=== PATIENT | male | born 1965 | race Caucasian/White ===

== ENCOUNTER 2017-12-28 14:12 | Inpatient (IN) ==
[2017-12-28] MEDS ORDERED: Pantoprazole 80 MG in 0.9 % Sodium Chloride 50 ML IVPB ONE ×2 (14:14→17:54)
[2017-12-28] MEDS ORDERED: 0.9 % Sodium Chloride 1,000 ML IVC ONE ×2 (14:14→14:15)
[2017-12-28] MEDS ORDERED: Octreotide 50 MCG/ML SYRINGE IVP ONE (14:14)
[2017-12-28] MEDS ORDERED: Ondansetron 4 MG/2 ML VIAL IVP ONE (14:14)
--- NOTE | 2017-12-28 14:27 | Emergency Department Note ---
Disposition Clinical Impression: Upper GI bleed Anemia Qualifiers: Anemia type: unspecified type Qualified Code(s): D64.9 - Anemia, unspecified Disposition: Admitted As Inpatient Condition: Critical Time of Disposition: 15:58 GI Bleed HPI - General Chief complaint: ED GI Bleed Stated complaint: GI BLEED Time Seen by Provider: 12/28/17 14:14 Source: EMS Limitations: no limitations Nursing Notes Reviewed: Yes Vital Signs Reviewed: Yes - History of Present Illness HPI Narrative: 52-year-old male, history of CVA, on Pradaxa presents by EMS for upper GI bleed. Multiple episodes emesis in route, 250-300 mL of bright red blood. 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 Most history is obtained from nodding head, questioning patient, sign language, and from his mom who arrived at bedside shortly thereafter EMS dropped him off. Denies chest or abdominal pain, apparently he had been at home in no acute distress, and started having emesis, then hematemesis. The patient denies history of varices, hepatitis, liver disease. Pt Subjective Complaint: blood streaked emesis, other (hematemesis) Consistency: intermittent Severity: severe Improves with: eating Associated symptoms: Reports: nausea, vomiting. Denies: abdominal pain, shortness of breath - Related Data Previous Rx's Medication Instructions Recorded Dabigatran Etexilate Mesylate 150 mg PO BID #60 capsule 12/07/17 [Pradaxa] Allergies Allergy/AdvReac Type Severity Reaction Status Date / Time No Known Allergies Allergy Verified 10/19/17 11:22 All systems ED: reviewed and negative except as stated. Review of Systems: As Per HPI Constitutional: Denies: fever Eyes: Denies: eye pain ENT ED: Denies: ear pain Cardiovascular: Denies: chest pain, palpitations Respiratory: Denies: cough Gastrointestinal: Reports: as per HPI, nausea, vomiting, hematemesis. Denies: abdominal pain Genitourinary: Denies: urgency, dysuria Musculoskeletal: Denies: back pain Integumentary: Denies: rash Past Medical History - Past Medical History Attestation: Yes The following information was validated with the patient. Source: patient, old records reviewed, obtained from family, nursing notes reviewed Medical history: Reports: CVA, DVT Surgical history: Reports: cholecystectomy Psychiatric history: Reports: no psych history - Social History Smoking Status: Former smoker Smokeless Tobacco Status: No Alcohol use: Reports: none Drug use: Reports: none Physical Exam - General General appearance: alert, in distress (moderate) - Eye Eye exam: Present: other (conjunctival pallor) - ENT ENT exam: other (dried blodo in oropharynx) - Neck Neck exam: Present: normal inspection - Chest Chest inspection: Present: normal inspection - Respiratory Respiratory exam: Present: normal lung sounds bilaterally. Absent: respiratory distress - Cardiovascular Cardiovascular exam: Present: regular rate, normal rhythm - Abdominal Exam Abdominal exam: Present: soft. Absent: tenderness, distention, guarding - Expanded Lower Extremity Exam Foot/toe exam: Present: swelling (chronic venous stasis dermatitis and pressure ulcers), abrasion Course Course Narrative: Patient arrives in moderate distress with active hematemesis, smelling like a lower GI bleed as well, appears frail cachectic, baseline weakness and aphasia from previous CVA, covered in blood around his mouth, with large blood clots at bedside, and 600 mL estimated blood loss, with 300 mL in the bag from EMS, immediately large-bore access was obtained, patient was placed on the teletypesetter monitor and given oxygen, CBC BMP coagulation studies, 2 units of normal saline , typed and screened patient's blood pressure was initially given 120s over 70s , she was in no acute distress, is mom arrived and give more history this is his first episode he had no previous GI bleed. The general surgeon/endoscopist Dr. Braun was counseled immediately, and she stated that she would come to bedside to evaluate the patient. - Reevaluation(s) Reevaluation #1: The patient was evaluated at the bedside by the endoscopist, consent was obtained for blood transfusion, hemoglobin came back at 5.0, 4 units were ordered, blood was confirmed ready and available the patient was sent off to the OR with blood to meet the patient at the OR for transfusion, he is hemodynamically stable, protecting his airway and no acute distress, with a blood pressure 1:30 systolic prior to transfer to the operating room, at the general surgeon's request. He was also ordered a unit of platelets, and told the patient received 2 L of IV normal saline, octreotide, pantoprazole 80 mg IV bolus, Zofran, and was hemodynamically stable during his stay in the emergency department, but considered tenuous/serious condition given likely brisk upper GI bleed on Pradaxa. Time: 15:56 - Consultations Consultation #1: I spoke with Dr. Braun, she agrees with initial plan for resuscitationshe will be by to assess the patient at bedside. Vital Signs Temperature 97.8 F 12/28/17 14:14 Pulse Rate 84 12/28/17 14:14 Respiratory Rate 16 12/28/17 14:14 Blood Pressure 123/60 12/28/17 14:14 O2 Sat by Pulse Oximetry 98 12/28/17 14:14 Temperature 97.8 F 12/28/17 14:14 Pulse Rate 84 12/28/17 14:14 Respiratory Rate 16 12/28/17 15:52 Blood Pressure 120/76 12/28/17 15:52 O2 Sat by Pulse Oximetry 98 12/28/17 14:14 Oxygen Delivery Oxygen Delivery Room Air GI Bleed - Differential Diagnosis Likely: infectious diarrhea, esophageal varices, gastritis, Upper gastrointestinal hemorrhage, Lower gastrointestinal hemorrhage, coagulopathy - Medical Records Medical records reviewed: Yes I reviewed the patient's medical records. - Lab Data Lab results reviewed: Yes I reviewed the patient's lab results. Result diagrams: 12/28/17 14:30 12/28/17 14:30 Lab Results 12/28/17 12/28/17 12/28/17 Range/Units 14:30 14:30 14:30 WBC 5.4 (4.3-11.1) K/mcL RBC 1.90 L (4.19-5.50) M/mcL Hgb 5.0 L* (12.9-16.9) g/dL Hct 16.1 L (37.5-50.1) % MCV 84.7 (83.0-100.0) fL MCH 26.3 L (28.0-33.3) pg MCHC 31.1 L (31.6-35.5) g/dL RDW 15.0 H (11.5-14.5) % Plt Count 95 L (140-400) K/mcL MPV 10.6 (9.4-12.4) fL Immature Gran % Test Not Performed Seg Neutrophils % 86.0 % Band Neutrophils % 4.0 (0-4) % Lymphocytes % 4.0 % Monocytes % 6.0 % Eosinophils % Test Not Performed Basophils % Test Not Performed Neutrophils # 4.9 (1.6-8.9) K/mcL Lymphocytes # 0.2 L (0.6-4.6) K/mcL Monocytes # 0.3 (0.0-1.3) K/mcL Eosinophils # Test Not Performed Basophils # Test Not Performed Platelet Estimate Decreased L (Normal) Immature Plt Fraction 3.8 (1.1-6.1) % Polychromasia 1+ A (Not Present) Hypochromasia Present A (Not Present) Microcytosis Present A (Not Present) PT 15.3 H (9.4-12.1) Seconds INR 1.4 APTT 16.6 L (26.0-36.0) Seconds Sodium 141 (136-145) mEq/L Potassium 3.4 L (3.5-5.1) mEq/L Chloride 112 H (98-107) mEq/L Carbon Dioxide 24 (23-29) mEq/L BUN 20 (6-20) mg/dL Creatinine 0.75 (0.70-1.30) mg/dL Est GFR ( Amer) > 60 (> 60) Est GFR (Non-Af Amer) > 60 (> 60) BUN/Creatinine Ratio 27 H (6-26) Glucose 154 H (70-105) mg/dL Calculated Osmolality 298 (280-300) Calcium 8.1 L (8.6-10.3) mg/dL Total Bilirubin 0.6 (0.3-1.0) mg/dL AST 21 (13-39) Units/L ALT 15 (7-52) Units/L Alkaline Phosphatase 60 (34-104) Units/L Troponin I (< 0.04) ng/mL Serum Total Protein 5.2 L (6.4-8.9) g/dL Albumin 3.0 L (3.5-5.7) g/dL Globulin 2.2 L (2.4-3.5) g/dL Albumin/Globulin Ratio 1.4 (1.1-2.2) Blood Type Antibody Screen Crossmatch 12/28/17 12/28/17 Range/Units 14:30 14:30 WBC (4.3-11.1) K/mcL RBC (4.19-5.50) M/mcL Hgb (12.9-16.9) g/dL Hct (37.5-50.1) % MCV (83.0-100.0) fL MCH (28.0-33.3) pg MCHC (31.6-35.5) g/dL RDW (11.5-14.5) % Plt Count (140-400) K/mcL MPV (9.4-12.4) fL Immature Gran % Seg Neutrophils % % Band Neutrophils % (0-4) % Lymphocytes % % Monocytes % % Eosinophils % Basophils % Neutrophils # (1.6-8.9) K/mcL Lymphocytes # (0.6-4.6) K/mcL Monocytes # (0.0-1.3) K/mcL Eosinophils # Basophils # Platelet Estimate (Normal) Immature Plt Fraction (1.1-6.1) % Polychromasia (Not Present) Hypochromasia (Not Present) Microcytosis (Not Present) PT (9.4-12.1) Seconds INR APTT (26.0-36.0) Seconds Sodium (136-145) mEq/L Potassium (3.5-5.1) mEq/L Chloride (98-107) mEq/L Carbon Dioxide (23-29) mEq/L BUN (6-20) mg/dL Creatinine (0.70-1.30) mg/dL Est GFR ( Amer) (> 60) Est GFR (Non-Af Amer) (> 60) BUN/Creatinine Ratio (6-26) Glucose (70-105) mg/dL Calculated Osmolality (280-300) Calcium (8.6-10.3) mg/dL Total Bilirubin (0.3-1.0) mg/dL AST (13-39) Units/L ALT (7-52) Units/L Alkaline Phosphatase (34-104) Units/L Troponin I < 0.03 (< 0.04) ng/mL Serum Total Protein (6.4-8.9) g/dL Albumin (3.5-5.7) g/dL Globulin (2.4-3.5) g/dL Albumin/Globulin Ratio (1.1-2.2) Blood Type A NEGATIVE Antibody Screen NEGATIVE Crossmatch See Detail - Radiology Data Radiology results reviewed: Yes I reviewed the patient's radiology results. Chest X-Ray 12/28/17 14:14 IMPRESSION: Stable appearing chest without acute cardiopulmonary process. D/ / Matthew Zimmer MD / Matthew Zimmer MD Interpreting Provider: Matthew Zimmer MD - EKG Data EKG attestation: Yes I reviewed and interpreted this EKG. EKG shows normal: sinus rhythm Rate: normal Rhythm: NSR [place]/QRS: normal Interpretation: no acute changes - Core Measures AMI Core Measures Followed: No Critical Care Time Critical Care Time: Yes Total Critical Care Time: 35 Attestation: Critical care performed: Time is exclusive of separately billable procedures. Time includes: direct patient care, patient reassessment, coordination of patient care, interpretation of data (laboratory data, radiology data, and respiratory data), review of patient's medical records, medical consultation and documentation of patient care. Procedures included in critical care time: Procedures excluded from critical care time: Attestation Statement - Attestation Attestation: I, Lester Hastings DO, examined this patient [id number] and my medical decision-making was reviewed with Dr. Kota Ybarra, Resident Physician. I agree with the documented findings, disposition and treatment plan as described except to the extent set forth below. Please see my progress notes for details. 52-year-old male presents to emergency room with gross hematemesis and GI bleed. Patient has a history of being on paradoxus secondary to clotting disorder. On presentation patient had approximately 300-500 mL of gross blood in emesis patient. Vital signs are stable. 5. IVs were established. Type and screen protonix, octreotide and anti-emetics Were ordered. Patient was also given antiemetic. Screening labs were also completed. Consultation immediately was completed to the on-call endoscopist Dr. Braun. Bedside evaluation and physical exam was completed by the surgeon. No other recommendations at this time except to complete the course and admission to be established. Patient still having abdominal discomfort but no guarding or rigidity. No other physical exam findings at this time except for chronic venous stasis ulcers in lower extremities and pitting edema. Patient also has known blood clots enlarged ovaries. Patient has a chronic stroke secondary to the bleeding disorder that is undiagnosed at this point. The laboratory group called the status of the patient had a hemoglobin of 5. Immediately 4 units of blood were ordered. Patient also to be given platelets at the request of the surgeon. Surgery requested the patient be transferred to endoscopy immediately. Blood as and type and screen and waiting. She is to restudy in the emergency room and she is to be transferred to the endoscopy suite. Patient has otherwise been hemodynamically stable throughout the entire treatment course here in the emergency room. Disposition to be determined. Patient is concerning her decompensation secondary to the active gross GI bleed. Patient will be transported to the operative suite at this time. Vital signs of unstable mentation has been baseline throughout the entire case of care at this point. 35 minutes of critical care was applied to this patient treatment course here in the emergency room 1525 Patient transported to the endoscopy suite without any complication. Hemodynamics were stable. Patient will be admitted for definitive management. No acute signs of decompensation. 4 units of typed blood bradycardia for the patient and the operative suite. No other concerns or issues noted at this time. Family was informed of patient stable time of our emergency room.
[2017-12-28 14:44] LABS: Mean Corpuscular Volume 84.7 fL (83.0-100.0); Mean Platelet Volume 10.6 fL (9.4-12.4)
[2017-12-28 14:49] LABS: INR 1.4; Prothrombin Time 15.3 Seconds (9.4-12.1)
[2017-12-28 14:56] LABS: Activated Partial Thrombo Time 16.6 Seconds (26.0-36.0)
[2017-12-28 14:57] LABS: Hematocrit 16.1 % (37.5-50.1); Immature Platelets 3.8 % (1.1-6.1); Mean Corpuscular HGB Conc 31.1 g/dL (31.6-35.5); Mean Corpuscular Hemoglobin 26.3 pg (28.0-33.3)
[2017-12-28 15:09] LABS: Alanine Aminotransferase 15 Units/L (7-52); Albumin/Globulin Ratio 1.4 (1.1-2.2); Alkaline Phosphatase 60 Units/L (34-104); Aspartate Amino Transferase 21 Units/L (13-39); BUN/Creatinine Ratio 27 (6-26); Bilirubin,Total 0.6 mg/dL (0.3-1.0); Blood Urea Nitrogen 20 mg/dL (6-20); Calcium 8.1 mg/dL (8.6-10.3); Carbon Dioxide 24 mEq/L (23-29); Chloride 112 mEq/L (98-107); Globulin 2.2 g/dL (2.4-3.5); Glucose 154 mg/dL (70-105); Osmolality,Calculated 298 (280-300); Potassium 3.4 mEq/L (3.5-5.1); Sodium 141 mEq/L (136-145); Total Protein 5.2 g/dL (6.4-8.9); eGFR For African Americans > 60 (> 60); eGFR For Non-African Americans > 60 (> 60)
--- NOTE | 2017-12-28 15:13 | Anesthesia Evaluation PreOp ---
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 History: CVA (28 yrs ago - L-hemiparesis, aphasic - comprehends spoken language and can write) Other Medical History: Bleeding (Incomplete work up for blood clotting/bleeding disorder [re: CVA age 22]) Anesthesia History: No Prior Anesthetic Complications, Past Anesthesia Alcohol Use: none Drug use: none Medications and Allergies Dabigatran Etexilate Mesylate [Pradaxa] 150 mg PO BID #60 capsule 12/07/17 [Rx] 3 Allergy/AdvReac Type Severity Reaction Status Date / Time No Known Allergies Allergy Verified 10/19/17 11:22 - Meds/Allergy Pre-op Review Medications Reviewed: Yes Allergies Reviewed: Yes Beta Blockers on Current Med List: No Anesthesia Results - Labs 12/28/17 14:30 12/28/17 14:30 Laboratory Results PT 15.3 Seconds (9.4-12.1) H 12/28/17 14:30 INR 1.4 12/28/17 14:30 APTT 16.6 Seconds (26.0-36.0) L 12/28/17 14:30 Troponin I < 0.03 ng/mL (< 0.04) 12/28/17 14:30 Blood Type A NEGATIVE 12/28/17 14:30 Laboratory Results WBC 5.4 K/mcL (4.3-11.1) 12/28/17 14:30 RBC 1.90 M/mcL (4.19-5.50) L 12/28/17 14:30 Hgb 5.0 g/dL (12.9-16.9) L* 12/28/17 14:30 Hct 16.1 % (37.5-50.1) L 12/28/17 14:30 MCV 84.7 fL (83.0-100.0) 12/28/17 14:30 MCH 26.3 pg (28.0-33.3) L 12/28/17 14:30 MCHC 31.1 g/dL (31.6-35.5) L 12/28/17 14:30 RDW 15.0 % (11.5-14.5) H 12/28/17 14:30 Plt Count 95 K/mcL (140-400) L 12/28/17 14:30 MPV 10.6 fL (9.4-12.4) 12/28/17 14:30 Immature Gran % Test Not Performed 12/28/17 14:30 Seg Neutrophils % 86.0 % 12/28/17 14:30 Band Neutrophils % 4.0 % (0-4) 12/28/17 14:30 Lymphocytes % 4.0 % 12/28/17 14:30 Monocytes % 6.0 % 12/28/17 14:30 Eosinophils % Test Not Performed 12/28/17 14:30 Basophils % Test Not Performed 12/28/17 14:30 Neutrophils # 4.9 K/mcL (1.6-8.9) 12/28/17 14:30 Lymphocytes # 0.2 K/mcL (0.6-4.6) L 12/28/17 14:30 Monocytes # 0.3 K/mcL (0.0-1.3) 12/28/17 14:30 Eosinophils # Test Not Performed 12/28/17 14:30 Basophils # Test Not Performed 12/28/17 14:30 Platelet Estimate Decreased (Normal) L 12/28/17 14:30 Immature Plt Fraction 3.8 % (1.1-6.1) 12/28/17 14:30 Polychromasia 1+ (Not Present) A 12/28/17 14:30 Hypochromasia Present (Not Present) A 12/28/17 14:30 Microcytosis Present (Not Present) A 12/28/17 14:30 PT 15.3 Seconds (9.4-12.1) H 12/28/17 14:30 INR 1.4 12/28/17 14:30 APTT 16.6 Seconds (26.0-36.0) L 12/28/17 14:30 Sodium 141 mEq/L (136-145) 12/28/17 14:30 Potassium 3.4 mEq/L (3.5-5.1) L 12/28/17 14:30 Chloride 112 mEq/L (98-107) H 12/28/17 14:30 Carbon Dioxide 24 mEq/L (23-29) 12/28/17 14:30 BUN 20 mg/dL (6-20) 12/28/17 14:30 Creatinine 0.75 mg/dL (0.70-1.30) 12/28/17 14:30 Est GFR ( Amer) > 60 (> 60) 12/28/17 14:30 Est GFR (Non-Af Amer) > 60 (> 60) 12/28/17 14:30 BUN/Creatinine Ratio 27 (6-26) H 12/28/17 14:30 Glucose 154 mg/dL (70-105) H 12/28/17 14:30 Calculated Osmolality 298 (280-300) 12/28/17 14:30 Calcium 8.1 mg/dL (8.6-10.3) L 12/28/17 14:30 Total Bilirubin 0.6 mg/dL (0.3-1.0) 12/28/17 14:30 AST 21 Units/L (13-39) 12/28/17 14:30 ALT 15 Units/L (7-52) 12/28/17 14:30 Alkaline Phosphatase 60 Units/L (34-104) 12/28/17 14:30 Troponin I < 0.03 ng/mL (< 0.04) 12/28/17 14:30 Serum Total Protein 5.2 g/dL (6.4-8.9) L 12/28/17 14:30 Albumin 3.0 g/dL (3.5-5.7) L 12/28/17 14:30 Globulin 2.2 g/dL (2.4-3.5) L 12/28/17 14:30 Albumin/Globulin Ratio 1.4 (1.1-2.2) 12/28/17 14:30 Blood Type A NEGATIVE 12/28/17 14:30 Antibody Screen NEGATIVE 12/28/17 14:30 Crossmatch See Detail 12/28/17 14:30 Impressions Chest X-Ray 12/28/17 14:14 IMPRESSION: Stable appearing chest without acute cardiopulmonary process. D/ / Matthew Zimmer MD / Matthew Zimmer MD Interpreting Provider: Matthew Zimmer MD Anesthesia Exam Height: 6'1" Anesthesia Assess/Plan ASA Score: 3, E
[2017-12-28 15:14] LABS: Platelet Count 95 K/mcL (140-400)
--- NOTE | 2017-12-28 15:14 | General Surg History&Physical ---
Date of Encounter: 12/28/17 Time of Encounter: 15:12 Assessment and Plan (1) Anticoagulated by anticoagulation treatment Current Visit: Yes Status: Acute The assessment and plan as outlined above was discussed with the patient and/or family members who expressed understanding and agreement. All questions were answered. hold pradaxa (2) Venous stasis ulcers of both lower extremities Current Visit: No Status: Chronic The assessment and plan as outlined above was discussed with the patient and/or family members who expressed understanding and agreement. All questions were answered. wash with soap and water daily apply 0.25% Dakins moistened 4x4 gauze into the open wound, cover with dry 4x4 gauze, wrap with kerlix and secure with tape, change daily (3) UGIB (upper gastrointestinal bleed) Current Visit: Yes Status: Acute The assessment and plan as outlined above was discussed with the patient and/or family members who expressed understanding and agreement. All questions were answered. discussed with patient performing and EGD with potential intervention for UGIB, risks and benefits discussed and he wishes to proceed npo, ivf hydration History of Present Illness Chief complaint: upper gib HPI: Mr. Atkinson is a 52 year old male who was at home when his mother decided to visit and found him sitting and too weak to get up. She called the squad and when they arrived and he was put in the squad he had hematemesis, multiple episodes. Patient is on pradaxa for DVT's. He was being worked up for a hypercoagulable condition but never followed up with hematology. He denies abdominal pain. He denies previously wretching or emesis before the bleeding. He has never had an egd or colonoscopy. He had a CVA with residual left arm and leg weakness, CVA occurred when patient was 22 years of age. Past Med Surg Social Fam HX - Past Medical History Source: patient, obtained from family Medical history: CVA (at 22 yrs age, residual left sided weakness), DVT Psychiatric history: no psych history - Past Surgical History Surgical History: cholecystectomy (laparoscopic) - Social History Smoking Status: Former smoker Smokeless Tobacco Status: No Alcohol use: none Drug use: none - Family History Grandmother History Unknown: Yes Medications and Allergies Dabigatran Etexilate Mesylate [Pradaxa] 150 mg PO BID #60 capsule 12/07/17 [Rx] 3 Allergy/AdvReac Type Severity Reaction Status Date / Time No Known Allergies Allergy Verified 10/19/17 11:22 Review of Systems All systems PM: reviewed and no additional remarkable complaints except as stated All systems PM: A 10-system review of systems was performed and is negative for pertinent findings except as documented above in the HPI. General Surgery Exam Initial Vital Signs Temp Pulse Resp BP Pulse Ox 97.8 F 84 16 123/60 98 12/28/17 14:14 12/28/17 14:14 12/28/17 14:14 12/28/17 14:14 12/28/17 14:14 - General physical appearance no distress, no pain, other (pale) - Eyes PERRL, normal ocular movement - ENT normal mucosa, normocephalic - Neck trachea midline - Respiratory normal expansion, clear to auscultation - Cardiovascular Cardiovascular exam: Present: RRR, no murmurs/rubs/gallops - Abdomen Abdomen general surgery: Present: bowel sounds present, soft, non tender. Absent: distended - Integumentary Integumentary general surgery: Present: warm and dry - Neurologic Present: other (left sided weakness, aphasic) - Musculoskeletal Present: normal posture - Psychiatric Psychiatric general surgery: Present: A&Ox3 Results - Labs 12/28/17 14:30 Abnormal lab results PT 15.3 Seconds (9.4-12.1) H 12/28/17 14:30 APTT 16.6 Seconds (26.0-36.0) L 12/28/17 14:30 Potassium 3.4 mEq/L (3.5-5.1) L 12/28/17 14:30 Chloride 112 mEq/L (98-107) H 12/28/17 14:30 BUN/Creatinine Ratio 27 (6-26) H 12/28/17 14:30 Glucose 154 mg/dL (70-105) H 12/28/17 14:30 Calcium 8.1 mg/dL (8.6-10.3) L 12/28/17 14:30 Serum Total Protein 5.2 g/dL (6.4-8.9) L 12/28/17 14:30 Albumin 3.0 g/dL (3.5-5.7) L 12/28/17 14:30 Globulin 2.2 g/dL (2.4-3.5) L 12/28/17 14:30 Diabetes panel 12/28/17 Range/Units 14:30 Sodium 141 (136-145) mEq/L Potassium 3.4 L (3.5-5.1) mEq/L Chloride 112 H (98-107) mEq/L Carbon Dioxide 24 (23-29) mEq/L BUN 20 (6-20) mg/dL Creatinine 0.75 (0.70-1.30) mg/dL Glucose 154 H (70-105) mg/dL Calcium 8.1 L (8.6-10.3) mg/dL AST 21 (13-39) Units/L ALT 15 (7-52) Units/L Alkaline Phosphatase 60 (34-104) Units/L Albumin 3.0 L (3.5-5.7) g/dL Calcium panel 12/28/17 Range/Units 14:30 Calcium 8.1 L (8.6-10.3) mg/dL Albumin 3.0 L (3.5-5.7) g/dL Pituitary panel 12/28/17 Range/Units 14:30 Sodium 141 (136-145) mEq/L Potassium 3.4 L (3.5-5.1) mEq/L Chloride 112 H (98-107) mEq/L Carbon Dioxide 24 (23-29) mEq/L BUN 20 (6-20) mg/dL Creatinine 0.75 (0.70-1.30) mg/dL Glucose 154 H (70-105) mg/dL Calcium 8.1 L (8.6-10.3) mg/dL Adrenal panel 12/28/17 Range/Units 14:30 Sodium 141 (136-145) mEq/L Potassium 3.4 L (3.5-5.1) mEq/L Chloride 112 H (98-107) mEq/L Carbon Dioxide 24 (23-29) mEq/L BUN 20 (6-20) mg/dL Creatinine 0.75 (0.70-1.30) mg/dL Glucose 154 H (70-105) mg/dL Calcium 8.1 L (8.6-10.3) mg/dL Total Bilirubin 0.6 (0.3-1.0) mg/dL AST 21 (13-39) Units/L ALT 15 (7-52) Units/L Alkaline Phosphatase 60 (34-104) Units/L Albumin 3.0 L (3.5-5.7) g/dL All other labs normal.
[2017-12-28] MEDS ORDERED: *HR* FentaNYL (PF) 100 MCG/2 ML VIAL ONE (15:23)
[2017-12-28] MEDS ORDERED: *HR* Propofol 200 MG/20 ML VIAL IVP ONE (15:23)
[2017-12-28] MEDS ORDERED: *HR* Midazolam HCl 2 MG/2 ML VIAL ONE (15:23)
[2017-12-28] MEDS ORDERED: *HR* Rocuronium Bromide 50 MG/5 ML VIAL ONE (15:24)
[2017-12-28] MEDS ORDERED: Dexamethasone 4 MG/ML VIAL ONE (15:24)
[2017-12-28] MEDS ORDERED: Lidocaine -MPF 2% 2 ML VIAL ONE (15:24)
[2017-12-28] MEDS ORDERED: *HR* Succinylcholine 200 MG/10 ML VIAL IVP ONE (15:24)
[2017-12-28] MEDS ORDERED: Ondansetron 4 MG/2 ML VIAL ONE (15:24)
[2017-12-28] MEDS ORDERED: Lidocaine -MPF 4% 5 ML AMPUL ONE (15:30)
[2017-12-28 15:33] LABS: Lymphocytes # 0.2 K/mcL (0.6-4.6); Monocytes # 0.3 K/mcL (0.0-1.3); Neutrophils # 4.9 K/mcL (1.6-8.9)
[2017-12-28 15:34] LABS: Hypochromasia Present (Not Present); Microcytosis Present (Not Present); Platelet Estimate Decreased (Normal); Polychromasia 1+ (Not Present)
[2017-12-28] MEDS ORDERED: Metoclopramide 10 MG/2 ML VIAL ONE (16:00)
[2017-12-28] MEDS ORDERED: Famotidine 20 MG/2 ML VIAL ONE (16:00)
[2017-12-28] MEDS ORDERED: *HR* PHENYLEPHRINE 1,000 MCG/10 ML SYRINGE IVP ONE (16:18)
[2017-12-28] MEDS ORDERED: EPHEDrine 50 MG/ML VIAL ONE (16:19)
[2017-12-28] MEDS ORDERED: Dexamethasone 4 MG/ML VIAL IVP ONE (16:57)
[2017-12-28] MEDS ORDERED: *HR* Promethazine 25 MG/ML VIAL IVP PRN ×2 (16:57→17:54)
[2017-12-28] MEDS ORDERED: Ondansetron 4 MG/2 ML VIAL IVP PRN (17:54)
[2017-12-28] MEDS ORDERED: *HR* Metoprolol 5 MG/5 ML VIAL IVP PRN (17:54)
[2017-12-28] MEDS ORDERED: 0.9 % Sodium Chloride 250 ML ONE (18:02)
--- NOTE | 2017-12-28 18:17 | Anesthesia Evaluation Post Op ---
Date of Encounter: 12/28/17 Time of Encounter: 18:14 - Vital Signs Vital Signs: Vital Signs/O2 Sat/Glucose, Most Current Temp Pulse Resp BP Pulse Ox 12/28/17 17:53 98.6 F 79 16 150/78 98 12/28/17 17:43 98.7 F 77 17 149/71 99 12/28/17 17:33 78 16 151/74 100 12/28/17 17:23 80 16 155/73 100 12/28/17 17:13 98.4 F 76 18 140/74 100 12/28/17 17:03 79 14 139/68 100 12/28/17 16:53 89 14 133/78 100 12/28/17 16:43 97.3 F L 94 14 124/68 100 12/28/17 15:52 16 120/76 - Lungs Lungs: Clear Ascult./Percussion - Airway Airway: Non-obstructed - Cardiovascular Regular Rate - Mental Status Mental Status: Alert & Oriented, Answers Appropriately - Pain Pain Scale: 0 Pain Scale used: Numeric (1 - 10) - Nausea Vomiting Nausea Vomiting: Not Present - Hydration Hydration: NPO - Discharge PostOp Status: Transfer Patient to floor Anes Supervising Prov Stmt: Pt seen/evaluated, VSS despite CBC revealing critical low Hgb == 4.8. Pt has met criteria for discharge floor where he will receive pRBCs. Jacqueline Cisneros MD
[2017-12-28] MEDS: 0.9 % Sodium Chloride 1,000 ML IVC SCH (18:58)
[2017-12-29 06:05] LABS: Hematocrit 24.5 % (37.5-50.1)
[2017-12-29 06:09] LABS: Hemoglobin 7.8 g/dL (12.9-16.9)
[2017-12-29 06:21] LABS: BUN/Creatinine Ratio 25 (6-26); Blood Urea Nitrogen 19 mg/dL (6-20); Carbon Dioxide 23 mEq/L (23-29); Chloride 114 mEq/L (98-107); Glucose 128 mg/dL (70-105); Magnesium 1.7 mg/dL (1.6-2.6); Osmolality,Calculated 296 (280-300); Phosphorous 2.2 mg/dL (2.7-4.5); Potassium 3.8 mEq/L (3.5-5.1); Sodium 141 mEq/L (136-145); eGFR For African Americans > 60 (> 60); eGFR For Non-African Americans > 60 (> 60)
[2017-12-29 09:57] LABS: Hematocrit 27.4 % (37.5-50.1); Hemoglobin 8.3 g/dL (12.9-16.9)
[2017-12-29] MEDS: Octreotide 400 MCG in 0.9 % Sodium Chloride 100 ML IVC SCH ×2 (10:00→22:29)
[2017-12-29] MEDS: Pantoprazole 40 MG in 0.9 % Sodium Chloride Mini Bag 100 ML IVC SCH ×3 (10:00→21:31)
[2017-12-29 10:13] LABS: % Iron Saturation 5 % (20-55); Iron 21 mcg/dL (65-175); Transferrin 285 mg/dL (203-362)
[2017-12-29 10:40] LABS: Hepatitis A Antibody IgM Nonreactive (Nonreactive); Hepatitis B Core IgM Nonreactive (Nonreactive); Hepatitis B Surface Antigen Nonreactive (Nonreactive); Hepatitis C Virus Antibody Nonreactive (Nonreactive)
--- NOTE | 2017-12-29 11:07 | General Surgery Progress Note ---
Date of Encounter: 12/29/17 Time of Encounter: 10:30 - Assessment and Plan (1) UGIB (upper gastrointestinal bleed) Current Visit: Yes Status: Acute s/p EGD with Dr. Braun which shows- Grade III esophageal varicies, gastric ulcers, old blood within the gastric cardia Consult to gastroenterology and hematology today NPO for US of abdomen later today- evaluate cirrhosis Continue PPI therapy- gtt initiated per gastroenterology Octreotide started per gastroenterology Monitor Hgb/Hct - 4.8>7.8>8.3 (total of 4 units PRBC transfused) (2) Acute blood loss anemia Current Visit: Yes Status: Acute Hgb- 4.8>7.8>8.3 (total of 4 units of PRBC transfused) No evidence of ongoing bleeding noted Monitor Hgb/Hct Repeat am labs (3) Gastric ulcer Current Visit: Yes Status: Acute s/p EGD with Dr. Braun which shows- Grade III esophageal varicies, gastric ulcers, old blood within the gastric cardia Pathology pending Consult to gastroenterology and hematology today NPO for US of abdomen later today- evaluate cirrhosis Continue PPI therapy- gtt initiated per gastroenterology Octreotide started per gastroenterology Monitor Hgb/Hct - 4.8>7.8>8.3 (total of 4 units PRBC transfused) Qualifiers: Gastric ulcer chronicity: acute Gastric ulcer complication status: with hemorrhage Qualified Code(s): K25.0 - Acute gastric ulcer with hemorrhage (4) Esophageal varices Current Visit: Yes Status: Chronic s/p EGD with Dr. Braun which shows- Grade III esophageal varicies, gastric ulcers, old blood within the gastric cardia Consult to gastroenterology and hematology today NPO for US of abdomen later today- evaluate cirrhosis Continue PPI therapy- gtt initiated per gastroenterology Octreotide started per gastroenterology Monitor Hgb/Hct - 4.8>7.8>8.3 (total of 4 units PRBC transfused) Qualifiers: Esophageal varices type: unspecified type Esophageal varices bleeding: without bleeding Qualified Code(s): I85.00 - Esophageal varices without bleeding (5) Venous stasis ulcers of both lower extremities Current Visit: No Status: Chronic Follow wound care orders as written per Dr. Braun (6) Anticoagulated by anticoagulation treatment Current Visit: Yes Status: Acute Hold Pradaxa for now Hematology consulted for recommendations (7) Thrombocytopenia Current Visit: Yes Status: Acute Plateletes- 95 Hold Pradaxa for now Hematology consulted for recommendations Repeat am labs Subjective Patient reports: no new complaints, feels better, voiding w/o difficulty, flatus , no bowel movement, afebrile Objective Vital Signs - Last 8 Hours Temp Pulse Resp BP Pulse Ox 12/29/17 06:50 98.1 F 90 16 106/63 100 12/29/17 04:54 98.8 F 72 130/59 Intake and Output 12/28/17 12/29/17 12/29/17 23:59 07:59 15:59 Intake Total 350 / 350 1050 / 1050 Output Total 475 / 475 525 / 525 Balance -125 / -125 525 / 525 Intake: Blood Product 350 / 350 1050 / 1050 Rbcs Leuko Poor As-1 Unit 350 / 350 [id number] Rbcs Leuko Poor As-1 Unit 0 / 0 350 / 350 [id number] Rbcs Leuko Poor As-1 Unit 350 / 350 [id number] Rbcs Leuko Poor As-1 Unit 350 / 350 [id number] Output: Urine 475 / 475 525 / 525 Other: Weight 89.7 kg 91.3 kg Blood Glucose* 156 134 Patient Weight 12/29/17 23:59 Weight 91.3 kg - General physical appearance well nourished, no distress, no pain, chronically ill - Eyes normal ocular movement - ENT normal mucosa, atraumatic, normocephalic - Neck Neck exam: trachea midline - Respiratory normal respiratory effort, clear to auscultation - Cardiovascular Cardiovascular exam: Present: RRR - Abdomen Abdomen: Present: bowel sounds present, soft, non tender - Integumentary other (Bilateral lower extremity venous stasis ulcers) - Neurologic CN 2-12 grossly intact - Psychiatric oriented to time, oriented to person, oriented to place, memory intact, other ( Patient is non-verbal and communicates effectively via writing) - Labs 12/29/17 09:13 12/29/17 05:48 Diabetes panel 12/29/17 Range/Units 05:48 Sodium 141 (136-145) mEq/L Potassium 3.8 (3.5-5.1) mEq/L Chloride 114 H (98-107) mEq/L Carbon Dioxide 23 (23-29) mEq/L BUN 19 (6-20) mg/dL Creatinine 0.75 (0.70-1.30) mg/dL Glucose 128 H (70-105) mg/dL Calcium 8.0 L (8.6-10.3) mg/dL Calcium panel 12/29/17 Range/Units 05:48 Calcium 8.0 L (8.6-10.3) mg/dL Phosphorus 2.2 L (2.7-4.5) mg/dL Pituitary panel 12/29/17 Range/Units 05:48 Sodium 141 (136-145) mEq/L Potassium 3.8 (3.5-5.1) mEq/L Chloride 114 H (98-107) mEq/L Carbon Dioxide 23 (23-29) mEq/L BUN 19 (6-20) mg/dL Creatinine 0.75 (0.70-1.30) mg/dL Glucose 128 H (70-105) mg/dL Calcium 8.0 L (8.6-10.3) mg/dL Adrenal panel 12/29/17 Range/Units 05:48 Sodium 141 (136-145) mEq/L Potassium 3.8 (3.5-5.1) mEq/L Chloride 114 H (98-107) mEq/L Carbon Dioxide 23 (23-29) mEq/L BUN 19 (6-20) mg/dL Creatinine 0.75 (0.70-1.30) mg/dL Glucose 128 H (70-105) mg/dL Calcium 8.0 L (8.6-10.3) mg/dL Consult Discharge Plan - Plan Referrals: Wound,Care [Other] - 01/06/18 2:15 pm Dolph,Cmanual [Other] - 01/10/18 12:45 pm - Attending Attestation For this encounter, I have reviewed the BIOMETRICS INSTRUCTOR or PA documentation, treatment plan, and medical decision making; and I have had face to face time with this patient.
--- NOTE | 2017-12-29 11:40 | Electrocardiograph Report ---
[address] [address] Test Date: 2017-12-28 Pat Name: Orlin Atkinson Department: 102 Room: 2N05 Gender: M Network Project Manager: Vega : 1965 Requested By: Kota Ybarra Order Number: [id number] Reading MD: Isidro Vergara MD Measurements Intervals [place] Rate: 81 P: 34 [place]: 144 QRS: 48 QRSD: 90 T: 27 QT: 411 QTc: 448 Interpretive Statements SINUS RHYTHM BASELINE ARTIFACT Electronically Signed On 12-29-2017 11:39:42 EST by Isidro Vergara MD
[2017-12-29 12:22] LABS: Hematocrit 26.6 % (37.5-50.1); Hemoglobin 8.2 g/dL (12.9-16.9)
--- NOTE | 2017-12-29 12:22 | Gastroenterology Consult Note ---
<Abimael Crow - Last Filed: 12/29/17 13:29> Date of Encounter: 12/29/17 - Time Spent With Patient Total time spent is greater than 50% in coordination of care (as documented) at patient's floor/unit and/or counseling patient: GI History of Present Illness - Data of Consult Requesting Physician: Cici Braun MD - Consult Narrative History of present illness: Mr. Atkinson is a 52 year old male - Constitutional Vitals: Temp Pulse Resp BP Pulse Ox 98.2 F 68 12 119/74 100 12/29/17 11:38 12/29/17 11:38 12/29/17 11:38 12/29/17 11:38 12/29/17 11:38 Results - Labs CBC & Chem 7: 12/29/17 11:54 12/29/17 05:48 Labs: Last Result Calcium 8.0 mg/dL (8.6-10.3) L 12/29/17 05:48 Iron 21 mcg/dL (65-175) L 12/29/17 09:13 % Saturation 5 % (20-55) L 12/29/17 09:13 Transferrin 285 mg/dL (203-362) 12/29/17 09:13 Troponin I < 0.03 ng/mL (< 0.04) 12/28/17 14:30 Entire Visit Hgb 8.2 g/dL (12.9-16.9) L 12/29/17 11:54 Hct 26.6 % (37.5-50.1) L 12/29/17 11:54 PT 15.3 Seconds (9.4-12.1) H 12/28/17 14:30 Total Bilirubin 0.6 mg/dL (0.3-1.0) 12/28/17 14:30 AST 21 Units/L (13-39) 12/28/17 14:30 ALT 15 Units/L (7-52) 12/28/17 14:30 - ABG ABG results: PT/INR, D-dimer PT 15.3 Seconds (9.4-12.1) H 12/28/17 14:30 Consult Discharge Plan - Plan Referrals: Wound,Care [Other] - 01/06/18 2:15 pm Dolph,Cmanual [Other] - 01/10/18 12:45 pm - Attending Attestation 52 year old male who came in with hematochezia over 4 days prior to admission and on an emergent EGD was found to have a large clot in the fundus of the stomach and incidental grade 3 esophageal varices per note. No stigmata of bleeding were noted in the variceal columns. The clot was seperate and in the fundus. Possibly overlying an ulcer/AVM presumably. This was apparently an adherent clot. Two clips were apparently applied at the time of endoscopy. This morning, his hemoglobin was 7.8gm% after 4 units of packed cells. No bowel movements yesterday or this morning. Will check repeat hemoglobin at 10 am. Will request records from [facility] where patient was told he had cirrhosis of liver and had a ?liver biopsy - would like to review that also...Patient had a long history of alcohol abuse up until about 20 years ago when he quit. His hepatitis status is unknown at this point. Will await records from [place] before ordering any tests. Will however check an abdominal ultrasound. Would hold off any endoscopy for now unless there is clear evidence of rebleeding. Pradaxa is on hold. Had a long discussion with patient. Keep in ICU. Would do esophageal variceal banding as outpatient. Patient will also need to be on beta blockade. I have personally performed a face to face evaluation on this patient. I have reviewed and agree with the care plan. History and Exam by me shows: <Calista Mcnamara - Last Filed: 12/29/17 15:38> Date of Encounter: 12/29/17 Time of Encounter: 10:45 - Assessment and plan (1) Esophageal varices Current Visit: Yes Status: Chronic Assessment and plan: Pt presents with weakness and hematemesis was found to have anemia with Hgb 4.8. EGD by Dr Braun showed Grade III esophageal varices and oozing gastric ulcers. Pradaxa has been held. He has been transfused, monitor H&H. Will order octeotride and protonix drips. Will order workup for cirrhosis. He may need repeat EGD with banding of esophageal varices, if he has any further bleeding. Discussed with pt and he verbalizes understanding. Qualifiers: Esophageal varices type: unspecified type Esophageal varices bleeding: without bleeding Qualified Code(s): I85.00 - Esophageal varices without bleeding - Time Spent With Patient Total time spent is greater than 50% in coordination of care (as documented) at patient's floor/unit and/or counseling patient: GI History of Present Illness - Data of Consult Patient: new to practice Consult date: 12/29/17 Requesting Physician: Cici Braun MD - Consult Narrative Reason for consult: esophageal varices History of present illness: Mr. 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 Although he is aphasic he is able to communicate effectively via writing. He states he had progressive weakness over the past 3-4 days. He reports a couple episodes of "watered down blood" in his stool. He had several episodes of hematoemesis on the day of admission. His mother called EMS due to extreme weakness. He was found to have a hemoglobin of 4.8. He has been transfused 4 units packed red blood cells and hemoglobin this morning is 8.3. He denies any nausea or vomiting at this time. He denies any abdominal pain. He denies any diarrhea or constipation at home. He is s/p EGD by Dr. Braun which showed grade 3 large esophageal varices. He also had 3 oozing superficial gastric ulcers, and hemostatic clips placed. Clotted blood was found in the cardia without oozing present. Patient is on pradaxa for DVT's. He was being worked up for a hypercoagulable condition but never followed up with hematology. He denies previously wretching or emesis before the bleeding. He has never had an egd or colonoscopy. He states in January 2017 he was seen at [facility] for bilateral lower extremity DVTs and a they suspected cirrhosis at that time and did a liver biopsy which was negative. He states he was a heavy drinker in the past but has not drank any ETOH since 1986. Colonoscopy: denies EGD: 12/28/17 dr Braun large esophageal varices, blood clots in cardia and oozing gastric ulcers NSAIDS/ASA: denies Anticoagulants: pradaxa Past Med Surg Social Fam HX - Past Medical History Medical history: CVA, DVT Psychiatric history: no psych history - Past Surgical History Surgical History: cholecystectomy - Social History Smoking Status: Former smoker Smokeless Tobacco Status: No Alcohol use: none Drug use: none - Family History Grandmother History Unknown: Yes Review of Systems: GI: as per QAWALANGIN GENERAL: denies fever, has some chills EYES: denies yellow discoloration ENT: denies pain with swallowing or difficulty swallowing CARDIO: denies chest pain, palpitations RESP: No Shortness of breath with exertion : denies change in color of urine NEURO: chronic left sided weakness, increased weakness HEME: Denies any bruising MS: denies joint pain, joint swelling or back pain. DERM: denies rash or itching PSYCH: history of anxiety or depression - Constitutional Vitals: Temp Pulse Resp BP Pulse Ox 98.2 F 68 12 119/74 100 12/29/17 11:38 12/29/17 11:38 12/29/17 11:38 12/29/17 11:38 12/29/17 11:38 Exam: CONSTITUTIONAL:~alert, no acute distress.~HEAD:~facial wasting.~EYES:~no jaundice.~NECK:~no obvious swelling.~HEART:~regular rate and rhythm, no murmurs. ~LUNGS:~bilateral fair air entry.~ABDOMEN:~non distended, soft, non tender, no masses palpable, no organomegaly, upper abdomen midline incision well healed.~ RECTAL EXAM:~Deferred.~EXTREMITIES:~no clubbing, cyanosis or edema, weakness and contracture noted to left upper and lower extremeties.~SKIN:~no stigmata of chronic liver disease.~NEUROLOGIC:~no obvious focal defect.~~~~ Results - Labs CBC & Chem 7: 12/29/17 11:54 12/29/17 05:48 Labs: Last Result Calcium 8.0 mg/dL (8.6-10.3) L 12/29/17 05:48 Iron 21 mcg/dL (65-175) L 12/29/17 09:13 % Saturation 5 % (20-55) L 12/29/17 09:13 Transferrin 285 mg/dL (203-362) 12/29/17 09:13 Troponin I < 0.03 ng/mL (< 0.04) 12/28/17 14:30 Entire Visit Hgb 8.3 g/dL (12.9-16.9) L 12/29/17 09:13 Hct 27.4 % (37.5-50.1) L 12/29/17 09:13 PT 15.3 Seconds (9.4-12.1) H 12/28/17 14:30 Total Bilirubin 0.6 mg/dL (0.3-1.0) 12/28/17 14:30 AST 21 Units/L (13-39) 12/28/17 14:30 ALT 15 Units/L (7-52) 12/28/17 14:30 - ABG ABG results: PT/INR, D-dimer PT 15.3 Seconds (9.4-12.1) H 12/28/17 14:30
--- NOTE | 2017-12-29 16:26 | Oncology Inp Consult Note ---
<Deirdre Jeffers S - Last Filed: 12/30/17 09:04> Date of Encounter: 12/30/17 - Data of Consult Requesting Physician: Cici Braun MD Primary Care Provider: PCP NONE - Consult Narrative History of present illness: Mr. Atkinson is a 52 year old male Medications and Allergies Dabigatran Etexilate Mesylate [Pradaxa] 150 mg PO BID #60 capsule 12/07/17 [Rx] 3 Allergy/AdvReac Type Severity Reaction Status Date / Time No Known Allergies Allergy Verified 10/19/17 11:22 Oncology - Exam - Constitutional Vitals: Temp Pulse Resp BP Pulse Ox 98.4 F 73 18 130/72 100 12/29/17 16:07 12/29/17 16:07 12/29/17 16:07 12/29/17 16:07 12/29/17 16:07 Oncology - Results Labs: Short CBC 12/29/17 12/29/17 12/29/17 Range/Units 05:48 09:13 11:54 Hgb 7.8 L D 8.3 L 8.2 L (12.9-16.9) g/dL Hct 24.5 L 27.4 L 26.6 L (37.5-50.1) % BMP 12/29/17 05:48 Sodium 141 Potassium 3.8 Chloride 114 H Carbon Dioxide 23 BUN 19 Creatinine 0.75 Glucose 128 H Calcium 8.0 L Consult Discharge Plan - Plan Referrals: Wound,Care [Other] - 01/06/18 2:15 pm Dolph,Cmanual [Other] - 01/10/18 12:45 pm - Attending Attestation 1. Acute anemia hemoglobin 5.3 12/28/2017. After 4 units of packed RBC transfusion hemoglobin improved to 8.3 Iron levels are low. Venofer 400 mg IV one dose. 2. EGD showed large blood clot in the stomach with gastric ulcer. Possible underlying AVM. Also grade 3 esophageal varices GI consulted for banding 3. Bilateral lower activity DVT diagnosis #2017 at [facility]. He was on Lovenox and when I saw him as an outpatient he wanted to try oral anticoagulant and started on Pradaxa 150 mg by mouth twice a day area With recent GI bleed anti-coagulation on hold. May be able to start him back at lower dose 75 mg twice a day once his bleeding stops He is at high risk for DVT since he is not on anti-coordination. Also has bilateral lower extremity ulcers on [place] wrap makes pulsatile stockings hard to apply but can be tried. Advised to do some half masses largest. Also advised to ambulate the patient is tolerated 4. Etiology of esophageal varices is not clear. Likely cirrhosis . He had history of alcohol abuse in the past but not for several years We will also do further cirrhosis workup Ultrasound of abdomen during this admission showed normal liver echogenicity. If necessary may consider CAT scan to evaluate liver <Ingrid Raya Elena - Last Filed: 12/30/17 13:10> Date of Encounter: 12/29/17 Time of Encounter: 16:24 Assessment and Plan (1) Acute blood loss anemia Status: Acute Assessment and plan: Acute blood loss anemia hemoglobin 5.0 12/28/2017. Hgb 8.3 s/p 4 units PRBC transfused Iron levels are low. Venofer 400 mg IV one dose. S/p EGD with Dr. Braun which shows- Grade III esophageal varicies, gastric ulcers, old blood within the gastric cardia; path pending. Possible underlying AVM. Etiology of varices TBD, may be secondary to cirrhosis, he does have a hx of alcohol abuse in the past. May consider CT to evaluate liver if needed. 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 May be able to start him back at lower dose 75 mg twice a day once acute bleed resolved. He is at high for for thrombosis, needs lifelong anticoagulation. - Data of Consult Patient: known to practice within the last 3 years Consult date: 12/29/17 Requesting Physician: Cici Braun MD Primary Care Provider: PCP NONE - Consult Narrative Reason for consult: UGIB, Anemia, Bilateral recurrent lower extremity DVT History of present illness: Mr. Atkinson is a 52 year old male recently evaluated by Dr. Jeffers for history of recurrent DVT and stoke. He has aphasia and uses sign language for communication. He had had a stroke around 1986 when he was 22 years old. He claims he had intravenous anticoagulation and subsequently had intracranial bleed. He has a left hemiparesis. He has been on coumadin since this time which was changed to Xarelto in February 2017. He was hospitalized to [facility] at that time and diagnosed with new bilateral lower extremity DVTs. He has persistent nonhealing ulcers both ankles him of them extending deep into the bone. She has been going to wound clinic to [place] for several years and he is going to shift care to [place] wound clinic. Most recent bilateral lower extremity venous Doppler on 09/24/2017 showed right distal iliac and common femoral vein acute DVT, he has been on lovenox 90 mg SQ BID. At the last visit with Dr. Jeffers on 10/19/2017 he voiced his preference to take oral medication and was changed to Pradaxa 150 mg BID which he was to start after 4 weeks of lovenox therapy. He presented to [facility] via squad on 12/28/17 with multiple episodes of hematemesis, he denies abdominal pain or vomiting prior to this. S/p EGD with Dr. Braun which shows- Grade III esophageal varicies, gastric ulcers, old blood within the gastric cardia; path pending. NPO for US of abdomen later today to evaluate cirrhosis. Octreotide started per gastroenterology. Hgb 8.3 s/p 4 units total PRBC transfused. Oncology consulted for further anticoagulation recommendations. There is also very strong family history of blood clots, thrombophilia workup was obtained in October 2017 which was essentially negative other than mildly elevated homocysteine level. Past Med Surg Social Fam HX - Past Medical History Medical history: CVA, DVT Psychiatric history: no psych history - Past Surgical History Surgical History: cholecystectomy - Social History Smoking Status: Former smoker Smokeless Tobacco Status: No Alcohol use: none Drug use: none - Family History Grandmother History Unknown: Yes Constitutional: Present: fatigue, weakness. Absent: chills, fever(s), weight loss Eyes: Absent: change in vision Nose, mouth and throat: Absent: mouth lesions Cardiovascular: Absent: chest pain, irregular heart rhythm, palpitations Respiratory: Absent: cough, dyspnea Gastrointestinal: Present: as per HPI, hematemesis. Absent: abdominal pain, hematochezia, melena, nausea, vomiting Additional comments: denies dysuria or hematuria Musculoskeletal: Present: as per HPI Integumentary: Present: as per HPI Additional comments: chronic ulcers BLE Neurological: Present: as per HPI Additional comments: left sided weakness, expressive aphasia Oncology - Exam - Constitutional Vitals: Temp Pulse Resp BP Pulse Ox 98.4 F 73 18 130/72 100 12/29/17 16:07 12/29/17 16:07 12/29/17 16:07 12/29/17 16:07 12/29/17 16:07 General appearance: cooperative, no acute distress, no febrile - Head Head exam: Present: atraumatic - Respiratory Respiratory exam: Present: CTAB. Absent: respiratory distress - Cardiovascular Cardiovascular exam: Present: RRR, +S1, +S2 - GI/Abdominal GI/Abdominal exam: Present: normal bowel sounds, soft. Absent: guarding, tenderness - Extremities Exam Extremities exam: Present: pedal edema. Absent: calf tenderness Additional comments: BLE dressings D&I - Neurological Exam Neurological exam: Present: alert, oriented X3, speech deficit Additional comments: communicates by writing/sign language to , memory and cognition intact - Psychiatric Psychiatric exam: Present: normal affect, normal mood - Skin Skin exam: Present: pallor, warm
[2017-12-29] MEDS ORDERED: Iron Sucrose Complex 400 MG in 0.9 % Sodium Chloride 250 ML IVPB ONE (18:13)
[2017-12-29 18:48] LABS: Hematocrit 29.7 % (37.5-50.1); Hemoglobin 9.3 g/dL (12.9-16.9)
[2017-12-29 19:40] LABS: Folate 20.7 ng/mL (3.0-16.0)
[2017-12-29] MEDS: 0.9 % Sodium Chloride 1,000 ML IVC SCH (22:30)
[2017-12-30 00:22] LABS: Hematocrit 23.9 % (37.5-50.1)
[2017-12-30 00:29] LABS: Hemoglobin 7.6 g/dL (12.9-16.9)
[2017-12-30] MEDS: Pantoprazole 40 MG in 0.9 % Sodium Chloride Mini Bag 100 ML IVC SCH ×5 (02:05→23:21)
[2017-12-30] MEDS: Octreotide 400 MCG in 0.9 % Sodium Chloride 100 ML IVC SCH ×2 (06:06→16:30)
--- NOTE | 2017-12-30 10:55 | Event Note ---
Date of Encounter: 12/30/17 Time of Encounter: 10:54 s/p EGD with Dr. Braun which shows- Grade III esophageal varicies, gastric ulcers, old blood within the gastric cardia. GI and hematology now following. Spoke with Dr. Soto and he is agreeable to transfer of service to hospitalist given above. Surgery will sign off at this time. Thank you for allowing us to participate in Mr. [place] bah. Please call with any questions.
[2017-12-30] MEDS ORDERED: *HR* HYDROmorphone (PF) 1 MG/ML SYRINGE IVP ONE (11:05)
[2017-12-30 12:58] LABS: Hematocrit 25.3 % (37.5-50.1); Hemoglobin 7.7 g/dL (12.9-16.9)
--- NOTE | 2017-12-30 13:50 | Gastroenterology Progress Note ---
<Calista Mcnamara - Last Filed: 12/30/17 13:48> Date of Encounter: 12/30/17 Time of Encounter: 11:10 - Assessment and plan (1) Esophageal varices Current Visit: Yes Status: Chronic Assessment and plan: Pt has large esophageal varices, he is status post EGD per Dr Braun. Hgb this morning is 7.6. He is complaining of generalized pain but denies any active bleeding, nausea, vomiting or increased abdominal pain. Vital signs are stable. Will repeat H&H stat, keep 2 units prbcs on hold and give one time dose dilaudid for pain. Monitor H&h will need EGD with variceal banding if continues to drop. Qualifiers: Esophageal varices type: unspecified type Esophageal varices bleeding: without bleeding Qualified Code(s): I85.00 - Esophageal varices without bleeding - Time Spent With Patient Total time spent is greater than 50% in coordination of care (as documented) at patient's floor/unit and/or counseling patient: - Subjective Interval history: Pt awake in bed. He is complaining of pain "all over" states is a new pain for him. He denies any nausea, vomiting, diarrhea, or increased abdominal pain. He has been afebrile. No bloody or tarry stools, denies any BM. - Constitutional Vitals: Temp Pulse Resp BP Pulse Ox 98.3 F 64 21 143/79 97 12/30/17 11:30 12/30/17 11:30 12/30/17 11:30 12/30/17 11:30 12/30/17 11:30 Exam: CONSTITUTIONAL:~alert, no acute distress.~HEAD:~normocephalic.~EYES:~no jaundice.~NECK:~no obvious swelling.~HEART:~regular rate and rhythm, no murmurs. ~LUNGS:~bilateral fair air entry.~ABDOMEN:~ distended, soft, non tender,~RECTAL EXAM:~Deferred.~EXTREMITIES:~no clubbing, cyanosis or edema.~SKIN:~no stigmata of chronic liver disease.~NEUROLOGIC:~no obvious focal defect.~~~~ Results - Labs CBC & Chem 7: 12/30/17 12:46 12/29/17 05:48 Labs: Last Result Calcium 8.0 mg/dL (8.6-10.3) L 12/29/17 05:48 Iron 21 mcg/dL (65-175) L 12/29/17 09:13 % Saturation 5 % (20-55) L 12/29/17 09:13 Transferrin 285 mg/dL (203-362) 12/29/17 09:13 Troponin I < 0.03 ng/mL (< 0.04) 12/28/17 14:30 Vitamin B12 709 pg/mL (250-1100) 12/29/17 18:35 Folate 20.7 ng/mL (3.0-16.0) H 12/29/17 18:35 Entire Visit Hgb 7.7 g/dL (12.9-16.9) L 12/30/17 12:46 Hct 25.3 % (37.5-50.1) L 12/30/17 12:46 PT 15.3 Seconds (9.4-12.1) H 12/28/17 14:30 Total Bilirubin 0.6 mg/dL (0.3-1.0) 12/28/17 14:30 AST 21 Units/L (13-39) 12/28/17 14:30 ALT 15 Units/L (7-52) 12/28/17 14:30 Folate 20.7 ng/mL (3.0-16.0) H 12/29/17 18:35 - ABG ABG results: PT/INR, D-dimer PT 15.3 Seconds (9.4-12.1) H 12/28/17 14:30 - Impressions Impressions Abdomen Ultrasound 12/29/17 15:00 IMPRESSION: Moderate upper abdominal ascites. No focal hepatic abnormality. Previous cholecystectomy. No biliary dilatation. Limited Doppler evaluation due to overlying bowel gas. Normal vascular flow within the portal and hepatic venous circulation. Collateral vessels in the edgard hepatis raising the possibility of cavernous transformation of the portal vein. Consider follow-up evaluation with CT. D/ / 12/29/2017 16:43:33 Matthew Herbert MD / michael Interpreting Provider: Matthew Herbert MD Abdomen/Pelvis Ultrasound 12/29/17 15:00 IMPRESSION: Moderate upper abdominal ascites. No focal hepatic abnormality. Previous cholecystectomy. No biliary dilatation. Limited Doppler evaluation due to overlying bowel gas. Normal vascular flow within the portal and hepatic venous circulation. Collateral vessels in the edgard hepatis raising the possibility of cavernous transformation of the portal vein. Consider follow-up evaluation with CT. D/ / 12/29/2017 16:43:33 Matthew Herbert MD / michael Interpreting Provider: Matthew Herbert MD Consult Discharge Plan - Plan Referrals: Wound,Care [Other] - 01/06/18 2:15 pm Dolph,Cmanual [Other] - 01/10/18 12:45 pm <Abimael Crow - Last Filed: 12/31/17 11:20> Date of Encounter: 12/30/17 - Time Spent With Patient Total time spent is greater than 50% in coordination of care (as documented) at patient's floor/unit and/or counseling patient: - Constitutional Vitals: Temp Pulse Resp BP Pulse Ox 98.2 F 66 15 149/80 96 12/31/17 08:35 12/31/17 08:35 12/31/17 08:35 12/31/17 08:35 12/31/17 08:35 Results - Labs CBC & Chem 7: 12/31/17 10:02 12/29/17 05:48 Labs: Last Result Calcium 8.0 mg/dL (8.6-10.3) L 12/29/17 05:48 Iron 292 mcg/dL (65-175) H 12/30/17 17:26 % Saturation 88 % (20-55) H 12/30/17 17:26 Transferrin 238 mg/dL (203-362) 12/30/17 17:26 Troponin I < 0.03 ng/mL (< 0.04) 12/28/17 14:30 Vitamin B12 709 pg/mL (250-1100) 12/29/17 18:35 Folate 20.7 ng/mL (3.0-16.0) H 12/29/17 18:35 Entire Visit Hgb 8.3 g/dL (12.9-16.9) L 12/31/17 10:02 Hct 25.9 % (37.5-50.1) L 12/31/17 10:02 PT 15.3 Seconds (9.4-12.1) H 12/28/17 14:30 Total Bilirubin 0.6 mg/dL (0.3-1.0) 12/28/17 14:30 AST 21 Units/L (13-39) 12/28/17 14:30 ALT 15 Units/L (7-52) 12/28/17 14:30 Folate 20.7 ng/mL (3.0-16.0) H 12/29/17 18:35 - ABG ABG results: PT/INR, D-dimer PT 15.3 Seconds (9.4-12.1) H 12/28/17 14:30 - Attending Attestation Mr. Atkinson is doing much better. He has not had a bowel movement since the index endoscopy on admission. His hemoglobin was 8.5 gm%. I feel we have not caught up with his blood loss that occurred prior to admission and in the ED. May need a unit of packed cells today but, will wait for the pm blood draw to make that decision. Ultrasound reviewed. Awaiting records from [facility]. Abdomen: soft. I have personally performed a face to face evaluation on this patient. I have reviewed and agree with the care plan. History and Exam by me shows: Plan: watchful waiting for now.
[2017-12-30] MEDS ORDERED: OXYCODONE Oral CONC 10 MG/0.5 ML ORAL.SYG SL PRN (14:17)
[2017-12-30] MEDS ORDERED: *HR* HYDROmorphone (PF) 1 MG/ML SYRINGE IVP PRN (14:30)
[2017-12-30] MEDS ORDERED: Pseudoephedrine Oral Soln 30 MG/5 ML UDC PO PRN (14:40)
--- NOTE | 2017-12-30 15:05 | Internal Med History&Physical ---
<Karthik Pitts - Last Filed: 12/30/17 19:41> Date of Encounter: 12/30/17 Time of Encounter: 13:30 Assessment and Plan (1) Acute blood loss anemia Current visit: Yes Status: Acute Acute blood loss anemia r/t current GI bleeding from gastric ulcers. Pts. Hemoglobin 4.8 on admission on 12/28. Patient received 4 units of PRBCs on 12/29 which improved hemoglobin to 8.3. Hemoglobin dropped to 7.7 on 12/30 and patient received 1 more unit of PRBCs. H/H Q6HR. Continue Protonix drip. EGD on 12/28/17 shows grade 3 esophageal varices, gastric ulcers, and old blood within the gastric cardia. Anticoagulation being held currently due to GI bleeding. Pts. vital signs currently temperature 98.7, heart rate 67, respirations 18, BP 140/78, and SPO2 95% on room air. Will continue to monitor pt. for signs of bleeding. GI consult placed for possible banding of esophageal varices. NPO. Pt. discussed w/Dr. Soto who is in agreement w/plan of care. Pt. is high risk for further morbidity d/t current blood loss from GI bleeding requiring transfusions, hx, and risk factors. Inpatient. (2) Gastric ulcer Current visit: Yes Status: Acute EGD on 12/28/17 showed gastric ulcers and old blood within the gastric cardia. Pathology pending. IVP Zofran 4 mg Q6 PRN for N/V. Patient placed on Protonix drip and will continue. Nothing by mouth status to GI consult for possible varices banding. Qualifiers: Gastric ulcer chronicity: acute Gastric ulcer complication status: with hemorrhage Qualified Code(s): K25.0 - Acute gastric ulcer with hemorrhage (3) Esophageal varices Current visit: Yes Status: Acute EGD on 12/28/17 shows grade 3 esophageal varices. Patient's denies history of alcohol abuse and states patient did consume alcohol but not heavily in his early 20's prior to his CVA. Hepatic panel ordered. GI consulted for possible banding of varices. Qualifiers: Esophageal varices type: unspecified type Esophageal varices bleeding: without bleeding Qualified Code(s): I85.00 - Esophageal varices without bleeding (4) DVT (deep venous thrombosis) Current visit: Yes Status: Chronic Hx of chronic and recurrent DVTs. Holding anticoagulation currently due to current GI bleeding. Patient's normal dosing of Pradaxa is 150 mg twice a day. Recommendation to start patient back on lower dose of 75 mg twice a day once GI bleeding is resolved. Due to history and risk factors, patient will be in need of lifelong anticoagulation. Qualifiers: DVT location: lower extremity Chronicity: chronic Laterality: bilateral Qualified Code(s): I82.503 - Chronic embolism and thrombosis of unspecified deep veins of lower extremity, bilateral (5) Venous stasis ulcers of both lower extremities Current visit: Yes Status: Chronic Hx of chronic venous stasis ulcers of bilateral LEs. Wash areas with soap and water daily and apply 0.25 Dakin's moistened 4 x 4 gauze into the open wound, cover with dry 4 x 4 gauze, wrapped with Kerlix, and secured with tape. Change daily. (6) DVT prophylaxis Current visit: Yes Status: Acute History of multiple and recurrent DVTs. Patient started on Pradaxa 150 mg twice a day 10/2017. Previously on Coumadin, Xarelto, and Lovenox. Anticoagulation currently on hold due to GI bleeding with recommendation to start patient back on 75 mg twice a day once GI bleeding resolved. Patient at high risk for thrombosis to history of DVTs requiring lifelong anticoagulation. Internal Medicine - H&P: HPI Chief complaint: GI Bleeding Admitted From: Emergency Dept Plans for Post Hospital Care: Home History of present illness: Mr. Atkinson is a 52 year old male with medical hx of hx of CVA at age 22, chronic venous stasis ulcers of bilateral LEs, and hx of DVTs presents with chief complaint two days ago of GI bleeding and weakness. Pts. mother came to see him and found him seated and too weak to get up. Squad called and pt. had several episodes of hematemesis. Pt. was on Pradaxa for anticoagulation d/t DVTs. Denies abdominal pain. Denies previous occurrence of current sx. Denies hx of EGD or colonoscopy. Pt. reports familial hx of blood clotting disorder and CVAs. Pt. reports weakness, fatigue, lightheadedness, and nasal congestion but denies recent illness, fever, chills, headache, changes in vision, chest pain, SOB, pedal edema, pre-syncope, or syncope. Past Med Surg Social Fam HX - Past Medical History Source: patient, old records reviewed, obtained from family Medical history: CVA (At age 22 w/residual left-sided weakness in UE and LE), DVT Psychiatric history: no psych history - Past Surgical History Surgical History: cholecystectomy - Social History Smoking Status: Former smoker Smokeless Tobacco Status: No Alcohol use: none Drug use: none Current living situation: Home, With Family Activity Level: Independent ambulation, Uses cane/walker Recent Out of Country Travel Within the Last 8 Weeks: No Exposure or Possible Exposure to Illness During Travel: No - Family History Grandmother History Unknown: Yes Race: Family Member Ethnicity: Non- Father Race: Family Member Ethnicity: Non- Living Status: Age at : 73 Cause of : Aneurysm Hx Family Cardiac Disorders: Yes (Aneurysm) Mother Race: Family Member Ethnicity: Non- Living Status: Age at : 28 Cause of : Blood clot Hx Family Autoimmune Disorders: Yes (Blood clotting disorder) Brother Race: Family Member Ethnicity: Non- Living Status: Age at : 26 Cause of : Head injury in accident caused brain aneurysm Hx Family Cardiac Disorders: Yes (Brain aneurysm) Sister Race: Family Member Ethnicity: Non- Living Status: Still Living Hx Family Cardiac Disorders: Yes (CVA d/t blood clot) Internal Medicine - H&P: Meds Dabigatran Etexilate Mesylate [Pradaxa] 150 mg PO BID #60 capsule 12/07/17 [Rx] 3 Allergy/AdvReac Type Severity Reaction Status Date / Time No Known Allergies Allergy Verified 10/19/17 11:22 All Systems PM: A 10-system review of systems was performed and is negative for pertinent findings except as documented above in the HPI. - Constitutional Constitutional: as per HPI, fatigue, weakness, no chills, no fever(s), no night sweats - EENT Eyes: no change in vision, no discharge, no pain, no photophobia Ears: no ear discharge, no ear pain, no tinnitus Nose, mouth and throat: no dysphagia, no nasal discharge, no neck pain, no sore throat - Breasts Breasts: as per HPI - Cardiovascular Cardiovascular ROS IM: as per HPI, lightheadedness, no chest pain, no diaphoresis, no dyspnea, no palpitations, no syncope - Respiratory Respiratory: no cough, no dyspnea, no wheezing, no excessive phlegm production - Gastrointestinal Gastrointestinal: as per HPI, hematemesis, nausea, vomiting, no abdominal pain, no diarrhea, no hematochezia, no melena - Genitourinary Genitourinary ROS male: as per HPI - Musculoskeletal Musculoskeletal ROS IM: no numbness, no tingling - Integumentary Integumentary IM: as per HPI, sores (Bilateral venous stasis ulcers of the LEs) , no rash, no unusual bruising - Neurological Neurological ROS: as per HPI, dizziness, weakness, no confusion, no convulsions , no focal weakness, no numbness, no tingling, no tremor(s) - Psychiatric Psychiatric: as per HPI - Endocrine Endocrine IM: as per HPI - Hematologic/Lymphatic Hematologic/Lymphatic: no easy bruising - Allergic/Immunologic Allergic/Immunologic: as per HPI - Constitutional Vitals: Temp Pulse Resp BP Pulse Ox 98.0 F 65 16 143/78 92 12/30/17 14:40 12/30/17 14:40 12/30/17 14:40 12/30/17 14:40 12/30/17 14:40 General appearance: Present: cooperative, A&O X 3, pleasant, no acute distress, answers questions appropriately - Head Head exam: Present: atraumatic, normocephalic - Eye Eye exam: Present: PERRL, conjuntiva pink, sclera anicteric Pupils: Present: PERRL - ENT ENT exam: Present: normal exam - Neck Neck exam general surgery: Present: supple, trachea midline. Absent: lymphadenopathy - Respiratory Respiratory exam: Present: CTAB. Absent: accessory muscle use, rales, rhonchi, wheezes - Cardiovascular Cardiovascular exam: Present: RRR, +S1, +S2. Absent: diastolic murmur, gallop, rubs, systolic murmur - GI/Abdominal GI/Abdominal exam: Present: normal bowel sounds, soft, no peritoneal signs. Absent: distended, tenderness - Rectal Rectal exam: Present: deferred - Additional comments: exam deferred. - Extremities Exam Extremities exam: Present: warm, radial pulses palpable and symmetrical. Absent : calf tenderness, cyanotic, pedal edema - Neurological Exam Neurological exam: Present: CN II-XII intact, oriented X3, no focal deficits. Absent: pronater drift, facial droop, speech deficit - Psychiatric Psychiatric exam: Present: normal affect, normal mood - Skin Skin exam: Present: dry, intact Additional comments: Venous stasis ulcers present on bilateral LEs. Internal Med - H&P Results - Labs CBC & Chem 7: 12/30/17 17:26 12/29/17 05:48 Labs: Short CBC 12/29/17 12/30/17 12/30/17 Range/Units 18:35 00:05 12:46 Hgb 9.3 L 7.6 L D 7.7 L (12.9-16.9) g/dL Hct 29.7 L 23.9 L 25.3 L (37.5-50.1) % - Impressions ITS Impressions Abdomen Ultrasound 12/29/17 15:00 IMPRESSION: Moderate upper abdominal ascites. No focal hepatic abnormality. Previous cholecystectomy. No biliary dilatation. Limited Doppler evaluation due to overlying bowel gas. Normal vascular flow within the portal and hepatic venous circulation. Collateral vessels in the edgard hepatis raising the possibility of cavernous transformation of the portal vein. Consider follow-up evaluation with CT. D/ / 12/29/2017 16:43:33 Matthew Herbert MD / michael Interpreting Provider: Matthew Herbert MD Abdomen/Pelvis Ultrasound 12/29/17 15:00 IMPRESSION: Moderate upper abdominal ascites. No focal hepatic abnormality. Previous cholecystectomy. No biliary dilatation. Limited Doppler evaluation due to overlying bowel gas. Normal vascular flow within the portal and hepatic venous circulation. Collateral vessels in the edgard hepatis raising the possibility of cavernous transformation of the portal vein. Consider follow-up evaluation with CT. D/ / 12/29/2017 16:43:33 Matthew Herbert MD / michael Interpreting Provider: Matthew Herbert MD - Diagnostic Studies US - abdomen Additional comments: Impressions Abdomen Ultrasound 12/29/17 15:00 IMPRESSION: Moderate upper abdominal ascites. No focal hepatic abnormality. Previous cholecystectomy. No biliary dilatation. Limited Doppler evaluation due to overlying bowel gas. Normal vascular flow within the portal and hepatic venous circulation. Collateral vessels in the edgard hepatis raising the possibility of cavernous transformation of the portal vein. Consider follow-up evaluation with CT. D/ / 12/29/2017 16:43:33 Matthew Herbert MD / michael Interpreting Provider: Matthew Herbert MD Abdomen/Pelvis Ultrasound 12/29/17 15:00 IMPRESSION: Moderate upper abdominal ascites. No focal hepatic abnormality. Previous cholecystectomy. No biliary dilatation. Limited Doppler evaluation due to overlying bowel gas. Normal vascular flow within the portal and hepatic venous circulation. Collateral vessels in the edgard hepatis raising the possibility of cavernous transformation of the portal vein. Consider follow-up evaluation with CT. D/ 12/29/2017 16:43:33 Matthew Herbert MD / michael Interpreting Provider: Matthew Herbert MD <Cuba Soto - Last Filed: 12/30/17 22:13> Date of Encounter: 12/30/17 Internal Medicine - H&P: HPI History of present illness: Mr. Atkinson is a 52 year old male All Systems PM: A 10-system review of systems was performed and is negative for pertinent findings except as documented above in the HPI. - Constitutional Vitals: Temp Pulse Resp BP Pulse Ox 98.7 F 66 18 140/78 95 12/30/17 18:51 12/30/17 19:45 12/30/17 18:51 12/30/17 18:51 12/30/17 18:51 Internal Med - H&P Results - Labs CBC & Chem 7: 12/30/17 17:26 12/29/17 05:48 Labs: Short CBC 12/30/17 12/30/17 12/30/17 Range/Units 00:05 12:46 17:26 Hgb 7.6 L D 7.7 L 8.3 L (12.9-16.9) g/dL Hct 23.9 L 25.3 L 26.2 L (37.5-50.1) % - Impressions ITS Impressions Abdomen Ultrasound 12/29/17 15:00 IMPRESSION: Moderate upper abdominal ascites. No focal hepatic abnormality. Previous cholecystectomy. No biliary dilatation. Limited Doppler evaluation due to overlying bowel gas. Normal vascular flow within the portal and hepatic venous circulation. Collateral vessels in the edgard hepatis raising the possibility of cavernous transformation of the portal vein. Consider follow-up evaluation with CT. D/ / 12/29/2017 16:43:33 Matthew Herbert MD / michael Interpreting Provider: Matthew Herbert MD Abdomen/Pelvis Ultrasound 12/29/17 15:00 IMPRESSION: Moderate upper abdominal ascites. No focal hepatic abnormality. Previous cholecystectomy. No biliary dilatation. Limited Doppler evaluation due to overlying bowel gas. Normal vascular flow within the portal and hepatic venous circulation. Collateral vessels in the edgard hepatis raising the possibility of cavernous transformation of the portal vein. Consider follow-up evaluation with CT. D/ / 12/29/2017 16:43:33 Matthew Herbert MD / michael Interpreting Provider: Matthew Herbert MD - Attending Attestation I have personally performed a face to face evaluation on this patient. I have reviewed and agree with the care plan. History and Exam by me shows: History is limited by aphasia. The patient currently denies abdominal pain and nausea. On exam he is in no acute distress. Heart is regular with no murmurs. Lungs are clear. Abdomen soft. Plan: Monitor H&H every 6 hours. Transfuse to maintain hemoglobin above 8. Follow up with GI regarding repeat EGD with variceal banding. Cuba Soto MD
[2017-12-30 17:44] LABS: Hematocrit 26.2 % (37.5-50.1); Hemoglobin 8.3 g/dL (12.9-16.9)
[2017-12-30 18:05] LABS: % Iron Saturation 88 % (20-55); Iron 292 mcg/dL (65-175); Transferrin 238 mg/dL (203-362)
[2017-12-30] MEDS: 0.9 % Sodium Chloride 1,000 ML IVC SCH (18:45)
[2017-12-31 00:10] LABS: Hemoglobin 8.8 g/dL (12.9-16.9)
[2017-12-31] MEDS: Fluticasone Propionate Nasal 50 MCG/SPRAY BOTTLE NS SCH ×2 (00:12→09:08)
[2017-12-31] MEDS: Octreotide 400 MCG in 0.9 % Sodium Chloride 100 ML IVC SCH ×3 (01:30→19:46)
[2017-12-31] MEDS: Pantoprazole 40 MG in 0.9 % Sodium Chloride Mini Bag 100 ML IVC SCH ×3 (04:30→23:31)
[2017-12-31 05:33] LABS: Hematocrit 25.2 % (37.5-50.1)
[2017-12-31 10:16] LABS: Hematocrit 25.9 % (37.5-50.1); Hemoglobin 8.3 g/dL (12.9-16.9)
[2017-12-31] MEDS ORDERED: Lidocaine -MPF 2% 2 ML VIAL ONE ×2 (13:32→13:58)
[2017-12-31] MEDS ORDERED: *HR* Propofol 200 MG/20 ML VIAL IVP ONE ×2 (13:32→16:01)
--- NOTE | 2017-12-31 14:02 | Anesthesia Evaluation PreOp ---
Date of Encounter: 12/31/17 Time of Encounter: 14:00 - Past History Planned Operation: EGD Cardiac History: Denies any Significant Hx Pulmonary History: Denies Any Significant HX FUR BLENDER History: CVA (Left Hemiparesis Aphasia) Other Medical History: Denies Any Significant HX Anesthesia History: No Prior Anesthetic Complications Alcohol Use: none Drug use: none Medications and Allergies Dabigatran Etexilate Mesylate [Pradaxa] 150 mg PO BID #60 capsule 12/07/17 [Rx] 3 Allergy/AdvReac Type Severity Reaction Status Date / Time No Known Allergies Allergy Verified 10/19/17 11:22 - Meds/Allergy Pre-op Review Medications Reviewed: Yes Allergies Reviewed: Yes Beta Blockers on Current Med List: No Anesthesia Results - Labs 12/31/17 10:02 12/29/17 05:48 - Imaging EKG: report reviewed (SR) Anesthesia Exam O2 Sat Weight 90.5 kg O2 Sat by Pulse Oximetry 95 O2 Sat by Pulse Oximetry 98 O2 Sat by Pulse Oximetry 98 O2 Sat by Pulse Oximetry 96 O2 Sat by Pulse Oximetry 96 O2 Sat by Pulse Oximetry 98 O2 Sat by Pulse Oximetry 96 O2 Sat by Pulse Oximetry 95 O2 Sat by Pulse Oximetry 94 O2 Sat by Pulse Oximetry 98 O2 Sat by Pulse Oximetry 95 O2 Sat by Pulse Oximetry 95 O2 Sat by Pulse Oximetry 92 O2 Sat by Pulse Oximetry 95 Vital Signs Temp Pulse Resp BP Pulse Ox 97.8 F 84 16 123/60 98 12/28/17 14:14 12/28/17 14:14 12/28/17 14:14 12/28/17 14:14 12/28/17 14:14 Height: 6'0 Weight: 199 lbs NPO (# of Hours): MN Pain Scale: 0 - HEENT Pupil (Motor): Pupils equal, EOMI Mallampati: II Oral Opening: Greater than 3 - FUR BLENDER LOC: Oriented FUR BLENDER Motor: Normal RUE, Normal RLE, Normal Face, Deficit LUE, Deficit LLE FUR BLENDER Sensory: Normal: RUE, LUE, RLE, LLE, Face - Cardiac Rhythm: Regular Murmur: None JVD: No Carotid Bruit: No - Pulmonary Breath Sounds: bilateral Clear Respiratory Effort: Symmetrical Anesthesia Assess/Plan ASA Score: 3 Modified Laurier Scale for Level of Consciousness: Cooperative, oriented, and tranquil Anesthetic Plan: MAC Monitoring Plan: Standard Monitors Recovery Plan: Other (Discussed MAC, agrees to proceed)
[2017-12-31 15:09] LABS: AFP Tumor Marker Non-Pregnant 1 ng/mL (0-9); Immunoglobulin G Subclass 1 618 mg/dL (240-1118); Immunoglobulin G Subclass 2 153 mg/dL (124-549); Immunoglobulin G Subclass 3 56 mg/dL (21-134); Immunoglobulin G Subclass 4 90 mg/dL (1-123)
[2017-12-31 15:10] LABS: ANA IgG by ELISA NONE DETECTED (None Detected)
[2017-12-31] MEDS: 0.9 % Sodium Chloride 1,000 ML IVC SCH (17:00)
--- NOTE | 2017-12-31 19:07 | Internal Med Progress Note ---
Date of Encounter: 12/31/17 Time of Encounter: 11:00 - Assessment and plan (1) Acute blood loss anemia Current Visit: Yes Status: Acute Assessment and plan: Acute blood loss anemia r/t current GI bleeding from gastric ulcers. Hemoglobin 4.8 on admission and is now 8.0 status post 5 units of packed red blood cells (2) Esophageal varices Current Visit: Yes Status: Acute Assessment and plan: EGD on 12/28/17 shows grade 3 esophageal varices. -Continue octreotide drip Qualifiers: Esophageal varices type: unspecified type Esophageal varices bleeding: without bleeding Qualified Code(s): I85.00 - Esophageal varices without bleeding (3) Gastric ulcer Current Visit: Yes Status: Acute Assessment and plan: EGD on 12/28/17 showed gastric ulcers and old blood within the gastric cardia. Pathology pending. IVP Zofran 4 mg Q6 PRN for N/V. Patient placed on Protonix drip and will continue. Qualifiers: Gastric ulcer chronicity: acute Gastric ulcer complication status: with hemorrhage Qualified Code(s): K25.0 - Acute gastric ulcer with hemorrhage (4) Venous stasis ulcers of both lower extremities Current Visit: Yes Status: Chronic Assessment and plan: Hx of chronic venous stasis ulcers of bilateral LEs. Wash areas with soap and water daily and apply 0.25 Dakin's moistened 4 x 4 gauze into the open wound, cover with dry 4 x 4 gauze, wrapped with Kerlix, and secured with tape. Change daily. (5) DVT prophylaxis Current Visit: Yes Status: Acute Assessment and plan: History of multiple and recurrent DVTs. Patient started on Pradaxa 150 mg twice a day 10/2017. Previously on Coumadin, Xarelto, and Lovenox. Anticoagulation currently on hold due to GI bleeding with recommendation to start patient back on 75 mg twice a day once GI bleeding resolved. Patient at high risk for thrombosis to history of DVTs requiring lifelong anticoagulation. - Subjective Interval history: Patient's hemoglobin now stable status post 5 units of packed red blood cells Patient for repeat EGD today - Constitutional Vitals: Temp Pulse Resp BP Pulse Ox 98.6 F 70 20 152/80 99 12/31/17 17:03 12/31/17 17:03 12/31/17 17:03 12/31/17 17:03 12/31/17 17:03 General appearance: Present: cooperative, A&O X 3, pleasant, no acute distress, answers questions appropriately Internal Medicine: Result - Labs CBC & Chem 7: 12/31/17 10:02 12/29/17 05:48 Labs: Short CBC 12/30/17 12/31/17 12/31/17 Range/Units 23:57 05:25 10:02 Hgb 8.8 L 8.0 L 8.3 L (12.9-16.9) g/dL Hct 28.0 L 25.2 L 25.9 L (37.5-50.1) % - ABG Interpretation ABG results: PT/INR, D-dimer PT 15.3 Seconds (9.4-12.1) H 12/28/17 14:30 Consult Discharge Plan - Plan Referrals: Wound,Care [Other] - 01/06/18 2:15 pm Dolph,Cmanual [Other] - 01/10/18 12:45 pm
[2017-12-31] MEDS ORDERED: 0.9 % Sodium Chloride 250 ML ONE (21:56)
[2018-01-01] MEDS: Octreotide 400 MCG in 0.9 % Sodium Chloride 100 ML IVC SCH ×4 (09:17→17:31)
[2018-01-01] MEDS: Pantoprazole 40 MG in 0.9 % Sodium Chloride Mini Bag 100 ML IVC SCH ×5 (09:18→19:45)
[2018-01-01] MEDS: Fluticasone Propionate Nasal 50 MCG/SPRAY BOTTLE NS SCH (09:20)
[2018-01-01 11:28] LABS: Basophils % 0.5 %; Eosinophils # 0.1 K/mcL (0.0-0.6); Eosinophils % 3.8 %; Hematocrit 27.1 % (37.5-50.1); Hemoglobin 8.8 g/dL (12.9-16.9); Immature Granulocytes % 0.3 % (0-4); Lymphocytes # 0.7 K/mcL (0.6-4.6); Lymphocytes % 17.7 %; Mean Corpuscular HGB Conc 32.5 g/dL (31.6-35.5); Mean Corpuscular Hemoglobin 27.7 pg (28.0-33.3); Mean Corpuscular Volume 85.2 fL (83.0-100.0); Mean Platelet Volume 10.3 fL (9.4-12.4); Monocytes # 0.4 K/mcL (0.0-1.3); Monocytes % 9.8 %; Neutrophils # 2.5 K/mcL (1.6-8.9); Red Blood Count 3.18 M/mcL (4.19-5.50); Red Cell Distribution Width 15.9 % (11.5-14.5); Segmented Neutrophils % 67.9 %
[2018-01-01 11:30] LABS: Platelet Count 72 K/mcL (140-400)
[2018-01-01 11:51] LABS: BUN/Creatinine Ratio 20 (6-26); Blood Urea Nitrogen 14 mg/dL (6-20); Calcium 7.7 mg/dL (8.6-10.3); Carbon Dioxide 23 mEq/L (23-29); Chloride 109 mEq/L (98-107); Glucose 129 mg/dL (70-105); Osmolality,Calculated 286 (280-300); Sodium 137 mEq/L (136-145); eGFR For African Americans > 60 (> 60); eGFR For Non-African Americans > 60 (> 60)
[2018-01-01] MEDS: 0.9 % Sodium Chloride 1,000 ML IVC SCH (14:41)
[2018-01-01] MEDS ORDERED: Potassium Chloride Elixir 20 MEQ/15 ML UDC PO ONE (14:46)
[2018-01-01] MEDS: OXYCODONE Oral CONC 10 MG/0.5 ML ORAL.SYG SL PRN (15:09)
--- NOTE | 2018-01-01 17:39 | Internal Med Progress Note ---
Date of Encounter: 01/01/18 Time of Encounter: 11:00 - Assessment and plan (1) Acute blood loss anemia Current Visit: Yes Status: Acute Assessment and plan: Patient's hemoglobin now stable status post 6 units of packed red blood cells EGD on 12/31/17 showed grade 3 esophageal varices with type II gastroesophageal varices will follow-up bleeding in addition to portal hypertensive gastropathy. Continue Octreotide and Protonix drip Monitor H&h will need EGD with variceal banding if continues to drop per GI recommendations (2) Esophageal varices Current Visit: Yes Status: Acute Assessment and plan: EGD and management as above Qualifiers: Esophageal varices type: unspecified type Esophageal varices bleeding: without bleeding Qualified Code(s): I85.00 - Esophageal varices without bleeding (3) Gastric ulcer Current Visit: Yes Status: Acute Assessment and plan: EGD on 12/28/17 showed gastric ulcers and old blood within the gastric cardia. Pathology pending. Patient placed on Protonix drip and will continue. Qualifiers: Gastric ulcer chronicity: acute Gastric ulcer complication status: with hemorrhage Qualified Code(s): K25.0 - Acute gastric ulcer with hemorrhage (4) Venous stasis ulcers of both lower extremities Current Visit: Yes Status: Chronic Assessment and plan: Hx of chronic venous stasis ulcers of bilateral LEs. Wash areas with soap and water daily and apply 0.25 Dakin's moistened 4 x 4 gauze into the open wound, cover with dry 4 x 4 gauze, wrapped with Kerlix, and secured with tape. Change daily. (5) DVT prophylaxis Current Visit: Yes Status: Acute Assessment and plan: History of multiple and recurrent DVTs. Patient started on Pradaxa 150 mg twice a day 10/2017. Previously on Coumadin, Xarelto, and Lovenox. Anticoagulation currently on hold due to GI bleeding with recommendation to start patient back on 75 mg twice a day once GI bleeding resolved. Patient at high risk for thrombosis to history of DVTs requiring lifelong anticoagulation. - Subjective Interval history: Patient's hemoglobin now stable status post 6 units of packed red blood cells EGD on 12/31/17 showed grade 3 esophageal varices with type II gastroesophageal varices will follow-up bleeding in addition to portal hypertensive gastropathy. Continue Octreotide and Protonix drip - Constitutional Vitals: Temp Pulse Resp BP Pulse Ox 98.4 F 66 20 152/80 98 01/01/18 15:05 01/01/18 15:05 01/01/18 15:05 01/01/18 15:05 01/01/18 15:05 General appearance: Present: cooperative, A&O X 3, pleasant, no acute distress, answers questions appropriately - Respiratory Respiratory exam: Present: CTAB. Absent: accessory muscle use, rales, rhonchi, wheezes - Cardiovascular Cardiovascular exam: Present: RRR, +S1, +S2. Absent: diastolic murmur, gallop, rubs, systolic murmur - GI/Abdominal GI/Abdominal exam: Present: normal bowel sounds, soft, no peritoneal signs. Absent: distended, tenderness Internal Medicine: Result - Labs CBC & Chem 7: 01/01/18 11:10 01/01/18 11:10 Labs: Short CBC 01/01/18 Range/Units 11:10 WBC 3.7 L (4.3-11.1) K/mcL Hgb 8.8 L (12.9-16.9) g/dL Hct 27.1 L (37.5-50.1) % Plt Count 72 L (140-400) K/mcL Neutrophils # 2.5 (1.6-8.9) K/mcL BMP 01/01/18 11:10 Sodium 137 Potassium 3.0 L Chloride 109 H Carbon Dioxide 23 BUN 14 Creatinine 0.69 L Glucose 129 H Calcium 7.7 L - ABG Interpretation ABG results: PT/INR, D-dimer PT 15.3 Seconds (9.4-12.1) H 12/28/17 14:30 - VTE Documentation of Mechanical Device: Intermittent pneumatic compression device Consult Discharge Plan - Plan Referrals: Wound,Care [Other] - 01/06/18 2:15 pm Dolph,Cmanual [Other] - 01/10/18 12:45 pm
[2018-01-02] MEDS: Pantoprazole 40 MG in 0.9 % Sodium Chloride Mini Bag 100 ML IVC SCH ×5 (01:10→20:49)
[2018-01-02] MEDS: Octreotide 400 MCG in 0.9 % Sodium Chloride 100 ML IVC SCH ×3 (02:05→18:30)
[2018-01-02 04:19] LABS: Basophils % 0.5 %; Hematocrit 28.2 % (37.5-50.1); Hemoglobin 8.9 g/dL (12.9-16.9); Mean Corpuscular HGB Conc 31.6 g/dL (31.6-35.5)
[2018-01-02 04:21] LABS: Eosinophils # 0.2 K/mcL (0.0-0.6); Eosinophils % 5.1 %; Immature Granulocytes % 0.5 % (0-4); Immature Platelets 4.8 % (1.1-6.1); Lymphocytes # 0.7 K/mcL (0.6-4.6); Lymphocytes % 18.2 %; Mean Corpuscular Hemoglobin 27.4 pg (28.0-33.3); Mean Corpuscular Volume 86.8 fL (83.0-100.0); Mean Platelet Volume 10.9 fL (9.4-12.4); Monocytes # 0.4 K/mcL (0.0-1.3); Monocytes % 9.5 %; Red Blood Count 3.25 M/mcL (4.19-5.50); Red Cell Distribution Width 16.3 % (11.5-14.5); Segmented Neutrophils % 66.2 %
[2018-01-02 04:22] LABS: Neutrophils # 2.5 K/mcL (1.6-8.9); Platelet Count 83 K/mcL (140-400)
[2018-01-02 04:36] LABS: BUN/Creatinine Ratio 14 (6-26); Blood Urea Nitrogen 10 mg/dL (6-20); Calcium 7.9 mg/dL (8.6-10.3); Carbon Dioxide 26 mEq/L (23-29); Chloride 107 mEq/L (98-107); Glucose 98 mg/dL (70-105); Osmolality,Calculated 283 (280-300); Potassium 3.4 mEq/L (3.5-5.1); Sodium 137 mEq/L (136-145); eGFR For African Americans > 60 (> 60); eGFR For Non-African Americans > 60 (> 60)
[2018-01-02] MEDS: Fluticasone Propionate Nasal 50 MCG/SPRAY BOTTLE NS SCH (08:24)
[2018-01-02] MEDS: 0.9 % Sodium Chloride 1,000 ML IVC SCH (11:00)
[2018-01-02] MEDS: OXYCODONE Oral CONC 10 MG/0.5 ML ORAL.SYG SL PRN ×2 (15:33→23:44)
[2018-01-02 17:52] LABS: C282Y Hemochromatosis Mutation NEGATIVE; H63D Hemochromatosis Mutation HETEROZYGOUS; HFE Specimen Type WHOLE BLOOD; S65C Hemochromatosis Mutation NEGATIVE
--- NOTE | 2018-01-02 18:48 | Internal Med Progress Note ---
Date of Encounter: 01/02/18 Time of Encounter: 11:00 - Assessment and plan (1) Acute blood loss anemia Current Visit: Yes Status: Acute Assessment and plan: Patient's hemoglobin now stable status post 6 units of packed red blood cells EGD on 12/31/17 showed grade 3 esophageal varices with type II gastroesophageal varices will follow-up bleeding in addition to portal hypertensive gastropathy. Continue Octreotide and Protonix drip Monitor H&h will need EGD with variceal banding if continues to drop per GI recommendations (2) Esophageal varices Current Visit: Yes Status: Acute Assessment and plan: EGD and management as above Qualifiers: Esophageal varices type: unspecified type Esophageal varices bleeding: without bleeding Qualified Code(s): I85.00 - Esophageal varices without bleeding (3) Gastric ulcer Current Visit: Yes Status: Acute Assessment and plan: EGD on 12/28/17 showed gastric ulcers and old blood within the gastric cardia. Pathology pending. Patient placed on Protonix drip and will continue. Qualifiers: Gastric ulcer chronicity: acute Gastric ulcer complication status: with hemorrhage Qualified Code(s): K25.0 - Acute gastric ulcer with hemorrhage (4) Venous stasis ulcers of both lower extremities Current Visit: Yes Status: Chronic Assessment and plan: Hx of chronic venous stasis ulcers of bilateral LEs. Wash areas with soap and water daily and apply 0.25 Dakin's moistened 4 x 4 gauze into the open wound, cover with dry 4 x 4 gauze, wrapped with Kerlix, and secured with tape. Change daily. (5) DVT prophylaxis Current Visit: Yes Status: Acute Assessment and plan: History of multiple and recurrent DVTs. Patient started on Pradaxa 150 mg twice a day 10/2017. Previously on Coumadin, Xarelto, and Lovenox. Anticoagulation currently on hold due to GI bleeding with recommendation to start patient back on 75 mg twice a day once GI bleeding resolved. Patient at high risk for thrombosis to history of DVTs requiring lifelong anticoagulation. - Subjective Interval history: Patient's hemoglobin now stable status post 6 units of packed red blood cells EGD on 12/28/17 showed gastric ulcers and old blood within the gastric cardia. EGD on 12/31/17 showed grade 3 esophageal varices with type II gastroesophageal varices will follow-up bleeding in addition to portal hypertensive gastropathy. Continue Octreotide and Protonix drip Monitor H&h will need EGD with variceal banding if continues to drop per GI recommendations - Constitutional Vitals: Temp Pulse Resp BP Pulse Ox 98.2 F 65 17 162/85 95 01/02/18 16:14 01/02/18 16:14 01/02/18 16:14 01/02/18 16:14 01/02/18 16:14 General appearance: Present: cooperative, A&O X 3, pleasant, no acute distress, answers questions appropriately - Respiratory Respiratory exam: Present: CTAB. Absent: accessory muscle use, rales, rhonchi, wheezes - Cardiovascular Cardiovascular exam: Present: RRR, +S1, +S2. Absent: diastolic murmur, gallop, rubs, systolic murmur Internal Medicine: Result - Labs CBC & Chem 7: 01/02/18 04:05 01/02/18 04:05 Labs: Short CBC 01/02/18 Range/Units 04:05 WBC 3.7 L (4.3-11.1) K/mcL Hgb 8.9 L (12.9-16.9) g/dL Hct 28.2 L (37.5-50.1) % Plt Count 83 L (140-400) K/mcL Neutrophils # 2.5 (1.6-8.9) K/mcL BMP 01/02/18 04:05 Sodium 137 Potassium 3.4 L Chloride 107 Carbon Dioxide 26 BUN 10 Creatinine 0.71 Glucose 98 Calcium 7.9 L - ABG Interpretation ABG results: PT/INR, D-dimer PT 15.3 Seconds (9.4-12.1) H 12/28/17 14:30 - VTE Documentation of Mechanical Device: Intermittent pneumatic compression device Consult Discharge Plan - Plan Referrals: Wound,Care [Other] - 01/06/18 2:15 pm Dolph,Cmanual [Other] - 01/10/18 12:45 pm
[2018-01-03] MEDS: Pantoprazole 40 MG in 0.9 % Sodium Chloride Mini Bag 100 ML IVC SCH ×5 (01:15→22:08)
[2018-01-03] MEDS: Octreotide 400 MCG in 0.9 % Sodium Chloride 100 ML IVC SCH ×3 (02:45→18:05)
[2018-01-03] MEDS: 0.9 % Sodium Chloride 1,000 ML IVC SCH (05:22)
[2018-01-03] MEDS: Fluticasone Propionate Nasal 50 MCG/SPRAY BOTTLE NS SCH (08:45)
[2018-01-03 09:37] LABS: Basophils % 0.8 %; Hemoglobin 9.8 g/dL (12.9-16.9); Immature Granulocytes % 0.4 % (0-4)
[2018-01-03 09:39] LABS: Eosinophils # 0.2 K/mcL (0.0-0.6); Eosinophils % 6.4 %; Hematocrit 31.5 % (37.5-50.1); Immature Platelets 3.8 % (1.1-6.1); Lymphocytes # 0.6 K/mcL (0.6-4.6); Lymphocytes % 20.8 %; Mean Corpuscular HGB Conc 31.1 g/dL (31.6-35.5); Mean Corpuscular Hemoglobin 27.1 pg (28.0-33.3); Mean Corpuscular Volume 87.3 fL (83.0-100.0); Mean Platelet Volume 9.9 fL (9.4-12.4); Monocytes # 0.3 K/mcL (0.0-1.3); Monocytes % 9.8 %; Red Blood Count 3.61 M/mcL (4.19-5.50); Segmented Neutrophils % 61.8 %
[2018-01-03 09:43] LABS: Neutrophils # 1.7 K/mcL (1.6-8.9); Platelet Count 88 K/mcL (140-400)
[2018-01-03 10:01] LABS: BUN/Creatinine Ratio 10 (6-26); Blood Urea Nitrogen 8 mg/dL (6-20); Calcium 8.3 mg/dL (8.6-10.3); Carbon Dioxide 26 mEq/L (23-29); Chloride 107 mEq/L (98-107); Glucose 112 mg/dL (70-105); Osmolality,Calculated 283 (280-300); Potassium 3.2 mEq/L (3.5-5.1); Sodium 137 mEq/L (136-145); eGFR For African Americans > 60 (> 60); eGFR For Non-African Americans > 60 (> 60)
--- NOTE | 2018-01-03 17:44 | Internal Med Progress Note ---
Date of Encounter: 01/03/18 Time of Encounter: 11:00 - Assessment and plan (1) Acute deep vein thrombosis (DVT) of brachial vein of left upper extremity Current Visit: Yes Status: Acute Assessment and plan: Doppler ultrasound on 01/03/18 showed Positive DVT in the left Brachial v at the antecubital level and positive SVT in the left Cephalic V in both the upper and lower portion of the arm. Patient not on anticoagulation therapy due to GI bleeding Hematology/oncology consulted and appreciate recommendations (2) Acute blood loss anemia Current Visit: Yes Status: Acute Assessment and plan: Patient's hemoglobin now stable status post 6 units of packed red blood cells EGD on 12/31/17 showed grade 3 esophageal varices with type II gastroesophageal varices will follow-up bleeding in addition to portal hypertensive gastropathy. GI recommendations to decrease Octreotide drip and to discontinue on 01/04/18 Monitor H&h will need EGD with variceal banding if continues to drop per GI recommendations (3) Esophageal varices Current Visit: Yes Status: Acute Assessment and plan: EGD and management as above Qualifiers: Esophageal varices type: unspecified type Esophageal varices bleeding: without bleeding Qualified Code(s): I85.00 - Esophageal varices without bleeding (4) Gastric ulcer Current Visit: Yes Status: Acute Assessment and plan: EGD on 12/28/17 showed gastric ulcers and old blood within the gastric cardia. Pathology pending. Patient placed on Protonix drip and will continue. Qualifiers: Gastric ulcer chronicity: acute Gastric ulcer complication status: with hemorrhage Qualified Code(s): K25.0 - Acute gastric ulcer with hemorrhage (5) Venous stasis ulcers of both lower extremities Current Visit: Yes Status: Chronic Assessment and plan: Hx of chronic venous stasis ulcers of bilateral LEs. Wash areas with soap and water daily and apply 0.25 Dakin's moistened 4 x 4 gauze into the open wound, cover with dry 4 x 4 gauze, wrapped with Kerlix, and secured with tape. Change daily. (6) DVT prophylaxis Current Visit: Yes Status: Acute Assessment and plan: History of multiple and recurrent DVTs. Patient started on Pradaxa 150 mg twice a day 10/2017. Previously on Coumadin, Xarelto, and Lovenox. Anticoagulation currently on hold due to GI bleeding Patient at high risk for thrombosis to history of DVTs requiring lifelong anticoagulation. - Subjective Interval history: Patient with acute loss anemia secondary to GI; hemoglobin now stable status post 6 units of packed red blood cells EGD on 12/28/17 showed gastric ulcers and old blood within the gastric cardia. EGD on 12/31/17 showed grade 3 esophageal varices with type II gastroesophageal varices will follow-up bleeding in addition to portal hypertensive gastropathy. Xarelto was discontinued due to the above and patient now with new DVT in the left Brachial v at the antecubital level and positive SVT in the left Cephalic V in both the upper and lower portion of the arm. - Constitutional Vitals: Temp Pulse Resp BP Pulse Ox 98.8 F 63 17 142/83 98 01/03/18 16:28 01/03/18 16:28 01/03/18 16:28 01/03/18 16:28 01/03/18 16:28 General appearance: Present: cooperative, A&O X 3, pleasant, no acute distress, answers questions appropriately - Respiratory Respiratory exam: Present: CTAB. Absent: accessory muscle use, rales, rhonchi, wheezes - Cardiovascular Cardiovascular exam: Present: RRR, +S1, +S2. Absent: diastolic murmur, gallop, rubs, systolic murmur - Expanded Upper Extremities Exam Upper Arm exam: Present: swelling (Left upper extremity swelling secondary to DVT and SVT) Internal Medicine: Result - Labs CBC & Chem 7: 01/03/18 09:24 01/03/18 09:24 Labs: Short CBC 01/03/18 Range/Units 09:24 WBC 2.7 L (4.3-11.1) K/mcL Hgb 9.8 L (12.9-16.9) g/dL Hct 31.5 L (37.5-50.1) % Plt Count 88 L (140-400) K/mcL Neutrophils # 1.7 (1.6-8.9) K/mcL BMP 01/03/18 09:24 Sodium 137 Potassium 3.2 L Chloride 107 Carbon Dioxide 26 BUN 8 Creatinine 0.78 Glucose 112 H Calcium 8.3 L - ABG Interpretation ABG results: PT/INR, D-dimer PT 15.3 Seconds (9.4-12.1) H 12/28/17 14:30 - VTE Documentation of Mechanical Device: Intermittent pneumatic compression device Consult Discharge Plan - Plan Referrals: Wound,Care [Other] - 01/06/18 2:15 pm Russ Zazueta [Other] - 01/10/18 12:45 pm
[2018-01-03] MEDS: OXYCODONE Oral CONC 10 MG/0.5 ML ORAL.SYG SL PRN (23:59)
[2018-01-04] MEDS: 0.9 % Sodium Chloride 1,000 ML IVC SCH (02:17)
[2018-01-04] MEDS: Pantoprazole 40 MG in 0.9 % Sodium Chloride Mini Bag 100 ML IVC SCH ×3 (03:35→13:05)
[2018-01-04] MEDS: Fluticasone Propionate Nasal 50 MCG/SPRAY BOTTLE NS SCH (08:08)
--- NOTE | 2018-01-04 09:16 | Internal Med Progress Note ---
Date of Encounter: 01/04/18 Time of Encounter: 09:14 - Assessment and plan (1) Acute deep vein thrombosis (DVT) of brachial vein of left upper extremity Current Visit: Yes Status: Acute Assessment and plan: -Doppler U/S on 01/03/18 showed DVT in the L Brachial v at the antecubital level and positive SVT in the L Cephalic V in both the upper and lower portion of the arm. -Not on anticoagulation therapy due to GI bleeding -Hematology/oncology consulted for recommendations (2) Acute blood loss anemia Current Visit: Yes Status: Acute Assessment and plan: EGD 12/28/17: gastric ulcers and old blood within the gastric cardia. EGD 12/31/17: grade 3 esophageal varices with type II gastroesophageal varices will follow-up bleeding in addition to portal hypertensive gastropathy -Patient's Hb now stable s/p 6U of pRBCs -EGD on 12/31/17 showed grade 3 esophageal varices with type II gastroesophageal varices will follow-up bleeding in addition to portal hypertensive gastropathy -GI recommended Octreotide drip; d/c today -Monitor H&H; last Hb was 9.8 -May need EGD with variceal banding if Hb continues to drop per GI recommendations (3) Esophageal varices Current Visit: Yes Status: Acute Assessment and plan: -EGD and management as above Qualifiers: Esophageal varices type: unspecified type Esophageal varices bleeding: without bleeding Qualified Code(s): I85.00 - Esophageal varices without bleeding (4) Gastric ulcer Current Visit: Yes Status: Acute Assessment and plan: -EGD on 12/28/17 showed gastric ulcers and old blood within the gastric cardia. Pathology report pending. -Patient placed on Protonix drip and will continue -Pureed diet Qualifiers: Gastric ulcer chronicity: acute Gastric ulcer complication status: with hemorrhage Qualified Code(s): K25.0 - Acute gastric ulcer with hemorrhage (5) Venous stasis ulcers of both lower extremities Current Visit: Yes Status: Chronic Assessment and plan: -Hx of chronic venous stasis ulcers of b/l LEs -Wash areas with soap and water daily and apply 0.25 Dakin's moistened 4 x 4 gauze into the open wound, cover with dry 4 x 4 gauze, wrapped with Kerlix, and secured with tape -Change daily (6) DVT prophylaxis Current Visit: Yes Status: Acute Assessment and plan: -History of multiple and recurrent DVTs -Patient started on Pradaxa 150 mg twice a day 10/2017 -Previously on Coumadin, Xarelto, and Lovenox -Anticoagulation currently on hold due to GI bleeding -Patient at high risk for thrombosis to history of DVTs requiring lifelong anticoagulation - Subjective Interval history: Mr. Atkinson is a 52 year old male with medical hx of hx of CVA at age 22, chronic venous stasis ulcers of bilateral LEs, and hx of DVTs presented to the ED on with GI bleeding and weakness Pts. mother came to see him and found him seated and too weak to get up. Squad called and pt. had several episodes of hematemesis; Multiple episodes emesis in route, 250-300 mL of bright red blood. Pt. was on Pradaxa for anticoagulation d/t DVTs. Denied abdominal pain. Denies previous occurrence of current sx. Known familial hx of blood clotting disorder and CVAs. He had weakness, fatigue, lightheadedness, and nasal congestion. Vital signs within normal limits on arrival. Dr. Braun was consulted. Estimated blood loss 600 cc. Patient was transfused with 4 units. Patient also received unit of platelets, 2 L of IV normal saline, octreotide, pantoprazole 80 mg IV bolus, Zofran. Patient was seen and examined at bedside this morning. Unable to verbalize; writes on a pad that he is feeling well. Denies having any pain in his legs. No complaints at this time. - Constitutional Vitals: Temp Pulse Resp BP Pulse Ox 98.4 F 70 14 146/74 98 01/04/18 08:10 01/04/18 08:10 01/04/18 08:10 01/04/18 08:10 01/04/18 08:10 General appearance: Present: cooperative, A&O X 3, pleasant, no acute distress - Head Head exam: Present: atraumatic, normocephalic - Eye Eye exam: Present: PERRL, conjuntiva pink, sclera anicteric Pupils: Present: PERRL - Neck Neck exam general surgery: Present: supple, trachea midline. Absent: lymphadenopathy - Respiratory Respiratory exam: Present: CTAB. Absent: accessory muscle use, rales, rhonchi, wheezes - Cardiovascular Cardiovascular exam: Present: RRR, +S1, +S2. Absent: diastolic murmur, gallop, rubs, systolic murmur - GI/Abdominal GI/Abdominal exam: Present: normal bowel sounds, soft, no peritoneal signs. Absent: distended, tenderness - Extremities Exam Extremities exam: Present: warm, radial pulses palpable and symmetrical. Absent : calf tenderness, cyanotic, pedal edema - Neurological Exam Neurological exam: Present: CN II-XII intact, oriented X3, no focal deficits. Absent: pronater drift, facial droop, speech deficit - Skin Skin exam: Present: dry, intact Internal Medicine: Result - Labs CBC & Chem 7: 01/04/18 10:25 01/04/18 10:25 Labs: Short CBC 01/03/18 Range/Units 09:24 WBC 2.7 L (4.3-11.1) K/mcL Hgb 9.8 L (12.9-16.9) g/dL Hct 31.5 L (37.5-50.1) % Plt Count 88 L (140-400) K/mcL Neutrophils # 1.7 (1.6-8.9) K/mcL BMP 01/03/18 09:24 Sodium 137 Potassium 3.2 L Chloride 107 Carbon Dioxide 26 BUN 8 Creatinine 0.78 Glucose 112 H Calcium 8.3 L - ABG Interpretation ABG results: PT/INR, D-dimer PT 15.3 Seconds (9.4-12.1) H 12/28/17 14:30 - VTE Documentation of Mechanical Device: Intermittent pneumatic compression device Consult Discharge Plan - Plan Referrals: Wound,Care [Other] - 01/13/18 2:15 pm Dolph,Cmanual [Other] - 01/10/18 12:45 pm
[2018-01-04] MEDS: Octreotide 400 MCG in 0.9 % Sodium Chloride 100 ML IVC SCH (10:20)
[2018-01-04 10:32] LABS: Eosinophils # 0.3 K/mcL (0.0-0.6); Eosinophils % 6.5 %; Hematocrit 30.8 % (37.5-50.1); Hemoglobin 9.5 g/dL (12.9-16.9); Immature Granulocytes % 0.3 % (0-4); Lymphocytes # 0.7 K/mcL (0.6-4.6); Mean Corpuscular HGB Conc 30.8 g/dL (31.6-35.5); Mean Corpuscular Volume 90.9 fL (83.0-100.0); Mean Platelet Volume 10.4 fL (9.4-12.4); Monocytes # 0.4 K/mcL (0.0-1.3); Monocytes % 10.1 %; Neutrophils # 2.4 K/mcL (1.6-8.9); Platelet Count 106 K/mcL (140-400); Red Blood Count 3.39 M/mcL (4.19-5.50); Red Cell Distribution Width 17.4 % (11.5-14.5); Segmented Neutrophils % 63.1 %
[2018-01-04 11:33] LABS: Alanine Aminotransferase 14 Units/L (7-52); Albumin 2.9 g/dL (3.5-5.7); Albumin/Globulin Ratio 1.3 (1.1-2.2); Alkaline Phosphatase 84 Units/L (34-104); Aspartate Amino Transferase 23 Units/L (13-39); BUN/Creatinine Ratio 10 (6-26); Bilirubin,Total 1.3 mg/dL (0.3-1.0); Blood Urea Nitrogen 8 mg/dL (6-20); Carbon Dioxide 23 mEq/L (23-29); Chloride 110 mEq/L (98-107); Globulin 2.3 g/dL (2.4-3.5); Glucose 116 mg/dL (70-105); Osmolality,Calculated 283 (280-300); Potassium 3.2 mEq/L (3.5-5.1); Sodium 137 mEq/L (136-145); Total Protein 5.2 g/dL (6.4-8.9); eGFR For African Americans > 60 (> 60); eGFR For Non-African Americans > 60 (> 60)
--- NOTE | 2018-01-04 13:59 | Discharge Summary ---
<Domingo Kebede - Last Filed: 01/04/18 15:49> Orders not resulted at time of discharge: Pending orders 12/28/17 17:54 Consult to Gastroenterology [CONS] Routine Consult to Oncology Hematology [CONS] Routine 12/28/17 18:42 Consult to Lapidary Apprentice [CONS] Routine 12/29/17 09:13 Alpha-1-AT Deficiency Reflex Routine 12/30/17 14:00 PT [Consult to Physical Therapy] [CONS] Routine 12/30/17 14:01 OT [Consult to Occupational Therapy] [CONS] Routine 12/31/17 15:08 Consult to Invasive Line Access Team [CONS] Routine Pathology 12/28/17 16:30 Surgical Pathology [PTH] Routine Comment: Department: Surgical Pathology Specimen: Has been collected Specimen placed in fixative?: Yes Tissue Removal Time:: 16:26 Tissue Fixative Time:: 16:26 DATE JOSE RAFAEL:: 12/28/17 PRE-OP DIAGNOSIS:: GI Bleed POST-OP DIAGNOSIS:: Bleeding Gastric Ulcer, Esophageal Varicies SPECIMEN & SITE: 1: Antrum bx r/o h.pylori Date of Encounter: 01/04/18 Time of Encounter: 08:45 - Discharge Diagnosis (1) Acute deep vein thrombosis (DVT) of brachial vein of left upper extremity Priority: Primary Status: Acute (2) Acute blood loss anemia Priority: Primary Status: Acute (3) Esophageal varices Priority: Primary Status: Acute Qualifiers: Esophageal varices type: unspecified type Esophageal varices bleeding: without bleeding Qualified Code(s): I85.00 - Esophageal varices without bleeding (4) Gastric ulcer Priority: Secondary Status: Acute Qualifiers: Gastric ulcer chronicity: acute Gastric ulcer complication status: with hemorrhage Qualified Code(s): K25.0 - Acute gastric ulcer with hemorrhage (5) Venous stasis ulcers of both lower extremities Priority: Secondary Status: Chronic (6) DVT prophylaxis Priority: Secondary Status: Acute Hospital course: Mr. Atkinson is a 52 year old male with medical hx of hx of CVA at age 22, chronic venous stasis ulcers of bilateral LEs, and hx of DVTs presented to the ED on with GI bleeding and weakness Pts. mother came to see him and found him seated and too weak to get up. Squad called and pt. had several episodes of hematemesis; Multiple episodes emesis in route, 250-300 mL of bright red blood. Pt. was on Pradaxa for anticoagulation d/t DVTs. Denied abdominal pain. Denies previous occurrence of current sx. Known familial hx of blood clotting disorder and CVAs. He had weakness, fatigue, lightheadedness, and nasal congestion. Vital signs within normal limits on arrival. Dr. Braun was consulted. Estimated blood loss 600 cc. Patient was transfused with 4 units. Patient also received unit of platelets, 2 L of IV normal saline, octreotide, pantoprazole 80 mg IV bolus, Zofran. EGD 12/28/17: gastric ulcers and old blood within the gastric cardia. EGD 12/31/17: grade 3 esophageal varices with type II gastroesophageal varices will follow-up bleeding in addition to portal hypertensive gastropathy Patient was seen and examined at bedside this morning. Unable to verbalize; writes on a pad that he is feeling well. Denies having any pain in his legs. No complaints at this time. Patient will be sent home on Protonix 40 mg BID and Nadolol 40mg daily. In addition, he should avoid NSAIDS. - Time Spent with Patient Total time spent providing and/or coordinating discharge services: Greater than 30 minutes (41 minutes) - Discharge Medications Prescriptions: Nadolol [Corgard] 40 mg PO DAILY #30 tablet Pantoprazole Sodium [Protonix] 40 mg PO BID #60 granpkt. Home Medications: Dabigatran Etexilate Mesylate [Pradaxa] 150 mg PO BID #60 capsule 12/07/17 [Rx] Nadolol [Corgard] 40 mg PO DAILY #30 tablet 01/04/18 [Rx] Pantoprazole Sodium [Protonix] 40 mg PO BID #60 granpkt. 01/04/18 [Rx] Allergies/Adverse Reactions: 3 Allergy/AdvReac Type Severity Reaction Status Date / Time No Known Allergies Allergy Verified 10/19/17 11:22 Date of admission: 12/28/17 15:31 Primary care physician: PCP NONE Consults: 12/28/17 17:54 Consult to Gastroenterology [CONS] Routine Consulting Provider: Gastroenterology Ashley Reason for Consult: new diagnosis esophageal varices, recent UGIB but not due to varices Time Notified: 16:54 Call Completed: Yes Consult to Oncology Hematology [CONS] Routine Consulting Provider: Deirdre Jeffers Reason for Consult: patient known to you, hx dvt on coumadin, started pradaxa , now w/ UGIB, need anticoagulation recommendations Time Notified: 16:55 Call Completed: No 12/28/17 18:42 Consult to Lapidary Apprentice [CONS] Routine Reason for SW Consult: discharge planning 12/30/17 14:00 PT [Consult to Physical Therapy] [CONS] Routine Comment: Evaluate, develop and implement POC Reason for Consult: Pt. had stroke at the age of 22 w/residual weakness to his left side. Pt. communicates w/writing board. Please assess patient for possible rehabilitation qualifications for inpatient and post-discharge planning. 12/30/17 14:01 OT [Consult to Occupational Therapy] [CONS] Routine Comment: Evaluate, develop and implement POC Reason for Consult: Pt. had stroke at the age of 22 w/residual weakness to his left side. Pt. communicates w/writing board. Please assess patient for possible rehabilitation qualifications for inpatient and post-discharge planning. 12/31/17 15:08 Consult to Invasive Line Access Team [CONS] Routine Reason for Consult: poor access Line Type: EPIV Discharging clinician: Domingo Kebede Anticipated date of discharge: 01/04/18 - Constitutional Vitals: Temp Pulse Resp BP Pulse Ox 98.4 F 74 15 134/64 99 01/04/18 11:36 01/04/18 11:36 01/04/18 11:36 01/04/18 11:36 01/04/18 11:36 General appearance: Present: cooperative, A&O X 3, pleasant, no acute distress - Head Head exam: Present: atraumatic, normocephalic - Eye Eye exam: Present: PERRL, conjuntiva pink, sclera anicteric Pupils: Present: PERRL - Neck Neck exam general surgery: Present: supple, trachea midline. Absent: lymphadenopathy - Respiratory Respiratory exam: Present: CTAB. Absent: accessory muscle use, rales, rhonchi, wheezes - Cardiovascular Cardiovascular exam: Present: RRR, +S1, +S2. Absent: diastolic murmur, gallop, rubs, systolic murmur - GI/Abdominal GI/Abdominal exam: Present: normal bowel sounds, soft, no peritoneal signs. Absent: distended, tenderness - Extremities Exam Extremities exam: Present: warm, radial pulses palpable and symmetrical. Absent : calf tenderness, cyanotic, pedal edema - Neurological Exam Neurological exam: Present: CN II-XII intact, oriented X3, no focal deficits. Absent: pronater drift, facial droop, speech deficit - Skin Skin exam: Present: dry, intact - Patient Status Disposition: Home, Self-Care Condition: Critical - Discharge Instructions Follow Up With: Wound,Care [Other] - 01/13/18 2:15 pm Dolph,Cmanual [Other] - 01/10/18 12:45 pm Additional Instructions: [facility] on long term care phlebotomist anticoagulation. - Diet and Activity Activity: increase activity as tolerated Diet: advance to your usual diet - VTE Documentation of Mechanical Device: Intermittent pneumatic compression device <Navi Gutiérrez - Last Filed: 01/04/18 16:27> Orders not resulted at time of discharge: Pathology 12/28/17 16:30 Surgical Pathology [PTH] Routine Comment: Department: Surgical Pathology Specimen: Has been collected Specimen placed in fixative?: Yes Tissue Removal Time:: 16:26 Tissue Fixative Time:: 16:26 DATE JOSE RAFAEL:: 12/28/17 PRE-OP DIAGNOSIS:: GI Bleed POST-OP DIAGNOSIS:: Bleeding Gastric Ulcer, Esophageal Varicies SPECIMEN & SITE: 1: Antrum bx r/o h.pylori Date of Encounter: 01/04/18 Hospital course: Mr. Atkinson is a 52 year old male - Time Spent with Patient Total time spent providing and/or coordinating discharge services: Date of admission: 12/28/17 15:31 Primary care physician: PCP NONE Consults: 12/28/17 17:54 Consult to Gastroenterology [CONS] Routine Consulting Provider: Gastroenterology Ashley Reason for Consult: new diagnosis esophageal varices, recent UGIB but not due to varices Time Notified: 16:54 Call Completed: Yes Consult to Oncology Hematology [CONS] Routine Consulting Provider: Deirdre Jeffers Reason for Consult: patient known to you, hx dvt on coumadin, started pradaxa , now w/ UGIB, need anticoagulation recommendations Time Notified: 16:55 Call Completed: No 12/28/17 18:42 Consult to Lapidary Apprentice [CONS] Routine Reason for SW Consult: discharge planning 12/30/17 14:00 PT [Consult to Physical Therapy] [CONS] Routine Comment: Evaluate, develop and implement POC Reason for Consult: Pt. had stroke at the age of 22 w/residual weakness to his left side. Pt. communicates w/writing board. Please assess patient for possible rehabilitation qualifications for inpatient and post-discharge planning. 12/30/17 14:01 OT [Consult to Occupational Therapy] [CONS] Routine Comment: Evaluate, develop and implement POC Reason for Consult: Pt. had stroke at the age of 22 w/residual weakness to his left side. Pt. communicates w/writing board. Please assess patient for possible rehabilitation qualifications for inpatient and post-discharge planning. 12/31/17 15:08 Consult to Invasive Line Access Team [CONS] Routine Reason for Consult: poor access Line Type: EPIV - Constitutional Vitals: Temp Pulse Resp BP Pulse Ox 98.4 F 74 15 134/64 99 01/04/18 11:36 01/04/18 11:36 01/04/18 11:36 01/04/18 11:36 01/04/18 11:36 - Attending Attestation I personally interviewed and examined this patient. I agree with the findings, assessment, and plan of Dr. Kebede, internal medicine international project engineer. Unclear why patient has varices. He will likely need further workup for occult liver disease. Alternatively he could have had previous portal vein thrombosis leading to this. Patient will be on twice daily proton pump inhibitor therapy. Patient is to avoid nonsteroidal anti-inflammatory agents. He will also be sent home on data wall given his portal hypertension. He will need GI follow- up. Patient can use warm compresses as necessary for his left arm swelling. He otherwise was deemed stable for discharge. Gen. no acute distress Warm and dry Ext: left arm is edematous, Lungs clear bilaterally Regular rate and rhythm Neurological no gross focal deficits. Patient is nonverbal. The case with a clipboard.
[2018-01-04 14:31] LABS: A1A SZ Specimen WHOLE BLOOD; Alpha-1-Antitrypsin S Allele NEGATIVE; Alpha-1-Antitrypsin Z Allele NEGATIVE
[2018-01-04 14:39] LABS: Alpha-1-Antitrypsin 171 mg/dL (90-200)
[2018-01-04] MEDS ORDERED: FLUARIX QUAD 2017-18 36MOS UP/PF 0.5 ML SYRINGE IM ONE (14:46)
--- NOTE | 2018-01-04 16:43 | Oncology Inp Progress Note ---
Date of Encounter: 01/04/18 Time of Encounter: 15:00 (1) Acute blood loss anemia Status: Acute Assessment and plan: Presented with acute blood loss anemia secondary to upper GI bleed hemoglobin 5.0 on admission 12/28/2017. S/p 4 units PRBC transfused and venofer 400 mg. S/p EGD with Dr. Braun which shows- Grade III esophageal varicies, gastric ulcers, old blood within the gastric cardia; path pending. Possible underlying AVM. Reviewed GI consult, he was not banded as his hgb remained stable and improved. Varices etiology unclear. ABD US revealed: Collateral vessels in the edgard hepatis raising the possibility of cavernous transformation of the portal vein. This was a limited Doppler evaluation due to overlying bowel gas and will likely need CT to better evaluate. He does have a hx of heavy alcohol abuse in his 20's. He will likely need further workup for occult liver disease and has further GI follow up arranged as outpatient. H/O multiple recurrent DVTs-He is at high for for thrombosis, needs lifelong anticoagulation. Pradaxa has been on hold during acute hospital stay due to acute GI bleed. In the interim he has developed an acute venous thrombosis in the left cephalic and left brachial veins. Discussed case with Dr. Adams, rounding curriculum development specialist, suggests restarting Pradaxa at full dose 150 mg BID. While his risk for bleeding remains high, his risk for arterial/venous thrombosis is felt to be of more risk to the patient at this current time. Risks and benefits of restarting anticoagulation discussed with patient who understands and agrees with plan. Discussed case and recommendation to restart Pradaxa with hospitalist as patient now planned for discharge home today. Will arrange for close interim follow up with Dr. Jeffers, patients treating curriculum development specialist. Oncology: Subj Interval history: Mr. Atkinson is feeling well and has no complaints currently. His is not at bedside. Communication is limited given patient is nonverbal, able to communicate by writing and shakes his head yes/no. - Constitutional Vitals: Vital Signs Temp Pulse Resp BP Pulse Ox 01/04/18 11:36 98.4 F 74 15 134/64 99 01/04/18 11:30 98.4 F 74 15 134/64 99 01/04/18 08:10 98.4 F 70 14 146/74 98 01/04/18 07:28 98.4 F 70 14 146/74 98 01/04/18 04:42 70 19 91 01/04/18 04:17 98.4 F 75 19 131/99 91 01/04/18 00:20 62 01/03/18 23:52 98.8 F 65 17 134/79 95 01/03/18 20:42 57 19 97 01/03/18 19:11 98.2 F 59 19 154/95 97 Intake and Output 01/04/18 01/04/18 01/04/18 07:59 15:59 23:59 Intake Total 1100 / 1100 1252 / 1252 60 / 60 Output Total 300 / 300 650 / 650 Balance 800 / 800 602 / 602 60 / 60 Intake: IV Fluids 1100 / 1100 654 / 654 60 / 60 0.9 % Sodium Chloride 1,000 ML 1000 / 1000 350 / 350 @ 50 mls/hr IVC .Q20H NIKI Rx#: [id number] SandoSTATIN 400 MCG In 0.9 % 104 / 104 10 / 10 Sodium Chloride 100 ML @ 25 MCG /HR 6.5 mls/hr IVC .Q16H NIKI Rx #:[id number] Protonix 40 MG In 0.9 % Sodium 100 / 100 200 / 200 50 / 50 Chloride (Mini-Bag +) 100 ML @ 20 mls/hr IVC .Q5H NIKI Rx#: [id number] Oral 598 / 598 Output: Urine 300 / 300 650 / 650 Other: Meal Breakfast Percent of Meal Consumed 5% Stool Size Moderate Stool Consistency soft formed Stool Color Brown Weight 92.5 kg Blood Glucose* 100 125 Patient Weight 01/04/18 23:59 Weight 92.5 kg General appearance: cooperative, no acute distress, no febrile - Head Head exam: Present: atraumatic - Respiratory Respiratory exam: Present: CTAB. Absent: respiratory distress - Cardiovascular Cardiovascular exam: Present: RRR, +S1, +S2 - GI/Abdominal GI/Abdominal exam: Present: normal bowel sounds, soft. Absent: tenderness - Extremities Exam Additional comments: BLE dressings D&I, pedal edema noted. LUE edema extending into hand, erythema and warmth noted to upper arm - Neurological Exam Neurological exam: Present: alert, oriented X3 Additional comments: nonverbal-communicates with writing - Psychiatric Psychiatric exam: Present: normal affect, normal mood - Skin Skin exam: Present: normal color, warm Oncology: Obj Data - Labs CBC & Chem 7: 01/04/18 10:25 01/04/18 10:25 - ABG Interpretation ABG results: PT/INR, D-dimer PT 15.3 Seconds (9.4-12.1) H 12/28/17 14:30 Consult Discharge Plan - Plan Instructions: Anemia (GEN) Additional Instructions: Follow up with hemeonc in the outpatient setting for recommendations on assisted anticoagulation. Referrals: Wound,Care [Other] - 01/13/18 2:15 pm Dolph,Cmanual [Other] - 01/10/18 12:45 pm Deirdre Jeffers MD [Partnered Physician] - 01/18/18 1:50 pm Prescriptions: Nadolol [Corgard] 40 mg PO DAILY #30 tablet Pantoprazole Sodium [Protonix] 40 mg PO BID #60 granpkt.
== END 2018-01-04 18:05 | disposition home or self-care (01) | DRG 378 ==
LOC: EMEROO 14:12 → SUATTDRO 15:31 → 2NNU 15:31
PROVIDERS: ADMIT Surgery; ATTEND Hospitalist

== ENCOUNTER 2018-09-08 09:13 | Inpatient (IN) ==
[2018-09-08] MEDS ORDERED: Pantoprazole 40 MG VIAL IVP ONE (09:19)
[2018-09-08] MEDS ORDERED: Ondansetron 4 MG/2 ML VIAL IVP ONE ×2 (09:19→10:07)
[2018-09-08] MEDS ORDERED: Octreotide 50 MCG/ML SYRINGE IVP ONE (09:19)
[2018-09-08] MEDS ORDERED: Octreotide 400 MCG in 0.9 % Sodium Chloride 100 ML IVC SCH (09:30)
[2018-09-08 10:00] LABS: Basophils % 0.6 %; Eosinophils # 0.3 K/mcL (0.0-0.6); Eosinophils % 3.8 %; Hematocrit 22.4 % (37.5-50.1); Hemoglobin 6.7 g/dL (12.9-16.9); Immature Granulocytes % 0.3 % (0-4); Lymphocytes # 0.8 K/mcL (0.6-4.6); Lymphocytes % 12.2 %; Mean Corpuscular HGB Conc 29.9 g/dL (31.6-35.5); Mean Corpuscular Hemoglobin 24.1 pg (28.0-33.3); Mean Corpuscular Volume 80.6 fL (83.0-100.0); Monocytes # 0.4 K/mcL (0.0-1.3); Monocytes % 5.7 %; Neutrophils # 5.3 K/mcL (1.6-8.9); Platelet Count 126 K/mcL (140-400); Red Blood Count 2.78 M/mcL (4.19-5.50); Red Cell Distribution Width 15.9 % (11.5-14.5); Segmented Neutrophils % 77.4 %
[2018-09-08] MEDS ORDERED: 0.9 % Sodium Chloride 1,000 ML ONE (10:04)
[2018-09-08] MEDS ORDERED: Ondansetron 4 MG/2 ML VIAL ONE (10:04)
[2018-09-08] MEDS ORDERED: 0.9 % Sodium Chloride 1,000 ML IVC ONE (10:07)
[2018-09-08 10:08] LABS: INR 1.5; Prothrombin Time 16.8 Seconds (9.4-12.1)
[2018-09-08 10:18] LABS: Troponin I < 0.03 ng/mL (< 0.04)
[2018-09-08 10:19] LABS: Alanine Aminotransferase 16 Units/L (7-52); Albumin 3.2 g/dL (3.5-5.7); Albumin/Globulin Ratio 1.3 (1.1-2.2); Alkaline Phosphatase 92 Units/L (34-104); Aspartate Amino Transferase 24 Units/L (13-39); BUN/Creatinine Ratio 29 (6-26); Bilirubin,Direct 0.1 mg/dL (0.0-0.2); Bilirubin,Indirect 0.4 mg/dL (0.0-1.2); Bilirubin,Total 0.5 mg/dL (0.3-1.0); Blood Urea Nitrogen 21 mg/dL (6-20); Calcium 8.2 mg/dL (8.6-10.3); Carbon Dioxide 25 mEq/L (23-29); Chloride 109 mEq/L (98-107); Globulin 2.5 g/dL (2.4-3.5); Glucose 125 mg/dL (70-105); Lipase 60 Units/L (11-82); Osmolality,Calculated 296 (280-300); Potassium 3.3 mEq/L (3.5-5.1); Sodium 141 mEq/L (136-145); Total Protein 5.7 g/dL (6.4-8.9); eGFR For Non-African Americans > 60 (> 60)
--- NOTE | 2018-09-08 10:51 | Emergency Department Note ---
Disposition Clinical Impression: UGIB (upper gastrointestinal bleed) Disposition: Admitted As Inpatient Condition: Fair Time of Disposition: 12:09 GI Bleed HPI - General Chief complaint: ED GI Bleed Stated complaint: Vomiting Blood Time Seen by Provider: 09/08/18 09:15 Source: EMS Limitations: no limitations Nursing Notes Reviewed: Yes Vital Signs Reviewed: Yes - History of Present Illness HPI Narrative: 53 year old male presents for vomiting blood. Patient has a history of alcohol use, esophageal varices, a blood disorder on pradaxa, and massive stroke with residual left sided weakness. History is difficult to obtain due to patient is mute and can only communicate with sign language and head shakes/nods. reports that he started vomiting bright red blood half an hour ago. Reports that same thing happened earlier this year in February. EGD revealed esophageal varices and he required blood transfusions. also reports that he fell this morning. He hit his head on the toilet. Patient reports he felt dizzy at the time of fall. He did not lose consciousness. Denies headache. reports that patient is not confused. also reports that he hasn't been taking his blood thinner lately. Patient admits nausea. Denies abdominal pain, denies chest pain, denies shortness of breath. - Related Data Home Medications Medication Instructions Recorded Confirmed Pantoprazole Sodium [Protonix] 40 mg PO DAILY 09/08/18 Previous Rx's Medication Instructions Recorded Dabigatran [Pradaxa] 75 mg PO BID #60 capsule 01/07/18 Nadolol [Corgard] 40 mg PO DAILY #30 tablet 02/11/18 Allergies Allergy/AdvReac Type Severity Reaction Status Date / Time No Known Allergies Allergy Verified 02/14/18 09:23 Constitutional: Denies: fever, chills Eyes: Denies: eye pain, eye discharge ENT ED: Denies: ear pain, throat pain Cardiovascular: Denies: chest pain, palpitations Respiratory: Denies: cough, dyspnea Gastrointestinal: Reports: nausea. Denies: abdominal pain Genitourinary: Denies: urgency, dysuria Musculoskeletal: Denies: back pain, neck pain Integumentary: Denies: rash, abrasion Neurological: Denies: headache Past Medical History - Past Medical History Medical history: Reports: CVA, DVT Surgical history: Reports: cholecystectomy Psychiatric history: Reports: no psych history - Social History Smoking Status: Never smoker Smokeless Tobacco Status: No Alcohol use: Reports: none Drug use: Reports: none Physical Exam - General Limitations: language barrier (Mute; communicates via sign language and head shakes/nods ) General appearance: alert, in no apparent distress - Head Head exam: atraumatic, normocephalic - Eye Eye exam: Present: normal appearance, PERRL, EOMI - ENT ENT exam: mucous membranes moist, other (No teeth ) - Neck Neck exam: Present: normal inspection - Chest Chest inspection: Present: normal inspection - Respiratory Respiratory exam: Present: normal lung sounds bilaterally. Absent: respiratory distress - Cardiovascular Cardiovascular exam: Present: regular rate, normal rhythm - Abdominal Exam Abdominal exam: Present: soft, Non-Tender, normal bowel sounds. Absent: distention, guarding, rebound, rigidity - Extremities Exam Extremities exam: Present: pedal edema, other (Feet are bandaged). Absent: tenderness, joint swelling - Neurological Exam Neurological exam: Present: alert, oriented X3, CN II-XII intact. Absent: motor sensory deficit - Psychiatric Psychiatric exam: Present: normal affect, normal mood - Skin Skin exam: Present: warm, dry, intact, normal color Course Course Narrative: 53 year old male with history of blood disorder, esophageal varices, and stroke with residual left sided weakness presents for vomiting bright red blood and a fall from dizziness. History of vomiting blood in February from esophageal varices that required blood transfusions. Patient is alert and oriented and hemodynamically stable. On exam, there is dried blood around patient's mouth. Abdominal exam is normal with no tenderness. Head is atraumatic. There are no new focal deficits. Will obtain labwork and CT head. Will provide zofran, PPI, and octreotide. - Reevaluation(s) Reevaluation #1: EKG shows minimal ST depression in inferior leads, new from prior. Will check troponin. Patient vomited bright red blood while in the ED. Will provide fluids and more octreotide. CBC shows anemia with Hb at 6.7 and thrombocytopenia. No leukocyto sis. GI has agreed to come see the patient. Blood bank will have blood ready for transfusion in 11 minutes. Patient will be admitted to ICU. Time: 10:12 Vital Signs Temperature 97.7 F 09/08/18 09:19 Pulse Rate 69 09/08/18 09:19 Respiratory Rate 16 09/08/18 09:19 Blood Pressure 114/65 09/08/18 09:19 O2 Sat by Pulse Oximetry 100 09/08/18 09:19 Temperature 97.7 F 09/08/18 09:19 Pulse Rate 69 09/08/18 09:19 Respiratory Rate 16 09/08/18 09:19 Blood Pressure 114/65 09/08/18 09:19 O2 Sat by Pulse Oximetry 100 09/08/18 09:19 Oxygen Delivery Oxygen Delivery Room Air GI Bleed - Medical Records Medical records reviewed: Yes I reviewed the patient's medical records. - Lab Data Lab results reviewed: Yes I reviewed the patient's lab results. - Radiology Data Radiology results reviewed: Yes I reviewed the patient's radiology results. - EKG Data EKG attestation: Yes I reviewed and interpreted this EKG. EKG results narrative: EKG 09/08/18 09:24. Sinus rhythm. Heart rate 70. Minimal ST segment depression in inferior leads. New from prior EKG 12/28/17.
--- NOTE | 2018-09-08 10:51 | Emergency Department Note ---
Disposition Clinical Impression: UGIB (upper gastrointestinal bleed) Disposition: Admitted As Inpatient Condition: Fair General Adult HPI - General Chief complaint: ED GI Bleed Stated complaint: Vomiting Blood Time Seen by Provider: 09/08/18 09:15 Source: EMS Limitations: no limitations - History of Present Illness Pain Scale: 0 - Related Data Home Medications Medication Instructions Recorded Confirmed Pantoprazole Sodium [Protonix] 40 mg PO DAILY 09/08/18 Previous Rx's Medication Instructions Recorded Dabigatran [Pradaxa] 75 mg PO BID #60 capsule 01/07/18 Nadolol [Corgard] 40 mg PO DAILY #30 tablet 02/11/18 Allergies Allergy/AdvReac Type Severity Reaction Status Date / Time No Known Allergies Allergy Verified 02/14/18 09:23 Past Medical History - Past Medical History Medical history: Reports: CVA, DVT Surgical history: Reports: cholecystectomy Psychiatric history: Reports: no psych history - Social History Smoking Status: Never smoker Smokeless Tobacco Status: No Alcohol use: Reports: none Drug use: Reports: none Physical Exam - General Limitations: no limitations General appearance: alert, in no apparent distress Course Vital Signs Temperature 97.7 F 09/08/18 09:19 Pulse Rate 69 09/08/18 09:19 Respiratory Rate 16 09/08/18 09:19 Blood Pressure 114/65 09/08/18 09:19 O2 Sat by Pulse Oximetry 100 09/08/18 09:19 Temperature 98.2 F 09/08/18 12:43 Pulse Rate 74 09/08/18 12:43 Respiratory Rate 12 09/08/18 12:43 Blood Pressure 113/60 09/08/18 12:43 O2 Sat by Pulse Oximetry 98 09/08/18 12:43 Oxygen Delivery Oxygen Delivery Room Air Medical Decision Making - Lab Data Result diagrams: 09/08/18 09:41 09/08/18 09:41 Lab Results 09/08/18 09/08/18 09/08/18 Range/Units 09:41 09:41 09:41 WBC 6.9 (4.3-11.1) K/mcL RBC 2.78 L (4.19-5.50) M/mcL Hgb 6.7 L (12.9-16.9) g/dL Hct 22.4 L (37.5-50.1) % MCV 80.6 L (83.0-100.0) fL MCH 24.1 L (28.0-33.3) pg MCHC 29.9 L (31.6-35.5) g/dL RDW 15.9 H (11.5-14.5) % Plt Count 126 L (140-400) K/mcL MPV 10.0 (9.4-12.4) fL Immature Gran % 0.3 (0-4) % Seg Neutrophils % 77.4 % Lymphocytes % 12.2 % Monocytes % 5.7 % Eosinophils % 3.8 % Basophils % 0.6 % Neutrophils # 5.3 (1.6-8.9) K/mcL Lymphocytes # 0.8 (0.6-4.6) K/mcL Monocytes # 0.4 (0.0-1.3) K/mcL Eosinophils # 0.3 (0.0-0.6) K/mcL Basophils # 0.0 (0.0-0.2) K/mcL PT 16.8 H (9.4-12.1) Seconds INR 1.5 Sodium 141 (136-145) mEq/L Potassium 3.3 L (3.5-5.1) mEq/L Chloride 109 H (98-107) mEq/L Carbon Dioxide 25 (23-29) mEq/L BUN 21 H (6-20) mg/dL Creatinine 0.73 (0.70-1.30) mg/dL Est GFR ( Amer) > 60 (> 60) Est GFR (Non-Af Amer) > 60 (> 60) BUN/Creatinine Ratio 29 H (6-26) Glucose 125 H (70-105) mg/dL Calculated Osmolality 296 (280-300) Calcium 8.2 L (8.6-10.3) mg/dL Iron 22 L (65-175) mcg/dL % Saturation 5 L (20-55) % Transferrin 289 (203-362) mg/dL Ferritin 19 L (20-250) ng/mL Total Bilirubin 0.5 (0.3-1.0) mg/dL Direct Bilirubin 0.1 (0.0-0.2) mg/dL Indirect Bilirubin 0.4 (0.0-1.2) mg/dL AST 24 (13-39) Units/L ALT 16 (7-52) Units/L Alkaline Phosphatase 92 (34-104) Units/L Troponin I < 0.03 (< 0.04) ng/mL Serum Total Protein 5.7 L (6.4-8.9) g/dL Albumin 3.2 L (3.5-5.7) g/dL Globulin 2.5 (2.4-3.5) g/dL Albumin/Globulin Ratio 1.3 (1.1-2.2) Lipase 60 (11-82) Units/L Blood Type Antibody Screen Crossmatch 09/08/18 Range/Units 09:41 WBC (4.3-11.1) K/mcL RBC (4.19-5.50) M/mcL Hgb (12.9-16.9) g/dL Hct (37.5-50.1) % MCV (83.0-100.0) fL MCH (28.0-33.3) pg MCHC (31.6-35.5) g/dL RDW (11.5-14.5) % Plt Count (140-400) K/mcL MPV (9.4-12.4) fL Immature Gran % (0-4) % Seg Neutrophils % % Lymphocytes % % Monocytes % % Eosinophils % % Basophils % % Neutrophils # (1.6-8.9) K/mcL Lymphocytes # (0.6-4.6) K/mcL Monocytes # (0.0-1.3) K/mcL Eosinophils # (0.0-0.6) K/mcL Basophils # (0.0-0.2) K/mcL PT (9.4-12.1) Seconds INR Sodium (136-145) mEq/L Potassium (3.5-5.1) mEq/L Chloride (98-107) mEq/L Carbon Dioxide (23-29) mEq/L BUN (6-20) mg/dL Creatinine (0.70-1.30) mg/dL Est GFR ( Amer) (> 60) Est GFR (Non-Af Amer) (> 60) BUN/Creatinine Ratio (6-26) Glucose (70-105) mg/dL Calculated Osmolality (280-300) Calcium (8.6-10.3) mg/dL Iron (65-175) mcg/dL % Saturation (20-55) % Transferrin (203-362) mg/dL Ferritin (20-250) ng/mL Total Bilirubin (0.3-1.0) mg/dL Direct Bilirubin (0.0-0.2) mg/dL Indirect Bilirubin (0.0-1.2) mg/dL AST (13-39) Units/L ALT (7-52) Units/L Alkaline Phosphatase (34-104) Units/L Troponin I (< 0.04) ng/mL Serum Total Protein (6.4-8.9) g/dL Albumin (3.5-5.7) g/dL Globulin (2.4-3.5) g/dL Albumin/Globulin Ratio (1.1-2.2) Lipase (11-82) Units/L Blood Type A NEGATIVE Antibody Screen NEGATIVE Crossmatch See Detail Critical Care Time Critical Care Time: Yes Total Critical Care Time: 45 Attestation: 45 minutes of critical care time were spent with this patient who is tachycardic, esophageal varices with anticoagulation who is continuing to vomit bright red blood and 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 I agree with the documented findings, disposition and treatment plan as described except to the extent set forth below. I did see the patient immediately upon arrival and also spoke with the paramedics and the patient presents with bright red hematemesis and I did review his previous record with EGD showing esophageal varices in February of this year. The patient is anticoagulated from a deep vein thrombosis. Labs are ordered including type and screen and INR. Medications including IV Protonix and octreotide and octreotide drip. Patient's initial vitals show his blood pressure is systolic 114 and heart rate 69 bpm. Patient is nonverbal chronically but not complaining of any pain. I also did speak with his . The patient will be admitted. Test results are pending. 0942 I have gone back to see the patient multiple times. He is now having further episodes of hematemesis. I have spoken with GI who will emergently come to the ED to see the patient. I also called and spoke with the blood bank and I spoke with Edward and they will have 2 units of crossmatched blood and this will be available at 10:29 AM and those will both be transfused wide-open. I did review his labs showing hemoglobin significant drop from the level in December and is currently 6.7. He is also getting IV fluids. Blood pressure minimally decreased but is currently 106 systolic. [address] Newton from the intensive care unit who accepts the patient for admission. The patient is on. Axilla and so we will not use any PCC or Trans acid at this time per discussion. He will come to the ED to see the patient. Likely will have endoscopy today. Patient is getting 2 units of packed red blood cells. Second IV has been already placed. Patient is in a extremely critical situation. updated 1045 I spoke with GI who is down here and is seeing the pt and they will scope today [address] Newton who recommends PCC and I did speak with the pharmacist and they will send this down for life-threatening bleeding. The patient's vital signs have improved at this time. 1134 I did review the ECG which shows NSR with ST depression inferiorly consider ischemia
--- NOTE | 2018-09-08 11:12 | Pulmonology History & Physical ---
Addendum entered and electronically signed by Jess Bell 09/12/18 09:15: Addendum entered and electronically signed by Liat Newton MD 09/09/18 09:23: - Attending Attestation This addendum is to correct the documentation on my assessment and plan that patient did not present with diabetic ketoacidosis. Original Note: <Jess Bell - Last Filed: 09/08/18 16:57> Date of Encounter: 09/08/18 Time of Encounter: 11:10 Assessment and Plan (1) UGIB (upper gastrointestinal bleed) Current visit: Yes Status: Acute Pt brought in via EMS for hematemesis. Hx of esophageal varices of unknown origin and on Pradaxa for unknown clotting disorder. Of note, patient also has history of DVT, and was on coumadin but failed therapy. He also has history of ishcemic stroke. Head CT showed no signs of acute bleed. Etiology likely secondary to bleeding varices. Also consider gastric ulcer, armani-harris tears, etc. Hg 6.7 upon arrival. PT 16.8, INR 1.5 Plan: GI consulted for endoscopy with variceal banding. 3 units PRBC ordered CBC q6H iron panel pending, aPTT and fibrinogen ordered protonix and ocreatide gtt. Rocephin 1g IV QD for SBP prophylaxis Heme/onc consulted for recommendations regarding anticoagulation. IV access with 2 20G needles obtained, consider central access if necessary consider IVC filer placement once stabilized. hold pradaxa- consider Feiba (reversal agent) (2) Acute blood loss anemia Current visit: Yes Status: Acute Several episodes of hematemesis today plan as above (3) Esophageal varices Current visit: Yes Status: Acute Varices discovered on endoscopy in February 2018 Currently having episodes of hematemesis plan as #1 above Qualifiers: Esophageal varices type: unspecified type Esophageal varices bleeding: with bleeding Qualified Code(s): I85.01 - Esophageal varices with bleeding (4) Ischemic cerebrovascular accident (CVA) Current visit: No Status: Chronic Hx of CVA at age 22 with unspecified coagulopathy Taking Pradaxa at home - will hold Pradaxa due to UGIB Heme/onc consulted (5) Anticoagulated by anticoagulation treatment Current visit: Yes Status: Acute (6) Venous stasis ulcers of both lower extremities Current visit: Yes Status: Chronic 3 chronic non-healing ankle ulcers 2 on left leg, 1 on right wound care consulted. (7) Coagulopathy Current visit: Yes Status: Chronic Hx of CVA, DVT due to unspecified coagulopathy Takes Pradaxa at home - will hold do to UGIB Heme/onc consulted (8) DVT prophylaxis Current visit: Yes Status: Acute Mechanical prophylaxis with SCIDs History of Present Illness Chief complaint: hematemesis HPI: Mr. Atkinson is a 53 year old male with PMHx of stroke, coagulopathy, on chronic anticoagulation presenting to the ED via EMS with hematemesis secondary to bleeding esophageal varices. He was recently switched to Pradaxa from Coumadin per . He has received octreotide and protonix in the ED and has been started n IV drips of both of these. He was also type and crossmatched and 2 units of blood have been given. GI and Heme/onc have been consulted to the case and the patient will undergo an endoscopy with variceal banding later today. Past Med Surg Social Fam HX - Past Medical History Medical history: CVA, DVT Additional medical history: Left side deficit form CVA, esophageal Varices. blood clotting disorder Psychiatric history: no psych history - Past Surgical History Surgical History: cholecystectomy - Social History Smoking Status: Never smoker Smokeless Tobacco Status: No Alcohol use: none Drug use: none - Family History Mother Living Status: Cause of : CVA Sister Living Status: Still Living Hx Family Neurologic Disorders: Yes (CVA) Medications and Allergies Dabigatran [Pradaxa] 75 mg PO BID #60 capsule 01/07/18 [Rx] Nadolol [Corgard] 40 mg PO DAILY #30 tablet 02/11/18 [Rx] Pantoprazole Sodium [Protonix] 40 mg PO DAILY 09/08/18 [History] Allergy/AdvReac Type Severity Reaction Status Date / Time No Known Allergies Allergy Verified 02/14/18 09:23 ROS unobtainable: other (pt unable to speak) All Systems: The remainder of the systems were reviewed and are negative - Gastrointestinal Gastrointestinal: hematemesis - Hematologic/Lymphatic Hematologic/Lymphatic: other (coagulopathy) Physical Examination Vital Signs: Vital Signs, Last 4 Hours Temp Pulse Resp BP Pulse Ox 09/08/18 10:55 98.1 F 73 16 128/66 09/08/18 10:45 98.1 F 77 16 119/66 09/08/18 10:28 70 16 117/67 97 09/08/18 09:19 97.7 F 69 16 114/65 100 General appearance: alert, appears uncomfortable, other (pale) Eyes: nonicteric ENT: oropharynx dry, other (dried blood surrounding mouth) Neck: supple, JVD Effort: normal Auscultation: bilateral: clear Cardiovascular: regular rate and rhythm Gastrointestinal: normoactive bowel sounds, soft, tender (epigastric area), non- distended Integumentary: other (2 left ankle ulcers present - lateral linear measuring 2in x 0.5in, medial oval measuring 2.75in x 2in. 1 right linear ankle ulcer measuring 2in x 0.75in.) Extremities: no cyanosis, no edema, other (venous stasis changes of lower extremities) Gait: other (unable to walk due to previous stroke and left sided deficit) other (pt non-verbal, left sided deficits secondary to hx of stroke. Alert and aware, able to answer yes/no questions and follow directions) Results - Laboratory Findings CBC and BMP: 09/08/18 09:41 09/08/18 09:41 PT/INR, D-dimer PT 16.8 Seconds (9.4-12.1) H 09/08/18 09:41 Abnormal lab findings: Abnormal lab results RBC 2.78 M/mcL (4.19-5.50) L 09/08/18 09:41 Hgb 6.7 g/dL (12.9-16.9) L 09/08/18 09:41 Hct 22.4 % (37.5-50.1) L 09/08/18 09:41 MCV 80.6 fL (83.0-100.0) L 09/08/18 09:41 MCH 24.1 pg (28.0-33.3) L 09/08/18 09:41 MCHC 29.9 g/dL (31.6-35.5) L 09/08/18 09:41 RDW 15.9 % (11.5-14.5) H 09/08/18 09:41 Plt Count 126 K/mcL (140-400) L 09/08/18 09:41 PT 16.8 Seconds (9.4-12.1) H 09/08/18 09:41 Potassium 3.3 mEq/L (3.5-5.1) L 09/08/18 09:41 Chloride 109 mEq/L (98-107) H 09/08/18 09:41 BUN 21 mg/dL (6-20) H 09/08/18 09:41 BUN/Creatinine Ratio 29 (6-26) H 09/08/18 09:41 Glucose 125 mg/dL (70-105) H 09/08/18 09:41 Calcium 8.2 mg/dL (8.6-10.3) L 09/08/18 09:41 Serum Total Protein 5.7 g/dL (6.4-8.9) L 09/08/18 09:41 Albumin 3.2 g/dL (3.5-5.7) L 09/08/18 09:41 <Liat Newton S - Last Filed: 09/08/18 21:22> History of Present Illness HPI: Mr. Atkinson is a 53 year old male All Systems: The remainder of the systems were reviewed and are negative Physical Examination Vital Signs: Vital Signs, Last 4 Hours Temp Pulse Resp BP Pulse Ox 09/08/18 20:00 76 15 143/76 98 09/08/18 19:31 98.8 F 80 16 143/83 95 09/08/18 19:16 98.5 F 72 15 148/107 09/08/18 19:00 76 15 145/102 98 09/08/18 18:00 74 12 126/77 98 09/08/18 17:04 97.8 F 76 14 129/68 98 09/08/18 17:00 70 17 129/68 99 Results - Laboratory Findings CBC and BMP: 09/08/18 17:32 09/08/18 09:41 PT/INR, D-dimer PT 16.8 Seconds (9.4-12.1) H 09/08/18 09:41 Abnormal lab findings: Abnormal lab results WBC 3.5 K/mcL (4.3-11.1) L 09/08/18 17:32 RBC 2.84 M/mcL (4.19-5.50) L 09/08/18 17:32 Hgb 7.5 g/dL (12.9-16.9) L 09/08/18 17:32 Hct 23.6 % (37.5-50.1) L 09/08/18 17:32 MCH 26.4 pg (28.0-33.3) L 09/08/18 17:32 RDW 15.6 % (11.5-14.5) H 09/08/18 17:32 Plt Count 83 K/mcL (140-400) L 09/08/18 17:32 PT 16.8 Seconds (9.4-12.1) H 09/08/18 09:41 Potassium 3.3 mEq/L (3.5-5.1) L 09/08/18 09:41 Chloride 109 mEq/L (98-107) H 09/08/18 09:41 BUN 21 mg/dL (6-20) H 09/08/18 09:41 BUN/Creatinine Ratio 29 (6-26) H 09/08/18 09:41 Glucose 125 mg/dL (70-105) H 09/08/18 09:41 POC Glucose 132 mg/dL (70-99) H 09/08/18 11:36 Calcium 8.2 mg/dL (8.6-10.3) L 09/08/18 09:41 Iron 22 mcg/dL (65-175) L 09/08/18 09:41 % Saturation 5 % (20-55) L 09/08/18 09:41 Ferritin 19 ng/mL (20-250) L 09/08/18 09:41 Serum Total Protein 5.7 g/dL (6.4-8.9) L 09/08/18 09:41 Albumin 3.2 g/dL (3.5-5.7) L 09/08/18 09:41 - Attending Attestation I saw and evaluated this patient and my medical decision-making was reviewed with the Resident Physician. I agree with the documented findings, disposition and treatment plan as described except to the extent set forth below. We inde pendently had [id number] contact with the patient Patient seen and examined at bedside Labs, radiology, chart personally reviewed. Management was reviewed during multidisciplinary critical care rounds. REMOTELY OPERATED VEHICLE: Patient is nonverbal at baseline due to prior stroke patient has high risk of thrombosis no acute focal neurological deficit. We will continue to monitor. Pulm: Patient has acceptable oxygenation and ventilation no acute issues of pneumonia or pulmonary edema. Cards: Patient presented with diabetic ketoacidosis patient not in shock hemod ynamically been stable. FEN-GI: Patient presented with upper GI bleed showed grade 3 varices had therefore banding's with disappearance of the varices looks like the bleeding stopped to continue 72 hours of IV PPIs and somatostatin.. Very pain that shot looks like patient might have noncirrhotic portal hypertension on he developed cirrhotic changes now patient has history of hemachromatosis gene mutation, alcohol in the past in the past patient was investigated for hepatic vein thro mbosis of portal vein thrombosis. Patient should be on an adequate home regimen for his portal hypertension patient has sinusitis in the past will give SBP prophylaxis IV ceftriaxone every day. will order US abdomen to rule out hepatic vein thrombosis , IVC thrombosis , portal thrombosis . Since patient has high risk for thrombosis if we find thrombosis patient will need anticoagulation started as early as possible for his portal hypertension probably he will need TIPS at that point. We will wait for at least 48 hours to make sure he is stable before restarting anticoagulation. Renal: Labs and output reviewed ID: To give antibiotics for SBP prophylaxis Heme/Onc: Patient has this prothrombotic disorder after detailed chart review for many years he has repeated thrombotic episode stopping anticoagulation will be high risk for him at least for the next 4-6 months he should be on Lovenox make sure he is stable before we change to oral anticoagulation. Endo: Glucose Monitored Integ/MSK: Skin Care per routine ICU Nursing Protocol to prevent ulcers. Patient has long standing lower limb ulcer Lines: All lines examined without evidence of infection : Dispo: To remain in ICU tonight CODE: Full CODE
[2018-09-08] MEDS ORDERED: HUM PROTHROMBIN CPLX IVPB STA (11:27)
[2018-09-08] MEDS ORDERED: [UNRECOGNIZED DRUG - OTHER] IVPB STA (11:27)
[2018-09-08] MEDS ORDERED: Water for inj. (sterile) 20 ML 20 ML IV ONE (12:09)
[2018-09-08 12:11] LABS: % Iron Saturation 5 % (20-55); Iron 22 mcg/dL (65-175); Transferrin 289 mg/dL (203-362)
[2018-09-08] MEDS: cefTRIAXone 1,000 MG in Water for inj. (sterile) 20 ML 10 ML IVP SCH (12:14)
[2018-09-08] MEDS: Pantoprazole 40 MG in 0.9 % Sodium Chloride Mini Bag 100 ML IVC SCH ×3 (12:15→21:22)
[2018-09-08] MEDS ORDERED: Ondansetron 4 MG/2 ML VIAL IVP PRN (12:21)
[2018-09-08 12:29] LABS: Ferritin 19 ng/mL (20-250)
--- NOTE | 2018-09-08 12:42 | Gastroenterology Consult Note ---
<Miah Herrera - Last Filed: 09/08/18 14:06> Date of Encounter: 09/08/18 Time of Encounter: 12:40 - Assessment and plan (1) UGIB (upper gastrointestinal bleed) Current Visit: Yes Status: Acute Assessment and plan: Likely secondary to bleeding esophageal varices. Peptic ulcer disease is also concern. Patient had several episodes of hematemesis and acute drop in hemoglobin. Agree with Protonix infusion and octreotide drip. Transfused 3 units. SBP prophylaxis with ceftriaxone per primary team. Plan for upper endoscopy today with possible esophageal variceal banding. (2) Acute blood loss anemia Current Visit: Yes Status: Acute Assessment and plan: Secondary to GI bleed as above. Patient is currently on Pradaxa for history of clotting disorder, full diagnosis is unknown. Would recommend holding antic oagulation at this time given her acute bleed. Recommend hematology consult for further recommendations regarding long-term anticoagulation. Patient is high risk for rebleeding while on anticoagulation. (3) Esophageal varices Current Visit: Yes Status: Acute Assessment and plan: Secondary to noncirrhotic portal hypertension. Known on last evaluation in February. Possible variceal bleeding as above. Plan for possible banding. We will discuss with interventional radiology, patient may benefit from TIPS procedure. Continued nadolol on an outpatient Qualifiers: Esophageal varices type: unspecified type Esophageal varices bleeding: with bleeding Qualified Code(s): I85.01 - Esophageal varices with bleeding (4) Portal hypertension Current Visit: Yes Status: Chronic Assessment and plan: Noncirrhotic. Patient had biopsy approximately 6 months ago gram that was negative for any evidence of cirrhosis. Etiology unclear. Agree with abdominal Doppler ultrasound as portal system thrombosis is concern given the history of thrombotic disease. (5) Anticoagulated by anticoagulation treatment Current Visit: Yes Status: Acute - Time Spent With Patient Total time spent is greater than 50% in coordination of care (as documented) at patient's floor/unit and/or counseling patient: GI History of Present Illness - Data of Consult Patient: known to practice within the last 3 years Consult date: 09/08/18 Requesting Physician: Liat Newton MD - Consult Narrative Reason for consult: UGIB History of present illness: Mr. Atkinson is a 53 year old male with history of portal hypertension with known varices, unknown clotting disorder presents with hematemesis. Patient is nonverbal due to stroke so history is somewhat limited. Per the patient had several episodes of vomiting bright red blood. She states he had this back in the spring also. She states he is on Pradaxa for "clotting disorder." She states the final diagnosis is unknown. Patient is nonverbal but is able to point and states that he does have some epigastric abdominal pain. Patient are unsure regarding change in bowel movements. She reports she was seen at both [facility] and [facility] for evaluation and etiology of the patient's varices and clotting disorders unknown. reports that he drank when he was younger but quit drinking when he was 22. Colonoscopy: Unknown EGD: 02/14/18 Past Med Surg Social Fam HX - Past Medical History Medical history: CVA, DVT Additional medical history: Left side deficit form CVA, esophageal Varices. blood clotting disorder Psychiatric history: no psych history - Past Surgical History Surgical History: cholecystectomy - Social History Smoking Status: Never smoker Smokeless Tobacco Status: No Alcohol use: none Drug use: none - Family History Mother Living Status: Cause of : CVA Sister Living Status: Still Living Hx Family Neurologic Disorders: Yes (CVA) Review of Systems: Unobtainable due to patient's nonverbal status. - Constitutional Vitals: Temp Pulse Resp BP Pulse Ox 98.0 F 67 12 101/82 96 09/08/18 12:29 09/08/18 12:29 09/08/18 12:29 09/08/18 12:29 09/08/18 12:29 General appearance: Absent: answers questions appropriately Exam: non-verbal - Head Head exam: Present: atraumatic, normal inspection, normocephalic - Respiratory Respiratory exam: Present: CTAB. Absent: rales, rhonchi, wheezes - Cardiovascular Cardiovascular exam: Present: RRR. Absent: gallop, rubs, systolic murmur - GI/Abdominal GI/Abdominal exam: Present: soft, tenderness (mild, epigastric). Absent: distended Results - Labs CBC & Chem 7: 09/08/18 09:41 09/08/18 09:41 Labs: Last Result Calcium 8.2 mg/dL (8.6-10.3) L 09/08/18 09:41 Iron 22 mcg/dL (65-175) L 09/08/18 09:41 % Saturation 5 % (20-55) L 09/08/18 09:41 Transferrin 289 mg/dL (203-362) 09/08/18 09:41 Ferritin 19 ng/mL (20-250) L 09/08/18 09:41 Troponin I < 0.03 ng/mL (< 0.04) 09/08/18 09:41 Entire Visit Hgb 6.7 g/dL (12.9-16.9) L 09/08/18 09:41 Hct 22.4 % (37.5-50.1) L 09/08/18 09:41 PT 16.8 Seconds (9.4-12.1) H 09/08/18 09:41 Ferritin 19 ng/mL (20-250) L 09/08/18 09:41 Total Bilirubin 0.5 mg/dL (0.3-1.0) 09/08/18 09:41 AST 24 Units/L (13-39) 09/08/18 09:41 ALT 16 Units/L (7-52) 09/08/18 09:41 Lipase 60 Units/L (11-82) 09/08/18 09:41 - ABG ABG results: PT/INR, D-dimer PT 16.8 Seconds (9.4-12.1) H 09/08/18 09:41 - Impressions Impressions Chest X-Ray 09/08/18 09:19 IMPRESSION: No acute process. D/ / Lexy Saleem MD / Lexy Saleem MD Interpreting Provider: Lexy Saleem MD Head CT 09/08/18 09:35 IMPRESSION: No acute intracranial abnormality. D/ / Jonathan Anglin MD / Jonathan Anglin MD Interpreting Provider: Jonathan Anglin MD Consult Discharge Plan - Plan Referrals: NONE,PCP [Primary Care Provider] - <Abimael Crow - Last Filed: 09/09/18 09:49> - Time Spent With Patient Total time spent is greater than 50% in coordination of care (as documented) at patient's floor/unit and/or counseling patient: GI History of Present Illness - Data of Consult Requesting Physician: Liat Newton MD - Consult Narrative History of present illness: Mr. Atkinson is a 53 year old male - Constitutional Vitals: Temp Pulse Resp BP Pulse Ox 98.5 F 72 19 153/78 95 09/09/18 08:00 09/09/18 08:00 09/09/18 08:00 09/09/18 08:00 09/09/18 08:00 Results - Labs CBC & Chem 7: 09/09/18 04:10 09/09/18 04:10 Labs: Last Result Calcium 7.6 mg/dL (8.6-10.3) L 09/09/18 04:10 Iron 22 mcg/dL (65-175) L 09/08/18 09:41 % Saturation 5 % (20-55) L 09/08/18 09:41 Transferrin 289 mg/dL (203-362) 09/08/18 09:41 Ferritin 19 ng/mL (20-250) L 09/08/18 09:41 Troponin I < 0.03 ng/mL (< 0.04) 09/08/18 09:41 Entire Visit Hgb 8.1 g/dL (12.9-16.9) L 09/09/18 04:10 Hct 25.4 % (37.5-50.1) L 09/09/18 04:10 PT 16.8 Seconds (9.4-12.1) H 09/08/18 09:41 Ferritin 19 ng/mL (20-250) L 09/08/18 09:41 Total Bilirubin 1.0 mg/dL (0.3-1.0) 09/09/18 04:10 AST 22 Units/L (13-39) 09/09/18 04:10 ALT 16 Units/L (7-52) 09/09/18 04:10 Lipase 60 Units/L (11-82) 09/08/18 09:41 - ABG ABG results: PT/INR, D-dimer PT 16.8 Seconds (9.4-12.1) H 09/08/18 09:41 - Impressions Impressions Chest X-Ray 09/08/18 09:19 IMPRESSION: No acute process. D/ / Lexy Saleem MD / Lexy Saleem MD Interpreting Provider: Lexy Saleem MD Head CT 09/08/18 09:35 IMPRESSION: No acute intracranial abnormality. D/ / Jonathan Anglin MD / Jonathan Anglin MD Interpreting Provider: Jonathan Anglin MD - Attending Attestation Mr. Atkinson is known to me from previous admission February noncirrhotic portal hypertension here liver biopsy done in [facility] which was negative - normal liver histology. A large grade 3 esophageal varices and a bleeding ulcer at the time received several units of packed cells. In the interim. He so him speech therapist apparently at the [facility] and plan for a one-time visit and was also stated 4 days but his said they could not afford to stay there four days and so it did not go anywhere from there. We have requested records from the clinic for that visit notes pending at this time however in the interim. The patient has bled a lot down to hemoglobin of 6.7. We will plan urgent upper endoscopy at this time. Further recommendations after endoscopy and review of the [facility] records I examined this patient and my medical decision-making was reviewed with the Resident Physician. I agree with the documented findings, disposition and treatment plan as described except to the extent set forth below.
--- NOTE | 2018-09-08 13:11 | Anesthesia Evaluation PreOp ---
Date of Encounter: 09/08/18 Time of Encounter: 13:08 - Past History Planned Operation: EGD Cardiac History: Denies any Significant Hx Pulmonary History: Denies Any Significant HX BRIDAL GOWN FITTER History: CVA (left paresis) Other Medical History: Denies Any Significant HX Anesthesia History: No Prior Anesthetic Complications, Past Anesthesia (EGD, gastrotomy tube, arun) Alcohol Use: none Drug use: none Medications and Allergies Dabigatran [Pradaxa] 75 mg PO BID #60 capsule 01/07/18 [Rx] Nadolol [Corgard] 40 mg PO DAILY #30 tablet 02/11/18 [Rx] Pantoprazole Sodium [Protonix] 40 mg PO DAILY 09/08/18 [History] Allergy/AdvReac Type Severity Reaction Status Date / Time No Known Allergies Allergy Verified 02/14/18 09:23 - Meds/Allergy Pre-op Review Medications Reviewed: Yes Allergies Reviewed: Yes Beta Blockers on Current Med List: No Anesthesia Results - Labs 09/08/18 09:41 09/08/18 09:41 Anesthesia Exam Selected Entries 09/08/18 12:43 Temperature 98.2 F Pulse Rate 74 Respiratory Rate 12 Blood Pressure 113/60 O2 Sat by Pulse Oximetry 98 Weight: 85kg NPO (# of Hours): 8 - HEENT Pupil (Motor): EOMI Mallampati: III Oral Opening: Greater than 3 - BRIDAL GOWN FITTER LOC: Oriented BRIDAL GOWN FITTER Motor: Normal RUE, Normal LUE, Normal RLE, Normal LLE, Normal Face BRIDAL GOWN FITTER Sensory: Normal: RUE, LUE, RLE, LLE, Face - Cardiac Rhythm: Regular Murmur: None - Pulmonary Breath Sounds: bilateral Clear Respiratory Effort: Symmetrical Anesthesia Assess/Plan ASA Score: 3 Modified Pretty Scale for Level of Consciousness: Cooperative, oriented, and tranquil Anesthetic Plan: MAC Monitoring Plan: Standard Monitors Recovery Plan: PACU (agrees to MAC)
[2018-09-08] MEDS ORDERED: OXYCODONE Oral CONC 10 MG/0.5 ML ORAL.SYG SL PRN (13:14)
[2018-09-08] MEDS ORDERED: *HR* FentaNYL (PF) 100 MCG/2 ML VIAL ONE (13:16)
[2018-09-08] MEDS ORDERED: *HR* Propofol 200 MG/20 ML VIAL IVP ONE ×2 (13:17→13:39)
[2018-09-08] MEDS ORDERED: 0.9 % Sodium Chloride 1,000 ML IVC SCH (13:30)
--- NOTE | 2018-09-08 14:42 | Electrocardiograph Report ---
[address] [place], [place] [address] Test Date: 2018-09-08 Pat Name: Orlin Atkinson Department: [id number] Room: 10 Gender: M [employer] Hand: : 1965 Requested By: Miah Kirkpatrick Order Number: [id number] Reading MD: Boy Diallo Measurements Intervals [place] Rate: 70 P: 36 CA: 141 QRS: 55 QRSD: 95 T: 37 QT: 460 QTc: 497 Interpretive Statements Sinus rhythm Electronically Signed On 09-08-2018 14:41:23 EDT by Boy Diallo
[2018-09-08] MEDS: 0.9 % Sodium Chloride 1,000 ML IVC SCH ×2 (15:08→21:20)
--- NOTE | 2018-09-08 17:41 | Oncology Inp Consult Note ---
<Chip Mendez - Last Filed: 09/09/18 08:17> - Data of Consult Requesting Physician: iLat Newton MD Primary Care Provider: PCP NONE - Consult Narrative History of present illness: Mr. Atkinson is a 53 year old male Medications and Allergies Dabigatran [Pradaxa] 75 mg PO BID #60 capsule 01/07/18 [Rx] Nadolol [Corgard] 40 mg PO DAILY #30 tablet 02/11/18 [Rx] Pantoprazole Sodium [Protonix] 40 mg PO DAILY 09/08/18 [History] Allergy/AdvReac Type Severity Reaction Status Date / Time No Known Allergies Allergy Verified 02/14/18 09:23 Oncology - Exam - Constitutional Vitals: Temp Pulse Resp BP Pulse Ox 98.6 F 72 15 146/75 94 09/09/18 03:51 09/09/18 06:00 09/09/18 06:00 09/09/18 06:00 09/09/18 06:00 Oncology - Results Labs: 09/09/18 09/09/18 09/09/18 04:37 04:10 04:10 WBC 4.3 RBC 3.10 L Hgb 8.1 L Hct 25.4 L MCV 81.9 L MCH 26.1 L MCHC 31.9 RDW 15.6 H Plt Count 71 L MPV 9.8 Immature Gran % 0.2 Seg Neutrophils % 74.4 Lymphocytes % 14.2 Monocytes % 7.9 Eosinophils % 2.8 Basophils % 0.5 Neutrophils # 3.2 Lymphocytes # 0.6 Monocytes # 0.3 Eosinophils # 0.1 Basophils # 0.0 Immature Plt Fraction 4.9 PT INR APTT Fibrinogen Sodium 141 Potassium 3.6 Chloride 112 H Carbon Dioxide 25 BUN 18 Creatinine 0.75 Est GFR ( Amer) > 60 Est GFR (Non-Af Amer) > 60 BUN/Creatinine Ratio 24 Glucose 117 H POC Glucose Calculated Osmolality 295 Calcium 7.6 L Venous Ioniz Calcium 1.11 L Phosphorus 2.0 L Magnesium 1.6 Iron % Saturation Transferrin Ferritin Total Bilirubin 1.0 Direct Bilirubin Indirect Bilirubin AST 22 ALT 16 Alkaline Phosphatase 79 Troponin I Serum Total Protein 4.9 L Albumin 2.9 L Globulin 2.0 L Albumin/Globulin Ratio 1.5 Lipase Blood Type Antibody Screen Crossmatch 09/08/18 09/08/1818 22:22 17:32 17:32 WBC 5.5 D 3.5 L RBC 3.54 L 2.84 L Hgb 9.2 L D 7.5 L Hct 29.3 L 23.6 L MCV 82.8 L 83.1 MCH 26.0 L 26.4 L MCHC 31.4 L 31.8 RDW 15.2 H 15.6 H Plt Count 73 L 83 L MPV 10.5 10.3 Immature Gran % Seg Neutrophils % Lymphocytes % Monocytes % Eosinophils % Basophils % Neutrophils # Lymphocytes # Monocytes # Eosinophils # Basophils # Immature Plt Fraction 6.1 5.3 PT INR APTT 33.1 Fibrinogen 172 Sodium Potassium Chloride Carbon Dioxide BUN Creatinine Est GFR ( Amer) Est GFR (Non-Af Amer) BUN/Creatinine Ratio Glucose POC Glucose Calculated Osmolality Calcium Venous Ioniz Calcium Phosphorus Magnesium Iron % Saturation Transferrin Ferritin Total Bilirubin Direct Bilirubin Indirect Bilirubin AST ALT Alkaline Phosphatase Troponin I Serum Total Protein Albumin Globulin Albumin/Globulin Ratio Lipase Blood Type Antibody Screen Crossmatch 09/08/18 09/08/18 09/08/18 11:36 09:41 09:41 WBC RBC Hgb Hct MCV MCH MCHC RDW Plt Count MPV Immature Gran % Seg Neutrophils % Lymphocytes % Monocytes % Eosinophils % Basophils % Neutrophils # Lymphocytes # Monocytes # Eosinophils # Basophils # Immature Plt Fraction PT INR APTT Fibrinogen Sodium 141 Potassium 3.3 L Chloride 109 H Carbon Dioxide 25 BUN 21 H Creatinine 0.73 Est GFR ( Amer) > 60 Est GFR (Non-Af Amer) > 60 BUN/Creatinine Ratio 29 H Glucose 125 H POC Glucose 132 H Calculated Osmolality 296 Calcium 8.2 L Venous Ioniz Calcium Phosphorus Magnesium Iron 22 L % Saturation 5 L Transferrin 289 Ferritin 19 L Total Bilirubin 0.5 Direct Bilirubin 0.1 Indirect Bilirubin 0.4 AST 24 ALT 16 Alkaline Phosphatase 92 Troponin I < 0.03 Serum Total Protein 5.7 L Albumin 3.2 L Globulin 2.5 Albumin/Globulin Ratio 1.3 Lipase 60 Blood Type A NEGATIVE Antibody Screen NEGATIVE Crossmatch See Detail 09/08/18 09/08/18 09:41 09:41 WBC 6.9 RBC 2.78 L Hgb 6.7 L Hct 22.4 L MCV 80.6 L MCH 24.1 L MCHC 29.9 L RDW 15.9 H Plt Count 126 L MPV 10.0 Immature Gran % 0.3 Seg Neutrophils % 77.4 Lymphocytes % 12.2 Monocytes % 5.7 Eosinophils % 3.8 Basophils % 0.6 Neutrophils # 5.3 Lymphocytes # 0.8 Monocytes # 0.4 Eosinophils # 0.3 Basophils # 0.0 Immature Plt Fraction PT 16.8 H INR 1.5 APTT Fibrinogen Sodium Potassium Chloride Carbon Dioxide BUN Creatinine Est GFR ( Amer) Est GFR (Non-Af Amer) BUN/Creatinine Ratio Glucose POC Glucose Calculated Osmolality Calcium Venous Ioniz Calcium Phosphorus Magnesium Iron % Saturation Transferrin Ferritin Total Bilirubin Direct Bilirubin Indirect Bilirubin AST ALT Alkaline Phosphatase Troponin I Serum Total Protein Albumin Globulin Albumin/Globulin Ratio Lipase Blood Type Antibody Screen Crossmatch Consult Discharge Plan - Plan Referrals: NONE,PCP [Primary Care Provider] - - Attending Attestation I have seen and examined Mr. Elaine and agree with Raya's assessment. Mr. 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 He has bilateral lower extremity venous insufficiency ulcerations as well. He has been admitted with a upper GI bleed secondary to bleeding varices secondary to his portal vein thrombosis. He is status post EGD with banding of 9 separate varices with resolution of bleeding clinically. He has been off anticoagulation for the past 2 months. For now, we would recommend holding anticoagulation until his hemoglobin is stable. However, given his history, reinitiation of Pradaxa 75 mg twice a day (a reduced dose) would be in his best interest. I agree with consideration of a TIPS procedure to decrease portal pressures and hopefully decrease risk of further variceal bleeding; I will defer this decision to the patient and the gastroenterology team. Would continue to monitor serial CBCs and transfuse her hemoglobin of 7. If hemoglobin remains stable for 48 hours, would recommend reinitiation of Pradaxa 75 mg twice a day. Inpatient Charges Provider: Dr. Cecil Mendez Consult - Inpatient: [id number] <Ingrid Raya - Last Filed: 09/09/18 10:01> Date of Encounter: 09/08/18 Time of Encounter: 14:45 Assessment and Plan (1) Acute blood loss anemia Status: Acute Assessment and plan: Presented with large amounts of hematemesis. EGD located grade III large varices in the lower esopahgus with banding of 9 varices with now clinical control of his bleeding Anticoagulation place don hold with plans moving forward as discussed below Agree with the consideration of TIPS procedure to decrease his portal congestion with the hopes to continue anticoagulation with decreased risk of bleeding in future, we will defer this decision to the GI team and appreciate their recommendations (2) Coagulopathy Status: Chronic Assessment and plan: As noted in HPI, Mr. 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22 which has led to his significant debility He presented with acute esophageal bleeding secondary to varices as above Patient told his today that he has not taken his Pradaxa in nearly 2 months, she was not previously aware of this We agree with holding his Pradaxa in the acute period However, given his history, the benefits outweigh the risks of continuing in definite anticoagulation in this patient Recommend re-initiation of Pradaxa at the reduced dose of 75 mg PO BID when hgb remains stable Continue to monitor CBC and transfuse as needed The plan as above was discussed with the patient as well as the benefits vs. risks of continuing/discontinuing anticoagulation Patient ultimately agreed to continue with Pradaxa moving forward once bleeding has stabilized - Data of Consult Patient: known to practice within the last 3 years Consult date: 09/08/18 Requesting Physician: Liat Newton MD Primary Care Provider: PCP NONE - Consult Narrative Reason for consult: Recurrent DVT on mcfp AC, Hematemesis History of present illness: Mr. Atkinson is a 53 year old male known to our practice as a patient with Dr. Jeffers for history of recurrent DVT and stoke. He has aphasia and uses sign language for communication. He had had a stroke around 1986 when he was 22 years old. He claims he had intravenous anticoagulation and subsequently had intracranial bleed. He has a left hemiparesis. He has been on coumadin since this time which was changed to Xarelto in February 2017. He was hospitalized to [facility] at that time and diagnosed with new bilateral lower extremity DVTs. He has persistent nonhealing ulcers both ankles extending deep into the bone. He is a patient of the [facility] but has not been in quite some time. Bilateral lower extremity venous Doppler on 09/24/2017 showed right distal iliac and common femoral vein acute DVT, he was initiated on Lovenox and later transitioned to Pradaxa 150 mg PO BID. He presented to [facility] ED via squad on 12/28/17 with multiple episodes of hematemesis. S/P EGD with Dr. Braun in December which shows- Grade III esophageal varicies, gastric ulcers, old blood within the gastric cardia. Following this he began Pradaxa 75 mg BID, his informs me however that he stopped taking this about 2 months ago. Mr. Atkinson presented to ED via EMS with hematemesis secondary to bleeding esophageal varices. His states that he became so light headed that he fell this morning prior to having large amounts of hematemisis which led to their immediate presentation. Thrombophilia workup in Mr. Atkinson has been non-revealing. He appears to have an unknown clotting disorder. He has multiple family members who also suffer from this unknown clotting disorders and it's sequela. Thrombophilia workup in his fa [place] has also proven to be negative. Past Med Surg Social Fam HX - Past Medical History Medical history: CVA, DVT Additional medical history: Left side deficit form CVA, esophageal Varices. blood clotting disorder Psychiatric history: no psych history - Past Surgical History Surgical History: cholecystectomy - Social History Smoking Status: Never smoker Smokeless Tobacco Status: No Alcohol use: none Drug use: none - Family History Mother Living Status: Cause of : CVA Sister Living Status: Still Living Hx Family Neurologic Disorders: Yes (CVA) Constitutional: Present: fatigue, weakness. Absent: anorexia, chills, fever(s), weight loss Eyes: Absent: change in vision Nose, mouth and throat: Absent: dysphagia Cardiovascular: Absent: chest pain, palpitations Respiratory: Present: dyspnea on exertion. Absent: cough Gastrointestinal: Present: as per HPI, hematemesis, nausea, vomiting. Absent: change in bowel habits, hematochezia, melena Additional comments: denies dysuria Musculoskeletal: Present: muscle weakness Integumentary: Present: skin ulcer Neurological: Present: disequilibrium, dizziness. Absent: focal weakness Psychiatric: Present: as per HPI Oncology - Exam - Constitutional Vitals: Temp Pulse Resp BP Pulse Ox 97.8 F 76 14 129/68 98 09/08/18 17:04 09/08/18 17:04 09/08/18 17:04 09/08/18 17:04 09/08/18 17:04 - ENT ENT exam: Present: mucous membranes moist - Respiratory Respiratory exam: Present: CTAB. Absent: respiratory distress - Cardiovascular Cardiovascular exam: Present: RRR, +S1, +S2 - GI/Abdominal GI/Abdominal exam: Present: normal bowel sounds, soft, tenderness - Extremities Exam Additional comments: non healing venous stasis ulcers- medial and lateral left ankle, medial right ankle - Neurological Exam Neurological exam: Present: alert Additional comments: chronic left sided weakness from prior CVA - Psychiatric Psychiatric exam: Present: normal affect, normal mood - Skin Skin exam: Present: dry, intact, pallor
[2018-09-08 17:45] LABS: Red Cell Distribution Width 15.6 % (11.5-14.5)
[2018-09-08 17:57] LABS: Activated Partial Thrombo Time 33.1 Seconds (26.0-36.0)
[2018-09-08 18:00] LABS: Hematocrit 23.6 % (37.5-50.1); Hemoglobin 7.5 g/dL (12.9-16.9); Immature Platelets 5.3 % (1.1-6.1); Mean Corpuscular HGB Conc 31.8 g/dL (31.6-35.5); Mean Corpuscular Hemoglobin 26.4 pg (28.0-33.3); Mean Corpuscular Volume 83.1 fL (83.0-100.0); Mean Platelet Volume 10.3 fL (9.4-12.4); Red Blood Count 2.84 M/mcL (4.19-5.50)
[2018-09-08] MEDS ORDERED: 0.9 % Sodium Chloride 250 ML ONE (19:10)
[2018-09-08] MEDS: Octreotide 400 MCG in 0.9 % Sodium Chloride 100 ML IVC SCH (21:19)
[2018-09-08 22:53] LABS: Hematocrit 29.3 % (37.5-50.1); Mean Corpuscular HGB Conc 31.4 g/dL (31.6-35.5); Mean Corpuscular Volume 82.8 fL (83.0-100.0); Red Blood Count 3.54 M/mcL (4.19-5.50)
[2018-09-08 22:55] LABS: Hemoglobin 9.2 g/dL (12.9-16.9); Immature Platelets 6.1 % (1.1-6.1); Mean Platelet Volume 10.5 fL (9.4-12.4); Red Cell Distribution Width 15.2 % (11.5-14.5)
[2018-09-09] MEDS: Pantoprazole 40 MG in 0.9 % Sodium Chloride Mini Bag 100 ML IVC SCH ×5 (02:33→21:42)
[2018-09-09 04:40] LABS: Basophils % 0.5 %; Immature Granulocytes % 0.2 % (0-4); Mean Corpuscular Volume 81.9 fL (83.0-100.0)
[2018-09-09 04:40] LABS: VBG Ionized Calcium 1.11 mmol/L (1.15-1.35)
[2018-09-09 04:43] LABS: Eosinophils # 0.1 K/mcL (0.0-0.6); Eosinophils % 2.8 %; Hematocrit 25.4 % (37.5-50.1); Hemoglobin 8.1 g/dL (12.9-16.9); Immature Platelets 4.9 % (1.1-6.1); Lymphocytes # 0.6 K/mcL (0.6-4.6); Lymphocytes % 14.2 %; Mean Corpuscular HGB Conc 31.9 g/dL (31.6-35.5); Mean Corpuscular Hemoglobin 26.1 pg (28.0-33.3); Mean Platelet Volume 9.8 fL (9.4-12.4); Monocytes # 0.3 K/mcL (0.0-1.3); Monocytes % 7.9 %; Neutrophils # 3.2 K/mcL (1.6-8.9); Red Cell Distribution Width 15.6 % (11.5-14.5); Segmented Neutrophils % 74.4 %
[2018-09-09 04:48] LABS: Platelet Count 71 K/mcL (140-400)
[2018-09-09 04:59] LABS: Alanine Aminotransferase 16 Units/L (7-52); Albumin 2.9 g/dL (3.5-5.7); Albumin/Globulin Ratio 1.5 (1.1-2.2); Alkaline Phosphatase 79 Units/L (34-104); Aspartate Amino Transferase 22 Units/L (13-39); BUN/Creatinine Ratio 24 (6-26); Blood Urea Nitrogen 18 mg/dL (6-20); Calcium 7.6 mg/dL (8.6-10.3); Carbon Dioxide 25 mEq/L (23-29); Chloride 112 mEq/L (98-107); Glucose 117 mg/dL (70-105); Magnesium 1.6 mg/dL (1.6-2.6); Osmolality,Calculated 295 (280-300); Potassium 3.6 mEq/L (3.5-5.1); Sodium 141 mEq/L (136-145); Total Protein 4.9 g/dL (6.4-8.9); eGFR For Non-African Americans > 60 (> 60)
--- NOTE | 2018-09-09 06:48 | Pulmonology Progress Note ---
<Jess Bell - Last Filed: 09/09/18 16:29> Date of Encounter: 09/09/18 Time of Encounter: 06:48 Assessment and Plan (1) UGIB (upper gastrointestinal bleed) Current Visit: Yes Status: Acute Pt brought in via EMS for hematemesis 09/07. 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 Of note, patient also has history of DVT, and was on coumadin but failed therapy. He also has history of ischemic stroke. Head CT showed no signs of acute bleed. Etiology likely secondary to bleeding varices. Also consider gastric ulcer, armani-harris tears, etc. Hg 6.7 upon arrival. PT 16.8, INR 1.5 Plan: GI consulted for endoscopy with variceal banding - post procedure day 1. 4 units PRBC transfused - Hgb stable at 8 today CBC q6H iron panel showed decreased iron (22) and transferrin aPTT and fibrinogen were nml protonix and ocreatide gtt. Rocephin 1g IV QD for SBP prophylaxis Heme/onc consulted for recommendations regarding anticoagulation. IV access with 2 20G needles obtained, consider central access if necessary Consult to IR for TIPS procedure on Wednesday with Dr. Flores - pt NPO night before procedure and off anticoagulation D/C on Lovenox vs Pradaxa low dose Begin therapeutic Heparin 1mg/kg starting tomorrow if Hgb remains stable (2) Acute blood loss anemia Current Visit: Yes Status: Acute Hgb dropped from 9.2 at 2200 last night to 8.1 today at 0400 Recheck Hgb at 1000 8.0 iron panel showed iron deficiency in addition to blood loss anemia plan as above (3) Esophageal varices Current Visit: Yes Status: Acute Varices discovered on endoscopy in February 2018 due to portal HTN 40 mg Nadolol restarted today plan as #1 above Varices may be due to portal vein thrombosis therefore an abdominal US has been ordered for evaluation MELD score of 11, will try to see if pt is a candidate for TIPS procedure since he is non-compliant with medications and has recurrent esophageal varices with an UGIB. Qualifiers: Esophageal varices type: unspecified type Esophageal varices bleeding: with bleeding Qualified Code(s): I85.01 - Esophageal varices with bleeding (4) Ischemic cerebrovascular accident (CVA) Current Visit: No Status: Chronic Hx of CVA at age 22 with unspecified coagulopathy Taking Pradaxa at home - will hold Pradaxa due to UGIB Heme/onc consulted (5) Anticoagulated by anticoagulation treatment Current Visit: Yes Status: Acute Pradaxa for DVT was not being taken for previous 2mo Will hold Pradaxa due to UGIB - consider therapeutic Heparin starting tomorrow Heme/onc consulted for further anticoagulation recs Head CT and CXR showed no evidence of bleeding in head or chest (6) Venous stasis ulcers of both lower extremities Current Visit: Yes Status: Chronic 3 chronic non-healing ankle ulcers 2 on left leg, 1 on right wound care consulted. (7) Coagulopathy Current Visit: Yes Status: Chronic Hx of CVA, DVT due to unspecified coagulopathy Takes Pradaxa at home - will hold do to UGIB Heme/onc consulted (8) DVT prophylaxis Current Visit: Yes Status: Acute Mechanical prophylaxis with SCIDs was not started yesterday due to LE stasis ulcers Will hold prophylaxis today, consider starting therapeutic heparin tomorrow. (9) Hypomagnesemia Current Visit: Yes Status: Acute Mg 1.6 Will replace with one time dose of 2g Mg IV and recheck with morning labs On electrolyte replacement protocol Subjective Principal diagnosis: hematemesis Interval history: Pt was given an additional unit of blood last night which brought his Hgb to 9.2, this morning Hgb was 8.1. He has not had any further episodes of hematesmesis and has not passed any BRBPR or melanotic stools. Pt states he is feeling better and has no complaints at this time. The patient had not been taking his home nadolol or Pradaxa for the previous 2 months, therfore the UGIB is not secondary to anticoagulation. We discussed IVC filter and TIPS procedure with him and his and they are amenable to these therapies. Objective PUL Vital signs: Last Vital Signs Temp 98.6 F 09/09/18 03:51 Pulse 72 09/09/18 06:00 Resp 15 09/09/18 06:00 BP 146/75 09/09/18 06:00 Pulse Ox 94 09/09/18 06:00 General appearance: no acute distress, alert Eyes: nonicteric ENT: oropharynx moist Neck: supple Effort: normal Auscultation: bilateral: clear Cardiovascular: regular rate and rhythm Gastrointestinal: normoactive bowel sounds, soft, non-tender, non-distended Integumentary: normal Extremities: no cyanosis, no edema, pulses normal Musculoskeletal: other (Lower extremity chronic ulcers unchanged from yesterday) normal mental status, non-focal exam mood appropriate, affect normal Results - Laboratory Findings CBC and BMP: 09/09/18 09:57 09/09/18 04:10 PT/INR, D-dimer PT 16.8 Seconds (9.4-12.1) H 09/08/18 09:41 Abnormal lab findings: Abnormal lab results RBC 3.10 M/mcL (4.19-5.50) L 09/09/18 04:10 Hgb 8.1 g/dL (12.9-16.9) L 09/09/18 04:10 Hct 25.4 % (37.5-50.1) L 09/09/18 04:10 MCV 81.9 fL (83.0-100.0) L 09/09/18 04:10 MCH 26.1 pg (28.0-33.3) L 09/09/18 04:10 RDW 15.6 % (11.5-14.5) H 09/09/18 04:10 Plt Count 71 K/mcL (140-400) L 09/09/18 04:10 PT 16.8 Seconds (9.4-12.1) H 09/08/18 09:41 Chloride 112 mEq/L (98-107) H 09/09/18 04:10 Glucose 117 mg/dL (70-105) H 09/09/18 04:10 POC Glucose 132 mg/dL (70-99) H 09/08/18 11:36 Calcium 7.6 mg/dL (8.6-10.3) L 09/09/18 04:10 Venous Ioniz Calcium 1.11 mmol/L (1.15-1.35) L 09/09/18 04:37 Phosphorus 2.0 mg/dL (2.7-4.5) L 09/09/18 04:10 Iron 22 mcg/dL (65-175) L 09/08/18 09:41 % Saturation 5 % (20-55) L 09/08/18 09:41 Ferritin 19 ng/mL (20-250) L 09/08/18 09:41 Serum Total Protein 4.9 g/dL (6.4-8.9) L 09/09/18 04:10 Albumin 2.9 g/dL (3.5-5.7) L 09/09/18 04:10 Globulin 2.0 g/dL (2.4-3.5) L 09/09/18 04:10 - Clinical Findings Intake & Output: Intake & Output 09/08/18 09/08/18 09/09/18 15:59 23:59 07:59 Intake Total 3070 / 3070 1854 / 1854 100 / 100 Output Total 750 / 750 200 / 200 Balance 3070 / 3070 1104 / 1104 -100 / -100 Weight 85.1 kg 88.5 kg - VTE Reasons for not Prescribing Prophylaxis: Medical contraindication Consult Discharge Plan - Plan Referrals: NONE,PCP [Primary Care Provider] - <Liat Newton - Last Filed: 09/09/18 21:16> Objective PUL Vital signs: Last Vital Signs Temp 98.5 F 09/09/18 08:00 Pulse 72 09/09/18 08:00 Resp 19 09/09/18 08:00 BP 153/78 09/09/18 08:00 Pulse Ox 95 09/09/18 08:00 Results - Laboratory Findings CBC and BMP: 09/09/18 09:57 09/09/18 04:10 PT/INR, D-dimer PT 16.8 Seconds (9.4-12.1) H 09/08/18 09:41 Abnormal lab findings: Abnormal lab results RBC 3.10 M/mcL (4.19-5.50) L 09/09/18 04:10 Hgb 8.1 g/dL (12.9-16.9) L 09/09/18 04:10 Hct 25.4 % (37.5-50.1) L 09/09/18 04:10 MCV 81.9 fL (83.0-100.0) L 09/09/18 04:10 MCH 26.1 pg (28.0-33.3) L 09/09/18 04:10 RDW 15.6 % (11.5-14.5) H 09/09/18 04:10 Plt Count 71 K/mcL (140-400) L 09/09/18 04:10 PT 16.8 Seconds (9.4-12.1) H 09/08/18 09:41 Chloride 112 mEq/L (98-107) H 09/09/18 04:10 Glucose 117 mg/dL (70-105) H 09/09/18 04:10 POC Glucose 132 mg/dL (70-99) H 09/08/18 11:36 Calcium 7.6 mg/dL (8.6-10.3) L 09/09/18 04:10 Venous Ioniz Calcium 1.11 mmol/L (1.15-1.35) L 09/09/18 04:37 Phosphorus 2.0 mg/dL (2.7-4.5) L 09/09/18 04:10 Iron 22 mcg/dL (65-175) L 09/08/18 09:41 % Saturation 5 % (20-55) L 09/08/18 09:41 Ferritin 19 ng/mL (20-250) L 09/08/18 09:41 Serum Total Protein 4.9 g/dL (6.4-8.9) L 09/09/18 04:10 Albumin 2.9 g/dL (3.5-5.7) L 09/09/18 04:10 Globulin 2.0 g/dL (2.4-3.5) L 09/09/18 04:10 - Clinical Findings Intake & Output: Intake & Output 09/08/18 09/09/18 09/09/18 23:59 07:59 15:59 Intake Total 1854 / 1854 100 / 100 Output Total 750 / 750 200 / 200 325 / 325 Balance 1104 / 1104 -100 / -100 -325 / -325 Weight 88.5 kg - Attending Attestation - Attending Attestation I saw and evaluated this patient and my medical decision-making was reviewed with the Resident Physician. I agree with the documented findings, disposition and treatment plan as described except to the extent set forth below. We independently had [id number] contact with the patient Patient seen and examined at bedside Labs, radiology, chart personally reviewed. Management was reviewed during multidisciplinary critical care rounds. SYSTEMS INTEGRATION ADVISOR: Patient is nonverbal at baseline due to prior stroke patient has high risk of thrombosis no acute focal neurological deficit. We will continue to monitor. Pulm: Patient has acceptable oxygenation and ventilation no acute issues of pneumonia or pulmonary edema. Cards: Patient is hemodynamically stable. FEN-GI: Patient presented with upper GI bleed showed grade 3 varices had therefore banding's with disappearance of the varices looks like the bleeding stopped to continue 72 hours of IV PPIs and somatostatin.. Very pain that shot looks like patient might have noncirrhotic portal hypertension on he developed cirrhotic changes now patient has history of hemachromatosis gene mutation, alcohol in the past in the past patient was investigated for hepatic vein thrombosis of portal vein thrombosis. Patient should be on an adequate home regimen for his portal hypertension patient has sinusitis in the past will give SBP prophylaxis IV ceftriaxone every day. will order US abdomen to rule out hepatic vein thrombosis , IVC thrombosis , portal thrombosis . Since patient has high risk for thrombosis if we find thrombosis patient will need anticoagulation started as early as possible for his portal hypertension probably he will need TIPS at that point. We will wait for at least 48 hours to make sure he is stable before restarting anticoagulation. 09/09 according to hematology consultation looks like patient had portal vein thrombosis in the past most likely that is the recent for his noncirrhotic portal hypertension that assess but with sudden worsening of diuresis given he did not take his anticoagulation for past 2 months . To evaluate for thrombosis and IVC hepatic vein or portal vein. We will talk with GI patient should be considered for TIPS. As this recurrent GI bleed. Renal: Labs and output reviewed ID: To give antibiotics for SBP prophylaxis Heme/Onc: Patient has this prothrombotic disorder after detailed chart review for many years he has repeated thrombotic episode stopping anticoagulation will be high risk for him at least for the next 4-6 months he should be on Lovenox make sure he is stable before we change to oral anticoagulation. We will talk with hematology regarding it and with the patient Endo: Glucose Monitored Integ/MSK: Skin Care per routine ICU Nursing Protocol to prevent ulcers. Patient has long standing lower limb ulcer Lines: All lines examined without evidence of infection : Dispo: Patient can be transferred to medical telemetry. CODE: Full CODE Patient has extensive deep venous thrombosis acute on chronic since patient AC was temporarily held for this GI bleed we will recommend IVC filter. The pros and cons needs to be discussed because IVC filter itself can cause a prothrombotic risk since this patient has extensive deep venous thrombosis and he is high risk for PE so need to speak with the patient and his about the risk and benefit IR can be called tomorrow to come and do IVC filter.
[2018-09-09] MEDS: cefTRIAXone 1,000 MG in Water for inj. (sterile) 20 ML 10 ML IVP SCH (07:50)
[2018-09-09] MEDS: Octreotide 400 MCG in 0.9 % Sodium Chloride 100 ML IVC SCH ×5 (07:51→23:56)
[2018-09-09] MEDS: 0.9 % Sodium Chloride 1,000 ML IVC SCH (09:30)
[2018-09-09 10:04] LABS: Hematocrit 25.4 % (37.5-50.1)
[2018-09-09] MEDS ORDERED: Potassium Phosphate 44 MEQ in 0.9 % Sodium Chloride 250 ML IVPB PRN (11:21)
[2018-09-09] MEDS ORDERED: Heparin 1,000 UNITS/500 mL 500 ML ONE (14:19)
[2018-09-09] MEDS ORDERED: Ondansetron 4 MG/2 ML VIAL IVP PRN (18:00)
[2018-09-09] MEDS: Potassium Phosphate 44 MEQ in 0.9 % Sodium Chloride 250 ML IVPB PRN (18:50)
--- NOTE | 2018-09-09 19:31 | Oncology Inp Progress Note ---
<Johnathan Roche - Last Filed: 09/09/18 20:06> Oncology: Subj Interval history: I examined this patient and my medical decision-making was reviewed with the Advanced Practice Nurse, Ingrid Paulino. I agree with the documented findings, disposition and treatment plan as described except to the extent set forth bel ow. - Constitutional Vitals: Vital Signs Temp Pulse Resp BP Pulse Ox 09/09/18 17:00 98.3 F 09/09/18 15:00 71 14 156/82 94 09/09/18 14:00 71 12 138/80 97 09/09/18 13:00 75 22 151/91 97 09/09/18 12:00 98.8 F 65 17 149/81 96 09/09/18 11:00 83 16 152/79 96 09/09/18 10:00 71 16 157/83 95 09/09/18 09:00 69 12 155/94 95 09/09/18 08:00 98.5 F 72 19 153/78 95 09/09/18 07:00 79 20 149/80 94 09/09/18 06:00 72 15 146/75 94 09/09/18 05:00 75 16 130/66 96 09/09/18 04:00 70 24 122/77 95 09/09/18 03:51 98.6 F 09/09/18 03:00 92 20 150/83 95 09/09/18 02:00 75 14 149/80 95 09/09/18 01:00 65 14 139/75 97 09/09/18 00:00 72 18 148/78 97 09/08/18 23:39 99.1 F 09/08/18 23:00 71 17 161/86 98 09/08/18 21:27 98.6 F 70 16 150/85 98 09/08/18 21:00 70 16 150/85 97 09/08/18 20:15 98.8 F Intake and Output 09/09/18 09/09/18 09/09/18 07:59 15:59 23:59 Intake Total 100 / 100 1304 / 1304 204 / 204 Output Total 200 / 200 450 / 450 Balance -100 / -100 854 / 854 204 / 204 Intake: IV Fluids 100 / 100 1304 / 1304 204 / 204 0.9 % Sodium Chloride 1,000 ML 1000 / 1000 @ 125 mls/hr IVC .Q8H NIKI Rx#: [id number] SandoSTATIN 400 MCG In 0.9 % 104 / 104 104 / 104 Sodium Chloride 100 ML @ 50 MCG /HR 13 mls/hr IVC .Q8H NIKI Rx#: [id number] Protonix 40 MG In 0.9 % Sodium 100 / 100 200 / 200 Chloride (Mini-Bag +) 100 ML @ 20 mls/hr IVC .Q5H NIKI Rx#: [id number] Potassium Chloride 10 mEq/100mL 100 / 100 10 meq In 100 ml @ 100 mls/hr IVPB Q1H PRN Rx#:[id number] Output: Urine 200 / 200 Catheter 450 / 450 Oncology: Obj Data - Labs CBC & Chem 7: 09/09/18 09:57 09/09/18 04:10 Labs: Laboratory Results - last 24 hr 09/08/18 09/08/18 09/09/18 09:41 22:22 04:10 WBC 5.5 D 4.3 RBC 3.54 L 3.10 L Hgb 9.2 L D 8.1 L Hct 29.3 L 25.4 L MCV 82.8 L 81.9 L MCH 26.0 L 26.1 L MCHC 31.4 L 31.9 RDW 15.2 H 15.6 H Plt Count 73 L 71 L MPV 10.5 9.8 Immature Gran % 0.2 Seg Neutrophils % 74.4 Lymphocytes % 14.2 Monocytes % 7.9 Eosinophils % 2.8 Basophils % 0.5 Neutrophils # 3.2 Lymphocytes # 0.6 Monocytes # 0.3 Eosinophils # 0.1 Basophils # 0.0 Immature Plt Fraction 6.1 4.9 Sodium Potassium Chloride Carbon Dioxide BUN Creatinine Est GFR ( Amer) Est GFR (Non-Af Amer) BUN/Creatinine Ratio Glucose Calculated Osmolality Calcium Venous Ioniz Calcium Phosphorus Magnesium Total Bilirubin AST ALT Alkaline Phosphatase Serum Total Protein Albumin Globulin Albumin/Globulin Ratio Crossmatch See Detail 09/09/18 09/09/18 09/09/18 04:10 04:37 09:57 WBC RBC Hgb 8.0 L Hct 25.4 L MCV MCH MCHC RDW Plt Count MPV Immature Gran % Seg Neutrophils % Lymphocytes % Monocytes % Eosinophils % Basophils % Neutrophils # Lymphocytes # Monocytes # Eosinophils # Basophils # Immature Plt Fraction Sodium 141 Potassium 3.6 Chloride 112 H Carbon Dioxide 25 BUN 18 Creatinine 0.75 Est GFR ( Amer) > 60 Est GFR (Non-Af Amer) > 60 BUN/Creatinine Ratio 24 Glucose 117 H Calculated Osmolality 295 Calcium 7.6 L Venous Ioniz Calcium 1.11 L Phosphorus 2.0 L Magnesium 1.6 Total Bilirubin 1.0 AST 22 ALT 16 Alkaline Phosphatase 79 Serum Total Protein 4.9 L Albumin 2.9 L Globulin 2.0 L Albumin/Globulin Ratio 1.5 Crossmatch - ABG Interpretation ABG results: PT/INR, D-dimer PT 16.8 Seconds (9.4-12.1) H 09/08/18 09:41 Consult Discharge Plan - Plan Referrals: NONE,PCP [Primary Care Provider] - Inpatient Charges Provider: Dr. Cecil Roche Follow up - Inpatient: [id number] <Ingrid Paulino - Last Filed: 09/10/18 09:05> Date of Encounter: 09/09/18 Time of Encounter: 13:00 (1) Acute blood loss anemia Current Visit: Yes Status: Acute Assessment and plan: Presented with large amounts of hematemesis. EGD located grade III large varices in the lower esopahgus with banding of 9 varices with now clinical control of his bleeding Anticoagulation placed on hold with plans moving forward as discussed below Agree with the consideration of TIPS procedure to decrease his portal congestion with the hopes to continue anticoagulation with decreased risk of bleeding in future, we will defer this decision to the GI team and appreciate their nadya mmendations (2) Coagulopathy Current Visit: Yes Status: Chronic Assessment and plan: As noted in HPI, Mr. 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22 which has led to his significant debility He presented with acute esophageal bleeding secondary to varices as above, s/p EGD with banding, planned for TIPS procedure Wednesday Patient told his today that he has not taken his Pradaxa in nearly 2 months, she was not previously aware of this Plan: We agree with holding his Pradaxa in the acute period However, given his history, the benefits outweigh the risks of continuing indefinite anticoagulation in this patient Recommend re-initiation of Pradaxa at the reduced dose of 75 mg PO BID when hgb remains stable (discussed question of ihsanx therapy with Dr. Guardado, she prefers to continue Pradaxa) Continue to monitor CBC and transfuse as needed The plan as above was discussed with the patient as well as the benefits vs. risks of continuing/discontinuing anticoagulation Patient ultimately agreed to continue with Pradaxa moving forward once bleeding has stabilized There was question of IVC filter placement in this patient, hematology would not recommend filter placement unless patient has evidence of acute thrombus with acute bleeding, at which the idea of IVC filter placement may be revisited at that time. Oncology: Subj Interval history: Mr. Atkinson denies pain, nausea, vomiting or hematemesis. Patient has no physical complaints at this time. No BM since admission. - Constitutional Vitals: Vital Signs Temp Pulse Resp BP Pulse Ox 09/09/18 12:00 65 17 149/81 96 09/09/18 11:00 83 16 152/79 96 09/09/18 10:00 71 16 157/83 95 09/09/18 09:00 69 12 155/94 95 09/09/18 08:00 98.5 F 72 19 153/78 95 09/09/18 07:00 79 20 149/80 94 09/09/18 06:00 72 15 146/75 94 09/09/18 05:00 75 16 130/66 96 09/09/18 04:00 70 24 122/77 95 09/09/18 03:51 98.6 F 09/09/18 03:00 92 20 150/83 95 09/09/18 02:00 75 14 149/80 95 09/09/18 01:00 65 14 139/75 97 09/09/18 00:00 72 18 148/78 97 09/08/18 23:39 99.1 F 09/08/18 23:00 71 17 161/86 98 09/08/18 21:27 98.6 F 70 16 150/85 98 09/08/18 21:00 70 16 150/85 97 09/08/18 20:15 98.8 F 09/08/18 20:00 76 15 143/76 98 09/08/18 19:31 98.8 F 80 16 143/83 95 09/08/18 19:16 98.5 F 72 15 148/107 09/08/18 19:00 76 15 145/102 98 09/08/18 18:00 74 12 126/77 98 09/08/18 17:04 97.8 F 76 14 129/68 98 09/08/18 17:00 70 17 129/68 99 09/08/18 16:00 77 19 127/65 100 Intake and Output 09/08/18 09/09/18 09/09/18 23:59 07:59 15:59 Intake Total 1854 / 1854 100 / 100 1100 / 1100 Output Total 750 / 750 200 / 200 325 / 325 Balance 1104 / 1104 -100 / -100 775 / 775 Intake: IV Fluids 1204 / 1204 100 / 100 1100 / 1100 0.9 % Sodium Chloride 1,000 ML 1000 / 1000 1000 / 1000 @ 125 mls/hr IVC .Q8H NIKI Rx#: [id number] SandoSTATIN 400 MCG In 0.9 % 104 / 104 Sodium Chloride 100 ML @ 25 MCG /HR 6.5 mls/hr IVC .Q16H NIKI Rx #:[id number] Protonix 40 MG In 0.9 % Sodium 100 / 100 100 / 100 100 / 100 Chloride (Mini-Bag +) 100 ML @ 20 mls/hr IVC .Q5H NIKI Rx#: [id number] Blood Product 650 / 650 Rbcs Leuko Poor As-1 Unit 350 / 350 [id number] Rbcs Leuko Poor As-1 Unit 300 / 300 [id number] Output: Urine 750 / 750 200 / 200 Catheter 325 / 325 Other: Weight 88.5 kg General appearance: cooperative, no acute distress, no febrile Exam: nonverbal secondary to prior CVA - Head Head exam: Present: atraumatic - ENT ENT exam: Present: mucous membranes moist - Respiratory Respiratory exam: Present: CTAB. Absent: respiratory distress - Cardiovascular Cardiovascular exam: Present: RRR, +S1, +S2 - GI/Abdominal GI/Abdominal exam: Present: normal bowel sounds, soft. Absent: tenderness - Extremities Exam Additional comments: non healing venous stasis ulcers- medial and lateral left ankle, medial right ankle - Neurological Exam Neurological exam: Present: alert, oriented X3 Additional comments: chronic left sided weakness from prior CVA - Psychiatric Psychiatric exam: Present: normal affect, normal mood - Skin Skin exam: Present: dry, intact, pallor, warm Oncology: Obj Data - Labs CBC & Chem 7: 09/10/18 04:50 09/10/18 04:50 - ABG Interpretation ABG results: PT/INR, D-dimer PT 16.8 Seconds (9.4-12.1) H 09/08/18 09:41
[2018-09-09] MEDS: OXYCODONE Oral CONC 10 MG/0.5 ML ORAL.SYG SL PRN (19:58)
[2018-09-10] MEDS: Pantoprazole 40 MG in 0.9 % Sodium Chloride Mini Bag 100 ML IVC SCH ×2 (02:45→08:13)
[2018-09-10 04:57] LABS: Eosinophils % 5.5 %; Hemoglobin 8.3 g/dL (12.9-16.9); Immature Granulocytes % 0.2 % (0-4); Monocytes % 9.3 %
[2018-09-10 04:59] LABS: Basophils % 0.5 %; Eosinophils # 0.2 K/mcL (0.0-0.6); Hematocrit 26.3 % (37.5-50.1); Lymphocytes # 0.9 K/mcL (0.6-4.6); Lymphocytes % 21.6 %; Mean Corpuscular HGB Conc 31.6 g/dL (31.6-35.5); Mean Corpuscular Hemoglobin 25.9 pg (28.0-33.3); Mean Corpuscular Volume 82.2 fL (83.0-100.0); Mean Platelet Volume 10.4 fL (9.4-12.4); Monocytes # 0.4 K/mcL (0.0-1.3); Red Cell Distribution Width 15.8 % (11.5-14.5); Segmented Neutrophils % 62.9 %
[2018-09-10 05:02] LABS: Neutrophils # 2.6 K/mcL (1.6-8.9); Platelet Count 86 K/mcL (140-400)
[2018-09-10 05:18] LABS: Alanine Aminotransferase 14 Units/L (7-52); Albumin 2.7 g/dL (3.5-5.7); Albumin/Globulin Ratio 1.1 (1.1-2.2); Alkaline Phosphatase 80 Units/L (34-104); Aspartate Amino Transferase 20 Units/L (13-39); BUN/Creatinine Ratio 20 (6-26); Bilirubin,Total 0.8 mg/dL (0.3-1.0); Blood Urea Nitrogen 15 mg/dL (6-20); Calcium 7.6 mg/dL (8.6-10.3); Carbon Dioxide 25 mEq/L (23-29); Chloride 109 mEq/L (98-107); Globulin 2.4 g/dL (2.4-3.5); Glucose 92 mg/dL (70-105); Osmolality,Calculated 288 (280-300); Phosphorous 2.2 mg/dL (2.7-4.5); Potassium 3.8 mEq/L (3.5-5.1); Sodium 139 mEq/L (136-145); Total Protein 5.1 g/dL (6.4-8.9); eGFR For Non-African Americans > 60 (> 60)
[2018-09-10] MEDS: Potassium Phosphate 44 MEQ in 0.9 % Sodium Chloride 250 ML IVPB PRN (06:25)
[2018-09-10] MEDS: cefTRIAXone 1,000 MG in Water for inj. (sterile) 20 ML 10 ML IVP SCH (08:15)
[2018-09-10] MEDS: Octreotide 400 MCG in 0.9 % Sodium Chloride 100 ML IVC SCH (08:24)
--- NOTE | 2018-09-10 10:44 | Gastroenterology Progress Note ---
Date of Encounter: 09/10/18 Time of Encounter: 10:40 - Time Spent With Patient Total time spent is greater than 50% in coordination of care (as documented) at patient's floor/unit and/or counseling patient: 25 - 35 minutes (Patient had another life threatening bleed this time - this time secondary to his large grade III esophageal varices. He has non cirrhotic portal hypertension with a normal liver biopsy a few years ago at [facility]. Understand he is a higher risk for coagulation. He had been to [facility] in December for a one time visit and didnt go back to see them. No investigations were apparently done there.) - Subjective Interval history: Pt was given an additional unit of blood last night which brought his Hgb to 9.2, this morning Hgb was 8.1. He has not had any further episodes of hematesmesis and has not passed any BRBPR or melanotic stools. Pt states he is feeling better and has no complaints at this time. The patient had not been taking his home nadolol or Pradaxa for the previous 2 months, therfore the UGIB is not secondary to anticoagulation. We discussed IVC filter and TIPS procedure with him and his and they are a menable to these therapies. - Constitutional Vitals: Temp Pulse Resp BP Pulse Ox 97.9 F 60 18 131/82 96 09/10/18 08:36 09/10/18 08:36 09/10/18 08:36 09/10/18 08:36 09/10/18 08:36 General appearance: Absent: answers questions appropriately Results - Labs CBC & Chem 7: 09/10/18 04:50 09/10/18 04:50 Labs: Last Result Calcium 7.6 mg/dL (8.6-10.3) L 09/10/18 04:50 Iron 22 mcg/dL (65-175) L 09/08/18 09:41 % Saturation 5 % (20-55) L 09/08/18 09:41 Transferrin 289 mg/dL (203-362) 09/08/18 09:41 Ferritin 19 ng/mL (20-250) L 09/08/18 09:41 Troponin I < 0.03 ng/mL (< 0.04) 09/08/18 09:41 Entire Visit Hgb 8.3 g/dL (12.9-16.9) L 09/10/18 04:50 Hct 26.3 % (37.5-50.1) L 09/10/18 04:50 PT 16.8 Seconds (9.4-12.1) H 09/08/18 09:41 Ferritin 19 ng/mL (20-250) L 09/08/18 09:41 Total Bilirubin 0.8 mg/dL (0.3-1.0) 09/10/18 04:50 AST 20 Units/L (13-39) 09/10/18 04:50 ALT 14 Units/L (7-52) 09/10/18 04:50 Lipase 60 Units/L (11-82) 09/08/18 09:41 - ABG ABG results: PT/INR, D-dimer PT 16.8 Seconds (9.4-12.1) H 09/08/18 09:41 - VTE Reasons for not Prescribing Prophylaxis: Medical contraindication Consult Discharge Plan - Plan Referrals: NONE,PCP [Primary Care Provider] -
--- NOTE | 2018-09-10 13:25 | Internal Med Progress Note ---
Hospitalist Progress Note - Encounter Date of Encounter: 09/10/18 Time of Encounter: 12:30 - Subjective Interval History: Patient chart reviewed. Admitted on 09/08 for hematemesis and was found to have grade III, large varices in the lower 1/3 of esophagus. 9 bands placed with complete eradication. s/p 4U pRBC so far, last one being on 09/08. Hb stable around 8.3. No report of melena or hematemesis for the last 24 hours at least. - Exam Vitals: Temp Pulse Resp BP Pulse Ox 97.8 F 60 16 99/48 94 09/10/18 12:11 09/10/18 12:11 09/10/18 12:11 09/10/18 12:11 09/10/18 12:11 Exam: General: Alert and oriented, not in acute distress. Cardiovascular:Normal S1 & S2, No JVD. Pulse regular. Lungs: clear to auscultation, no wheezes/rales Abdomen:Soft, non-tender, no rigidity. Neurological: non-verbal at baseline but communicates via sign language and writing - Assessment and Plan (1) UGIB (upper gastrointestinal bleed) Current Visit: Yes Status: Acute Assessment and Plan: presented with hematemesis and underwent EGD with banding on 09/08 Hb stable at 8.3, s/p 4U pRBC with last one being on 09/08 d/c octreotide per GI today, change protonix to PO daily Continue Hiram for SBP prophylaxis, complete 5 day course on 09/12 TIPS on Wednesday paged GI to discuss the anticoagulation plan after TIPS, a/w reply will discuss with the family regarding the options of IVC filter and anticoagulation (2) Esophageal varices Current Visit: Yes Status: Acute Assessment and Plan: as above, on nadolol 40mg QD (3) Portal hypertension Current Visit: Yes Status: Chronic Assessment and Plan: non-cirrhotic, reports the previous liver bx -ve at [facility] for US with doppler study today mx for variceal bleeding as above (4) Coagulopathy Current Visit: Yes Status: Chronic Assessment and Plan: 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 Spoke to the organisation and methods analyst regarding the discussion that they have had regarding AC and IVC filter insertion during his ICU stay Unsure of the utility of interim IVC filter (if anticoagulation can be started after TIPS on Wednesday), will discuss with the family (5) Venous stasis ulcers of both lower extremities Current Visit: Yes Status: Chronic Assessment and Plan: 3 chronic non-healing ankle ulcers 2 on left leg, 1 on right follow with wound care DVT Prophylaxis: Unable to provide mechanical prophylaxis due to LE ulcers not on pharmacologic prophylaxis due to the above hopefully we can resume at least a prophylactic dose of SQ heparin on Wednesday following TIPS - Time Spent with Patient Total time spent is greater than 50% in coordination of care (as documented) at patient's floor/unit and/or counseling patient: Plan of Care Discussed with: patient Internal Medicine: Result - Labs CBC & Chem 7: 09/10/18 04:50 09/10/18 04:50 Labs: Short CBC 09/10/18 Range/Units 04:50 WBC 4.2 L (4.3-11.1) K/mcL Hgb 8.3 L (12.9-16.9) g/dL Hct 26.3 L (37.5-50.1) % Plt Count 86 L (140-400) K/mcL Neutrophils # 2.6 (1.6-8.9) K/mcL BMP 09/10/18 04:50 Sodium 139 Potassium 3.8 Chloride 109 H Carbon Dioxide 25 BUN 15 Creatinine 0.76 Glucose 92 Calcium 7.6 L Liver Function 09/10/18 Range/Units 04:50 Total Bilirubin 0.8 (0.3-1.0) mg/dL AST 20 (13-39) Units/L ALT 14 (7-52) Units/L Alkaline Phosphatase 80 (34-104) Units/L Albumin 2.7 L (3.5-5.7) g/dL - ABG Interpretation ABG results: PT/INR, D-dimer PT 16.8 Seconds (9.4-12.1) H 09/08/18 09:41 - VTE Reasons for not Prescribing Prophylaxis: Medical contraindication Consult Discharge Plan - Plan Referrals: NONE,PCP [Primary Care Provider] - (2) Esophageal varices Qualifiers: Esophageal varices type: unspecified type Esophageal varices bleeding: with bleeding Qualified Code(s): I85.01 - Esophageal varices with bleeding
[2018-09-10 17:37] LABS: Phosphorous 2.5 mg/dL (2.7-4.5); Potassium 3.7 mEq/L (3.5-5.1)
[2018-09-11] MEDS: cefTRIAXone 1,000 MG in Water for inj. (sterile) 20 ML 10 ML IVP SCH (07:50)
[2018-09-11 08:12] LABS: Hematocrit 25.2 % (37.5-50.1); Hemoglobin 8.1 g/dL (12.9-16.9); Mean Corpuscular HGB Conc 32.1 g/dL (31.6-35.5); Mean Platelet Volume 10.4 fL (9.4-12.4); Red Blood Count 3.11 M/mcL (4.19-5.50); Red Cell Distribution Width 15.7 % (11.5-14.5)
[2018-09-11 08:14] LABS: Platelet Count 88 K/mcL (140-400)
[2018-09-11 08:27] LABS: BUN/Creatinine Ratio 20 (6-26); Blood Urea Nitrogen 13 mg/dL (6-20); Calcium 8.1 mg/dL (8.6-10.3); Carbon Dioxide 22 mEq/L (23-29); Chloride 108 mEq/L (98-107); Glucose 91 mg/dL (70-105); Magnesium 1.8 mg/dL (1.6-2.6); Osmolality,Calculated 284 (280-300); Potassium 3.4 mEq/L (3.5-5.1); Sodium 137 mEq/L (136-145); eGFR For Non-African Americans > 60 (> 60)
--- NOTE | 2018-09-11 09:56 | Internal Med Progress Note ---
Hospitalist Progress Note - Encounter Date of Encounter: 09/11/18 Time of Encounter: 08:30 - Subjective Interval History: Denies any further episodes of hematemesis. No melena, BRBPR, hematochezia. Denies chest pain or lightheadedness. Discussed at length with the family regarding IVC filter and future plan for anticoagulation -> deferred till the completion of TIPS tomorrow - Exam Vitals: Temp Pulse Resp BP Pulse Ox 98.8 F 54 16 121/72 93 09/11/18 07:57 09/11/18 07:57 09/11/18 07:57 09/11/18 07:57 09/11/18 07:57 Exam: General: Alert and oriented, not in acute distress. Cardiovascular:Normal S1 & S2, No JVD. Pulse regular. Lungs: clear to auscultation, no wheezes/rales Abdomen:Soft, non-tender, no rigidity. Neurological: non-verbal at baseline but communicates via sign language and writing - Assessment and Plan (1) UGIB (upper gastrointestinal bleed) Current Visit: Yes Status: Acute Assessment and Plan: presented with hematemesis and underwent EGD with banding on 09/08 Hb stable at 8.1, s/p 4U pRBC with last one being on 09/08 d/c octreotide yesterday per GI, PO PPI daily Continue Hiram for SBP prophylaxis, complete 5 day course on tomorrow TIPS tomorrow will re-discuss the possibility of resuming anticoagulation after TIPS -> if not a candidate, will consider IVC filter then (2) Portal hypertension Current Visit: Yes Status: Chronic Assessment and Plan: was initially deemed non-cirrhotic per previous liver bx being -ve at [facility] yesterday did not show any evidence of portal vein thrombosis but did show cirrhotic morphology mx for variceal bleeding as above, outpatient follow up for cirrhosis/portal HTN (3) Esophageal varices Current Visit: Yes Status: Acute Assessment and Plan: as above, on nadolol 40mg QD (4) Coagulopathy Current Visit: Yes Status: Chronic Assessment and Plan: 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 after discussing with the family yesterday, decision was made to wait until the completion of TIPS before pursuing AC vs. IVC filter (5) Venous stasis ulcers of both lower extremities Current Visit: Yes Status: Chronic Assessment and Plan: 3 chronic non-healing ankle ulcers 2 on left leg, 1 on right follow with wound care DVT Prophylaxis: Unable to provide mechanical prophylaxis due to LE ulcers not on pharmacologic prophylaxis due to the above hopefully we can resume at least a prophylactic dose of SQ heparin on Wednesday following TIPS - Time Spent with Patient Total time spent is greater than 50% in coordination of care (as documented) at patient's floor/unit and/or counseling patient: Plan of Care Discussed with: nurse Internal Medicine: Result - Labs CBC & Chem 7: 09/11/18 07:57 09/11/18 07:57 Labs: Short CBC 09/11/18 Range/Units 07:57 WBC 4.2 L (4.3-11.1) K/mcL Hgb 8.1 L (12.9-16.9) g/dL Hct 25.2 L (37.5-50.1) % Plt Count 88 L (140-400) K/mcL BMP 09/10/18 09/11/18 17:00 07:57 Sodium 137 Potassium 3.7 3.4 L Chloride 108 H Carbon Dioxide 22 L BUN 13 Creatinine 0.64 L Glucose 91 Calcium 8.1 L - ABG Interpretation ABG results: PT/INR, D-dimer PT 16.8 Seconds (9.4-12.1) H 09/08/18 09:41 - Impressions Impressions Abdomen Ultrasound 09/10/18 13:00 IMPRESSION: Cirrhosis and abdominal ascites. While visualization of the liver was somewhat limited, no definite thrombus was visualized at real-time imaging. D/ / Tr Iniguez MD / Tr Iniguez MD Interpreting Provider: Tr Iniguez MD Abdomen/Pelvis Ultrasound 09/10/18 13:00 IMPRESSION: Cirrhosis and abdominal ascites. While visualization of the liver was somewhat limited, no definite thrombus was visualized at real-time imaging. D/ / Tr Iniguez MD / Tr Iniguez MD Interpreting Provider: Tr Iniguez MD - VTE Reasons for not Prescribing Prophylaxis: Medical contraindication Consult Discharge Plan - Plan Referrals: NONE,PCP [Primary Care Provider] - (3) Esophageal varices Qualifiers: Esophageal varices type: unspecified type Esophageal varices bleeding: with bleeding Qualified Code(s): I85.01 - Esophageal varices with bleeding
[2018-09-12 03:55] LABS: Hemoglobin 8.1 g/dL (12.9-16.9); Mean Corpuscular Hemoglobin 26.2 pg (28.0-33.3); Red Blood Count 3.09 M/mcL (4.19-5.50); Red Cell Distribution Width 15.9 % (11.5-14.5)
[2018-09-12 03:57] LABS: Hematocrit 25.1 % (37.5-50.1); Immature Platelets 5.7 % (1.1-6.1); Mean Corpuscular HGB Conc 32.3 g/dL (31.6-35.5); Mean Corpuscular Volume 81.2 fL (83.0-100.0); Mean Platelet Volume 10.2 fL (9.4-12.4)
[2018-09-12 04:03] LABS: INR 1.3
[2018-09-12 04:12] LABS: BUN/Creatinine Ratio 22 (6-26); Blood Urea Nitrogen 14 mg/dL (6-20); Calcium 8.1 mg/dL (8.6-10.3); Carbon Dioxide 23 mEq/L (23-29); Chloride 107 mEq/L (98-107); Glucose 90 mg/dL (70-105); Osmolality,Calculated 284 (280-300); Potassium 3.3 mEq/L (3.5-5.1); Sodium 137 mEq/L (136-145); eGFR For Non-African Americans > 60 (> 60)
[2018-09-12] MEDS ORDERED: Potassium Chloride 40 MEQ, Lidocaine 1% 2 ML in D5% in Water 500 ML IVPB ONE (07:16)
--- NOTE | 2018-09-12 08:39 | Anesthesia Evaluation PreOp ---
Date of Encounter: 09/12/18 Time of Encounter: 08:41 - Past History Planned Operation: TIPS Cardiac History: Other (H/O DVT's) Pulmonary History: Denies Any Significant HX [employer] History: CVA (CVA due to unspecified coagulopathy, residual left hemiparesis and non-verbal) Other Medical History: Hepatic (portal HTN), Other (esophageal varices, GI bleed) Anesthesia History: No Prior Anesthetic Complications, Past Anesthesia Alcohol Use: none Drug use: none Medications and Allergies Dabigatran [Pradaxa] 75 mg PO BID #60 capsule 01/07/18 [Rx] Nadolol [Corgard] 40 mg PO DAILY #30 tablet 02/11/18 [Rx] Pantoprazole Sodium [Protonix] 40 mg PO DAILY 09/08/18 [History] Allergy/AdvReac Type Severity Reaction Status Date / Time No Known Allergies Allergy Verified 02/14/18 09:23 - Meds/Allergy Pre-op Review Medications Reviewed: Yes Allergies Reviewed: Yes Beta Blockers on Current Med List: Yes If Beta Blockers taken, Date/Time (Last Dose taken): 09/11/2018 at 0800 Anesthesia Results - Labs 09/12/18 03:14 09/12/18 03:14 - Imaging EKG: report reviewed (09/08/2018 Sinus rhythm) Anesthesia Exam Vital Signs/O2 Sat/Glucose, Most Recent Temp Pulse Resp BP Pulse Ox 98.7 F 63 20 100/57 95 09/12/18 06:53 09/12/18 06:53 09/12/18 06:53 09/12/18 06:53 09/12/18 06:53 Blood Glucose* 132 Height: 6'/1.83m Weight: 185 lbs/88.5 kg NPO (# of Hours): 8 Pain Scale: 0 Pain Scale Used: Numeric (1 - 10) - HEENT Pupil (Motor): Pupils equal Mallampati: III Teeth: Edentulous Oral Opening: Greater than 3 - [employer] LOC: Oriented [employer] Motor: Normal RUE, Normal RLE, Normal Face, Deficit LUE, Deficit LLE [employer] Sensory: Normal: RUE, LUE, RLE, LLE, Face - Cardiac Rhythm: Regular Murmur: None - Pulmonary Breath Sounds: bilateral Clear Respiratory Effort: Symmetrical Anesthesia Assess/Plan ASA Score: 3 Modified Pretty Scale for Level of Consciousness: Cooperative, oriented, and t ranquil Anesthetic Plan: General Monitoring Plan: Standard Monitors Recovery Plan: PACU
[2018-09-12] MEDS: cefTRIAXone 1,000 MG in Water for inj. (sterile) 20 ML 10 ML IVP SCH (08:51)
--- NOTE | 2018-09-12 09:27 | Internal Med Progress Note ---
Hospitalist Progress Note - Encounter Date of Encounter: 09/12/18 Time of Encounter: 07:45 - Subjective Interval History: Denies any hematemesis, melena, BRBPR, hematochezia. Denies chest pain or lightheadedness. Noted the change of plan to check CT A/P first before proceeding with TIPS. - Exam Vitals: Temp Pulse Resp BP Pulse Ox 98.7 F 63 20 100/57 95 09/12/18 06:53 09/12/18 06:53 09/12/18 06:53 09/12/18 06:53 09/12/18 06:53 Exam: General: Alert and oriented, not in acute distress. Cardiovascular:Normal S1 & S2, No JVD. Pulse regular. Lungs: clear to auscultation, no wheezes/rales Abdomen:Soft, non-tender, no rigidity. Neurological: non-verbal at baseline but communicates via sign language and writing - Assessment and Plan (1) UGIB (upper gastrointestinal bleed) Current Visit: Yes Status: Acute Assessment and Plan: presented with hematemesis and underwent EGD with banding on 09/08 Hb stable at 8.1, s/p 4U pRBC with last one being on 09/08 octreotide gtt d/ed on 09/10 per GI, PO PPI daily with carafate Complete D5 Hiram for SBP prophylaxis today CT AP with contrast followed by potential TIPS later will re-discuss the possibility of resuming anticoagulation after TIPS -> if not a candidate, will consider IVC filter then (2) Esophageal varices Current Visit: Yes Status: Acute Assessment and Plan: as above, on nadolol 40mg QD (3) Portal hypertension Current Visit: Yes Status: Chronic Assessment and Plan: was initially deemed non-cirrhotic per previous liver bx being -ve at [facility] yesterday did not show any evidence of portal vein thrombosis but did show cirrhotic morphology mx for variceal bleeding as above, outpatient follow up for cirrhosis/portal HTN (4) Coagulopathy Current Visit: Yes Status: Chronic Assessment and Plan: 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 after discussing with the family on 10/27, decision was made to wait until the completion of TIPS before pursuing AC vs. IVC filter (5) Venous stasis ulcers of both lower extremities Current Visit: Yes Status: Chronic Assessment and Plan: 3 chronic non-healing ankle ulcers 2 on left leg, 1 on right follow with wound care DVT Prophylaxis: Unable to provide mechanical prophylaxis due to LE ulcers not on pharmacologic prophylaxis due to the above hopefully we can resume at least a prophylactic dose of SQ heparin on Wednesday following TIPS - Time Spent with Patient Total time spent is greater than 50% in coordination of care (as documented) at patient's floor/unit and/or counseling patient: Plan of Care Discussed with: patient Internal Medicine: Result - Labs CBC & Chem 7: 09/12/18 03:14 09/12/18 03:14 Labs: Short CBC 09/12/18 Range/Units 03:14 WBC 4.1 L (4.3-11.1) K/mcL Hgb 8.1 L (12.9-16.9) g/dL Hct 25.1 L (37.5-50.1) % Plt Count 88 L (140-400) K/mcL BMP 09/12/18 03:14 Sodium 137 Potassium 3.3 L Chloride 107 Carbon Dioxide 23 BUN 14 Creatinine 0.65 L Glucose 90 Calcium 8.1 L - ABG Interpretation ABG results: PT/INR, D-dimer PT 15.0 Seconds (9.4-12.1) H 09/12/18 03:14 - VTE Reasons for not Prescribing Prophylaxis: Medical contraindication Consult Discharge Plan - Plan Referrals: NONE,PCP [Primary Care Provider] - (2) Esophageal varices Qualifiers: Esophageal varices type: unspecified type Esophageal varices bleeding: with bleeding Qualified Code(s): I85.01 - Esophageal varices with bleeding
[2018-09-12] MEDS ORDERED: Heparin 1,000 UNITS/500 mL 500 ML ONE ×2 (10:06→13:46)
[2018-09-12] MEDS ORDERED: 0.9 % Sodium Chloride 500 ML ONE (10:06)
[2018-09-12] MEDS ORDERED: *HR* Midazolam HCl 2 MG/2 ML VIAL ONE (11:39)
[2018-09-12] MEDS ORDERED: *HR* FentaNYL (PF) 100 MCG/2 ML VIAL ONE (11:40)
[2018-09-12] MEDS ORDERED: Isovue-300 50 ML VIAL IVP ONE ×6 (12:32→14:48)
[2018-09-12] MEDS ORDERED: IOPAMIDOL IVP ONE (13:16)
[2018-09-12] MEDS ORDERED: SODIUM CHLORIDE 0.9% IVP ONE (13:16)
[2018-09-12] MEDS ORDERED: Ondansetron 4 MG/2 ML VIAL IVP ONE (13:59)
[2018-09-12] MEDS ORDERED: Lidocaine 2% Syringe 100 MG/5 ML IV ONE (13:59)
[2018-09-12] MEDS ORDERED: *HR* Propofol 200 MG/20 ML VIAL IVP ONE (13:59)
[2018-09-12] MEDS ORDERED: *HR* Rocuronium Bromide 50 MG/5 ML VIAL IVC ONE (13:59)
[2018-09-12] MEDS ORDERED: *HR* Phenylephrine 10 MG/ML VIAL IVC ONE (13:59)
[2018-09-12] MEDS ORDERED: EPHEDrine 50 MG/ML VIAL IVP ONE (13:59)
--- NOTE | 2018-09-12 17:20 | Oncology Inp Progress Note ---
<Ingrid Raya L - Last Filed: 09/13/18 13:02> Date of Encounter: 09/12/18 Time of Encounter: 17:20 (1) Acute blood loss anemia Current Visit: Yes Status: Acute Assessment and plan: Presented with large amounts of hematemesis. EGD located grade III large varices in the lower esopahgus with banding of 9 varices with now clinical control of his bleeding Anticoagulation placed on hold with plans moving forward as discussed below S/P TIPS procedure today to decrease his portal congestion with the hopes to continue anticoagulation with decreased risk of bleeding in future, GI following Hgb stable for about 72 hours, currently around 8.1 Plans as below (2) Coagulopathy Current Visit: Yes Status: Chronic Assessment and plan: As noted in HPI, Mr. 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 Atkinson had a LE venous doppler on 09/10/2018 that noted Acute deep venous thrombosis is present in the right distal iliac through popliteal vein. Chronic deep venous thrombosis is present in the right greater and lesser saphenous veins. Acute deep venous thrombosis is present in the left distal iliac the popliteal veins. Acute deep venous thrombosis is present in the left lesser saphenous vein. He has not started anticoagulation. Underwent TIPS procedure today. Discussed with Dr. Guardado as well as vascular, Dr. Guardado recommends for evaluation by vascular for IVC filter placement tomorrow in presence of acute LE DVT given bleeding history and risk. We will give lovenox x1 dose tonight (advised per vascular), followed by prophylactic dosing, will increase for continued stab ility in hgb Oncology: Subj Interval history: Mr. Atkinson is resting comfortably, he has recently returned from his TIPS procedure. He has some mild pain localized to the dressing on his right neck. His is at bedside. He denies any s/s bleeding. As discussed in A&P he had a BLE venous doppler over the weekend which noted bilateral acute DVT's - Constitutional Vitals: Vital Signs Temp Pulse Resp BP Pulse Ox 09/12/18 16:44 97.4 F L 09/12/18 16:16 58 09/12/18 16:00 95.5 F L 53 18 131/82 100 09/12/18 06:53 98.7 F 63 20 100/57 95 09/12/18 03:24 99 F 65 24 125/77 96 09/11/18 23:25 99.3 F 56 18 127/77 97 09/11/18 19:16 99.1 F 59 20 100/57 94 Intake and Output 09/12/18 09/12/18 09/12/18 07:59 15:59 23:59 Intake Total 0 / 0 Output Total 250 / 250 200 / 200 Balance -250 / -250 -200 / -200 Intake: Oral 0 / 0 Output: Urine 250 / 250 200 / 200 Other: Meal NPO Percent of Meal Consumed 0% Weight 88.5 kg Patient Weight 09/12/18 23:59 Weight 88.5 kg General appearance: cooperative, no acute distress, no febrile - Head Head exam: Present: atraumatic - ENT ENT exam: Present: mucous membranes moist - Respiratory Respiratory exam: Present: CTAB. Absent: respiratory distress - Cardiovascular Cardiovascular exam: Present: RRR, +S1, +S2 - GI/Abdominal GI/Abdominal exam: Present: normal bowel sounds, soft. Absent: tenderness - Extremities Exam Additional comments: BLE edema - Neurological Exam Neurological exam: Present: alert, oriented X3, no focal deficits Additional comments: nonverbal secondary to prior CVA - Skin Skin exam: Present: dry, pallor, warm Additional comments: right neck dressing s/p TIPS procedure, scant amount of dried blood under gauze, patient reports pain to site Oncology: Obj Data - Labs CBC & Chem 7: 09/13/18 07:30 09/13/18 03:25 - ABG Interpretation ABG results: PT/INR, D-dimer PT 15.0 Seconds (9.4-12.1) H 09/12/18 03:14 Consult Discharge Plan - Plan Referrals: Damián Zazueta MD [Non-Partnered Physician] - 10/12/18 10:40 am <MelchorWilfrank - Last Filed: 09/13/18 17:58> Date of Encounter: 09/13/18 Oncology: Subj Interval history: Retry filter placement. Hgb/Hct steady lovenox today. Ferritin low suggestive of occult bleeding. Replace IV iron I examined this patient and my medical decision-making was reviewed with the Advanced Practice Nurse, Ingrid Raya. I agree with the documented findings, disposition and treatment plan as described except to the extent set forth below. - Constitutional Vitals: Vital Signs Temp Pulse Resp BP Pulse Ox 09/13/18 16:18 66 09/13/18 16:00 71 16 100/66 96 09/13/18 15:54 97.9 F 09/13/18 15:00 71 18 110/56 95 09/13/18 14:00 63 16 140/85 93 09/13/18 13:00 65 20 118/64 96 09/13/18 12:00 59 16 98/53 96 09/13/18 11:41 59 09/13/18 11:00 98.2 F 73 20 116/64 93 09/13/18 09:00 56 20 108/59 95 09/13/18 08:30 64 09/13/18 08:00 62 16 122/76 94 09/13/18 07:45 98.4 F 09/13/18 07:00 57 18 121/63 95 09/13/18 06:00 54 16 104/65 94 09/13/18 05:00 57 18 105/66 96 09/13/18 04:19 98.0 F 09/13/18 04:00 53 20 110/67 95 09/13/18 03:00 60 20 112/67 94 09/13/18 02:00 61 16 135/74 93 09/13/18 01:00 65 14 131/73 96 09/13/18 00:04 97.7 F 09/13/18 00:00 55 20 135/75 96 09/12/18 23:00 59 14 126/72 98 09/12/18 22:00 55 20 131/73 91 09/12/18 21:00 56 16 132/75 96 09/12/18 20:23 97.7 F 09/12/18 20:00 53 16 136/79 98 09/12/18 19:00 57 20 137/80 98 09/12/18 18:00 54 20 138/81 97 Intake and Output 09/13/18 09/13/18 09/13/18 07:59 15:59 23:59 Intake Total 200 / 200 Output Total 325 / 325 0 / 0 450 / 450 Balance -325 / -325 0 / 0 -250 / -250 Intake: Oral 200 / 200 Output: Urine 225 / 225 0 / 0 450 / 450 Catheter 100 / 100 Other: Weight 88.2 kg Patient Weight 09/13/18 23:59 Weight 88.2 kg Oncology: Obj Data - Labs CBC & Chem 7: 09/13/18 07:30 09/13/18 03:25 Labs: Laboratory Results - last 24 hr 09/12/18 09/12/18 09/13/18 17:00 20:06 03:25 Hgb 9.8 L D 9.2 L Hct 31.4 L 28.8 L Sodium Potassium Chloride Carbon Dioxide BUN Creatinine Est GFR ( Amer) Est GFR (Non-Af Amer) BUN/Creatinine Ratio Glucose Calculated Osmolality Calcium Phosphorus Total Bilirubin Direct Bilirubin Indirect Bilirubin AST ALT Alkaline Phosphatase Ammonia Serum Total Protein Albumin Globulin Albumin/Globulin Ratio Hepatitis A IgM Ab Nonreactive Hep Bs Antigen Nonreactive Hep B Core IgM Ab Nonreactive Hepatitis C Ab Screen Nonreactive HIV Ag/Ab Combo Qual Nonreactive 09/13/18 09/13/18 09/13/18 03:25 03:25 07:30 Hgb 9.5 L Hct 28.6 L Sodium 136 Potassium 3.8 Chloride 105 Carbon Dioxide 23 BUN 16 Creatinine 0.69 L Est GFR ( Amer) > 60 Est GFR (Non-Af Amer) > 60 BUN/Creatinine Ratio 23 Glucose 136 H Calculated Osmolality 285 Calcium 8.5 L Phosphorus 3.7 Total Bilirubin 0.9 Direct Bilirubin 0.4 H Indirect Bilirubin 0.5 AST 91 H ALT 57 H Alkaline Phosphatase 114 H Ammonia 74 H Serum Total Protein 5.6 L Albumin 3.2 L Globulin 2.4 Albumin/Globulin Ratio 1.3 Hepatitis A IgM Ab Hep Bs Antigen Hep B Core IgM Ab Hepatitis C Ab Screen HIV Ag/Ab Combo Qual - Impressions Impressions Embolization 09/12/18 00:00 IMPRESSION: 1. Successful portal vein recanalization using the transhepatic approach. 2. Successful creation of a TIPS shunt from the splenic vein into the IVC with excellent flow and elimination of gastroesophageal varices. RECOMMENDATIONS: Baseline TIPS ultrasound with color flow doppler and velocity measurements in one week D/ / 09/13/2018 08:51:20 Cori Flores MD / cindy Interpreting Provider: Cori Flores MD Embolization 09/12/18 00:00 IMPRESSION: 1. Successful portal vein recanalization using the transhepatic approach. 2. Successful creation of a TIPS shunt from the splenic vein into the IVC with excellent flow and elimination of gastroesophageal varices. RECOMMENDATIONS: Baseline TIPS ultrasound with color flow doppler and velocity measurements in one week D/ / 09/13/2018 08:51:20 Cori Flores MD / cindy Interpreting Provider: Cori Flores MD Guidance Ultrasound 09/12/18 00:00 IMPRESSION: 1. Successful portal vein recanalization using the transhepatic approach. 2. Successful creation of a TIPS shunt from the splenic vein into the IVC with excellent flow and elimination of gastroesophageal varices. RECOMMENDATIONS: Baseline TIPS ultrasound with color flow doppler and velocity measurements in one week D/ / 09/13/2018 08:51:20 Cori Flores MD / cindy Interpreting Provider: Cori Flores MD ANICAL SOUND TECHNICIAN, Venous 09/12/18 00:00 IMPRESSION: 1. Successful portal vein recanalization using the transhepatic approach. 2. Successful creation of a TIPS shunt from the splenic vein into the IVC with excellent flow and elimination of gastroesophageal varices. RECOMMENDATIONS: Baseline TIPS ultrasound with color flow doppler and velocity measurements in one week D/ / 09/13/2018 08:51:20 Cori Flores MD / cindy Interpreting Provider: Cori Flores MD ANICAL SOUND TECHNICIAN, Venous 09/12/18 00:00 IMPRESSION: 1. Successful portal vein recanalization using the transhepatic approach. 2. Successful creation of a TIPS shunt from the splenic vein into the IVC with excellent flow and elimination of gastroesophageal varices. RECOMMENDATIONS: Baseline TIPS ultrasound with color flow doppler and velocity measurements in one week D/ / 09/13/2018 08:51:20 Cori Flores MD / cindy Interpreting Provider: Cori Flores MD Percutaneous Transhepatic Portography 09/12/18 00:00 IMPRESSION: 1. Successful portal vein recanalization using the transhepatic approach. 2. Successful creation of a TIPS shunt from the splenic vein into the IVC with excellent flow and elimination of gastroesophageal varices. RECOMMENDATIONS: Baseline TIPS ultrasound with color flow doppler and velocity measurements in one week D/ / 09/13/2018 08:51:20 Cori Flores MD / cindy Interpreting Provider: Cori Flores MD Venogram 09/12/18 00:00 IMPRESSION: 1. Successful portal vein recanalization using the transhepatic approach. 2. Successful creation of a TIPS shunt from the splenic vein into the IVC with excellent flow and elimination of gastroesophageal varices. RECOMMENDATIONS: Baseline TIPS ultrasound with color flow doppler and velocity measurements in one week D/ / 09/13/2018 08:51:20 Cori Flores MD / cindy Interpreting Provider: Cori Flores MD - ABG Interpretation ABG results: PT/INR, D-dimer PT 15.0 Seconds (9.4-12.1) H 09/12/18 03:14 Inpatient Charges Follow up - Inpatient: [id number]
[2018-09-12 17:56] LABS: Hepatitis A Antibody IgM Nonreactive (Nonreactive); Hepatitis B Core IgM Nonreactive (Nonreactive); Hepatitis B Surface Antigen Nonreactive (Nonreactive); Hepatitis C Virus Antibody Nonreactive (Nonreactive)
[2018-09-12] MEDS ORDERED: *HR* Enoxaparin 40 MG/0.4 ML SYRINGE SQ ONE (18:00)
[2018-09-12] MEDS: OXYCODONE Oral CONC 10 MG/0.5 ML ORAL.SYG SL PRN ×2 (18:07→23:24)
[2018-09-12 20:29] LABS: Hematocrit 31.4 % (37.5-50.1); Hemoglobin 9.8 g/dL (12.9-16.9)
[2018-09-13 03:36] LABS: Hematocrit 28.8 % (37.5-50.1); Hemoglobin 9.2 g/dL (12.9-16.9)
[2018-09-13 03:56] LABS: Alanine Aminotransferase 57 Units/L (7-52); Albumin 3.2 g/dL (3.5-5.7); Albumin/Globulin Ratio 1.3 (1.1-2.2); Alkaline Phosphatase 114 Units/L (34-104); Aspartate Amino Transferase 91 Units/L (13-39); BUN/Creatinine Ratio 23 (6-26); Bilirubin,Direct 0.4 mg/dL (0.0-0.2); Bilirubin,Indirect 0.5 mg/dL (0.0-1.2); Bilirubin,Total 0.9 mg/dL (0.3-1.0); Blood Urea Nitrogen 16 mg/dL (6-20); Calcium 8.5 mg/dL (8.6-10.3); Carbon Dioxide 23 mEq/L (23-29); Chloride 105 mEq/L (98-107); Globulin 2.4 g/dL (2.4-3.5); Glucose 136 mg/dL (70-105); Osmolality,Calculated 285 (280-300); Phosphorous 3.7 mg/dL (2.7-4.5); Potassium 3.8 mEq/L (3.5-5.1); Sodium 136 mEq/L (136-145); Total Protein 5.6 g/dL (6.4-8.9); eGFR For Non-African Americans > 60 (> 60)
[2018-09-13 07:53] LABS: Hematocrit 28.6 % (37.5-50.1); Hemoglobin 9.5 g/dL (12.9-16.9)
[2018-09-13] MEDS ORDERED: Heparin 1,000 UNITS/500 mL 500 ML ONE (09:00)
[2018-09-13] MEDS ORDERED: 0.9 % Sodium Chloride 1,000 ML ONE ×2 (09:00→09:07)
[2018-09-13] MEDS ORDERED: *HR* Heparin 10,000 UNIT/10 ML VIAL ONE (09:00)
[2018-09-13] MEDS ORDERED: ISOVUE-250 150 ML INFUS..BTL ONE (09:00)
--- NOTE | 2018-09-13 09:23 | Internal Med Progress Note ---
Hospitalist Progress Note - Encounter Date of Encounter: 09/13/18 Time of Encounter: 08:40 - Subjective Interval History: 53 M Seen and evaluated at the bedside in the ICU He is admitted and being managed for Acute blood loss anemia from variceal bleed due to non-cirrhotic portal HTN, SBP, Esophageal varices He has a PMH of coagulopathy with multiple LE DVTS and CVA with residual aphasia he is s/p TIPS on 09/12 and awaiting IVC filter placement today 09/13 His only complain today is discomfort on his R neck region (post-procedure) - Exam Vitals: Temp Pulse Resp BP Pulse Ox 98.4 F 56 20 108/59 95 09/13/18 07:45 09/13/18 09:00 09/13/18 09:00 09/13/18 09:00 09/13/18 09:00 Exam: General: Alert and oriented, not in acute distress. HEENT: Right neck dressing slightly soaked, no jaundice, clear and moist oral mucosa Cardiovascular:Normal S1 & S2, No JVD. Pulse regular. Lungs: clear to auscultation, no wheezes/rales Abdomen:Soft, non-tender, no rigidity. Neurological: aphasic (residual from prior CVA), no gross motor or sensory deficits Extremities: No edema, wound dressings bilateral(not inspected) - Assessment and Plan (1) Venous stasis ulcers of both lower extremities Current Visit: Yes Status: Chronic Assessment and Plan: per prior physicians, 3 chronic non-healing ankle ulcers 2 on left leg, 1 on right Continue with wound care (2) UGIB (upper gastrointestinal bleed) Current Visit: Yes Status: Acute Assessment and Plan: Patient with hx of biopsy proven non-cirrhotic portal HTN presented with hematemesis and underwent EGD with banding on 09/08 Hb stable at 9.5 this mrn 09/13 s/p 4U pRBC with last one being on 09/08 octreotide gtt d/ed on 09/10 per GI, Continue PO PPI daily with carafate Completed 5 days of Rocephin for SBP prophylaxis s/p TIPS 09/12, uneventful For IVC placement today by vascular Hematology following, decision about anticoagulation to be decided post- procedure Will continue to monitor (3) Esophageal varices Current Visit: Yes Status: Chronic Assessment and Plan: as above, on nadolol 40mg QD, continue same (4) Coagulopathy Current Visit: Yes Status: Chronic Assessment and Plan: of thrombotic events includes multiple LE DVT's and 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 per onc Continue to monitor (5) Portal hypertension Current Visit: Yes Status: Chronic Assessment and Plan: was initially deemed non-cirrhotic per previous liver bx being -ve at [facility] yesterday did not show any evidence of portal vein thrombosis but did show cirrhotic morphology mx for variceal bleeding as above, outpatient follow up for cirrhosis/portal HTN DVT Prophylaxis: Unable to provide mechanical prophylaxis due to LE ulcers Received one dose of prophylactic lovenox 09/12 May need to resume home dose of pradaxa -pending eval of onc - Time Spent with Patient Total time spent is greater than 50% in coordination of care (as documented) at patient's floor/unit and/or counseling patient: Plan of Care Discussed with: patient Internal Medicine: Result - Labs CBC & Chem 7: 09/13/18 07:30 09/13/18 03:25 Labs: Short CBC 09/12/18 09/13/18 09/13/18 Range/Units 20:06 03:25 07:30 Hgb 9.8 L D 9.2 L 9.5 L (12.9-16.9) g/dL Hct 31.4 L 28.8 L 28.6 L (37.5-50.1) % BMP 09/13/18 03:25 Sodium 136 Potassium 3.8 Chloride 105 Carbon Dioxide 23 BUN 16 Creatinine 0.69 L Glucose 136 H Calcium 8.5 L Liver Function 09/13/18 Range/Units 03:25 Total Bilirubin 0.9 (0.3-1.0) mg/dL Direct Bilirubin 0.4 H (0.0-0.2) mg/dL AST 91 H (13-39) Units/L ALT 57 H (7-52) Units/L Alkaline Phosphatase 114 H (34-104) Units/L Albumin 3.2 L (3.5-5.7) g/dL - ABG Interpretation ABG results: PT/INR, D-dimer PT 15.0 Seconds (9.4-12.1) H 09/12/18 03:14 - Impressions Impressions Embolization 09/12/18 00:00 IMPRESSION: 1. Successful portal vein recanalization using the transhepatic approach. 2. Successful creation of a TIPS shunt from the splenic vein into the IVC with excellent flow and elimination of gastroesophageal varices. RECOMMENDATIONS: Baseline TIPS ultrasound with color flow doppler and velocity measurements in one week D/ / 09/13/2018 08:51:20 Cori Flores MD / cindy Interpreting Provider: Cori Flores MD Embolization 09/12/18 00:00 IMPRESSION: 1. Successful portal vein recanalization using the transhepatic approach. 2. Successful creation of a TIPS shunt from the splenic vein into the IVC with excellent flow and elimination of gastroesophageal varices. RECOMMENDATIONS: Baseline TIPS ultrasound with color flow doppler and velocity measurements in one week D/ / 09/13/2018 08:51:20 Cori Flores MD / cindy Interpreting Provider: Coir Flores MD Guidance Ultrasound 09/12/18 00:00 IMPRESSION: 1. Successful portal vein recanalization using the transhepatic approach. 2. Successful creation of a TIPS shunt from the splenic vein into the IVC with excellent flow and elimination of gastroesophageal varices. RECOMMENDATIONS: Baseline TIPS ultrasound with color flow doppler and velocity measurements in one week D/ / 09/13/2018 08:51:20 Cori Flores MD / cindy Interpreting Provider: Cori Flores MD YARN MERCERIZER OPERATOR HELPER, Venous 09/12/18 00:00 IMPRESSION: 1. Successful portal vein recanalization using the transhepatic approach. 2. Successful creation of a TIPS shunt from the splenic vein into the IVC with excellent flow and elimination of gastroesophageal varices. RECOMMENDATIONS: Baseline TIPS ultrasound with color flow doppler and velocity measurements in one week D/ / 09/13/2018 08:51:20 Cori Flores MD / cindy Interpreting Provider: Cori Flores MD YARN MERCERIZER OPERATOR HELPER, Venous 09/12/18 00:00 IMPRESSION: 1. Successful portal vein recanalization using the transhepatic approach. 2. Successful creation of a TIPS shunt from the splenic vein into the IVC with excellent flow and elimination of gastroesophageal varices. RECOMMENDATIONS: Baseline TIPS ultrasound with color flow doppler and velocity measurements in one week D/ / 09/13/2018 08:51:20 Cori Flores MD / cindy Interpreting Provider: Cori Flores MD Percutaneous Transhepatic Portography 09/12/18 00:00 IMPRESSION: 1. Successful portal vein recanalization using the transhepatic approach. 2. Successful creation of a TIPS shunt from the splenic vein into the IVC with excellent flow and elimination of gastroesophageal varices. RECOMMENDATIONS: Baseline TIPS ultrasound with color flow doppler and velocity measurements in one week D/ / 09/13/2018 08:51:20 Cori Flores MD / cindy Interpreting Provider: Cori Flores MD Venogram 09/12/18 00:00 IMPRESSION: 1. Successful portal vein recanalization using the transhepatic approach. 2. Successful creation of a TIPS shunt from the splenic vein into the IVC with excellent flow and elimination of gastroesophageal varices. RECOMMENDATIONS: Baseline TIPS ultrasound with color flow doppler and velocity measurements in one week D/ / 09/13/2018 08:51:20 Cori Flores MD / cindy Interpreting Provider: Cori Flores MD - VTE Reasons for not Prescribing Prophylaxis: Medical contraindication Consult Discharge Plan - Plan Referrals: Damián Zazueta MD [Non-Partnered Physician] - 10/12/18 10:40 am (3) Esophageal varices Qualifiers: Esophageal varices type: unspecified type Esophageal varices bleeding: with bleeding Qualified Code(s): I85.01 - Esophageal varices with bleeding
--- NOTE | 2018-09-13 09:30 | Vascular/Endovasc Consult Note ---
Date of Encounter: 09/12/18 Time of Encounter: 18:00 Assessment and Plan (1) Hypercoagulable state Status: Chronic The pathophysiology and natural history of venous thromboembolism was discussed with the patient and all questions were answered. The patient has had multiple thromboembolic events. He is chronically anticoagulant. He recently presented with upper GI bleed with esophageal varices. Long-term and a coagulation post significant risk for further bleeding episodes. Given his hypercoagulable state risk of pulmonary emboli is high without and a coagulation. An inferior vena cava filter is recommended. The risks and benefits and alternatives were discussed and all questions were answered. The patient expressed understanding and wishes to proceed with the procedure. (2) UGIB (upper gastrointestinal bleed) Status: Resolved (3) Acute blood loss anemia Status: Acute (4) Esophageal varices Status: Chronic Qualifiers: Esophageal varices type: unspecified type Esophageal varices bleeding: with bleeding Qualified Code(s): I85.01 - Esophageal varices with bleeding (5) DVT (deep venous thrombosis) Status: Chronic Qualifiers: DVT location: lower extremity Chronicity: chronic Laterality: bilateral Qualified Code(s): I82.503 - Chronic embolism and thrombosis of unspecified deep veins of lower extremity, bilateral - History of Present Illness Consult date: 09/12/18 Requesting physician: Ingrid Raya Consult reason: Right tubal state Chief complaint: Hypercoagulable state, gastrointestinal bleeding History of present illness: Mr. Atkinson is a 53 year old male with a history of esophageal varices presented with a gastric is no hemorrhage. The patient underwent esophageal banding. He is chronically anticoagulated due to a hypercoagulable state. The patient was unable to be adequately due to the recent bleeding. Vascular surgery was counseled for further evaluation and possible inferior vena cava filter placement. The time of evaluation the patient is alert and comfortable. He denies abdominal, chest or back pain. He denies chest pain or shortness of breath. He denies any recurrent bleeding. Past Med Surg Social Fam HX - Past Medical History Medical history: CVA, DVT Additional medical history: Left side deficit form CVA, esophageal Varices. blood clotting disorder Psychiatric history: no psych history - Past Surgical History Surgical History: cholecystectomy - Social History Smoking Status: Never smoker Smokeless Tobacco Status: No Alcohol use: none Drug use: none - Family History Mother Living Status: Cause of : CVA Sister Living Status: Still Living Hx Family Neurologic Disorders: Yes (CVA) Medications and Allergies RX: Dabigatran [Pradaxa] 75 mg PO BID #60 capsule 09/15/18 [Rx] RX: Nadolol [Corgard] 40 mg PO DAILY #30 tablet 09/15/18 [Rx] RX: Pantoprazole Sodium [Protonix] 40 mg PO DAILY #30 granpkt. 09/15/18 [Rx] RX: Sucralfate [Carafate] 1 gm PO QIDAC #2 bottle 09/15/18 [Rx] Allergy/AdvReac Type Severity Reaction Status Date / Time No Known Allergies Allergy Verified 02/14/18 09:23 All Systems Review: The remainder of the systems were reviewed and are negative - Constitutional Constitutional: no chills, no fever(s) - Cardiovascular Cardiovascular: no chest pain at rest, no dyspnea at rest Exam Vital Signs, Last 4 Hours Temp Pulse Resp BP Pulse Ox 09/13/18 09:00 56 20 108/59 95 09/13/18 08:30 64 09/13/18 08:00 62 16 122/76 94 09/13/18 07:45 98.4 F 09/13/18 07:00 57 18 121/63 95 09/13/18 06:00 54 16 104/65 94 General: Present: Conversant, No Apparent Distress HEENT: Present: Atraumatic, Pupils equal Neck: Present: JVD. Absent: Lymphadenopathy Cardiac: Present: Reg Rate and Rhythm Lungs: Present: Normal Breath Sounds Neuro: Present: Alert and responsive, No focal deficits noted Abdomen: Present: Soft, Non-tender. Absent: Masses Vascular: Present: Normal capillary refill, Pulse, normal. Absent: Cyanosis, Edema Skin: Present: No rashes noted on visualized skin Musculoskeletal: Present: No Chest Wall Tenderness Consult Discharge Plan - Plan Instructions: Nadolol (By mouth), Sucralfate (By mouth), Pantoprazole (By mouth), Dabigatran (By mouth), Peripheral Vascular Disorders (DC), Anemia (GEN) Referrals: Damián Zazueta MD [Non-Partnered Physician] - 10/12/18 10:40 am Deirdre Jeffers MD [Partnered Physician] - 09/19/18 1:15 pm Prescriptions: RX: Dabigatran [Pradaxa] 75 mg PO BID #60 capsule RX: Nadolol [Corgard] 40 mg PO DAILY #30 tablet RX: Pantoprazole Sodium [Protonix] 40 mg PO DAILY #30 granpkt. RX: Sucralfate [Carafate] 1 gm PO QIDA #2 bottle
--- NOTE | 2018-09-13 09:52 | Pre-Sedation Evaluation ---
Pre-sedation evaluation - Pre-sedation checklist Date of procedure: 09/13/18 Procedure: FILTER PLACEMENT Recent Vitals: Last Vital Signs Temp 98.4 F 09/13/18 07:45 Pulse 56 09/13/18 09:00 Resp 20 09/13/18 09:00 BP 108/59 09/13/18 09:00 Pulse Ox 95 09/13/18 09:00 H&P (including ROS) documented in medical record: Yes Previous reaction to sedatives/anesthetics: No Dietary Status: NPO after Midnight Dentition: dentures removed ASA Classification *see protocol: CLASS III-Severe systemic disease Plan of Care: Pt appropriate candidate for procedure/moderate/conscious sedation, Risks/benefits of procedure/sedation discussed w/ patient/family
--- NOTE | 2018-09-13 10:42 | Procedure Note ---
Date of procedure: 09/13/18 Pre-op diagnosis: Hypercoagulable state, gastrointestinal bleeding Post-op diagnosis: same Procedure: Right lower extremity venogram via right common femoral vein with 4-Tunisian sheath. Anesthesia: local Surgeon: Navi Seaman Was there an licensed physical therapist assistant present: No Estimated blood loss (cc): 1 Specimen: None Condition: stable Disposition: floor
--- NOTE | 2018-09-13 10:51 | Invasive Diagnostic Lab Proc ---
Name: Orlin Atkinson Date of Study: 09/13/2018 Date: 1965 Ht: 183.0 in Medical Record#: [id number] Age: 53 Wt: 88 lb Gender: Male BSA: 2.1 Order #: [id number] BMI: 26.28 Physicians Performing MD: Navi Seaman MD Referring MD: Referring MD: Staff Name Position Time In Rosalie Cowna RT (R) Monitor Rosalie Cowan RT (R) Scrub Melany Elaine RN Security Delivery Specialist Indications CVA Procedures Performed INJECT PROC FOR EXT VENOGRAPHY Pre-Procedure Checklist Informed consent is complete signed and on chart. H&P is on chart. ID band is on and ID verified with patient. Patient NPO for procedure The procedure was described for the patient and questions were answered. Blood Pressure: 117/76 ECG is on chart. Rhythm: NSR Plan of Care Patient will tolerate the procedure without complications. Adequate level of comfort will be maintained. Hemodynamics will remain stable Patient will recover from procedure without complications. Respiratory function will be maintained. Cardiac rhythm will remain stable. Patient temperature will be maintained. Patient and/or family have verbalized understanding of the procedure. Patient Education Chief Complaint/Reason for Test: IVC filter Developmental Category: Adult (18-64 years) Learning Barriers: None Education Needs: Procedure Education Method: Verbal Information Taught: IVC filter Educational Evaluation: Able to repeat information Intravenous Access Time IV Size Location DC'd Fluid/Drip Rate Units RN 10:09 20g 1 /" Patent On Arrival Rt Antecubital Allergies No Known Allergies Vital Signs Time BP Systolic BP Diastolic HR O2 Sats ASA 09:55 AM 09:55 AM 10:00 AM 117 76 60 100 10:05 AM 128 73 61 99 10:10 AM 119 62 60 98 10:15 AM 117 66 58 99 10:20 AM 112 67 61 100 10:25 AM 123 70 58 99 10:30 AM 121 72 60 100 10:35 AM 119 67 60 99 Procedure Medications Time Medication Dose Units Method Route 10:03 AM Lidocaine 2% 7 ml Subcutaneous 10:33 AM Lidocaine 2% 5 ml Subcutaneous Tuan Score Preprocedure Postprocedure Activity 2- Moves 4 extremities sustained head lift Activity 2- Moves 4 extremities sustained head lift Circulation 2- SBP +/= 20 points of pre-anesthetic level Circulation 2- SBP +/= 20 points of pre-anesthetic level Consciousness 2- Awake and alert oriented x 3 Consciousness 2- Awake and alert oriented x 3 O2 Saturation 2- Able to maintain O2 satruation of 92% on room air O2 Saturation 2- Able to maintain O2 satruation of 92% on room air Respiratory 2- Able to deep breathe and cough well Respiratory 2- Able to deep breathe and cough well Total Score 10 Total Score 10 Fluoro Dose: 183 mGy Procedure Log Time Note Entered By 09:54 AM 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 Bilateral groin prepped with Chloraprep by Rosalie Cowan RT (R), then patient was draped. Skin intact. tsites 09:54 AM Physician arrived 09:54 tsites 09:54 AM Meet and greet completed tsites 09:54 AM Sign in performed according to hospital policy. tsites 09:54 AM Procedure start 09:54 tsites 09:55 AM Time: :55 Is patient comfortable and pain free?: Yes tsites 09:55 AM Time: :55LOC: 5 = Fully awake and oriented or at pre-proc level tsites 09:55 AM IV Supplies used: J loop Angio Cath. tsites 09:55 AM Patient charges- Angio tray pack, Pulse Oximetry and ACIST tubing and transducer tsites 10:00 AM Time out perfomed tsites 10:04 AM 10:03 7 ml Lidocaine 2% to right groin Subcutaneous Given By Navi Seaman MD tsites 10:04 AM Ultrasound, Sonosite, utilized to obtain vascular access tsites 10:10 AM Time: :55 Is patient comfortable and pain free?: Yes tsites 10:10 AM Time: :55LOC: 5 = Fully awake and oriented or at pre-proc level tsites 10:10 AM 0.035 180cm Starford-angled wire utilized to assist with catheter placement tsites 10:14 AM 4 fr sheath inserted right femoral vein tsites 10:25 AM glidewire reinserted tsites 10:26 AM 4Fr Berenstein catheter inserted over the wire tsites 10:27 AM catheter and wire removed tsites 10:27 AM unable to get wire into IVC tsites 10:31 AM Procedure completed at 10:31 tsites 10:33 AM Sign Out completed: Radiation Dose 182.66 mGy Fluoro Time: 4.5 minutes. contrast ml given by Navi Seaman MD. Complications: None. Confirmed administered medications:Yes tsites 10:16 AM 10:33 5 ml Lidocaine 2% to left groin Subcutaneous Given By Navi Seaman MD tsites 10:25 AM HR=58 bpm, UENP=878/70 mmhg, SpO2=99.0 %, Resp=12 B/min 10:30 AM HR=60 bpm, BRHJ=011/72 mmhg, GeM9=121.0 %, Resp=11 B/min 10:35 AM HR=60 bpm, TVYN=197/67 mmhg, SpO2=99.0 %, Resp=10 B/min 09:59 AM PVIStat 09:59 AM Vitals capture started with the following parameters, Patient=Adult, Interval=5 min, Initial Drirlmzi=051 mmHg, Deflation Rate=3 mmHg, Cuff placed on Right Arm 10:00 AM HR=60 bpm, UUMQ=263/76 mmhg, YwX9=577.0 %, Resp=13 B/min 10:05 AM HR=61 bpm, EFYP=033/73 mmhg, SpO2=99.0 %, Resp=11 B/min 10:10 AM HR=60 bpm, WHOK=639/62 mmhg, SpO2=98.0 %, Resp=11 B/min 10:15 AM HR=58 bpm, GCJW=402/66 mmhg, SpO2=99.0 %, Resp=11 B/min 10:20 AM HR=61 bpm, MDBT=082/67 mmhg, EwJ1=656.0 %, Resp=13 B/min 10:41 AM Venous sheath pulled using manual compression and for 7 minutes by Rosalie Cowan RT (R) tsites 10:41 AM Estimated Blood Loss: minimal tsites 10:41 AM Post Blood Pressure: 119/67 tsites 10:41 AM Post EKG: NSR tsites 10:41 AM 10:41 Post Pulses: Bilateral DP & PT 1+. tsites 10:41 AM Information taught: IVC filter tsites 10:42 AM Education needs: Procedure, Plan of Care, and Responsibilities of Patient in Care tsites 10:42 AM Learning barriers: None tsites 10:42 AM Education methods: Verbal tsites 10:42 AM Education evaluation: Able to repeat information tsites 10:42 AM Patient pain level 0/10 tsites 10:43 AM Site status No bleeding/hematoma - Rt Groin/lt groin as reported by Rosalie Cowan RT (R) at 10:43 tsites 10:43 AM Report given to JITTERBUG OPERATOR RN. Pt taken to ICU, Room # 9 10:43 tsites 10:43 AM Delay to floor: No tsites 10:43 AM Pt taken to ICU Room# 9 tsites 10:43 AM no family at this time tsites 10:43 AM Patient out of room 10:43 tsites 10:43 AM Complications: None tsites 10:44 AM Fluoro Time: 4.5 minutes tsites 10:44 AM Radiation Dose 182.66 mGy tsites Post Procedure Information Blood Pressure: 119/67 mmHg Rhythm: NSR Post procedure instructions given Report Given To: Lacie Site Checks Time Location Status Staff Sheath In? Note 10:43:00 AM Rt Groin No bleeding/hematoma Rosalie Cowan RT (R) Pulses Time Site Pre Procedure Post Procedure Note 09/13/2018 10:08:00 AM Bilateral DP & PT 1+ 09/13/2018 10:08:00 AM Bilateral radial 2+ 10:41:00 AM Bilateral DP & PT 1+ Updated by Citlaly Arroyo RT (R) on 09/13/2018 10:46:08 AM Citlaly Arroyo RT electronically signed on 09/13/2018 10:46:47 AM with status of Final
[2018-09-13 13:09] LABS: HIV-1&2 Antibody & p24 Ag Nonreactive (Nonreactive)
--- NOTE | 2018-09-13 15:00 | Oncology Inp Progress Note ---
<PaulinoIngrid L - Last Filed: 09/13/18 17:01> Date of Encounter: 09/13/18 Time of Encounter: 12:30 (1) Acute blood loss anemia Current Visit: Yes Status: Acute Assessment and plan: Presented with large amounts of hematemesis. 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 Atkinson had a LE venous doppler on 09/10/2018 that noted Acute deep venous thrombosis is present in the right distal iliac through popliteal vein. Chronic deep venous thrombosis is present in the right greater and lesser saphenous veins. Acute deep venous thrombosis is present in the left distal iliac the popliteal veins. Acute deep venous thrombosis is present in the left lesser saphenous vein. He has not started on full strength anticoagulation secondary to risk for bleeding as well as preparation for upcoming TIPS procedure Phone discussion with Dr. Roche recommendation was made for IVC filter placement. Procedure was attempted today with unsuccessful placement, patient is planned to have IVC filter placed and OR tomorrow Patient will receive Lovenox 40 mg 1 this evening, unable to fully dose anticoagulation due to risk of bleeding as discussed above. We will also arrange for Venofer 1 dose given his iron deficiency. Oncology: Subj Interval history: Mr. Atkinson is resting in bed, no acute events noted overnight. Patient's was not at bedside presently, patient communicates via writing on white board. Hemoglobin remains stable today. He has recently returned from vascular surgery following an unsuccessful attempt for IVC filter placement. He is planned for IVC filter placement and aware tomorrow. He denies any signs or symptoms of bleeding or pain at this time. He denies chest pain, pain with inspiration, shortness of breath, nausea, vomiting, diarrhea, hematochezia, hematuria, fever or chill. - Constitutional Vitals: Vital Signs Temp Pulse Resp BP Pulse Ox 09/13/18 12:00 59 16 98/53 69 09/13/18 11:41 59 09/13/18 11:00 98.2 F 73 20 116/64 93 09/13/18 09:00 56 20 108/59 95 09/13/18 08:30 64 09/13/18 08:00 62 16 122/76 94 09/13/18 07:45 98.4 F 09/13/18 07:00 57 18 121/63 95 09/13/18 06:00 54 16 104/65 94 09/13/18 05:00 57 18 105/66 96 09/13/18 04:19 98.0 F 09/13/18 04:00 53 20 110/67 95 09/13/18 03:00 60 20 112/67 94 09/13/18 02:00 61 16 135/74 93 09/13/18 01:00 65 14 131/73 96 09/13/18 00:04 97.7 F 09/13/18 00:00 55 20 135/75 96 09/12/18 23:00 59 14 126/72 98 09/12/18 22:00 55 20 131/73 91 09/12/18 21:00 56 16 132/75 96 09/12/18 20:23 97.7 F 09/12/18 20:00 53 16 136/79 98 09/12/18 19:00 57 20 137/80 98 09/12/18 18:00 54 20 138/81 97 09/12/18 17:00 54 20 132/79 99 09/12/18 16:44 97.4 F L 09/12/18 16:16 58 09/12/18 16:00 95.5 F L 55 20 131/82 100 Intake and Output 09/12/18 09/13/18 09/13/18 23:59 07:59 15:59 Intake Total 0 / 0 Output Total 525 / 525 325 / 325 0 / 0 Balance -525 / -525 -325 / -325 0 / 0 Intake: Oral 0 / 0 Output: Urine 525 / 525 225 / 225 0 / 0 Catheter 100 / 100 Other: Weight 88.2 kg Patient Weight 09/13/18 23:59 Weight 88.2 kg General appearance: cooperative, no acute distress, no febrile - Head Head exam: Present: atraumatic - ENT ENT exam: Present: mucous membranes moist - Respiratory Respiratory exam: Present: CTAB. Absent: respiratory distress - Cardiovascular Cardiovascular exam: Present: RRR, +S1, +S2 - GI/Abdominal GI/Abdominal exam: Present: normal bowel sounds, soft. Absent: tenderness - Extremities Exam Additional comments: Bilateral lower extremity venous ulcers with bilateral dressings dry and intact - Neurological Exam Neurological exam: Present: alert, oriented X3, no focal deficits, strengths equal and symetr throughout - Psychiatric Psychiatric exam: Present: normal affect, normal mood - Skin Skin exam: Present: dry, pallor, warm Additional comments: Gauze dressing noted to right neck dry and intact with small amount of dried blood under dressing Oncology: Obj Data - Labs CBC & Chem 7: 09/13/18 07:30 09/13/18 03:25 - Impressions Impressions Embolization 09/12/18 00:00 IMPRESSION: 1. Successful portal vein recanalization using the transhepatic approach. 2. Successful creation of a TIPS shunt from the splenic vein into the IVC with excellent flow and elimination of gastroesophageal varices. RECOMMENDATIONS: Baseline TIPS ultrasound with color flow doppler and velocity measurements in one week D/ / 09/13/2018 08:51:20 Cori Flores MD / [facility] Interpreting Provider: Cori Flores MD Embolization 09/12/18 00:00 IMPRESSION: 1. Successful portal vein recanalization using the transhepatic approach. 2. Successful creation of a TIPS shunt from the splenic vein into the IVC with excellent flow and elimination of gastroesophageal varices. RECOMMENDATIONS: Baseline TIPS ultrasound with color flow doppler and velocity measurements in one week D/ / 09/13/2018 08:51:20 Cori Flores MD / [facility] Interpreting Provider: Cori Flores MD Guidance Ultrasound 09/12/18 00:00 IMPRESSION: 1. Successful portal vein recanalization using the transhepatic approach. 2. Successful creation of a TIPS shunt from the splenic vein into the IVC with excellent flow and elimination of gastroesophageal varices. RECOMMENDATIONS: Baseline TIPS ultrasound with color flow doppler and velocity measurements in one week D/ / 09/13/2018 08:51:20 Cori Flores MD / [facility] Interpreting Provider: Cori Flores MD YTICS LEADER, Venous 09/12/18 00:00 IMPRESSION: 1. Successful portal vein recanalization using the transhepatic approach. 2. Successful creation of a TIPS shunt from the splenic vein into the IVC with excellent flow and elimination of gastroesophageal varices. RECOMMENDATIONS: Baseline TIPS ultrasound with color flow doppler and velocity measurements in one week D/ / 09/13/2018 08:51:20 Cori Flores MD / [facility] Interpreting Provider: Cori Flores MD YTICS LEADER, Venous 09/12/18 00:00 IMPRESSION: 1. Successful portal vein recanalization using the transhepatic approach. 2. Successful creation of a TIPS shunt from the splenic vein into the IVC with excellent flow and elimination of gastroesophageal varices. RECOMMENDATIONS: Baseline TIPS ultrasound with color flow doppler and velocity measurements in one week D/ / 09/13/2018 08:51:20 Cori Flores MD / [facility] Interpreting Provider: Cori Flores MD Percutaneous Transhepatic Portography 09/12/18 00:00 IMPRESSION: 1. Successful portal vein recanalization using the transhepatic approach. 2. Successful creation of a TIPS shunt from the splenic vein into the IVC with excellent flow and elimination of gastroesophageal varices. RECOMMENDATIONS: Baseline TIPS ultrasound with color flow doppler and velocity measurements in one week D/ / 09/13/2018 08:51:20 Cori Flores MD / [facility] Interpreting Provider: Cori Flores MD Venogram 09/12/18 00:00 IMPRESSION: 1. Successful portal vein recanalization using the transhepatic approach. 2. Successful creation of a TIPS shunt from the splenic vein into the IVC with excellent flow and elimination of gastroesophageal varices. RECOMMENDATIONS: Baseline TIPS ultrasound with color flow doppler and velocity measurements in one week D/ / 09/13/2018 08:51:20 Cori Flores MD / [facility] Interpreting Provider: Cori Flores MD - ABG Interpretation ABG results: PT/INR, D-dimer PT 15.0 Seconds (9.4-12.1) H 09/12/18 03:14 Consult Discharge Plan - Plan Referrals: Damián Zazueta MD [Non-Partnered Physician] - 10/12/18 10:40 am <Johnathan Roche - Last Filed: 09/13/18 18:03> Oncology: Subj Interval history: IVC filter placement tomorrow. Lovenox dose today for ac DVT. Hgb is stable after TIPS. Ferritin low, indicating occult bleeding. Will administer IV iron I examined this patient and my medical decision-making was reviewed with the Advanced Practice Nurse, Ingrid Paulino. I agree with the documented findings, disposition and treatment plan as described except to the extent set forth below. - Constitutional Vitals: Vital Signs Temp Pulse Resp BP Pulse Ox 09/13/18 16:18 66 09/13/18 16:00 71 16 100/66 96 09/13/18 15:54 97.9 F 09/13/18 15:00 71 18 110/56 95 09/13/18 14:00 63 16 140/85 93 09/13/18 13:00 65 20 118/64 96 09/13/18 12:00 59 16 98/53 96 09/13/18 11:41 59 09/13/18 11:00 98.2 F 73 20 116/64 93 09/13/18 09:00 56 20 108/59 95 09/13/18 08:30 64 09/13/18 08:00 62 16 122/76 94 09/13/18 07:45 98.4 F 09/13/18 07:00 57 18 121/63 95 09/13/18 06:00 54 16 104/65 94 09/13/18 05:00 57 18 105/66 96 09/13/18 04:19 98.0 F 09/13/18 04:00 53 20 110/67 95 09/13/18 03:00 60 20 112/67 94 09/13/18 02:00 61 16 135/74 93 09/13/18 01:00 65 14 131/73 96 09/13/18 00:04 97.7 F 09/13/18 00:00 55 20 135/75 96 09/12/18 23:00 59 14 126/72 98 09/12/18 22:00 55 20 131/73 91 09/12/18 21:00 56 16 132/75 96 09/12/18 20:23 97.7 F 09/12/18 20:00 53 16 136/79 98 09/12/18 19:00 57 20 137/80 98 Intake and Output 09/13/18 09/13/18 09/13/18 07:59 15:59 23:59 Intake Total 200 / 200 Output Total 325 / 325 0 / 0 450 / 450 Balance -325 / -325 0 / 0 -250 / -250 Intake: Oral 200 / 200 Output: Urine 225 / 225 0 / 0 450 / 450 Catheter 100 / 100 Other: Weight 88.2 kg Patient Weight 09/13/18 23:59 Weight 88.2 kg Oncology: Obj Data - Labs CBC & Chem 7: 09/13/18 07:30 09/13/18 03:25 Labs: Laboratory Results - last 24 hr 09/12/18 09/12/18 09/13/18 17:00 20:06 03:25 Hgb 9.8 L D 9.2 L Hct 31.4 L 28.8 L Sodium Potassium Chloride Carbon Dioxide BUN Creatinine Est GFR ( Amer) Est GFR (Non-Af Amer) BUN/Creatinine Ratio Glucose Calculated Osmolality Calcium Phosphorus Total Bilirubin Direct Bilirubin Indirect Bilirubin AST ALT Alkaline Phosphatase Ammonia Serum Total Protein Albumin Globulin Albumin/Globulin Ratio HIV Ag/Ab Combo Qual Nonreactive 09/13/18 09/13/18 09/13/18 03:25 03:25 07:30 Hgb 9.5 L Hct 28.6 L Sodium 136 Potassium 3.8 Chloride 105 Carbon Dioxide 23 BUN 16 Creatinine 0.69 L Est GFR ( Amer) > 60 Est GFR (Non-Af Amer) > 60 BUN/Creatinine Ratio 23 Glucose 136 H Calculated Osmolality 285 Calcium 8.5 L Phosphorus 3.7 Total Bilirubin 0.9 Direct Bilirubin 0.4 H Indirect Bilirubin 0.5 AST 91 H ALT 57 H Alkaline Phosphatase 114 H Ammonia 74 H Serum Total Protein 5.6 L Albumin 3.2 L Globulin 2.4 Albumin/Globulin Ratio 1.3 HIV Ag/Ab Combo Qual - Impressions Impressions Embolization 09/12/18 00:00 IMPRESSION: 1. Successful portal vein recanalization using the transhepatic approach. 2. Successful creation of a TIPS shunt from the splenic vein into the IVC with excellent flow and elimination of gastroesophageal varices. RECOMMENDATIONS: Baseline TIPS ultrasound with color flow doppler and velocity measurements in one week D/ / 09/13/2018 08:51:20 Cori Flores MD / [facility] Interpreting Provider: Cori Flores MD Embolization 09/12/18 00:00 IMPRESSION: 1. Successful portal vein recanalization using the transhepatic approach. 2. Successful creation of a TIPS shunt from the splenic vein into the IVC with excellent flow and elimination of gastroesophageal varices. RECOMMENDATIONS: Baseline TIPS ultrasound with color flow doppler and velocity measurements in one week D/ / 09/13/2018 08:51:20 Cori Flores MD / [facility] Interpreting Provider: Cori Flores MD Guidance Ultrasound 09/12/18 00:00 IMPRESSION: 1. Successful portal vein recanalization using the transhepatic approach. 2. Successful creation of a TIPS shunt from the splenic vein into the IVC with excellent flow and elimination of gastroesophageal varices. RECOMMENDATIONS: Baseline TIPS ultrasound with color flow doppler and velocity measurements in one week D/ / 09/13/2018 08:51:20 Cori Flores MD / [facility] Interpreting Provider: Cori Flores MD YTICS LEADER, Venous 09/12/18 00:00 IMPRESSION: 1. Successful portal vein recanalization using the transhepatic approach. 2. Successful creation of a TIPS shunt from the splenic vein into the IVC with excellent flow and elimination of gastroesophageal varices. RECOMMENDATIONS: Baseline TIPS ultrasound with color flow doppler and velocity measurements in one week D/ / 09/13/2018 08:51:20 Cori Flores MD / [facility] Interpreting Provider: Cori Flores MD YTICS LEADER, Venous 09/12/18 00:00 IMPRESSION: 1. Successful portal vein recanalization using the transhepatic approach. 2. Successful creation of a TIPS shunt from the splenic vein into the IVC with excellent flow and elimination of gastroesophageal varices. RECOMMENDATIONS: Baseline TIPS ultrasound with color flow doppler and velocity measurements in one week D/ / 09/13/2018 08:51:20 Cori Flores MD / [facility] Interpreting Provider: Cori Flores MD Percutaneous Transhepatic Portography 09/12/18 00:00 IMPRESSION: 1. Successful portal vein recanalization using the transhepatic approach. 2. Successful creation of a TIPS shunt from the splenic vein into the IVC with excellent flow and elimination of gastroesophageal varices. RECOMMENDATIONS: Baseline TIPS ultrasound with color flow doppler and velocity measurements in one week D/ / 09/13/2018 08:51:20 Cori Flores MD / [facility] Interpreting Provider: Cori Flores MD Venogram 09/12/18 00:00 IMPRESSION: 1. Successful portal vein recanalization using the transhepatic approach. 2. Successful creation of a TIPS shunt from the splenic vein into the IVC with excellent flow and elimination of gastroesophageal varices. RECOMMENDATIONS: Baseline TIPS ultrasound with color flow doppler and velocity measurements in one week D/ / 09/13/2018 08:51:20 Cori Flores MD / [facility] Interpreting Provider: Cori Flores MD - ABG Interpretation ABG results: PT/INR, D-dimer PT 15.0 Seconds (9.4-12.1) H 09/12/18 03:14 Inpatient Charges Provider: Dr. Cecil Roche Follow up - Inpatient: [id number]
[2018-09-13] MEDS ORDERED: *HR* Enoxaparin 40 MG/0.4 ML SYRINGE SQ ONE (18:00)
[2018-09-13] MEDS ORDERED: Iron Sucrose Complex 200 MG in 0.9 % Sodium Chloride 100 ML IVPB ONE (18:00)
[2018-09-14 04:55] LABS: Hemoglobin 8.2 g/dL (12.9-16.9); Red Cell Distribution Width 17.2 % (11.5-14.5)
[2018-09-14 04:57] LABS: Basophils % 0.3 %; Eosinophils # 0.1 K/mcL (0.0-0.6); Hematocrit 25.8 % (37.5-50.1); Immature Granulocytes % 0.2 % (0-4); Immature Platelets 6.9 % (1.1-6.1); Lymphocytes # 1.2 K/mcL (0.6-4.6); Lymphocytes % 20.3 %; Mean Corpuscular HGB Conc 31.8 g/dL (31.6-35.5); Mean Corpuscular Hemoglobin 26.4 pg (28.0-33.3); Mean Platelet Volume 10.9 fL (9.4-12.4); Monocytes # 0.6 K/mcL (0.0-1.3); Monocytes % 10.1 %; Red Blood Count 3.11 M/mcL (4.19-5.50); Segmented Neutrophils % 68.1 %
[2018-09-14 05:07] LABS: Platelet Count 76 K/mcL (140-400)
[2018-09-14 05:10] LABS: BUN/Creatinine Ratio 29 (6-26); Blood Urea Nitrogen 21 mg/dL (6-20); Carbon Dioxide 27 mEq/L (23-29); Chloride 107 mEq/L (98-107); Glucose 94 mg/dL (70-105); Osmolality,Calculated 289 (280-300); Potassium 3.4 mEq/L (3.5-5.1); Sodium 138 mEq/L (136-145); eGFR For Non-African Americans > 60 (> 60)
--- NOTE | 2018-09-14 11:03 | Internal Med Progress Note ---
Hospitalist Progress Note - Encounter Date of Encounter: 09/14/18 Time of Encounter: 10:00 - Subjective Interval History: 53 M Seen and evaluated at the bedside in the ICU He is admitted and being managed for Acute blood loss anemia from variceal bleed due to non-cirrhotic portal HTN, SBP, Esophageal varices He has a PMH of coagulopathy with multiple LE DVTS and CVA with residual aphasia he is s/p TIPS on 09/12 and awaiting IVC filter placement today 09/13 IVC filter placement was unsuccessful on 09/13 and according to the patient and the RN, will be reattempted today He has a Hb drop from 9.5 to 8.2 - Exam Vitals: Temp Pulse Resp BP Pulse Ox 98 F 68 18 98/51 93 09/14/18 08:43 09/14/18 08:43 09/14/18 08:43 09/14/18 08:43 09/14/18 08:43 Exam: General: Alert and oriented, not in acute distress. HEENT: Right neck dressing slightly soaked, no jaundice, clear and moist oral mucosa Cardiovascular:Normal S1 & S2, No JVD. Pulse regular. Lungs: clear to auscultation, no wheezes/rales Abdomen:Soft, non-tender, no rigidity. Neurological: aphasic (residual from prior CVA), no gross motor or sensory deficits Extremities: No edema, wound dressings bilateral(not inspected) - Assessment and Plan (1) Venous stasis ulcers of both lower extremities Current Visit: Yes Status: Chronic Assessment and Plan: per prior physicians, 3 chronic non-healing ankle ulcers 2 on left leg, 1 on right Continue with wound care (2) UGIB (upper gastrointestinal bleed) Current Visit: Yes Status: Acute Assessment and Plan: Patient with hx of biopsy proven non-cirrhotic portal HTN presented with hematemesis and underwent EGD with banding on 09/08 Hb stable at 9.5 this mrn 09/13 s/p 4U pRBC with last one being on 09/08 octreotide gtt d/ed on 09/10 per GI, Continue PO PPI daily with carafate Completed 5 days of Rocephin for SBP prophylaxis s/p TIPS 09/12, uneventful For IVC placement retrial today 09/14 by vascular Hematology following, decision about anticoagulation to be decided post- procedure Will continue to monitor (3) Esophageal varices Current Visit: Yes Status: Chronic Assessment and Plan: as above, on nadolol 40mg QD, continue same (4) Coagulopathy Current Visit: Yes Status: Chronic Assessment and Plan: of thrombotic events includes multiple LE DVT's and 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 per onc Continue to monitor (5) Portal hypertension Current Visit: Yes Status: Chronic Assessment and Plan: was initially deemed non-cirrhotic per previous liver bx being -ve at [facility] yesterday did not show any evidence of portal vein thrombosis but did show cirrhotic morphology mx for variceal bleeding as above, outpatient follow up for cirrhosis/portal HTN DVT Prophylaxis: Unable to provide mechanical prophylaxis due to LE ulcers Received one dose of prophylactic lovenox 09/12 May need to resume home dose of pradaxa -pending eval of onc - Time Spent with Patient Total time spent is greater than 50% in coordination of care (as documented) at patient's floor/unit and/or counseling patient: Plan of Care Discussed with: patient Internal Medicine: Result - Labs CBC & Chem 7: 09/14/18 04:13 09/14/18 04:13 Labs: Short CBC 09/14/18 Range/Units 04:13 WBC 5.8 (4.3-11.1) K/mcL Hgb 8.2 L (12.9-16.9) g/dL Hct 25.8 L (37.5-50.1) % Plt Count 76 L (140-400) K/mcL Neutrophils # 4.0 (1.6-8.9) K/mcL BMP 09/14/18 04:13 Sodium 138 Potassium 3.4 L Chloride 107 Carbon Dioxide 27 BUN 21 H Creatinine 0.73 Glucose 94 Calcium 8.0 L - ABG Interpretation ABG results: PT/INR, D-dimer PT 15.0 Seconds (9.4-12.1) H 09/12/18 03:14 - VTE Reasons for not Prescribing Prophylaxis: Medical contraindication Consult Discharge Plan - Plan Referrals: Damián Zazueta MD [Non-Partnered Physician] - 10/12/18 10:40 am (3) Esophageal varices Qualifiers: Esophageal varices type: unspecified type Esophageal varices bleeding: with bleeding Qualified Code(s): I85.01 - Esophageal varices with bleeding
--- NOTE | 2018-09-14 16:36 | Oncology Inp Progress Note ---
<Ingrid Raya L - Last Filed: 09/15/18 06:03> Date of Encounter: 09/14/18 Time of Encounter: 15:30 (1) Acute blood loss anemia Current Visit: Yes Status: Acute Assessment and plan: Presented with large amounts of hematemesis. EGD located grade III large varices in the lower esopahgus with banding of 9 varices with now clinical control of his bleeding S/P TIPS procedure 09/12/18 to decrease his portal congestion with the hopes to continue anticoagulation with decreased risk of bleeding in future, GI following Hgb remains stable although recently decreased slightly to 8.3 He remains without any s/s bleeding Plans as below (2) Coagulopathy Current Visit: Yes Status: Chronic Assessment and plan: As noted in HPI, Mr. 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 Atkinson had a LE venous doppler on 09/10/2018 that noted Acute deep venous thrombosis is present in the right distal iliac through popliteal vein. Chronic deep venous thrombosis is present in the right greater and lesser saphenous veins. Acute deep venous thrombosis is present in the left distal iliac the popliteal veins. Acute deep venous thrombosis is present in the left lesser s aphenous vein Plans were made for IVC Filter placement with vascular, however, attempt for placement was unsuccessful due to clot burden and extension into IVC Plan: Given his history, the benefits outweigh the risks of continuing indefinite anticoagulation unless patient has active sign of bleeding We have had multiple conversations with patient and family who understand risks versus benefits and agree with plan Recommendation made to resume Pradaxa at decreased dose 75 mg PO BID Patient remains at high risk for thombosis, monitor closely Patient also remains at high risk for bleeding events, continue to monitor closely Oncology: Subj Interval history: Mr. Atkinson had no acute events overnight. He is hungry and has been NPO for planned vascular procedure today which has been cancelled as described in A&P. He denies pain, nausea, vomiting, diarrhea, constipation, chest pain, SOB, pain with inspiration, hemoptysis, H/A, dizziness or any s/s bleeding. No family at bedside at this time. - Constitutional Vitals: Vital Signs Temp Pulse Resp BP Pulse Ox 09/14/18 11:13 98.6 F 74 17 129/75 96 09/14/18 08:43 98 F 68 18 98/51 93 09/14/18 04:33 98.4 F 69 15 102/59 97 09/14/18 00:29 98.0 F 65 15 122/64 97 09/13/18 22:07 98.4 F 63 15 123/67 97 09/13/18 20:23 98.1 F 09/13/18 20:00 65 20 122/69 97 09/13/18 18:00 69 20 113/62 96 09/13/18 17:00 65 18 123/65 96 Intake and Output 09/14/18 09/14/18 09/14/18 07:59 15:59 23:59 Intake Total 0 / 0 Output Total 250 / 250 Balance -250 / -250 Intake: Oral 0 / 0 Output: Urine 250 / 250 Other: Weight 86.2 kg Blood Glucose* 100 96 Patient Weight 09/14/18 23:59 Weight 86.2 kg General appearance: cooperative, no acute distress, no febrile - Head Head exam: Present: atraumatic - Eye Eye exam: Present: normal appearance - ENT ENT exam: Present: mucous membranes moist - Respiratory Respiratory exam: Present: CTAB. Absent: respiratory distress - Cardiovascular Cardiovascular exam: Present: RRR, +S1, +S2 - GI/Abdominal GI/Abdominal exam: Present: normal bowel sounds, soft. Absent: tenderness - Extremities Exam Additional comments: BLE edema, see skin assessment below - Neurological Exam Neurological exam: Present: alert, oriented X3, no focal deficits, strengths equal and symetr throughout Additional comments: aphasic - Psychiatric Psychiatric exam: Present: normal affect, normal mood - Skin Skin exam: Present: dry, normal color, warm Additional comments: Bilateral LE venous ulcers-not observed at this time-BLE dressings dry and intact Oncology: Obj Data - Labs CBC & Chem 7: 09/14/18 04:13 09/14/18 04:13 - ABG Interpretation ABG results: PT/INR, D-dimer PT 15.0 Seconds (9.4-12.1) H 09/12/18 03:14 Consult Discharge Plan - Plan Referrals: Damián Zazueta MD [Non-Partnered Physician] - 10/12/18 10:40 am <Johnathan Roche - Last Filed: 09/15/18 10:17> Date of Encounter: 09/15/18 - Constitutional Vitals: Vital Signs Temp Pulse Resp BP Pulse Ox 09/15/18 07:23 99.7 F H 76 17 130/78 94 09/15/18 05:38 76 19 126/65 95 09/15/18 00:07 72 17 139/72 95 09/14/18 20:59 97.9 F 75 18 146/75 96 09/14/18 17:15 99.6 F 70 21 137/73 95 09/14/18 11:13 98.6 F 74 17 129/75 96 Intake and Output 09/14/18 09/15/18 09/15/18 23:59 07:59 15:59 Intake Total 240 / 240 Output Total 300 / 300 425 / 425 Balance -300 / -300 -425 / -425 240 / 240 Intake: Oral 240 / 240 Output: Urine 300 / 300 425 / 425 Other: Meal Breakfast Percent of Meal Consumed 100% Weight 84 kg Patient Weight 09/15/18 23:59 Weight 84 kg Oncology: Obj Data - Labs CBC & Chem 7: 09/15/18 08:55 09/14/18 04:13 Labs: Laboratory Results - last 24 hr 09/14/18 09/14/18 09/15/18 05:44 11:41 08:55 WBC 7.6 RBC 3.32 L Hgb 8.7 L Hct 27.4 L MCV 82.5 L MCH 26.2 L MCHC 31.8 RDW 17.4 H Plt Count 79 L MPV 10.0 Immature Gran % 0.3 Seg Neutrophils % 78.7 Lymphocytes % 12.0 Monocytes % 7.8 Eosinophils % 0.9 Basophils % 0.3 Neutrophils # 6.0 Lymphocytes # 0.9 Monocytes # 0.6 Eosinophils # 0.1 Basophils # 0.0 Immature Plt Fraction 6.9 H POC Glucose 100 H 96 - ABG Interpretation ABG results: PT/INR, D-dimer PT 15.0 Seconds (9.4-12.1) H 09/12/18 03:14 Inpatient Charges Provider: Dr. Cecil Roche Follow up - Inpatient: [id number]
[2018-09-14] MEDS: *HR* Dabigatran 75 MG CAPSULE PO SCH (21:25)
--- NOTE | 2018-09-14 22:15 | Vascular/[facility] Progress Note ---
Date of Encounter: 09/14/18 Time of Encounter: 15:00 - Assessment and plan (1) Hypercoagulable state Current Visit: Yes Status: Chronic The patient has a history of hypercoagulable state. He is also has a history of anemia. He underwent a venogram yesterday via the right common femoral vein. 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 Ultrasound imaging during the procedure revealed chronic thrombosis of the left iliac vein as well. Given the extent of thrombosis and likely caval thrombosis is recommended the patient continue with anticoagulation if tolerated. (2) UGIB (upper gastrointestinal bleed) Current Visit: Yes Status: Acute (3) Acute blood loss anemia Current Visit: Yes Status: Acute (4) Esophageal varices Current Visit: Yes Status: Chronic Qualifiers: Esophageal varices type: unspecified type Esophageal varices bleeding: with bleeding Qualified Code(s): I85.01 - Esophageal varices with bleeding (5) DVT (deep venous thrombosis) Current Visit: Yes Status: Chronic Qualifiers: DVT location: lower extremity Chronicity: chronic Laterality: bilateral Qualified Code(s): I82.503 - Chronic embolism and thrombosis of unspecified deep veins of lower extremity, bilateral - Subjective Interval history: The patient is alert and comfortable. He denies any chest pain or shortness of breath. He reports no inguinal pain as well. Vital Signs, Last 4 Hours Temp Pulse Resp BP Pulse Ox 09/14/18 20:59 97.9 F 75 18 146/75 96 - Physical Examination General: Present: Conversant, No Apparent Distress HEENT: Present: Pupils equal Cardiac: Present: Reg Rate and Rhythm, Normal S1 and S2 Lungs: Present: Normal Breath Sounds Neuro: Present: Alert and responsive, Motor nerves grossly intact, Sensory nerves grossly intact Vascular: Present: Normal capillary refill, Edema (Trace bilateral lower extremity edema), Surgical incisions (No hematoma at the right groin access site). Absent: Cyanosis Abdomen: Present: Soft, Non-tender Skin: Present: No rashes noted on visualized skin - VTE Reasons for not Prescribing Prophylaxis: Medical contraindication Results 09/14/18 04:13 09/14/18 04:13 Lab Results, Last 24 hours 09/14/18 09/14/18 04:13 04:13 WBC 5.8 Hgb 8.2 L Hct 25.8 L Plt Count 76 L Sodium 138 Potassium 3.4 L Chloride 107 Carbon Dioxide 27 BUN 21 H Creatinine 0.73 Glucose 94 Calcium 8.0 L Consult Discharge Plan - Plan Referrals: Damián Zazueta MD [Non-Partnered Physician] - 10/12/18 10:40 am
[2018-09-15] MEDS: OXYCODONE Oral CONC 10 MG/0.5 ML ORAL.SYG SL PRN (05:45)
[2018-09-15 09:06] LABS: Eosinophils % 0.9 %; Hemoglobin 8.7 g/dL (12.9-16.9)
[2018-09-15 09:08] LABS: Basophils % 0.3 %; Eosinophils # 0.1 K/mcL (0.0-0.6); Hematocrit 27.4 % (37.5-50.1); Immature Granulocytes % 0.3 % (0-4); Immature Platelets 6.9 % (1.1-6.1); Lymphocytes # 0.9 K/mcL (0.6-4.6); Mean Corpuscular HGB Conc 31.8 g/dL (31.6-35.5); Mean Corpuscular Hemoglobin 26.2 pg (28.0-33.3); Mean Corpuscular Volume 82.5 fL (83.0-100.0); Monocytes # 0.6 K/mcL (0.0-1.3); Monocytes % 7.8 %; Red Blood Count 3.32 M/mcL (4.19-5.50); Red Cell Distribution Width 17.4 % (11.5-14.5); Segmented Neutrophils % 78.7 %
[2018-09-15 09:09] LABS: Platelet Count 79 K/mcL (140-400)
[2018-09-15] MEDS: *HR* Dabigatran 75 MG CAPSULE PO SCH (12:56)
--- NOTE | 2018-09-15 13:13 | Discharge Summary ---
- NOTES TO OUTPATIENT PROVIDER Notes to Outpatient Provider: He is admitted and being managed for Acute blood loss anemia from variceal bleed due to non-cirrhotic portal HTN, SBP, Esophageal varices. He has a PMH of coagulopathy with multiple LE DVTS and CVA with residual aphasia. He presented with hematemesis and underwent EGD with banding on 09/08. he is s/p TIPS on 09/12 and IVC filter placement was unsuccessful due to extent of blood clot. As patient has a history of coagulopathy as well as varices, oncology was consulted and they recommended continuation of patient's home dose of pradaxa with close monitoring, HB at time of dicharge is 8.7 and patient has hd no further hematemesis, melena or hemodynamic instability. Follow up with PCP and Oncology , as well as wound care for his chronic venous stasis ulcers. Patient verbalized understanding of plan of care Orders not resulted at time of discharge: Pending orders 09/13/18 09:35 CL IVC Filter [CL] Routine 09/16/18 04:00 Chem 7 [Basic Metabolic Panel] AM 0400 Date of Encounter: 09/15/18 Time of Encounter: 13:06 - Discharge Diagnosis (1) Venous stasis ulcers of both lower extremities Priority: Secondary Status: Chronic (2) UGIB (upper gastrointestinal bleed) Priority: Primary Status: Resolved (3) Esophageal varices Priority: Primary Status: Chronic Qualifiers: Esophageal varices type: unspecified type Esophageal varices bleeding: with bleeding Qualified Code(s): I85.01 - Esophageal varices with bleeding (4) Coagulopathy Priority: Primary Status: Chronic (5) Portal hypertension Priority: Secondary Status: Chronic Hospital course: Mr. Atkinson is a 53 year old male He was admitted and being managed for Acute blood loss anemia from variceal bleed due to non-cirrhotic portal HTN, SBP, Esophageal varices He has a PMH of coagulopathy with multiple LE DVTS and CVA with residual aphasia. He presented with hematemesis and underwent EGD with banding on 09/08 he is s/p TIPS on 09/12 and IVC filter placement was unsuccessful due to extent of blood clot. As patient has a history of coagulopathy as well as varices, oncology was consulted and they recommended continuation of patient's home dose of pradaxa with close monitoring, HB at time of dicharge is 8.7 and patient has hd no further hematemesis, melena or hemodynamic instability. Follow up with PCP and Oncology , as well as wound care for his chronic venous stasis ulcers. Patient verbalized understanding of plan of care Discharge discussed with: patient, nurse, case management - Time Spent with Patient Total time spent providing and/or coordinating discharge services: Less than 30 minutes - Discharge Medications Prescriptions: Dabigatran [Pradaxa] 75 mg PO BID #60 capsule Nadolol [Corgard] 40 mg PO DAILY #30 tablet Pantoprazole Sodium [Protonix] 40 mg PO DAILY #30 granpkt. Sucralfate [Carafate] 1 gm PO QIDAC #2 bottle Home Medications: Dabigatran [Pradaxa] 75 mg PO BID #60 capsule 09/15/18 [Rx] Nadolol [Corgard] 40 mg PO DAILY #30 tablet 09/15/18 [Rx] Pantoprazole Sodium [Protonix] 40 mg PO DAILY #30 granpkt. 09/15/18 [Rx] Sucralfate [Carafate] 1 gm PO QIDAC #2 bottle 09/15/18 [Rx] Allergies/Adverse Reactions: Allergy/AdvReac Type Severity Reaction Status Date / Time No Known Allergies Allergy Verified 02/14/18 09:23 Date of admission: 09/08/18 10:52 Primary care physician: PCP NONE Consults: 09/08/18 11:12 Consult to Oncology Hematology [CONS] Stat Consulting Provider: Liat Newton Reason for Consult: Hemetemesis on Pradaxa Time Notified: 11:13 Call Completed: Yes 09/08/18 11:14 Consult to Gastroenterology [CONS] Stat Consulting Provider: Gastroenterology Ashley Reason for Consult: hemetemesis Time Notified: 11:14 Call Completed: Yes 09/08/18 13:08 Consult to Wound Care [CONS] Routine Reason for Consult: chronic ulcers Call Completed: No 09/09/18 11:17 Consult to Interventional Radiology [CONS] Routine Consulting Provider: Radiology Interventional Cols Reason for Consult: TIPS procedure evaluation by Dr. Flores Call Completed: Yes 09/09/18 11:34 Consult to Interventional Radiology [CONS] Stat Consulting Provider: Radiology Interventional Cols Reason for Consult: IVC filter Call Completed: Yes 09/12/18 17:18 Consult to Vascular Surgery [CONS] Routine Consulting Provider: Vascular Surgery Ashley Reason for Consult: IVC filter Call Completed: Yes Discharging clinician: Jaden Ramirez Anticipated date of discharge: 09/15/18 - Constitutional Vitals: Temp Pulse Resp BP Pulse Ox 99.2 F 65 17 121/77 94 09/15/18 11:27 09/15/18 11:27 09/15/18 07:23 09/15/18 11:27 09/15/18 07:23 Exam: General: Alert and oriented, not in acute distress. HEENT: Right neck dressing clean and dry, no jaundice, clear and moist oral mucosa Cardiovascular:Normal S1 & S2, No JVD. Pulse regular. Lungs: clear to auscultation, no wheezes/rales Abdomen:Soft, non-tender, no rigidity. Neurological: aphasic (residual from prior CVA), no gross motor or sensory deficits Extremities: No edema, wound dressings bilateral(not inspected) - Patient Status Disposition: Home, Self-Care Condition: Good Functional capacity at discharge: independent ambulation Overall status at discharge: patient is progressing back to baseline - Discharge Instructions Follow Up With: Damián Zazueta MD [Non-Partnered Physician] - 10/12/18 10:40 am - Diet and Activity Activity: resume usual activities as tolerated Diet: low salt diet - VTE Reasons for not Prescribing Prophylaxis: Medical contraindication
--- NOTE | 2018-09-15 15:39 | Physician Discharge Referral ---
Home Health/Hosp Referral Info Transfer to: Home Health Provider in Charge Post Discharge: PCP - Diagnosis (1) Venous stasis ulcers of both lower extremities Priority: Secondary Status: Chronic (2) UGIB (upper gastrointestinal bleed) Priority: Primary Status: Resolved (3) Esophageal varices Priority: Primary Status: Chronic (4) Coagulopathy Priority: Primary Status: Chronic (5) Portal hypertension Priority: Primary Status: Chronic - Respiratory Orders Smoking Cessation: Smoking cessation has been advised. For more information, call the [place] Tobacco Quit Line at 3-403-FCPX-NOW. - Diet/Nutrition Diet/Nutrition Orders: Cardiac - Activity Activity Orders: Up ad khushboo - Services Needed Following services are medically necessary services: Nursing, Home Health Aide, Physical Therapy, Occupational Therapy - Transfer Medications Prescriptions: Dabigatran [Pradaxa] 75 mg PO BID #60 capsule Nadolol [Corgard] 40 mg PO DAILY #30 tablet Pantoprazole Sodium [Protonix] 40 mg PO DAILY #30 granpkt. Sucralfate [Carafate] 1 gm PO QIDAC #2 bottle Home Medications: Dabigatran [Pradaxa] 75 mg PO BID #60 capsule 09/15/18 [Rx] Nadolol [Corgard] 40 mg PO DAILY #30 tablet 09/15/18 [Rx] Pantoprazole Sodium [Protonix] 40 mg PO DAILY #30 granpkt. 09/15/18 [Rx] Sucralfate [Carafate] 1 gm PO QIDAC #2 bottle 09/15/18 [Rx] Allergies/Adverse Reactions: Allergy/AdvReac Type Severity Reaction Status Date / Time No Known Allergies Allergy Verified 02/14/18 09:23 Certification: Further, I certify that my clinical findings support that this patient is homebound (i.e. absences from home require considerable and taxing effort and are for medical reasons or [facility] or infrequently or short duration when for other reasons) because: Homebound Reason: Patient requires assistance of a person or device to safely leave home Attestation: My signature below is to certify that this patient is under my care and that I, or nurse practitioner, or a physician's seo assistant working with me, has a [id number] encounter with this patient.
== END 2018-09-15 17:06 | disposition home or self-care (01) | DRG 326 ==
LOC: EMEROOARM 09:13 → ICNU 10:52 → SUATTDRO 10:52 → ICNU 11:38 → 2NNU 09-09 21:12 → ICNU 09-12 15:43 → 2NENU 09-13 21:12
PROVIDERS: ADMIT Internal Medicine Pulmonary Disease; ATTEND Internal Medicine

== ENCOUNTER 2019-03-29 11:57 | Inpatient (IN) ==
--- NOTE | 2019-03-29 12:49 | Emergency Department Note ---
Disposition Clinical Impression: Pancytopenia, Shortness of breath, History of esophageal varices, History of GI bleed, On anticoagulant therapy, Anemia, History of DVT (deep vein thrombosis), Heme positive stool, Bilateral leg ulcer Disposition: Admitted As Inpatient General Adult HPI - General Chief complaint: ED Recheck/Abnormal Lab/Rx Stated complaint: Low hemoglobin Time Seen by Provider: 03/29/19 12:06 Source: patient Limitations: no limitations - History of Present Illness HPI Narrative: 54-year-old male with a history of liver disease status post TIPS procedure reports emergency department with concerns for weakness and dyspnea on exertion. He went to his primary care physician's office who did an outpatient CBC and noted him to be anemic with a hemoglobin of 5.6. He was sent to the ED for ev aluation. The patient states he takes per DIEGO up. There is no history of chest pain, no history of vomiting bloody or black material, no abdominal pain, no bloody stool. There is no history of bleeding of any sort. The patient has been significantly anemic before secondary to GI bleed. He has been admitted for transfusions in the past. The patient has a history of esophageal varices but does not describe vomiting of blood or esophageal concerns. There is no history of syncope. The patient has chronic lower extremity ulcers, his mother reports he has a clotting disorder. Pain Scale: 0 - Related Data Home Medications Medication Instructions Recorded Confirmed Dabigatran [Pradaxa] 75 mg PO BID 03/29/19 03/29/19 Allergies Allergy/AdvReac Type Severity Reaction Status Date / Time No Known Allergies Allergy Verified 03/29/19 17:25 All systems ED: reviewed and negative except as stated. Past Medical History - Past Medical History Medical history: Reports: CVA, DVT Surgical history: Reports: cholecystectomy Psychiatric history: Reports: no psych history - Social History Smoking Status: Former smoker Smokeless Tobacco Status: No Alcohol use: Reports: none Drug use: Reports: none Physical Exam - General Limitations: other (Does not vocalize but uses sign language to communicate.) General appearance: alert, in no apparent distress - Head Head exam: atraumatic, normocephalic - Eye Eye exam: Present: normal appearance, PERRL, EOMI - ENT ENT exam: normal exam, normal oropharynx, mucous membranes moist, TM's normal bi laterally, normal external ear exam - Neck Neck exam: Present: normal inspection, full ROM, trachea midline - Chest Chest inspection: Present: normal inspection, symmetric chest wall rise. Absent: tenderness - Respiratory Respiratory exam: Present: normal lung sounds bilaterally. Absent: respiratory distress, prolonged expiratory phase - Cardiovascular Cardiovascular exam: Present: regular rate, normal rhythm, normal heart sounds - Abdominal Exam Abdominal exam: Present: soft, Non-Tender, normal bowel sounds. 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 Absent: black stool, bloody stool, hemorrhoids, mass, tenderness - Extremities Exam Extremities exam: Present: normal capillary refill, pedal edema, other (The lower extremities show chronic deep ulcers, 2 on the left and one on the right no surrounding sewing changes noted.). Absent: joint swelling, calf tenderness - Expanded Lower Extremity Exam Neurovascular/Tendon exam: Present: normal capillary refill. Absent: motor deficit, sensory deficit, tendon deficit, extremity cold to touch, pallor - Back Exam Back exam: Present: normal inspection, full ROM. Absent: tenderness, CVA tenderness (R), CVA tenderness (L) - Neurological Exam Neurological exam: Present: alert, oriented X3, other (The patient is unable to vocalize normally, otherwise cranial nerves II-12 are grossly intact.). Absent: motor sensory deficit - Psychiatric Psychiatric exam: Present: normal affect - Skin Skin exam: Present: warm, dry, normal color Course Vital Signs Temperature 98.4 F 03/29/19 12:12 Pulse Rate 84 03/29/19 12:12 Respiratory Rate 18 03/29/19 12:12 Blood Pressure 128/75 03/29/19 12:12 O2 Sat by Pulse Oximetry 99 03/29/19 12:12 Temperature 98.1 F 03/29/19 18:03 Pulse Rate 65 03/29/19 18:03 Respiratory Rate 22 03/29/19 18:03 Blood Pressure 128/83 03/29/19 18:03 O2 Sat by Pulse Oximetry 100 03/29/19 15:55 Oxygen Delivery Oxygen Delivery Room Air Medical Decision Making - MDM Narrative Medical decision making narrative: The patient had an outpatient study last night with a hemoglobin of 5.6. He denies vomiting of blood or bloody material in the stool he describes constipation. Rectal exam reveals brownish stool on the glove no bloody material appreciated on gross examination, no blackened material. The patient denies any trauma. No chest pain. He has been somewhat weak and slightly short of breath. There is no history of syncope. No bleeding of any sort. He is currently taking Pradaxa. The patient has a history of DVT, he also has a history of CVA and does not speak normally. He communicates well using sign language. A stone the patient's significant anemia and thrombocytopenia with anticoagulant therapy, I thought it would be appropriate to transfuse the patient and admit him. His Hemoccult did come back positive however no gross blood is noted on clinical examination he denies bleeding. He has a history of GI bleeding as well as liver disease and esophageal varices. I discussed the case with the hospitalist on-call who has accepted the patient to their care. The patient's hemoglobin is very low however no major changes since yesterday, rapid bleeding is not noted at this time. If significant bleeding is noted or occurs Pradaxabind could be considered. I discussed the case with the hospitalist conditioning room worker who has accepted the patient to their care. The patient is agreeable to admission. - Lab Data Result diagrams: 03/29/19 12:56 03/29/19 12:56 Lab Results 03/29/19 03/29/19 03/29/19 Range/Units 12:56 12:56 12:56 WBC 2.2 L (4.3-11.1) K/mcL RBC 2.38 L (4.19-5.50) M/mcL Hgb 5.2 L* (12.9-16.9) g/dL Hct 18.3 L (37.5-50.1) % MCV 76.9 L (83.0-100.0) fL MCH 21.8 L (28.0-33.3) pg MCHC 28.4 L (31.6-35.5) g/dL RDW 17.3 H (11.5-14.5) % Plt Count 71 L (140-400) K/mcL MPV 10.4 (9.4-12.4) fL Immature Gran % 0.5 (0-4) % Seg Neutrophils % 67.5 % Lymphocytes % 15.3 % Monocytes % 10.2 % Eosinophils % 5.6 % Basophils % 0.9 % Neutrophils # 1.5 L (1.6-8.9) K/mcL Lymphocytes # 0.3 L (0.6-4.6) K/mcL Monocytes # 0.2 (0.0-1.3) K/mcL Eosinophils # 0.1 (0.0-0.6) K/mcL Basophils # 0.0 (0.0-0.2) K/mcL Platelet Estimate Decreased L (Normal) Hypochromasia Present A (Not Present) PT 14.8 H (9.4-12.1) Seconds INR 1.3 APTT 37.1 H (26.0-36.0) Seconds Sodium 141 (136-145) mEq/L Potassium 3.9 (3.5-5.1) mEq/L Chloride 108 H (98-107) mEq/L Carbon Dioxide 27 (23-29) mEq/L BUN 16 (6-20) mg/dL Creatinine 0.96 (0.70-1.30) mg/dL Est GFR ( Amer) > 60 (> 60) Est GFR (Non-Af Amer) > 60 (> 60) BUN/Creatinine Ratio 17 (6-26) Glucose 100 (70-105) mg/dL Calculated Osmolality 293 (280-300) Calcium 9.1 (8.6-10.3) mg/dL Total Bilirubin 0.7 (0.3-1.0) mg/dL AST 25 (13-39) Units/L ALT 19 (7-52) Units/L Alkaline Phosphatase 103 (34-104) Units/L Troponin I < 0.03 (< 0.04) ng/mL Serum Total Protein 5.9 L (6.4-8.9) g/dL Albumin 3.5 (3.5-5.7) g/dL Globulin 2.4 (2.4-3.5) g/dL Albumin/Globulin Ratio 1.5 (1.1-2.2) Stool Occult Bld Scrn (Negative) Blood Type Antibody Screen Crossmatch 03/29/19 03/29/19 Range/Units 12:56 14:32 WBC (4.3-11.1) K/mcL RBC (4.19-5.50) M/mcL Hgb (12.9-16.9) g/dL Hct (37.5-50.1) % MCV (83.0-100.0) fL MCH (28.0-33.3) pg MCHC (31.6-35.5) g/dL RDW (11.5-14.5) % Plt Count (140-400) K/mcL MPV (9.4-12.4) fL Immature Gran % (0-4) % Seg Neutrophils % % Lymphocytes % % Monocytes % % Eosinophils % % Basophils % % Neutrophils # (1.6-8.9) K/mcL Lymphocytes # (0.6-4.6) K/mcL Monocytes # (0.0-1.3) K/mcL Eosinophils # (0.0-0.6) K/mcL Basophils # (0.0-0.2) K/mcL Platelet Estimate (Normal) Hypochromasia (Not Present) PT (9.4-12.1) Seconds INR APTT (26.0-36.0) Seconds Sodium (136-145) mEq/L Potassium (3.5-5.1) mEq/L Chloride (98-107) mEq/L Carbon Dioxide (23-29) mEq/L BUN (6-20) mg/dL Creatinine (0.70-1.30) mg/dL Est GFR ( Amer) (> 60) Est GFR (Non-Af Amer) (> 60) BUN/Creatinine Ratio (6-26) Glucose (70-105) mg/dL Calculated Osmolality (280-300) Calcium (8.6-10.3) mg/dL Total Bilirubin (0.3-1.0) mg/dL AST (13-39) Units/L ALT (7-52) Units/L Alkaline Phosphatase (34-104) Units/L Troponin I (< 0.04) ng/mL Serum Total Protein (6.4-8.9) g/dL Albumin (3.5-5.7) g/dL Globulin (2.4-3.5) g/dL Albumin/Globulin Ratio (1.1-2.2) Stool Occult Bld Scrn Positive A (Negative) Blood Type A NEGATIVE Antibody Screen NEGATIVE Crossmatch See Detail
[2019-03-29 13:12] LABS: Immature Granulocytes % 0.5 % (0-4); Red Cell Distribution Width 17.3 % (11.5-14.5)
[2019-03-29 13:14] LABS: Basophils % 0.9 %; Eosinophils # 0.1 K/mcL (0.0-0.6); Eosinophils % 5.6 %; Hematocrit 18.3 % (37.5-50.1); Lymphocytes # 0.3 K/mcL (0.6-4.6); Lymphocytes % 15.3 %; Mean Corpuscular HGB Conc 28.4 g/dL (31.6-35.5); Mean Corpuscular Hemoglobin 21.8 pg (28.0-33.3); Mean Corpuscular Volume 76.9 fL (83.0-100.0); Mean Platelet Volume 10.4 fL (9.4-12.4); Monocytes # 0.2 K/mcL (0.0-1.3); Monocytes % 10.2 %; Neutrophils # 1.5 K/mcL (1.6-8.9); Red Blood Count 2.38 M/mcL (4.19-5.50); Segmented Neutrophils % 67.5 %
[2019-03-29 13:24] LABS: INR 1.3; Prothrombin Time 14.8 Seconds (9.4-12.1)
[2019-03-29 13:26] LABS: Activated Partial Thrombo Time 37.1 Seconds (26.0-36.0)
[2019-03-29 13:30] LABS: Platelet Count 71 K/mcL (140-400)
[2019-03-29 13:34] LABS: Alanine Aminotransferase 19 Units/L (7-52); Albumin 3.5 g/dL (3.5-5.7); Albumin/Globulin Ratio 1.5 (1.1-2.2); Alkaline Phosphatase 103 Units/L (34-104); Aspartate Amino Transferase 25 Units/L (13-39); BUN/Creatinine Ratio 17 (6-26); Bilirubin,Total 0.7 mg/dL (0.3-1.0); Blood Urea Nitrogen 16 mg/dL (6-20); Calcium 9.1 mg/dL (8.6-10.3); Carbon Dioxide 27 mEq/L (23-29); Chloride 108 mEq/L (98-107); Globulin 2.4 g/dL (2.4-3.5); Glucose 100 mg/dL (70-105); Osmolality,Calculated 293 (280-300); Potassium 3.9 mEq/L (3.5-5.1); Sodium 141 mEq/L (136-145); Total Protein 5.9 g/dL (6.4-8.9); Troponin I < 0.03 ng/mL (< 0.04); eGFR For Non-African Americans > 60 (> 60)
[2019-03-29 13:35] LABS: Hemoglobin 5.2 g/dL (12.9-16.9)
[2019-03-29 13:39] LABS: Hypochromasia Present (Not Present); Platelet Estimate Decreased (Normal)
[2019-03-29] MEDS ORDERED: Naloxone 0.4 MG/ML INJ IVP PRN (18:04)
[2019-03-29] MEDS ORDERED: Pantoprazole 40 MG in 0.9 % Sodium Chloride Mini Bag 100 ML IVC SCH (18:15)
--- NOTE | 2019-03-29 18:17 | Internal Med History&Physical ---
Date of Encounter: 03/29/19 Time of Encounter: 18:13 Internal Medicine - H&P: HPI Chief complaint: anemia Admitted From: Home Plans for Post Hospital Care: Home History of present illness: Mr. 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 Most of the his tory is obtained from the at bedside as the patient has left-sided weakness and is nonverbal due to previous stroke. As per patient's he has become increasingly weak and followed up with his primary care office who did outpatient lab work which showed a hemoglobin of 5.6 so he was referred to the emergency department for further evaluation of his acute anemia. As per patient and his he has had black stools for the past month last episode was last Wednesday about 5 days prior to admission he was concerned and they followed up with his primary care physician which found out that he was acutely anemic. He denies hematemesis, hemoptysis or hematochezia however does report melena as above. He denies dizziness upon standing, no syncope, no recent trauma to any of his extremities. He denies fever, chills, nausea, vomiting or diarrhea. Has had no chest pain but does report exertional shortness of breath. He reports that he was compliant with this Pradaxa which he has been prescribed for multiple DVTs. While in the ED hemoglobin was found to be 5.2 and he was transfused 1 unit of PRBC and was endorsed for admission for further evaluation of his acute on chronic anemia. as per chart [id number] Presented to [facility] with acute esophageal bleeding secondary to varices as above, s/p EGD with banding, S/P TIPS procedure 09/12/18. Chronic deep venous thrombosis is present in the right greater and lesser saphenous veins. Acute deep venous thrombosis is present in the left distal iliac the popliteal veins. Acute deep venous thrombosis is present in the left lesser saphenous vein Plans were made for IVC Filter placement with vascular, however, attempt for placement was unsuccessful due to clot burden and extension into IVC Recommendation made to resume Pradaxa at decreased dose 75 mg PO BID Hypercoagulable workup negative including factor V Leiden and prothrombin gene mutation. Lupus anticoagulant negative. Protein C, protein S antithrombin III normal on 10/19/2017 He failed Coumadin and Xarelto. Past Med Surg Social Fam HX - Past Medical History Medical history: CVA, DVT Additional medical history: Left side deficit form CVA, esophageal Varices. blood clotting disorder Factor V Psychiatric history: no psych history - Past Surgical History Surgical History: cholecystectomy Additional surgical history: TIPS procedure - Social History Smoking Status: Former smoker Smokeless Tobacco Status: No Alcohol use: none Drug use: none - Family History Father Family Member Ethnicity: Non- Living Status: Hx Family Cardiac Disorders: Yes (Aneurysm) Mother Family Member Ethnicity: Non- Living Status: Hx Family Autoimmune Disorders: Yes (Blood clotting disorder) Brother Family Member Ethnicity: Non- Living Status: Hx Family Cardiac Disorders: Yes (Brain aneurysm) Sister Family Member Ethnicity: Non- Living Status: Still Living Hx Family Cardiac Disorders: Yes (CVA d/t blood clot) Grandmother Family Member Ethnicity: Non- Internal Medicine - H&P: Meds Dabigatran [Pradaxa] 75 mg PO BID 03/29/19 [History] Allergy/AdvReac Type Severity Reaction Status Date / Time No Known Allergies Allergy Verified 03/29/19 17:25 All Systems PM: A 10-system review of systems was performed and is negative for pertinent findings except as documented above in the HPI. - Constitutional Vitals: Temp Pulse Resp BP Pulse Ox 98.1 F 65 22 128/83 100 03/29/19 18:03 03/29/19 18:03 03/29/19 18:03 03/29/19 18:03 03/29/19 15:55 Exam: General: Patient is alert, oriented, no acute distress, communicates by writing Head: atraumatic, normocephalic, Eye: normal appearance, PERRL, icterus, no conjunctival injection ENT: mucous membranes moist, normal external ear exam Neck: normal inspection, trachea midline, full ROM, no carotid bruits Chest: normal inspection, symmetric chest rise Respiratory: Good respiratory effort. Bilateral breath sounds are clear without wheezing, crackles, or rhonchi. Cardiovascular: Regular rate and rhythm. s1 and s2 No clicks, rubs, gallops, or murmors. Abdomen: Bowel sounds present normoactive x-4 quadrants. Abdomen is soft, nondistended. no Epigastric tenderness. No guarding or rebound. No organomegaly noted, musculoskeletal: Spontaneously moving all extremities. no edema, no calf tenderness Skin: warm, dry, has multiple ulceration of the lower extremities left medial and lateral ankle, right medical ankle Neuro: Alert and oriented x3, communicates by writing, left-sided weakness secondary to previous stroke, no acute neurological deficit Psych: Patient's affect is normal Internal Med - H&P Results - Labs CBC & Chem 7: 03/29/19 12:56 03/29/19 12:56 Labs: Short CBC 03/29/19 Range/Units 12:56 WBC 2.2 L (4.3-11.1) K/mcL Hgb 5.2 L* (12.9-16.9) g/dL Hct 18.3 L (37.5-50.1) % Plt Count 71 L (140-400) K/mcL Neutrophils # 1.5 L (1.6-8.9) K/mcL BMP 03/29/19 12:56 Sodium 141 Potassium 3.9 Chloride 108 H Carbon Dioxide 27 BUN 16 Creatinine 0.96 Glucose 100 Calcium 9.1 Cardiac Enzymes 03/29/19 Range/Units 12:56 Troponin I < 0.03 (< 0.04) ng/mL Liver Function 03/29/19 Range/Units 12:56 Total Bilirubin 0.7 (0.3-1.0) mg/dL AST 25 (13-39) Units/L ALT 19 (7-52) Units/L Alkaline Phosphatase 103 (34-104) Units/L Albumin 3.5 (3.5-5.7) g/dL - Assessment and Plan (1) Acute blood loss anemia Current Visit: Yes Status: Acute Assessment and plan: Most likely secondary to GI bleed ( UGIB ( has history of varices and ulcers vs LGIB) Has occult blood positive Started on Protonix IV drip Octreotide IV as he has history of cirrhosis with esophageal varices Was transfused 1 unit of PRBC- follow H/h now discussed with surgery Dr. jimenez who recommended to transfuse one more unit of PRBC- will follow the rest of his recommendations. Continue to monitor CBC every 6 hours Avoid over transfusion as he has esophageal varices Keep hemoglobin above 7 Continuous pulse ox and telemetry Orthostatics stat Hold all anticoagulation and antiplatelets and NSAIDs will give nigh team check out to follow patient closely (2) Esophageal varices Current Visit: No Status: Chronic Assessment and plan: has history of large grade III esophageal varices and multiple history of bl eeding from liver cirrhosis ( unknown etilogy, ?secondary to alcohol use) S/P Tips in 018 continue with protonix, octreotide and ceftriaxone as above rest of the management and consults as above Qualifiers: Esophageal varices type: unspecified type Esophageal varices bleeding: with bleeding Qualified Code(s): I85.01 - Esophageal varices with bleeding (3) Heme positive stool Current Visit: Yes Status: Acute Assessment and plan: Management as above (4) History of DVT (deep vein thrombosis) Current Visit: Yes Status: Acute Assessment and plan: on chronic pradaxa which is held as he has severe acute anemia heme, onc consulted and discussed case with Dr. browning who recommended to hold the Pradaxa (5) Chronic cutaneous venous stasis ulcer Current Visit: No Status: Acute Assessment and plan: left mediccal and lateral ankle, right medical ankle wound care consulted follows with wound care as op last patient was in january 2019 - Time Spent With Patient Total time spent is greater than 50% in coordination of care (as documented) at patient's floor/unit and/or counseling patient:
--- NOTE | 2019-03-29 19:09 | Oncology Inp Consult Note ---
Date of Encounter: 03/29/19 Time of Encounter: 19:07 Assessment and Plan (1) Acute blood loss anemia Status: Acute Assessment and plan: Current hemoglobin 5.2. Likely this is secondary to GI bleed. Had history of variceal bleed in the past. He had melena few days ago. Recommend GI consult for EGD and possible colonoscopy. Transfuse packed RBC to keep hemoglobin above 8 (2) History of DVT (deep vein thrombosis) Status: Acute Assessment and plan: Hold Pradaxa. He is already on a lower dose 75 mg by mouth twice a day. His last DVT was about 6 months ago around September 2018. May reduce Pradaxa even further once his symptoms resolve - Data of Consult Patient: known to practice within the last 3 years Requesting Physician: Emani Carter Primary Care Provider: Karthik Ortega, DO - Consult Narrative Reason for consult: Acute GI bleed, DVT on anticoagulation History of present illness: Patient was not feeling good for last 2 weeks with increased weakness fatigue somnolence. He was evaluated by Dr. Caban. Hemoglobin 5.6. He was advised to go to the ER and subsequently admitted. Current hemoglobin 5.2. He had a bout of melena last week. Since then it cleared. He had a bowel movement last night which was clear. CVA with left-sided weakness And around 1986. He cannot speak bowels since then. provides good family support. He has bilateral DVT since then. He was treated with Coumadin and Xarelto in the past. Been on Pradaxa 150 mg twice a day since September 2017. He had GI bleed in the past. With recurrent DVTs the decision is to continue anticoagulation in the past He also has cirrhosis of liver. 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 Hypercoagulable workup negative in 2018 including protein C, protein S antithrombin III factor V Leiden and prothrombin gene mutation and lupus anticoagulant He has chronic foot ulcers due to poor circulation. Deep ulceration on the left leg posterior to medial malleolus Past Med Surg Social Fam HX - Past Medical History Medical history: CVA, DVT Additional medical history: Left side deficit form CVA, esophageal Varices. blood clotting disorder Factor V Psychiatric history: no psych history - Past Surgical History Surgical History: cholecystectomy Additional surgical history: TIPS procedure - Social History Smoking Status: Never smoker Smokeless Tobacco Status: No Alcohol use: none Drug use: none - Family History Grandmother Family Member Ethnicity: Non- Father Family Member Ethnicity: Non- Living Status: Hx Family Cardiac Disorders: Yes (Aneurysm) Mother Family Member Ethnicity: Non- Living Status: Hx Family Autoimmune Disorders: Yes (Blood clotting disorder) Brother Family Member Ethnicity: Non- Living Status: Hx Family Cardiac Disorders: Yes (Brain aneurysm) Sister Family Member Ethnicity: Non- Living Status: Still Living Hx Family Cardiac Disorders: Yes (CVA d/t blood clot) Medications and Allergies Dabigatran [Pradaxa] 75 mg PO BID 03/29/19 [History] Allergy/AdvReac Type Severity Reaction Status Date / Time No Known Allergies Allergy Verified 03/29/19 17:25 Review of systems: Is not able to talk because of previous stroke. History supplemented from the . Shortness of breath with exertion. Profound weakness. Melena. Denied vomiting blood. Nausea. Poor appetite. Oncology - Exam - Constitutional Exam: GENERAL: Alert and oriented, fatigued Mental Status: Affect appropriate for circumstances HEENT: Sclerae anicteric. No mucositis or thrush. No other oral or pharyngeal lesions or erythema. Skin: No rashes or petechiae. No evidence of skin malignancy Lymph nodes: No cervical, supraclavicular, axillary, or inguinal adenopathy. Lungs: Air entry normal with normal breath sounds. No rhonchi or wheezing Cardiovascular: Regular rate and rhythm. No skipped beats Abdomen: Soft, nontender; no organomegaly or masses palpable. Extremities: Chronic edema with ulceration Neurologic: Left hemiparesis. He is not able to speak Consult Discharge Plan - Plan Referrals: Karthik Ortega DO [Primary Care Provider] - Inpatient Charges Provider: Dr. Rosalind Jeffers Consult - Inpatient: [id number]
[2019-03-29 19:48] LABS: Mean Platelet Volume 10.5 fL (9.4-12.4)
[2019-03-29 19:50] LABS: Basophils % 1.2 %; Eosinophils # 0.1 K/mcL (0.0-0.6); Eosinophils % 5.8 %; Hematocrit 20.3 % (37.5-50.1); Lymphocytes # 0.4 K/mcL (0.6-4.6); Lymphocytes % 24.3 %; Mean Corpuscular HGB Conc 29.1 g/dL (31.6-35.5); Mean Corpuscular Hemoglobin 22.5 pg (28.0-33.3); Mean Corpuscular Volume 77.5 fL (83.0-100.0); Monocytes # 0.2 K/mcL (0.0-1.3); Red Blood Count 2.62 M/mcL (4.19-5.50); Segmented Neutrophils % 57.7 %
[2019-03-29] MEDS ORDERED: 0.9 % Sodium Chloride 250 ML ONE (20:02)
[2019-03-29 20:06] LABS: Hemoglobin 5.9 g/dL (12.9-16.9); Platelet Count 73 K/mcL (140-400)
[2019-03-29] MEDS: 0.9 % Sodium Chloride 1,000 ML IVC SCH (20:20)
--- NOTE | 2019-03-29 21:10 | AcuteCare Surgery Consult Note ---
Date of Encounter: 03/29/19 Time of Encounter: 21:07 Assessment and Plan (1) Acute blood loss anemia Current Visit: Yes Status: Acute 54M with multiple comorbidities with acute blood loss anemia 2/2 melena; currently hemodynamically stable; CLD trend h/h transfuse as needed once h/h has responded to transfusion will begin bowel prep to perform EGD and colonoscopy to evaluate for source of bleeding hold pradaxa and chemical dvt prophylaxis will cont to follow History of Present Illness Consult date: 03/29/19 Reason for consult: other (acute blood loss anemia) History of present illness: 54M with a PMH significant for recurrent DVTs, prior CVA, cirrhosis with asssoicated portal HTN (gastric varices), currently on pradaxa who presents with melena. The patient is unaware, but the sign out was that the patient has had significant dark tarry stools. no reports of dizziness or lightheadedness, but reportedly there is fatigue. His current hgb ~ 5.2 while his baseline is closer to 9 or 10. Acute care surgery was consulted for evaluation and for endoscopy. At present the patient is stable without symptoms. Past Med Surg Social Fam HX - Past Medical History Medical history: CVA, DVT Additional medical history: Left side deficit form CVA, esophageal Varices. blood clotting disorder Factor V Psychiatric history: no psych history - Past Surgical History Surgical History: cholecystectomy Additional surgical history: TIPS procedure - Social History Smoking Status: Never smoker Smokeless Tobacco Status: No Alcohol use: none Drug use: none - Family History Grandmother Family Member Ethnicity: Non- Father Family Member Ethnicity: Non- Living Status: Hx Family Cardiac Disorders: Yes (Aneurysm) Mother Family Member Ethnicity: Non- Living Status: Hx Family Autoimmune Disorders: Yes (Blood clotting disorder) Brother Family Member Ethnicity: Non- Living Status: Hx Family Cardiac Disorders: Yes (Brain aneurysm) Sister Family Member Ethnicity: Non- Living Status: Still Living Hx Family Cardiac Disorders: Yes (CVA d/t blood clot) Medications and Allergies Dabigatran [Pradaxa] 75 mg PO BID 03/29/19 [History] Allergy/AdvReac Type Severity Reaction Status Date / Time No Known Allergies Allergy Verified 03/29/19 17:25 Review of Systems All systems PM: 12 point ROS negative besides HPI findings General Surgery Exam Initial Vital Signs Temp Pulse Resp BP Pulse Ox 98.4 F 84 18 128/75 99 03/29/19 12:12 03/29/19 12:12 03/29/19 12:12 03/29/19 12:12 03/29/19 12:12 - General physical appearance no distress - Eyes PERRL, normal ocular movement - ENT normocephalic - Neck trachea midline, no lymphadectomy - Respiratory normal expansion, normal respiratory effort - Cardiovascular Cardiovascular exam: Present: RRR - Abdomen Abdomen general surgery: Present: soft, non tender - Integumentary Integumentary general surgery: Present: warm and dry - Neurologic Present: CN 2-12 grossly intact - Musculoskeletal Present: normal posture - Psychiatric Psychiatric general surgery: Present: A&Ox3 Exam Initial Vital Signs Temp Pulse Resp BP Pulse Ox 98.4 F 84 18 128/75 99 03/29/19 12:12 03/29/19 12:12 03/29/19 12:12 03/29/19 12:12 03/29/19 12:12 Results - Labs 03/29/19 19:14 03/29/19 12:56 Abnormal lab results WBC 1.7 K/mcL (4.3-11.1) L 03/29/19 19:14 RBC 2.62 M/mcL (4.19-5.50) L 03/29/19 19:14 Hgb 5.9 g/dL (12.9-16.9) L* 03/29/19 19:14 Hct 20.3 % (37.5-50.1) L 03/29/19 19:14 MCV 77.5 fL (83.0-100.0) L 03/29/19 19:14 MCH 22.5 pg (28.0-33.3) L 03/29/19 19:14 MCHC 29.1 g/dL (31.6-35.5) L 03/29/19 19:14 RDW 17.0 % (11.5-14.5) H 03/29/19 19:14 Plt Count 73 K/mcL (140-400) L 03/29/19 19:14 1.5 K/mcL (1.6-8.9) L 03/29/19 12:56 0.3 K/mcL (0.6-4.6) L 03/29/19 12:56 Decreased (Normal) L 03/29/19 12:56 Present (Not Present) A 03/29/19 12:56 PT 14.8 Seconds (9.4-12.1) H 03/29/19 12:56 APTT 37.1 Seconds (26.0-36.0) H 03/29/19 12:56 Chloride 108 mEq/L (98-107) H 03/29/19 12:56 5.9 g/dL (6.4-8.9) L 03/29/19 12:56 Stool Occult Bld Scrn Positive (Negative) A 03/29/19 14:32 Crossmatch See Detail 03/29/19 12:56 Diabetes panel 03/29/19 Range/Units 12:56 Sodium 141 (136-145) mEq/L Potassium 3.9 (3.5-5.1) mEq/L Chloride 108 H (98-107) mEq/L Carbon Dioxide 27 (23-29) mEq/L BUN 16 (6-20) mg/dL Creatinine 0.96 (0.70-1.30) mg/dL Glucose 100 (70-105) mg/dL Calcium 9.1 (8.6-10.3) mg/dL AST 25 (13-39) Units/L ALT 19 (7-52) Units/L Alkaline Phosphatase 103 (34-104) Units/L Albumin 3.5 (3.5-5.7) g/dL Calcium panel 03/29/19 Range/Units 12:56 Calcium 9.1 (8.6-10.3) mg/dL Albumin 3.5 (3.5-5.7) g/dL Pituitary panel 03/29/19 Range/Units 12:56 Sodium 141 (136-145) mEq/L Potassium 3.9 (3.5-5.1) mEq/L Chloride 108 H (98-107) mEq/L Carbon Dioxide 27 (23-29) mEq/L BUN 16 (6-20) mg/dL Creatinine 0.96 (0.70-1.30) mg/dL Glucose 100 (70-105) mg/dL Calcium 9.1 (8.6-10.3) mg/dL Adrenal panel 03/29/19 Range/Units 12:56 Sodium 141 (136-145) mEq/L Potassium 3.9 (3.5-5.1) mEq/L Chloride 108 H (98-107) mEq/L Carbon Dioxide 27 (23-29) mEq/L BUN 16 (6-20) mg/dL Creatinine 0.96 (0.70-1.30) mg/dL Glucose 100 (70-105) mg/dL Calcium 9.1 (8.6-10.3) mg/dL Total Bilirubin 0.7 (0.3-1.0) mg/dL AST 25 (13-39) Units/L ALT 19 (7-52) Units/L Alkaline Phosphatase 103 (34-104) Units/L Albumin 3.5 (3.5-5.7) g/dL All other labs normal. Consult Discharge Plan - Plan Referrals: Karthik Ortega DO [Primary Care Provider] -
[2019-03-29 21:28] LABS: Anisocytosis 1+ (Not Present); Hypochromasia Present (Not Present); Microcytosis Present (Not Present); Platelet Estimate Decreased (Normal)
[2019-03-30] MEDS: Octreotide 400 MCG in 0.9 % Sodium Chloride 100 ML IVC SCH ×2 (01:33→22:36)
[2019-03-30] MEDS: cefTRIAXone 2,000 MG in 0.9 % Sodium Chloride Mini Bag 100 ML IVPB SCH ×2 (01:42→17:41)
[2019-03-30 02:19] LABS: Basophils % 1.1 %; Eosinophils # 0.1 K/mcL (0.0-0.6); Eosinophils % 6.5 %; Hematocrit 21.2 % (37.5-50.1); Hemoglobin 6.3 g/dL (12.9-16.9); Lymphocytes # 0.5 K/mcL (0.6-4.6); Mean Corpuscular HGB Conc 29.7 g/dL (31.6-35.5); Mean Corpuscular Hemoglobin 22.8 pg (28.0-33.3); Mean Corpuscular Volume 76.8 fL (83.0-100.0); Mean Platelet Volume 10.2 fL (9.4-12.4); Monocytes # 0.2 K/mcL (0.0-1.3); Monocytes % 8.6 %; Neutrophils # 1.1 K/mcL (1.6-8.9); Red Blood Count 2.76 M/mcL (4.19-5.50); Segmented Neutrophils % 56.8 %
[2019-03-30 02:22] LABS: Platelet Count 66 K/mcL (140-400)
[2019-03-30 02:28] LABS: INR 1.3; Prothrombin Time 14.7 Seconds (9.4-12.1)
[2019-03-30 02:31] LABS: Activated Partial Thrombo Time 31.2 Seconds (26.0-36.0)
[2019-03-30 02:35] LABS: Alanine Aminotransferase 18 Units/L (7-52); Albumin 3.3 g/dL (3.5-5.7); Albumin/Globulin Ratio 1.4 (1.1-2.2); Alkaline Phosphatase 99 Units/L (34-104); Aspartate Amino Transferase 23 Units/L (13-39); BUN/Creatinine Ratio 19 (6-26); Bilirubin,Total 1.2 mg/dL (0.3-1.0); Blood Urea Nitrogen 15 mg/dL (6-20); Calcium 8.6 mg/dL (8.6-10.3); Carbon Dioxide 26 mEq/L (23-29); Chloride 106 mEq/L (98-107); Globulin 2.3 g/dL (2.4-3.5); Glucose 88 mg/dL (70-105); Magnesium 1.9 mg/dL (1.6-2.6); Osmolality,Calculated 288 (280-300); Phosphorous 2.4 mg/dL (2.7-4.5); Potassium 3.7 mEq/L (3.5-5.1); Sodium 139 mEq/L (136-145); Total Protein 5.6 g/dL (6.4-8.9); eGFR For Non-African Americans > 60 (> 60)
[2019-03-30 02:44] LABS: Anisocytosis 1+ (Not Present); Hypochromasia Present (Not Present); Microcytosis Present (Not Present); Platelet Estimate Decreased (Normal)
[2019-03-30] MEDS ORDERED: 0.9 % Sodium Chloride 250 ML ONE (05:39)
[2019-03-30] MEDS ORDERED: Pantoprazole 80 MG in 0.9 % Sodium Chloride 50 ML IVPB SCH (06:00)
[2019-03-30] MEDS ORDERED: Pantoprazole 40 MG VIAL IVP SCH (06:00)
--- NOTE | 2019-03-30 09:05 | Electrocardiograph Report ---
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
--- NOTE | 2019-03-30 09:16 | Event Note ---
Date of Encounter: 03/30/19 Time of Encounter: 09:11 Spoke with attending, Dr. Wylie, re: pt is established with Dr. Crow for varicies management. He would be better managed by his established GI. Dr. Wylie states she will place consult to GI. Miah lujan APRN aware. Surgery will sign off.
[2019-03-30 11:29] LABS: Mean Corpuscular HGB Conc 29.9 g/dL (31.6-35.5); Mean Corpuscular Hemoglobin 23.2 pg (28.0-33.3); Mean Corpuscular Volume 77.5 fL (83.0-100.0)
[2019-03-30 11:31] LABS: Basophils % 1.1 %; Eosinophils # 0.1 K/mcL (0.0-0.6); Eosinophils % 6.3 %; Hematocrit 22.1 % (37.5-50.1); Hemoglobin 6.6 g/dL (12.9-16.9); Immature Granulocytes % 0.6 % (0-4); Lymphocytes # 0.3 K/mcL (0.6-4.6); Lymphocytes % 16.7 %; Mean Platelet Volume 10.9 fL (9.4-12.4); Monocytes # 0.2 K/mcL (0.0-1.3); Monocytes % 9.8 %; Neutrophils # 1.1 K/mcL (1.6-8.9); Red Blood Count 2.85 M/mcL (4.19-5.50); Segmented Neutrophils % 65.5 %
[2019-03-30 11:33] LABS: Platelet Count 61 K/mcL (140-400)
--- NOTE | 2019-03-30 11:49 | Internal Med Progress Note ---
Hospitalist Progress Note - Encounter Date of Encounter: 03/30/19 Time of Encounter: 09:00 - Subjective Interval History: Patient was seen and examined at bedside. Denies any melena, hematochezia or hematemesis overnight. Denies chest pain or shortness of breath. Is frustrated with his lower extremity dressing that was placed by the nursing staff and we discussed that the wound care nurse will be in today to rewrap his wounds and he is pleased about that. Continues to be nothing by mouth, denies any headache or dizziness. - Exam Vitals: Temp Pulse Resp BP Pulse Ox 97.9 F 69 16 145/79 99 03/30/19 09:10 03/30/19 09:10 03/30/19 09:10 03/30/19 09:10 03/30/19 09:10 Exam: General: Patient is alert, oriented, no acute distress, communicates by writing Head: atraumatic, normocephalic, Eye: normal appearance, PERRL, icterus, no conjunctival injection ENT: mucous membranes moist, normal external ear exam Neck: normal inspection, trachea midline, full ROM, no carotid bruits Chest: normal inspection, symmetric chest rise Respiratory: Good respiratory effort. Bilateral breath sounds are clear without wheezing, crackles, or rhonchi. Cardiovascular: Regular rate and rhythm. s1 and s2 No clicks, rubs, gallops, or murmors. Abdomen: Bowel sounds present normoactive x-4 quadrants. Abdomen is soft, nondistended. no Epigastric tenderness. No guarding or rebound. No organomegaly noted, musculoskeletal: Spontaneously moving all extremities. no edema, no calf tenderness Skin: warm, dry, has multiple ulceration of the lower extremities left medial and lateral ankle, right medical ankle Neuro: Alert and oriented x3, communicates by writing, left-sided weakness secondary to previous stroke, no acute neurological deficit Psych: Patient's affect is normal - Assessment and Plan (1) Acute blood loss anemia Current Visit: Yes Status: Acute Assessment and Plan: Most likely secondary to GI bleed ( UGIB ( has history of varices and ulcers vs LGIB) Has occult blood positive Started on Protonix IV drip Octreotide IV as he has history of cirrhosis with esophageal varices Was transfused 3 unit of PRBC- 4th PrBC is transfusing now discussed case with surgery yesterday and today- recommended GI consult as he is established with [facility]. discussed case with GI- will follow recommendations Continue to monitor CBC every 6 hours and transfuse <7 Avoid over transfusion as he has esophageal varices Continuous pulse ox and telemetry Orthostatics pending - nursing staff aware. NPO (2) Esophageal varices Current Visit: No Status: Chronic Assessment and Plan: has history of large grade III esophageal varices and multiple history of bleeding from liver cirrhosis ( unknown etilogy, ?secondary to alcohol use) S/P Tips in 018 continue with protonix, octreotide and ceftriaxone as above rest of the management and consults as above (3) Heme positive stool Current Visit: Yes Status: Acute Assessment and Plan: Management as above (4) History of DVT (deep vein thrombosis) Current Visit: Yes Status: Acute Assessment and Plan: on chronic pradaxa which is held as he has severe acute anemia heme, onc consulted and discussed case with Dr. browning who recommended to hold the Pradaxa (5) Chronic cutaneous venous stasis ulcer Current Visit: No Status: Acute Assessment and Plan: left medial and lateral ankle, right medical ankle wound care consulted follows with wound care as op last patient was in january 2019 DVT Prophylaxis: scds - Summary of Assessment and Plan Summary of Assessment and Plan: prognosis is guarded - Time Spent with Patient Total time spent is greater than 50% in coordination of care (as documented) at patient's floor/unit and/or counseling patient: Internal Medicine: Result - Labs CBC & Chem 7: 03/30/19 10:55 03/30/19 02:00 Labs: Short CBC 03/29/19 03/29/19 03/30/19 Range/Units 12:56 19:14 02:00 WBC 2.2 L 1.7 L 1.9 L (4.3-11.1) K/mcL Hgb 5.2 L* 5.9 L* 6.3 L (12.9-16.9) g/dL Hct 18.3 L 20.3 L 21.2 L (37.5-50.1) % Plt Count 71 L 73 L 66 L (140-400) K/mcL Neutrophils # 1.5 L 1.0 L 1.1 L (1.6-8.9) K/mcL 03/30/19 Range/Units 10:55 WBC 1.7 L (4.3-11.1) K/mcL Hgb 6.6 L (12.9-16.9) g/dL Hct 22.1 L (37.5-50.1) % Plt Count 61 L (140-400) K/mcL Neutrophils # (1.6-8.9) K/mcL BMP 03/29/19 03/30/19 12:56 02:00 Sodium 141 139 Potassium 3.9 3.7 Chloride 108 H 106 Carbon Dioxide 27 26 BUN 16 15 Creatinine 0.96 0.79 Glucose 100 88 Calcium 9.1 8.6 Cardiac Enzymes 03/29/19 Range/Units 12:56 Troponin I < 0.03 (< 0.04) ng/mL Liver Function 03/29/19 03/30/19 Range/Units 12:56 02:00 Total Bilirubin 0.7 1.2 H (0.3-1.0) mg/dL AST 25 23 (13-39) Units/L ALT 19 18 (7-52) Units/L Alkaline Phosphatase 103 99 (34-104) Units/L Albumin 3.5 3.3 L (3.5-5.7) g/dL - ABG Interpretation ABG results: PT/INR, D-dimer PT 14.7 Seconds (9.4-12.1) H 03/30/19 02:00 Consult Discharge Plan - Plan Referrals: Karthik Ortega DO [Primary Care Provider] - (2) Esophageal varices Qualifiers: Esophageal varices type: unspecified type Esophageal varices bleeding: with bleeding Qualified Code(s): I85.01 - Esophageal varices with bleeding
[2019-03-30 12:03] LABS: Anisocytosis 1+ (Not Present); Hypochromasia Present (Not Present); Platelet Estimate Decreased (Normal)
[2019-03-30] MEDS ORDERED: 0.9 % Sodium Chloride Mini Bag 100 ML ONE (12:53)
--- NOTE | 2019-03-30 13:25 | Gastroenterology Consult Note ---
<Dos SantosMiah vail Chanelle - Last Filed: 03/30/19 13:23> Date of Encounter: 03/30/19 Time of Encounter: 11:25 - Assessment and plan (1) Acute blood loss anemia Current Visit: No Status: Acute Assessment and plan: Hgb 5.6 on 03/28 and pt was instructed to go to the ED for evaluation. Hgb 5.2 on admission and this AM Hgb 6.3. Continue to monitor CBC and transfuse PRBC as needed. Do not think this is variceal bleeding as he would likely be having hematemesis. 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 Plan for EGD and colonoscopy tomorrow. Clear liquid diet today, no red or purple. NPO at midnight. If unable tolerate NuLytely please use MiraLAX prep. If not clear by 6 AM, give 2 tap water enemas. (2) Cirrhosis Current Visit: Yes Status: Acute Assessment and plan: MELD-Na 9 and Child-Krishnamurthy class B. RUQ US 09/10/2018 consistent with cirrhosis with ascites. Recommend 2-4 bowel movements daily, use lactulose PRN. Pt s/p TIPS 09/12/2018. AFP 1 on 12/29/2017. Check AFP and RUQ US to rule out HCC. Lifestyle Changes: 1. Total abstinence from alcohol including social drinking. 2. No smoking. 3. Gradual loss of weight. 4. Drink at least 3 cups of coffee due to its antioxidant effects in the liver, it reduces risk of HCC and advance fibrosis. 5. If needed, use less than 2 g/day of Tylenol (in divided doses). 6. Vaccination for Hep A, B, Pneumococcus if not already received and yearly influenza vaccination by PCP. 7. Avoid NSAIDS as can cause kidney damage. 8. Avoid benzodiazepines and other sedatives such as anti-histamines, narcotics etc. as can cause encephalopathy or confusion. 9. Take a late carbohydrate meal supplement as it reduces glucose production from protein breakdown and thus improves nutrition. 10. In cirrhosis, statins are safe to use and also improve portal hypertension and decrease risk of HCC. 11. Screening: Hepatocellular cancer screening: US of liver and AFP every 6 months Qualifiers: Hepatic cirrhosis type: unspecified hepatic cirrhosis Ascites presence: unspecified Qualified Code(s): K74.60 - Unspecified cirrhosis of liver (3) GI bleed Current Visit: Yes Status: Acute Assessment and plan: As above. Qualifiers: GI bleed type/associated pathology: unspecified gastrointestinal hemorrhage type Qualified Code(s): K92.2 - Gastrointestinal hemorrhage, unspecified - Time Spent With Patient Total time spent is greater than 50% in coordination of care (as documented) at patient's floor/unit and/or counseling patient: GI History of Present Illness - Data of Consult Patient: known to practice within the last 3 years Consult date: 03/30/19 Requesting Physician: Emani Carter - Consult Narrative Reason for consult: Black stool History of present illness: Mr. Atkinson is a 54 year old male with PMHx of recurrent DVTs on Pradaxa, CVA, cirrhosis, esophageal varices, gastric ulcer presneted to the ED with weakness. Labs checked by his PCP showed Hgb 5.6 on 03/28 and pt was instructed to go to the ED for evaluation. Hgb 5.2 on admission and this AM Hgb 6.3 and has received 3 units PRBC. He has had black stools for the past month. He denies fever, chest pain, abdominal pain, nausea, vomiting, diarrhea, or hematochezia. Procedures: EGD 09/08/2018 Dr. Crow: Grade 3 and large esophageal varices which were banded, portal hypertensive gastropathy. EGD 02/14/2018 Dr. Crow: Large esophageal varices, gastritis. EGD 12/31/2017 Dr. Crow: Grade 3 varices, type II gastroesophageal varices, portal hypertensive gastropathy. EGD 12/28/2017 Dr. Braun: Grade 3 esophageal varices, oozing gastric ulcer, clotted blood and cardia. NSAIDs: None Anticoagulation: Pradaxa Past Med Surg Social Fam HX - Past Medical History Medical history: CVA, DVT Additional medical history: Left side deficit form CVA, esophageal Varices. blood clotting disorder Factor V Psychiatric history: no psych history - Past Surgical History Surgical History: cholecystectomy Additional surgical history: TIPS procedure - Social History Smoking Status: Never smoker Smokeless Tobacco Status: No Alcohol use: none Drug use: none - Family History Grandmother Family Member Ethnicity: Non- Father Family Member Ethnicity: Non- Living Status: Hx Family Cardiac Disorders: Yes (Aneurysm) Mother Family Member Ethnicity: Non- Living Status: Hx Family Autoimmune Disorders: Yes (Blood clotting disorder) Brother Family Member Ethnicity: Non- Living Status: Hx Family Cardiac Disorders: Yes (Brain aneurysm) Sister Family Member Ethnicity: Non- Living Status: Still Living Hx Family Cardiac Disorders: Yes (CVA d/t blood clot) - Gastrointestinal Gastrointestinal: Present: as per HPI - Constitutional Constitutional: as per HPI - EENT Eyes: as per HPI Ears: Present: as per HPI Nose, mouth and throat: Present: as per HPI - Cardiovascular Cardiovascular ROS: Present: as per HPI - Respiratory Respiratory IM: Present: as per HPI - Genitourinary Genitourinary: Absent: change in color, Urinary frequency - Neurological ROS Neurological GI: Present: as per HPI - Hematologic/Lymphatic Hematologic/Lymphatic pediatric: Present: as per HPI - Musculoskeletal Musculoskeletal ROS GI: Present: as per HPI - Integumentary Integumentary GI: Present: as per HPI - Psychiatric ROS Psychiatric GI: Present: as per HPI - Endocrine Endocrine IM: Present: as per HPI - Constitutional Vitals: Temp Pulse Resp BP Pulse Ox 97.6 F 77 18 142/84 97 03/30/19 13:20 03/30/19 13:20 03/30/19 13:20 03/30/19 13:20 03/30/19 13:20 General appearance: Present: cooperative, A&O X 3, no acute distress, answers questions appropriately (by writing ) - Head Head exam: Present: atraumatic, normocephalic - Eye Eye exam: Present: normal appearance, sclera anicteric - ENT ENT exam: Present: mucous membranes dry - Neck Neck exam general surgery: Present: normal inspection, trachea midline - Respiratory Respiratory exam: Present: CTAB. Absent: rales, rhonchi - Cardiovascular Cardiovascular exam: Present: RRR, +S1, +S2 - GI/Abdominal GI/Abdominal exam: Present: soft, no peritoneal signs. Absent: distended, firm, guarding, tenderness - Rectal Rectal exam: Present: deferred - Extremities Exam Extremities exam: Present: warm - Neurological Exam Neurological exam: Present: no focal deficits - Psychiatric Psychiatric exam: Present: normal affect, normal mood - Skin Skin exam: Present: dry, intact, normal color, warm Results - Labs CBC & Chem 7: 03/30/19 10:55 03/30/19 02:00 Labs: Last Result 03/30/19 02:00 Calcium 8.6 Entire Visit 03/30/19 03/30/19 03/30/19 02:00 02:00 02:00 Hgb 6.3 L Hct 21.2 L PT 14.7 H Total Bilirubin 1.2 H AST 23 ALT 18 03/30/19 10:55 Hgb 6.6 L Hct 22.1 L PT Total Bilirubin AST ALT - ABG ABG results: PT/INR, D-dimer PT 14.7 Seconds (9.4-12.1) H 03/30/19 02:00 Consult Discharge Plan - Plan Referrals: Karthik Ortega DO [Primary Care Provider] - <Trae Davalos - Last Filed: 03/30/19 18:42> Date of Encounter: 03/30/19 Time of Encounter: 17:00 - Time Spent With Patient Total time spent is greater than 50% in coordination of care (as documented) at patient's floor/unit and/or counseling patient: GI History of Present Illness - Data of Consult Requesting Physician: Emani Carter - Consult Narrative History of present illness: Mr. Atkinson is a 54 year old male - Constitutional Vitals: Temp Pulse Resp BP Pulse Ox 97.8 F 72 16 138/77 98 03/30/19 15:10 03/30/19 15:10 03/30/19 15:10 03/30/19 15:10 03/30/19 15:10 Results - Labs CBC & Chem 7: 03/30/19 16:38 03/30/19 02:00 Labs: Entire Visit 03/30/19 03/30/19 10:55 16:38 Hgb 6.6 L 8.7 L D Hct 22.1 L 28.7 L - ABG ABG results: PT/INR, D-dimer PT 14.7 Seconds (9.4-12.1) H 03/30/19 02:00 - Attending Attestation I have personally performed a face to face evaluation on this patient. I have reviewed and agree with the care plan. History and Exam by me shows: Patient seen at the bedside denies abdominal pain wants to eat. On examination abdomen is soft. Assessment: PMHx of recurrent DVTs on Pradaxa, CVA, cirrhosis, esophageal varices, gastric ulcer presneted to the ED with weakness. Labs checked by his PCP showed Hgb 5.6. No history of vomiting blood. Does has a history of varices. Recommendation: EGD colonoscopy tomorrow with possible variceal banding if found
[2019-03-30] MEDS ORDERED: SODIUM CHLORIDE/NAHCO3/KCL/PEG 4,000 ML SOLN.RECON PO ONE (17:00)
[2019-03-30 17:05] LABS: Basophils % 1.5 %; Eosinophils # 0.1 K/mcL (0.0-0.6); Eosinophils % 6.9 %; Hematocrit 28.7 % (37.5-50.1); Lymphocytes % 22.2 %; Mean Corpuscular HGB Conc 30.3 g/dL (31.6-35.5); Mean Corpuscular Hemoglobin 23.8 pg (28.0-33.3); Mean Corpuscular Volume 78.6 fL (83.0-100.0); Monocytes # 0.3 K/mcL (0.0-1.3); Monocytes % 12.8 %; Red Blood Count 3.65 M/mcL (4.19-5.50); Red Cell Distribution Width 17.2 % (11.5-14.5); Segmented Neutrophils % 56.6 %
[2019-03-30 17:06] LABS: Hemoglobin 8.7 g/dL (12.9-16.9); Lymphocytes # 0.4 K/mcL (0.6-4.6); Neutrophils # 1.1 K/mcL (1.6-8.9); Platelet Count 63 K/mcL (140-400)
[2019-03-30] MEDS: Pantoprazole 40 MG in 0.9 % Sodium Chloride Mini Bag 100 ML IVC SCH ×2 (17:44→21:32)
[2019-03-30] MEDS: 0.9 % Sodium Chloride 1,000 ML IVC SCH (20:54)
[2019-03-30] MEDS: Gentamicin Oint 15 GM TUBE TP SCH (21:22)
--- NOTE | 2019-03-30 23:11 | Anesthesia Evaluation PreOp ---
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 Hx large grade III esophageal Varices s/p Banding. TIPS procedure 08/2018), Bleeding (Hx Recurrent DVTs on Pradaxa. 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 Unsucessful IVC filter attemps secondary to clot burden extending to IVC. NEGATIVE hypercoaguable work up 10/2017 (per admission H&P)), GERD (Hx Gastric ulcer.) Anesthesia History: No Prior Anesthetic Complications, Past Anesthesia (Adrienne, TIPS procedure) Alcohol Use: none Drug use: none Medications and Allergies Dabigatran [Pradaxa] 75 mg PO BID 03/29/19 [History] Allergy/AdvReac Type Severity Reaction Status Date / Time No Known Allergies Allergy Verified 03/29/19 17:25 - Meds/Allergy Pre-op Review Medications Reviewed: Yes Allergies Reviewed: Yes Beta Blockers on Current Med List: Yes (Nadolol) Anesthesia Results - Labs 03/30/19 16:38 03/30/19 02:00 Laboratory Results 03/29/19 03/30/19 03/30/19 12:56 10:55 16:38 WBC 1.7 L 2.0 L RBC 2.85 L 3.65 L Hgb 6.6 L 8.7 L D Hct 22.1 L 28.7 L MCV 77.5 L 78.6 L MCH 23.2 L 23.8 L MCHC 29.9 L 30.3 L RDW 17.0 H 17.2 H Plt Count 61 L 63 L MPV 10.9 10.0 Immature Gran % 0.6 0.0 Seg Neutrophils % 65.5 56.6 Lymphocytes % 16.7 22.2 Monocytes % 9.8 12.8 Eosinophils % 6.3 6.9 Basophils % 1.1 1.5 Neutrophils # 1.1 L 1.1 L Lymphocytes # 0.3 L 0.4 L Monocytes # 0.2 0.3 Eosinophils # 0.1 0.1 Basophils # 0.0 0.0 Platelet Estimate Decreased L Hypochromasia Present A Anisocytosis 1+ A Blood Type A NEGATIVE Antibody Screen NEGATIVE Crossmatch See Detail - Imaging EKG: report reviewed (70bpm - Sinus rhythm Probable left atrial enlargement Electronically Signed On 03-30-2019 9:03:36 EDT by Peggy Liang) Chest x-ray: report reviewed ( XR/XR chest 2V IMPRESSION: No acute cardiopulmonary process.) Anesthesia Exam Vital Signs Temp Pulse Resp BP Pulse Ox 03/30/19 19:26 98.9 F 72 18 142/62 95 03/30/19 15:10 97.8 F 72 16 138/77 98 03/30/19 13:20 97.6 F 77 18 142/84 97 03/30/19 09:10 98.2 F 86 16 134/83 97 03/30/19 06:24 98.6 F 70 16 146/83 96 03/30/19 06:09 98.7 F 77 20 146/68 96 03/30/19 03:23 98.3 F 76 16 146/80 97 03/30/19 01:02 98.3 F 72 16 137/76 98 03/30/19 00:07 98.7 F 72 18 135/84 98 Intake and Output 03/30/19 03/30/19 03/30/19 07:59 15:59 23:59 Intake Total 450 / 1354 600 / 1354 304 / 1354 Output Total 250 / 725 475 / 725 Balance 200 / 629 125 / 629 304 / 629 Intake: IV Fluids 100 / 404 304 / 404 SandoSTATIN 400 MCG In 0.9 % 104 / 104 Sodium Chloride 100 ML @ 25 MCG /HR 6.5 mls/hr IVC .Q16H NIKI Rx #:[id number] Protonix 40 MG In 0.9 % Sodium 100 / 200 100 / 200 Chloride (Mini-Bag +) 100 ML @ 20 mls/hr IVC .Q5H NIKI Rx#: [id number] Rocephin 2,000 MG In 0.9 % 100 / 100 Sodium Chloride (Mini-Bag +) 100 ML @ 200 mls/hr IVPB Q24H NIKI Rx#:[id number] Oral 0 / 0 Blood Product 350 / 950 600 / 950 Rbcs Leuko Poor As-1 Unit 350 / 350 [id number] Rbcs Leuko Poor As-3 2nd Unit 300 / 300 [id number] Rbcs Leuko Poor As-3 2nd Unit 0 / 300 300 / 300 [id number] Output: Urine 250 / 725 475 / 725 Other: Meal BREAKFAST NPO Percent of Meal Consumed 0% # Bowel Movements 0 0 Weight 87.09 kg Blood Glucose* 104 104 Patient Weight 03/30/19 23:59 Weight 87.09 kg Height: 6' Weight: 192# BMI = 26 NPO (# of Hours): MNoc Pain Scale Used: Numeric (1 - 10) - HEENT Pupil (Motor): Pupils equal, EOMI Mallampati: III Teeth: Edentulous Oral Opening: Greater than 3 - 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 CAR 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 CAR ICER Motor: Deficit LUE, Deficit LLE, Deficit Face 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 [employer]ER Sensory: Deficit: RUE, LLE, Face - Cardiac Rhythm: Regular Murmur: None - Pulmonary Breath Sounds: bilateral Clear Respiratory Effort: Symmetrical Anesthesia Assess/Plan ASA Score: 4 (Cirrhosis, GERD.) Level of consciousness: Cooperative, Oriented, Tranquil Anesthetic Plan: General, MAC Monitoring Plan: Standard Monitors Recovery Plan: PACU <Vitor Dykes - Last Filed: 03/31/19 08:15> Date of Encounter: 03/31/19 - Past History Cardiac History: Other (anemia) Pulmonary History: Denies Any Significant HX 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
[2019-03-31] MEDS: Pantoprazole 40 MG in 0.9 % Sodium Chloride Mini Bag 100 ML IVC SCH ×2 (02:32→12:17)
[2019-03-31] MEDS ORDERED: Lidocaine -MPF 2% 2 ML VIAL ONE (06:22)
[2019-03-31] MEDS ORDERED: Propofol 500 MG/50 ML INFUS..BTL ONE (06:25)
[2019-03-31 07:52] LABS: Immature Granulocytes % 0.5 % (0-4)
[2019-03-31 07:53] LABS: Eosinophils # 0.2 K/mcL (0.0-0.6); Eosinophils % 8.3 %; Hemoglobin 7.2 g/dL (12.9-16.9); Lymphocytes # 0.3 K/mcL (0.6-4.6); Lymphocytes % 17.6 %; Mean Corpuscular Hemoglobin 23.5 pg (28.0-33.3); Mean Corpuscular Volume 78.4 fL (83.0-100.0); Mean Platelet Volume 11.3 fL (9.4-12.4); Monocytes # 0.2 K/mcL (0.0-1.3); Monocytes % 9.8 %; Neutrophils # 1.2 K/mcL (1.6-8.9); Red Blood Count 3.06 M/mcL (4.19-5.50); Red Cell Distribution Width 17.2 % (11.5-14.5); Segmented Neutrophils % 62.8 %
[2019-03-31 08:08] LABS: BUN/Creatinine Ratio 14 (6-26); Blood Urea Nitrogen 11 mg/dL (6-20); Calcium 8.1 mg/dL (8.6-10.3); Carbon Dioxide 22 mEq/L (23-29); Chloride 105 mEq/L (98-107); Glucose 101 mg/dL (70-105); Lactate Dehydrogenase 163 Units/L (140-271); Osmolality,Calculated 280 (280-300); Phosphorous 2.5 mg/dL (2.7-4.5); Potassium 3.4 mEq/L (3.5-5.1); Sodium 135 mEq/L (136-145); Transferrin 287 mg/dL (203-362); eGFR For Non-African Americans > 60 (> 60)
[2019-03-31] MEDS ORDERED: 0.9 % Sodium Chloride 500 ML IVC SCH (08:15)
[2019-03-31 08:25] LABS: Ferritin 15 ng/mL (20-250)
[2019-03-31 08:30] LABS: Folate 17.1 ng/mL (3.0-16.0)
[2019-03-31 08:32] LABS: Platelet Count 61 K/mcL (140-400)
[2019-03-31 08:33] LABS: Platelet Estimate Decreased (Normal); Poikilocytosis 1+ (Not Present)
--- NOTE | 2019-03-31 11:58 | Anesthesia Evaluation Post Op ---
Date of Encounter: 03/31/19 Time of Encounter: 11:58 - Vital Signs Vital Signs: Vital Signs/O2 Sat/Glucose, Most Recent Temp Pulse Resp BP Pulse Ox 98.2 F 66 16 172/91 96 03/31/19 10:35 03/31/19 10:35 03/31/19 10:35 03/31/19 10:35 03/31/19 10:35 Blood Glucose* 104 - Lungs Lungs: Clear Ascult./Percussion - Airway Airway: Non-obstructed - Cardiovascular Regular Rate - Mental Status Mental Status: Alert & Oriented, Answers Appropriately - Pain Pain Scale: 0 - Nausea Vomiting Nausea Vomiting: Not Present - Hydration Hydration: NPO - Discharge PostOp Status: Transfer Patient to floor
--- NOTE | 2019-03-31 12:09 | Internal Med Progress Note ---
Hospitalist Progress Note - Encounter Date of Encounter: 03/31/19 Time of Encounter: 12:05 - Subjective Interval History: patient as seen and examined at bedside. S/P EGD and has sore throat. Has no other complaints. Denies fever, chills, hematemesis or melena overnight. All questions answered. - Exam Vitals: Temp Pulse Resp BP Pulse Ox 98.2 F 66 16 172/91 96 03/31/19 10:35 03/31/19 10:35 03/31/19 10:35 03/31/19 10:35 03/31/19 10:35 Exam: General: Patient is alert, oriented, no acute distress, communicates by writing Head: atraumatic, normocephalic, Eye: normal appearance, PERRL, icterus, no conjunctival injection ENT: mucous membranes moist, normal external ear exam Neck: normal inspection, trachea midline, full ROM, no carotid bruits Chest: normal inspection, symmetric chest rise Respiratory: Good respiratory effort. Bilateral breath sounds are clear without wheezing, crackles, or rhonchi. Cardiovascular: Regular rate and rhythm. s1 and s2 No clicks, rubs, gallops, or murmors. Abdomen: Bowel sounds present normoactive x-4 quadrants. Abdomen is soft, nondistended. no Epigastric tenderness. No guarding or rebound. No organomegaly noted, musculoskeletal: Spontaneously moving all extremities. no edema, no calf tenderness Skin: warm, dry, has multiple ulceration of the lower extremities left medial and lateral ankle, right medical ankle Neuro: Alert and oriented x3, communicates by writing, left-sided weakness secondary to previous stroke, no acute neurological deficit Psych: Patient's affect is normal - Assessment and Plan (1) Acute blood loss anemia Current Visit: Yes Status: Acute Assessment and Plan: secondary to GIB S/P 4PRBC S/P EGD and colonoscopy Has occult blood positive protonix 40 mg BID GI on board Continue to monitor CBC every 6 hours and transfuse <7 Avoid over transfusion as he has esophageal varices Continuous pulse ox and telemetry Orthostatics pending - nursing staff aware. (2) Esophageal varices Current Visit: No Status: Chronic Assessment and Plan: has history of large grade III esophageal varices and multiple history of bleeding from liver cirrhosis ( unknown etiology, ?secondary to alcohol use) S/P Tips in 2018 S/P EGD and colonoscopy on 03/31/2019- which showed grade 3 esophageal varices, an completely eradicated, banded. Type I gastroesophageal varices which extend along the lesser curvature without bleeding, gastritis, Colonoscopy showed congested mucosa in the entire examined colon, a single colonic angioectasia which was treated rest of the management and consults as above (3) Cirrhosis Current Visit: Yes Status: Acute Assessment and Plan: MELD-Na 9 and Child-Krishnamurthy class B. Pt s/p TIPS 09/12/2018. AFP in process RUQ US on 03/30/2019- No evidence of liver masses to suggest liver malignancy. The TIPS shunt was not evaluated. Status post cholecystectomy. (4) Heme positive stool Current Visit: Yes Status: Acute Assessment and Plan: Management as above (5) History of DVT (deep vein thrombosis) Current Visit: Yes Status: Acute Assessment and Plan: on chronic pradaxa which is held as he has severe acute anemia heme, onc consulted and discussed case with Dr. browning who recommended to hold the Pradaxa will follow further recs (6) Chronic cutaneous venous stasis ulcer Current Visit: No Status: Acute Assessment and Plan: left medial and lateral ankle, right medical ankle wound care on board DVT Prophylaxis: scds - Time Spent with Patient Total time spent is greater than 50% in coordination of care (as documented) at patient's floor/unit and/or counseling patient: Internal Medicine: Result - Labs CBC & Chem 7: 03/31/19 13:04 03/31/19 07:30 Labs: Short CBC 03/30/19 03/31/19 Range/Units 16:38 07:30 WBC 2.0 L 1.9 L (4.3-11.1) K/mcL Hgb 8.7 L D 7.2 L D (12.9-16.9) g/dL Hct 28.7 L 24.0 L (37.5-50.1) % Plt Count 63 L 61 L (140-400) K/mcL Neutrophils # 1.1 L 1.2 L (1.6-8.9) K/mcL BMP 03/31/19 07:30 Sodium 135 L Potassium 3.4 L Chloride 105 Carbon Dioxide 22 L BUN 11 Creatinine 0.79 Glucose 101 Calcium 8.1 L - ABG Interpretation ABG results: PT/INR, D-dimer PT 14.7 Seconds (9.4-12.1) H 03/30/19 02:00 - Impressions Impressions Liver Ultrasound 03/31/19 07:30 IMPRESSION: No evidence of liver masses to suggest liver malignancy. The TIPS shunt was not evaluated. Status post cholecystectomy. D/ / 03/31/2019 08:17:08 Cori Flores MD / bcarter Interpreting Provider: Cori Flores MD Consult Discharge Plan - Plan Referrals: Karthik Ortega DO [Primary Care Provider] - (2) Esophageal varices Qualifiers: Esophageal varices type: unspecified type Esophageal varices bleeding: with bleeding Qualified Code(s): I85.01 - Esophageal varices with bleeding (3) Cirrhosis Qualifiers: Hepatic cirrhosis type: unspecified hepatic cirrhosis Ascites presence: unspecified Qualified Code(s): K74.60 - Unspecified cirrhosis of liver
[2019-03-31] MEDS ORDERED: Famotidine 20 MG TABLET PO STA (12:40)
--- NOTE | 2019-03-31 13:16 | Oncology Inp Progress Note ---
<Otf Kay - Last Filed: 03/31/19 16:58> Date of Encounter: 03/31/19 Time of Encounter: 16:58 Oncology: Obj Data - Labs CBC & Chem 7: 03/31/19 13:04 03/31/19 07:30 Consult Discharge Plan - Plan Referrals: Karthik Ortega DO [Primary Care Provider] - Inpatient Charges Provider: Dr. Eunice Kay Follow up - Inpatient: [id number] - Attending Attestation I examined this patient and my medical decision-making was reviewed with the Advanced Practice Nurse. I agree with the documented findings, disposition and treatment plan as described except to the extent set forth below. -Patient s/p EGD and colonoscopy -H/H has improved; he has been transfused 4 units of PRBCs -We would recommend holding pradaxa until 04/03/19 -If patient's H/H remains stable throughout the weekend, would recommend res tarting pradaxa 75 mg PO BID the morning of 04/03/19 -Patient with iron deficiency anemia; administered Venofer 400 mg IV <Ingrid Raya - Last Filed: 03/31/19 17:23> Date of Encounter: 03/31/19 (1) Acute blood loss anemia Current Visit: No Status: Acute Assessment and plan: secondary to GIB S/P 4PRBC EGD today reveals grade 3 varices in the lower two thirds of the esophagus and scars of previous banding, 9 bands were successfully placed within incomplete eradication of varices, type I gastroesophageal varices with no bleeding were found in the gastric fundus, diffuse severe inflammation characterized by congestion, erythema and friability found in the gastric body Colonoscopy today reveals ingested mucosa in the entire colon, a single medium- size local into TCR was found in the descending colon, coagulation with a APC was deployed Plan: Transfuse to keep hgb >7 Repeat hgb today 8.8 Iron deficiency noted, ordered venofer 400 mg IV x1 (2) Chronic cutaneous venous stasis ulcer Current Visit: No Status: Acute Assessment and plan: Wound care consulted and following Recommend continued outpatient wound clinic appointments (3) History of DVT (deep vein thrombosis) Current Visit: Yes Status: Acute Assessment and plan: Extensive history of recurrent DVT with failure of multiple lines of anticoagulants Most recent DVT in August 2018, so he has had almost 7 months of treatment for acute DVT Pradaxa 75 mg BID (already on reduced dosage for history of bleeding) has been on hold since admission Restart date is TBD, he remains at high risk for bleeding but due to extensive thrombotic history we will need to discuss re-initiation at some point May plan to restart Pradaxa on 04/03/2019 dependent upon hgb trend (4) Portal hypertension Current Visit: No Status: Chronic Assessment and plan: Longstanding history of hepatic cirrhosis MELD-Na 9 RUQ US 03/31/19 No evidence of liver masses to suggest liver malignancy. The TIPS shunt was not evaluated. Status post cholecystectomy. AFP 1 Plan: Appreciate continued recommendations per GI Oncology: Subj Interval history: Mr. Atkinson is resting in bed. He reports some esophageal discomfort/odynophagia following his EGD. His is at bedside. He otherwise denies any s/s bleeding. His is requesting wound care to evaluate patients BLE venous stasis wounds, I did verify that wound care has already been consulted and have given dressing recommendations. - Constitutional General appearance: cooperative, no acute distress, no febrile - Head Head exam: Present: atraumatic - ENT ENT exam: Present: mucous membranes moist, normal oropharynx - Respiratory Respiratory exam: Present: CTAB. Absent: respiratory distress - Cardiovascular Cardiovascular exam: Present: RRR - GI/Abdominal GI/Abdominal exam: Present: normal bowel sounds, soft. Absent: tenderness - Extremities Exam Additional comments: Gauze dressings dry and intact to BLE, wounds not observed at this time, patient has a history of BLE venous stasis ulcers and follows with wound care clinic - Neurological Exam Neurological exam: Present: alert, no focal deficits, strengths equal and symetr throughout Additional comments: verbally aphasic at baseline due to history of CVA - Psychiatric Psychiatric exam: Present: normal affect, normal mood - Skin Skin exam: Present: dry, intact, pallor, warm Oncology: Obj Data - Labs CBC & Chem 7: 03/31/19 13:04 03/31/19 07:30 Inpatient Charges Provider: Dr. Eunice Kay
[2019-03-31 14:27] LABS: Red Cell Distribution Width 17.2 % (11.5-14.5)
[2019-03-31 14:29] LABS: Hematocrit 28.8 % (37.5-50.1); Hemoglobin 8.8 g/dL (12.9-16.9); Mean Corpuscular HGB Conc 30.6 g/dL (31.6-35.5); Mean Corpuscular Hemoglobin 23.7 pg (28.0-33.3); Mean Corpuscular Volume 77.4 fL (83.0-100.0); Mean Platelet Volume 10.3 fL (9.4-12.4); Red Blood Count 3.72 M/mcL (4.19-5.50)
[2019-03-31] MEDS: Gentamicin Oint 15 GM TUBE TP SCH (15:26)
[2019-03-31] MEDS ORDERED: Iron Sucrose Complex 400 MG in 0.9 % Sodium Chloride 250 ML IVPB ONE (16:00)
[2019-03-31] MEDS: cefTRIAXone 2,000 MG in 0.9 % Sodium Chloride Mini Bag 100 ML IVPB SCH (19:34)
[2019-03-31] MEDS ORDERED: traMADol 50 MG TABLET PO ONE (19:45)
[2019-03-31] MEDS ORDERED: Potassium Chloride Elixir 20 MEQ/15 ML UDC PO ONE (19:48)
[2019-04-01 01:35] LABS: Hematocrit 26.6 % (37.5-50.1)
[2019-04-01 01:36] LABS: Hemoglobin 8.2 g/dL (12.9-16.9); Immature Platelets 5.1 % (1.1-6.1); Mean Corpuscular HGB Conc 30.8 g/dL (31.6-35.5); Mean Corpuscular Hemoglobin 23.6 pg (28.0-33.3); Mean Corpuscular Volume 76.4 fL (83.0-100.0); Red Blood Count 3.48 M/mcL (4.19-5.50); Red Cell Distribution Width 17.1 % (11.5-14.5)
[2019-04-01 01:54] LABS: BUN/Creatinine Ratio 12 (6-26); Blood Urea Nitrogen 10 mg/dL (6-20); Calcium 7.9 mg/dL (8.6-10.3); Carbon Dioxide 24 mEq/L (23-29); Chloride 104 mEq/L (98-107); Glucose 94 mg/dL (70-105); Osmolality,Calculated 283 (280-300); Potassium 3.7 mEq/L (3.5-5.1); Sodium 137 mEq/L (136-145); eGFR For Non-African Americans > 60 (> 60)
[2019-04-01 04:40] LABS: % Iron Saturation 6 % (20-55); Iron 26 mcg/dL (65-175)
[2019-04-01 08:20] LABS: VBG Ionized Calcium 1.09 mmol/L (1.15-1.35)
[2019-04-01 08:30] LABS: Phosphorous 2.2 mg/dL (2.7-4.5)
--- NOTE | 2019-04-01 13:23 | Internal Med Progress Note ---
Hospitalist Progress Note - Encounter Date of Encounter: 04/01/19 Time of Encounter: 09:00 (.) - Subjective Interval History: Patient was seen and examined at bedside, has no complaints, denies any melena, hematemesis or hematochezia overnight. Sore throat has resolved status post EGD. Denies any chest pain or palpitations, is pleased with the wound care for bilateral lower extremities. Tolerating by mouth diet - Exam Vitals: Temp Pulse Resp BP Pulse Ox 98.6 F 80 16 120/67 94 04/01/19 10:27 04/01/19 10:27 04/01/19 10:27 04/01/19 10:27 04/01/19 10:27 Exam: General: Patient is alert, oriented, no acute distress, communicates by writing Head: atraumatic, normocephalic, Eye: normal appearance, PERRL, icterus, no conjunctival injection ENT: mucous membranes moist, normal external ear exam Neck: normal inspection, trachea midline, full ROM, no carotid bruits Chest: normal inspection, symmetric chest rise Respiratory: Good respiratory effort. Bilateral breath sounds are clear without wheezing, crackles, or rhonchi. Cardiovascular: Regular rate and rhythm. s1 and s2 No clicks, rubs, gallops, or murmors. Abdomen: Bowel sounds present normoactive x-4 quadrants. Abdomen is soft, nondistended. no Epigastric tenderness. No guarding or rebound. No organomegaly noted, musculoskeletal: Spontaneously moving all extremities. no edema, no calf tenderness Skin: warm, dry, has multiple ulceration of the lower extremities, wrapped in clean dressing Neuro: Alert and oriented x3, communicates by writing, left-sided weakness secondary to previous stroke, no acute neurological deficit Psych: Patient's affect is normal - Assessment and Plan (1) Acute blood loss anemia Current Visit: Yes Status: Acute Assessment and Plan: secondary to GIB S/P 4PRBC S/P EGD and colonoscopy Has occult blood positive protonix 40 mg BID GI on board Continue to monitor CBC every 6 hours and transfuse <7 Avoid over transfusion as he has esophageal varices Continuous pulse ox and telemetry (2) Esophageal varices Current Visit: No Status: Chronic Assessment and Plan: has history of large grade III esophageal varices and multiple history of bleeding from liver cirrhosis ( unknown etiology, ?secondary to alcohol use) S/P Tips in 2018 S/P EGD and colonoscopy on 03/31/2019- which showed grade 3 esophageal varices, an completely eradicated, banded. Type I gastroesophageal varices which extend along the lesser curvature without bleeding, gastritis, Colonoscopy showed congested mucosa in the entire examined colon, a single colonic angioectasia which was treated rest of the management and consults as above (3) Cirrhosis Current Visit: Yes Status: Acute Assessment and Plan: MELD-Na 9 and Child-Krishnamurthy class B. Pt s/p TIPS 09/12/2018. AFP in process RUQ US on 03/30/2019- No evidence of liver masses to suggest liver malignancy. The TIPS shunt was not evaluated. Status post cholecystectomy. (4) Heme positive stool Current Visit: Yes Status: Acute Assessment and Plan: Management as above (5) History of DVT (deep vein thrombosis) Current Visit: Yes Status: Acute Assessment and Plan: on chronic pradaxa which is held as he has severe acute anemia heme, onc consulted and discussed case with Dr. browning who recommended to hold the Pradaxa As per oncology recommendation on 03/31 "If patient's H/H remains stable throughout the weekend, would recommend restarting pradaxa 75 mg PO BID the morning of 04/03/19" (6) Chronic cutaneous venous stasis ulcer Current Visit: No Status: Acute Assessment and Plan: left medial and lateral ankle, right medical ankle wound care on board DVT Prophylaxis: scds - Time Spent with Patient Total time spent is greater than 50% in coordination of care (as documented) at patient's floor/unit and/or counseling patient: 25 - 35 minutes Plan of Care Discussed with: patient Internal Medicine: Result - Labs CBC & Chem 7: 04/01/19 00:59 04/01/19 00:59 Labs: Short CBC 03/31/19 04/01/19 Range/Units 13:04 00:59 WBC 2.2 L 3.5 L D (4.3-11.1) K/mcL Hgb 8.8 L D 8.2 L (12.9-16.9) g/dL Hct 28.8 L 26.6 L (37.5-50.1) % Plt Count 65 L 64 L (140-400) K/mcL BMP 04/01/19 00:59 Sodium 137 Potassium 3.7 Chloride 104 Carbon Dioxide 24 BUN 10 Creatinine 0.84 Glucose 94 Calcium 7.9 L - ABG Interpretation ABG results: PT/INR, D-dimer PT 14.7 Seconds (9.4-12.1) H 03/30/19 02:00 Consult Discharge Plan - Plan Referrals: Karthik Ortega DO [Primary Care Provider] - (2) Esophageal varices Qualifiers: Esophageal varices type: unspecified type Esophageal varices bleeding: with bleeding Qualified Code(s): I85.01 - Esophageal varices with bleeding (3) Cirrhosis Qualifiers: Hepatic cirrhosis type: unspecified hepatic cirrhosis Ascites presence: unspecified Qualified Code(s): K74.60 - Unspecified cirrhosis of liver
[2019-04-01] MEDS: Gentamicin Oint 15 GM TUBE TP SCH (17:12)
[2019-04-01] MEDS: cefTRIAXone 2,000 MG in 0.9 % Sodium Chloride Mini Bag 100 ML IVPB SCH (18:40)
[2019-04-02 04:03] LABS: Hematocrit 25.5 % (37.5-50.1); Hemoglobin 7.9 g/dL (12.9-16.9); Mean Corpuscular Volume 77.5 fL (83.0-100.0); Red Blood Count 3.29 M/mcL (4.19-5.50); Red Cell Distribution Width 17.9 % (11.5-14.5)
[2019-04-02 04:04] LABS: Platelet Count 64 K/mcL (140-400)
--- NOTE | 2019-04-02 12:44 | Internal Med Progress Note ---
Hospitalist Progress Note - Encounter Date of Encounter: 04/02/19 Time of Encounter: 09:25 - Subjective Interval History: Patient was seen and examined at bedside. Is tolerating by mouth diet. Has had no hematemesis, melena or hematochezia. Wounds are wrapped and he is pleased with the wound care. All questions answered. I discussed that as per oncology recommendations we are to restart pradaxa as he is at increased risk for blood clot formation as he has history of multiple DVTs. will continue to monitor his H/H closely. he is in agreement - Exam Vitals: Temp Pulse Resp BP Pulse Ox 98.7 F 76 14 111/69 98 04/02/19 11:06 04/02/19 11:06 04/02/19 11:06 04/02/19 11:06 04/02/19 11:06 Exam: General: Patient is alert, oriented, no acute distress, communicates by writing Head: atraumatic, normocephalic, Eye: normal appearance, PERRL, icterus, no conjunctival injection ENT: mucous membranes moist, normal external ear exam Neck: normal inspection, trachea midline, full ROM, no carotid bruits Chest: normal inspection, symmetric chest rise Respiratory: Good respiratory effort. Bilateral breath sounds are clear without wheezing, crackles, or rhonchi. Cardiovascular: Regular rate and rhythm. s1 and s2 No clicks, rubs, gallops, or murmors. Abdomen: Bowel sounds present normoactive x-4 quadrants. Abdomen is soft, nondistended. no Epigastric tenderness. No guarding or rebound. No organomegaly noted, musculoskeletal: Spontaneously moving all extremities. no edema, no calf tenderness Skin: warm, dry, has multiple ulceration of the lower extremities, wrapped in clean dressing Neuro: Alert and oriented x3, communicates by writing, left-sided weakness secondary to previous stroke, no acute neurological deficit Psych: Patient's affect is normal - Assessment and Plan (1) Acute blood loss anemia Current Visit: Yes Status: Acute Assessment and Plan: secondary to GIB S/P 4PRBC S/P EGD and colonoscopy Has occult blood positive protonix 40 mg BID GI on board Continue to monitor CBC every 6 hours and transfuse <7 Avoid over transfusion as he has esophageal varices Continuous pulse ox and telemetry (2) Esophageal varices Current Visit: No Status: Chronic Assessment and Plan: has history of large grade III esophageal varices and multiple history of bleeding from liver cirrhosis ( unknown etiology, ?secondary to alcohol use) S/P Tips in 2018 S/P EGD and colonoscopy on 03/31/2019- which showed grade 3 esophageal varices, an completely eradicated, banded. Type I gastroesophageal varices which extend along the lesser curvature without bleeding, gastritis, Colonoscopy showed congested mucosa in the entire examined colon, a single colonic angioectasia which was treated rest of the management and consults as above (3) Cirrhosis Current Visit: Yes Status: Acute Assessment and Plan: MELD-Na 9 and Child-Krishnamurthy class B. Pt s/p TIPS 09/12/2018. AFP in process RUQ US on 03/30/2019- No evidence of liver masses to suggest liver malignancy. The TIPS shunt was not evaluated. Status post cholecystectomy. (4) Heme positive stool Current Visit: Yes Status: Acute Assessment and Plan: Management as above (5) History of DVT (deep vein thrombosis) Current Visit: Yes Status: Acute Assessment and Plan: on chronic pradaxa which is held as he has severe acute anemia heme, onc consulted and discussed case with Dr. browning who recommended to hold the Pradaxa As per oncology recommendation on 03/31 "If patient's H/H remains stable throughout the weekend, would recommend restarting pradaxa 75 mg PO BID the morning of 04/03/19" (6) Chronic cutaneous venous stasis ulcer Current Visit: No Status: Acute Assessment and Plan: left medial and lateral ankle, right medical ankle wound care on board (7) Hypocalcemia Current Visit: Yes Status: Acute Assessment and Plan: replaced, vitamin D pending (8) Hypophosphatemia Current Visit: Yes Status: Acute Assessment and Plan: replaced- follow in AM - Time Spent with Patient Total time spent is greater than 50% in coordination of care (as documented) at patient's floor/unit and/or counseling patient: 25 - 35 minutes Internal Medicine: Result - Labs CBC & Chem 7: 04/02/19 03:18 04/01/19 00:59 Labs: Short CBC 04/02/19 Range/Units 03:18 WBC 4.3 (4.3-11.1) K/mcL Hgb 7.9 L (12.9-16.9) g/dL Hct 25.5 L (37.5-50.1) % Plt Count 64 L (140-400) K/mcL - ABG Interpretation ABG results: PT/INR, D-dimer PT 14.7 Seconds (9.4-12.1) H 03/30/19 02:00 Consult Discharge Plan - Plan Referrals: Karthik Ortega DO [Primary Care Provider] - (2) Esophageal varices Qualifiers: Esophageal varices type: unspecified type Esophageal varices bleeding: with bleeding Qualified Code(s): I85.01 - Esophageal varices with bleeding (3) Cirrhosis Qualifiers: Hepatic cirrhosis type: unspecified hepatic cirrhosis Ascites presence: uns pecified Qualified Code(s): K74.60 - Unspecified cirrhosis of liver
[2019-04-02] MEDS: Gentamicin Oint 15 GM TUBE TP SCH (16:42)
[2019-04-02] MEDS ORDERED: CefTRIAXone 2,000 MG VIAL ONE (18:35)
[2019-04-02] MEDS: cefTRIAXone 2,000 MG in 0.9 % Sodium Chloride Mini Bag 100 ML IVPB SCH (18:50)
[2019-04-03 03:53] LABS: Hematocrit 26.5 % (37.5-50.1); Hemoglobin 8.2 g/dL (12.9-16.9); Mean Corpuscular HGB Conc 30.9 g/dL (31.6-35.5); Mean Corpuscular Hemoglobin 24.1 pg (28.0-33.3); Mean Corpuscular Volume 77.9 fL (83.0-100.0); Mean Platelet Volume 10.6 fL (9.4-12.4); Platelet Count 57 K/mcL (140-400); Red Cell Distribution Width 19.1 % (11.5-14.5)
[2019-04-03] MEDS: Cholecalciferol (D-3) 1,000 UNIT TABLET PO SCH (07:39)
[2019-04-03] MEDS: Gentamicin Oint 15 GM TUBE TP SCH (09:15)
--- NOTE | 2019-04-03 11:08 | Oncology Inp Progress Note ---
<RahulOtf - Last Filed: 04/03/19 17:37> Date of Encounter: 04/03/19 Time of Encounter: 17:37 Oncology: Obj Data - Labs CBC & Chem 7: 04/03/19 03:33 04/01/19 00:59 Consult Discharge Plan - Plan Referrals: Karthik Ortega DO [Primary Care Provider] - Inpatient Charges Provider: Dr. Eunice Kay Follow up - Inpatient: [id number] - Attending Attestation I examined this patient and my medical decision-making was reviewed with the Advanced Practice Nurse. I agree with the documented findings, disposition and treatment plan as described except to the extent set forth below. -Plts 57 and Hgb 8.2 -Please continue to hold Pradaxa -We will continue to follow along with you <Kelly Dacosta - Last Filed: 04/04/19 07:50> Date of Encounter: 04/03/19 (1) Acute blood loss anemia Current Visit: No Status: Acute Assessment and plan: 1) secondary to GIB S/P 4PRBC EGD today reveals grade 3 varices in the lower two thirds of the esophagus and scars of previous banding, 9 bands were successfully placed within incomplete eradication of varices, type I gastroesophageal varices with no bleeding were found in the gastric fundus, diffuse severe inflammation characterized by congestion, erythema and friability found in the gastric body Colonoscopy today reveals ingested mucosa in the entire colon, a single medium- size local into TCR was found in the descending colon, coagulation with a APC was deployed Plan: Transfuse to keep hgb >7 Hgb 8.2 Iron deficiency noted, ordered venofer 400 mg IV x1 I (2) Chronic cutaneous venous stasis ulcer Current Visit: No Status: Acute Assessment and plan: Wound care consulted and following Recommend continued outpatient wound clinic appointments (3) DVT prophylaxis Current Visit: No Status: Acute Assessment and plan: 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 Hgb stable at 8.2 However, Plt count declining. 04/03/19 57,000 Plan: Hold Pradaxa at this time. Continue to monitor plts and hgb. Oncology: Subj Interval history: Mr. Atkinson, is awake, sitting up in bed this afternoon. Upon first assessment, he was sleeping soundly. He communicates by writing on paper. He notes that he had abdominal pain, but feels better after having a loose stool. He denies fever or chills. Discussed that his platelets are too low right now to resume his Pradaxa. He nods with acceptance of information. He denies additional compl aints. - Respiratory Respiratory exam: Present: CTAB - Cardiovascular Cardiovascular exam: Present: RRR - GI/Abdominal GI/Abdominal exam: Present: normal bowel sounds, soft. Absent: tenderness - Extremities Exam Extremities exam: Present: normal capillary refill, normal inspection. Absent: pedal edema - Neurological Exam Neurological exam: Present: alert Additional comments: Left arm weaker than right. - Skin Additional comments: scattered bruising to upper extremities Oncology: Obj Data - Labs CBC & Chem 7: 04/04/19 04:30 04/01/19 00:59
--- NOTE | 2019-04-03 13:47 | Internal Med Progress Note ---
Hospitalist Progress Note - Encounter Date of Encounter: 04/03/19 Time of Encounter: 10:00 - Subjective Interval History: Patient was seen and examined at bedside. Denies any hematemesis, hematochezia or melena. Tolerating by mouth diet. Pain is controlled. All questions answered, he has had no chest pain or shortness of breath no acute overnight events. I discussed that I will speak to the pathology team about restarting his anticoagulation as he is at high risk for blood clot formation given his history and he is in agreement. - Exam Vitals: Temp Pulse Resp BP Pulse Ox 98.5 F 90 16 120/74 98 04/03/19 11:43 04/03/19 11:43 04/03/19 11:43 04/03/19 11:43 04/03/19 11:43 Exam: General: Patient is alert, oriented, no acute distress, communicates by writing Head: atraumatic, normocephalic, Eye: normal appearance, PERRL, icterus, no conjunctival injection ENT: mucous membranes moist, normal external ear exam Neck: normal inspection, trachea midline, full ROM, no carotid bruits Chest: normal inspection, symmetric chest rise Respiratory: Good respiratory effort. Bilateral breath sounds are clear without wheezing, crackles, or rhonchi. Cardiovascular: Regular rate and rhythm. s1 and s2 No clicks, rubs, gallops, or murmors. Abdomen: Bowel sounds present normoactive x-4 quadrants. Abdomen is soft, nondistended. no Epigastric tenderness. No guarding or rebound. No organomegaly noted, musculoskeletal: Spontaneously moving all extremities. no edema, no calf tenderness Skin: warm, dry, has multiple ulceration of the lower extremities, wrapped in clean dressing Neuro: Alert and oriented x3, communicates by writing, left-sided weakness secondary to previous stroke, no acute neurological deficit Psych: Patient's affect is normal - Assessment and Plan (1) Acute blood loss anemia Current Visit: Yes Status: Acute Assessment and Plan: secondary to GIB S/P 4PRBC S/P EGD and colonoscopy Has occult blood positive protonix 40 mg BID GI on board Continue to monitor CBC every 6 hours and transfuse <7 Avoid over transfusion as he has esophageal varices Continuous pulse ox and telemetry (2) Esophageal varices Current Visit: No Status: Chronic Assessment and Plan: has history of large grade III esophageal varices and multiple history of bleeding from liver cirrhosis ( unknown etiology, ?secondary to alcohol use) S/P Tips in 2018 S/P EGD and colonoscopy on 03/31/2019- which showed grade 3 esophageal varices, an completely eradicated, banded. Type I gastroesophageal varices which extend along the lesser curvature without bleeding, gastritis, Colonoscopy showed congested mucosa in the entire examined colon, a single colonic angioectasia which was treated rest of the management and consults as above continue with ceftriaxone for SBP prophylaxis day 6 7. (3) Cirrhosis Current Visit: Yes Status: Acute Assessment and Plan: MELD-Na 9 and Child-Krishnamurthy class B. Pt s/p TIPS 09/12/2018. AFP in process RUQ US on 03/30/2019- No evidence of liver masses to suggest liver malignancy. The TIPS shunt was not evaluated. Status post cholecystectomy. (4) Heme positive stool Current Visit: Yes Status: Acute Assessment and Plan: Management as above (5) History of DVT (deep vein thrombosis) Current Visit: Yes Status: Acute Assessment and Plan: on chronic pradaxa which is held as he has severe acute anemia heme, onc consulted and discussed case with Dr. browning who recommended to hold the Pradaxa As per oncology recommendation on 03/31 "If patient's H/H remains stable throughout the weekend, would recommend restarting pradaxa 75 mg PO BID the morning of 04/03/19" Discussed with hematology oncology on 04/03 about restarting the Pradaxa however they recommended to hold off on starting Pradaxa today as his platelet levels trended down to 257 from 64. (6) Chronic cutaneous venous stasis ulcer Current Visit: No Status: Acute Assessment and Plan: left medial and lateral ankle, right medical ankle wound care on board (7) Hypocalcemia Current Visit: Yes Status: Acute Assessment and Plan: replaced vitamin D 29- started on replacement (8) Hypophosphatemia Current Visit: Yes Status: Acute Assessment and Plan: replaced- follow in AM - Time Spent with Patient Total time spent is greater than 50% in coordination of care (as documented) at patient's floor/unit and/or counseling patient: Internal Medicine: Result - Labs CBC & Chem 7: 04/03/19 03:33 04/01/19 00:59 Labs: Short CBC 05/20/19 Range/Units 03:33 WBC 4.2 L (4.3-11.1) K/mcL Hgb 8.2 L (12.9-16.9) g/dL Hct 26.5 L (37.5-50.1) % Plt Count 57 L (140-400) K/mcL - ABG Interpretation ABG results: PT/INR, D-dimer PT 14.7 Seconds (9.4-12.1) H 03/30/19 02:00 Consult Discharge Plan - Plan Referrals: Karthik Ortega DO [Primary Care Provider] - (2) Esophageal varices Qualifiers: Esophageal varices type: unspecified type Esophageal varices bleeding: with bleeding Qualified Code(s): I85.01 - Esophageal varices with bleeding (3) Cirrhosis Qualifiers: Hepatic cirrhosis type: unspecified hepatic cirrhosis Ascites presence: unspecified Qualified Code(s): K74.60 - Unspecified cirrhosis of liver
[2019-04-03] MEDS: cefTRIAXone 2,000 MG in 0.9 % Sodium Chloride Mini Bag 100 ML IVPB SCH (17:35)
[2019-04-04 04:52] LABS: Hematocrit 26.5 % (37.5-50.1); Mean Corpuscular HGB Conc 30.2 g/dL (31.6-35.5); Mean Corpuscular Volume 79.6 fL (83.0-100.0); Mean Platelet Volume 10.1 fL (9.4-12.4); Red Blood Count 3.33 M/mcL (4.19-5.50); Red Cell Distribution Width 19.8 % (11.5-14.5)
[2019-04-04] MEDS: Cholecalciferol (D-3) 1,000 UNIT TABLET PO SCH (08:01)
[2019-04-04] MEDS: Gentamicin Oint 15 GM TUBE TP SCH (08:01)
--- NOTE | 2019-04-04 13:47 | Oncology Inp Progress Note ---
<ElverIngrid L - Last Filed: 04/04/19 16:46> Date of Encounter: 04/04/19 Time of Encounter: 16:46 (1) Acute blood loss anemia Current Visit: No Status: Acute Assessment and plan: secondary to GIB S/P 4PRBC EGD today reveals grade 3 varices in the lower two thirds of the esophagus and scars of previous banding, 9 bands were successfully placed within incomplete eradication of varices, type I gastroesophageal varices with no bleeding were found in the gastric fundus, diffuse severe inflammation characterized by congestion, erythema and friability found in the gastric body Colonoscopy today reveals ingested mucosa in the entire colon, a single medium- size local angioectasia was found in the descending colon, coagulation with a APC was deployed Plan: Transfuse to keep hgb >7 Hgb stable Iron deficiency noted, s/p venofer 400 mg IV x1 (2) Chronic cutaneous venous stasis ulcer Current Visit: No Status: Acute Assessment and plan: Wound care consulted and following Recommend continued outpatient wound clinic appointments (3) History of DVT (deep vein thrombosis) Current Visit: Yes Status: Acute Assessment and plan: 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 Jeffers can consider as outpatient Unless his hgb and platelet count recovers, would recommend outpatient follow up with Dr. Jeffers within one week for CBC and to discuss restarting anticoagulation at that time. (4) Portal hypertension Current Visit: No Status: Chronic Assessment and plan: Longstanding history of hepatic cirrhosis MELD-Na 9 RUQ US 03/31/19 No evidence of liver masses to suggest liver malignancy. The TIPS shunt was not evaluated. Status post cholecystectomy. AFP 1 Plan: Appreciate continued recommendations per GI Oncology: Subj Interval history: No acute events noted overnight. Hgb and Platelet count are stable. No s/s bleeding. - Constitutional General appearance: cooperative, no acute distress, no febrile - Head Head exam: Present: atraumatic - Respiratory Respiratory exam: Present: CTAB. Absent: respiratory distress - Cardiovascular Cardiovascular exam: Present: RRR, +S1, +S2 - GI/Abdominal GI/Abdominal exam: Present: normal bowel sounds, soft. Absent: guarding, rebound, tenderness - Extremities Exam Additional comments: Gauze dressings dry and intact to BLE - Neurological Exam Neurological exam: Present: alert, oriented X3, no focal deficits - Psychiatric Psychiatric exam: Present: normal affect, normal mood - Skin Skin exam: Present: dry, pallor, warm Oncology: Obj Data - Labs CBC & Chem 7: 04/04/19 04:30 04/01/19 00:59 Consult Discharge Plan - Plan Referrals: Karthik Ortega DO [Primary Care Provider] - Inpatient Charges [facility]unice Kay [facility] - Last Filed: 04/04/19 17:11> Date of Encounter: 04/04/19 Oncology: Obj Data - Labs CBC & Chem 7: 04/04/19 04:30 04/01/19 00:59 Inpatient Charges Provider: Dr. Eunice Kay Follow up - Inpatient: [id number] - Attending Attestation I examined this patient and my medical decision-making was reviewed with the Advanced Practice Nurse. I agree with the documented findings, disposition and treatment plan as described except to the extent set forth below. -H/H stable, plts 57. Will continue to hold pradaxa. -If not much improvement seen in platelets, will have patient follow up as an outpatient to determine whether to start Pradaxa at that time. -We will continue to follow along with you
--- NOTE | 2019-04-04 14:19 | Internal Med Progress Note ---
Hospitalist Progress Note - Encounter Date of Encounter: 04/04/19 Time of Encounter: 08:00 - Subjective Interval History: Patient was seen and examined at bedside. Denies any hematemesis, hematochezia or melena. Tolerating by mouth diet. Pain is controlled. Has not been started on his Pradaxa due to his low platelets and he understands. Will follow with hematology in regards to anticoagulation and further management. All questions answered, he has had no chest pain or shortness of breath no acute overnight events. - Exam Vitals: Temp Pulse Resp BP Pulse Ox 97.6 F 65 16 106/69 98 04/04/19 10:22 04/04/19 10:22 04/04/19 10:22 04/04/19 10:04/04/19 10:22 Exam: General: Patient is alert, oriented, no acute distress, communicates by writing Head: atraumatic, normocephalic, Eye: normal appearance, PERRL, icterus, no conjunctival injection ENT: mucous membranes moist, normal external ear exam Neck: normal inspection, trachea midline, full ROM, no carotid bruits Chest: normal inspection, symmetric chest rise Respiratory: Good respiratory effort. Bilateral breath sounds are clear without wheezing, crackles, or rhonchi. Cardiovascular: Regular rate and rhythm. s1 and s2 No clicks, rubs, gallops, or murmors. Abdomen: Bowel sounds present normoactive x-4 quadrants. Abdomen is soft, nondistended. no Epigastric tenderness. No guarding or rebound. No organomegaly noted, musculoskeletal: Spontaneously moving all extremities. no edema, no calf tenderness Skin: warm, dry, has multiple ulceration of the lower extremities, wrapped in c lean dressing Neuro: Alert and oriented x3, communicates by writing, left-sided weakness secondary to previous stroke, no acute neurological deficit Psych: Patient's affect is normal - Assessment and Plan (1) Acute blood loss anemia Current Visit: Yes Status: Acute Assessment and Plan: secondary to GIB S/P 4PRBC S/P EGD and colonoscopy Has occult blood positive protonix 40 mg BID GI on board Continue to monitor CBC every 6 hours and transfuse <7 Avoid over transfusion as he has esophageal varices Continuous pulse ox and telemetry (2) Esophageal varices Current Visit: No Status: Chronic Assessment and Plan: has history of large grade III esophageal varices and multiple history of bleeding from liver cirrhosis ( unknown etiology, ?secondary to alcohol use) S/P Tips in 2018 S/P EGD and colonoscopy on 03/31/2019- which showed grade 3 esophageal varices, an completely eradicated, banded. Type I gastroesophageal varices which extend along the lesser curvature without bleeding, gastritis, Colonoscopy showed congested mucosa in the entire examined colon, a single c olonic angioectasia which was treated rest of the management and consults as above continue with ceftriaxone for SBP prophylaxis (3) History of DVT (deep vein thrombosis) Current Visit: Yes Status: Acute Assessment and Plan: on chronic pradaxa which is held as he has severe acute anemia heme, onc consulted and discussed case with Dr. browning who recommended to hold the Pradaxa Discussed with hematology oncology on 04/03 about restarting the Pradaxa however they recommended to hold off on starting Pradaxa today as his platelet levels trended down to 57 from 64. and stable today at 57 as per oncology "Risk for bleeding may outweigh restarting AC at this time" We will continue to follow hematology/oncology's recommendation. (4) Cirrhosis Current Visit: Yes Status: Acute Assessment and Plan: MELD-Na 9 and Child-Krishnamurthy class B. Pt s/p TIPS 09/12/2018. AFP 2 RUQ US on 03/30/2019- No evidence of liver masses to suggest liver malignancy. The TIPS shunt was not evaluated. Status post cholecystectomy. (5) Heme positive stool Current Visit: Yes Status: Acute Assessment and Plan: Management as above (6) Chronic cutaneous venous stasis ulcer Current Visit: No Status: Acute Assessment and Plan: left medial and lateral ankle, right medical ankle wound care on board (7) Hypocalcemia Current Visit: Yes Status: Acute Assessment and Plan: replaced vitamin D 29- started on replacement (8) Hypophosphatemia Current Visit: Yes Status: Acute Assessment and Plan: replaced- follow in AM (9) Vitamin D deficiency Current Visit: Yes Status: Acute Assessment and Plan: replacement started- follow as OP. DVT Prophylaxis: scds - Time Spent with Patient Total time spent is greater than 50% in coordination of care (as documented) at patient's floor/unit and/or counseling patient: Internal Medicine: Result - Labs CBC & Chem 7: 04/04/19 04:30 04/01/19 00:59 Labs: Short CBC 05/21/19 Range/Units 04:30 WBC 3.2 L (4.3-11.1) K/mcL Hgb 8.0 L (12.9-16.9) g/dL Hct 26.5 L (37.5-50.1) % Plt Count 57 L (140-400) K/mcL - ABG Interpretation ABG results: PT/INR, D-dimer PT 14.7 Seconds (9.4-12.1) H 03/30/19 02:00 Consult Discharge Plan - Plan Referrals: Karthik Ortega DO [Primary Care Provider] - (2) Esophageal varices Qualifiers: Esophageal varices type: unspecified type Esophageal varices bleeding: with bleeding Qualified Code(s): I85.01 - Esophageal varices with bleeding (4) Cirrhosis Qualifiers: Hepatic cirrhosis type: unspecified hepatic cirrhosis Ascites presence: unspecified Qualified Code(s): K74.60 - Unspecified cirrhosis of liver
[2019-04-04] MEDS: cefTRIAXone 2,000 MG in 0.9 % Sodium Chloride Mini Bag 100 ML IVPB SCH (17:30)
[2019-04-05 04:33] LABS: VBG Ionized Calcium 1.19 mmol/L (1.15-1.35)
[2019-04-05 04:39] LABS: Hemoglobin 8.1 g/dL (12.9-16.9); Mean Corpuscular Hemoglobin 24.3 pg (28.0-33.3); Mean Corpuscular Volume 78.7 fL (83.0-100.0)
[2019-04-05 04:41] LABS: Hematocrit 26.2 % (37.5-50.1); Immature Platelets 4.7 % (1.1-6.1); Mean Corpuscular HGB Conc 30.9 g/dL (31.6-35.5); Mean Platelet Volume 10.9 fL (9.4-12.4); Red Blood Count 3.33 M/mcL (4.19-5.50)
[2019-04-05 04:57] LABS: BUN/Creatinine Ratio 15 (6-26); Blood Urea Nitrogen 11 mg/dL (6-20); Calcium 8.4 mg/dL (8.6-10.3); Carbon Dioxide 26 mEq/L (23-29); Chloride 105 mEq/L (98-107); Glucose 124 mg/dL (70-105); Osmolality,Calculated 289 (280-300); Phosphorous 2.4 mg/dL (2.7-4.5); Potassium 3.4 mEq/L (3.5-5.1); Sodium 139 mEq/L (136-145); eGFR For Non-African Americans > 60 (> 60)
[2019-04-05] MEDS: Cholecalciferol (D-3) 1,000 UNIT TABLET PO SCH (09:17)
--- NOTE | 2019-04-05 10:11 | Discharge Summary ---
- NOTES TO OUTPATIENT PROVIDER Notes to Outpatient Provider: Follow with hematology as an outpatient with repeat CBC within a week. Pradexa on hold until hematology follow-up Date of Encounter: 04/05/19 Time of Encounter: 08:00 - Discharge Diagnosis (1) Chronic cutaneous venous stasis ulcer Priority: Secondary Status: Acute (2) Esophageal varices Priority: Secondary Status: Chronic Qualifiers: Esophageal varices type: unspecified type Esophageal varices bleeding: with bleeding Qualified Code(s): I85.01 - Esophageal varices with bleeding (3) History of DVT (deep vein thrombosis) Priority: Secondary Status: Acute (4) Heme positive stool Priority: Secondary Status: Acute (5) Acute blood loss anemia Priority: Primary Status: Acute (6) Cirrhosis Priority: Secondary Status: Acute Qualifiers: Hepatic cirrhosis type: unspecified hepatic cirrhosis Ascites presence: unspecified Qualified Code(s): K74.60 - Unspecified cirrhosis of liver (7) Hypocalcemia Priority: Secondary Status: Acute (8) Hypophosphatemia Priority: Secondary Status: Acute (9) Vitamin D deficiency Priority: Secondary Status: Acute Hospital course: Mr. 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 Underwent EGD/colonoscopy on 03/31 which showed 1 colonic angiectasia s/p APC and incompletely eradicated grade 3 esophageal varices which was banded. Also had type I gastroesophageal varices without bleeding. Required 4 units of PRBC transfusion during his stay which increased Hb from 5.2 to 8.0. He was started on PPI twice a day per GI recommendation. Also completed a course of Rocephin for SBP prophylaxis. Managed in consultation with hematology, given his thrombocytopenia in the 50s, Pradexa was not restarted at the time of discharge and will follow up with Dr. Jeffers as outpatient within a week with CBC to discuss restarting AC at that time. Discharge discussed with: patient, nurse, case management - Time Spent with Patient Total time spent providing and/or coordinating discharge services: 32 mins - Discharge Medications Prescriptions: New Omeprazole [PriLOSEC] 40 mg PO BIDAC #120 capsule. Cholecalciferol (D-3) [Vitamin D] 1,000 unit PO DAILY #30 tablet Discontinued Dabigatran [Pradaxa] 75 mg PO BID Home Medications: Cholecalciferol (D-3) [Vitamin D] 1,000 unit PO DAILY #30 tablet 04/05/19 [Rx] Omeprazole [PriLOSEC] 40 mg PO BIDAC #120 capsule. 04/05/19 [Rx] Allergies/Adverse Reactions: Allergy/AdvReac Type Severity Reaction Status Date / Time No Known Allergies Allergy Verified 03/29/19 17:25 Date of admission: 03/30/19 17:33 Primary care physician: Karthik Ortega DO Consults: 03/29/19 18:12 Consult to Oncology [CONS] Routine Consulting Provider: [facility] Reason for Consult: pancytopenia ,a cute anemia and pancytopenia with history of multiple DVTS Call Completed: Yes 03/29/19 18:57 Consult to Wound Care [CONS] Routine Reason for Consult: multiple lower extremity wouds Call Completed: No 03/30/19 07:12 Consult to Surgery [CONS] Routine Consulting Provider: Acute Care Surgery Reason for Consult: GI bleed- discussed with Dr. jimenez Call Completed: Yes - Constitutional Vitals: Temp Pulse Resp BP Pulse Ox 98.1 F 70 16 115/70 98 04/05/19 09:56 04/05/19 09:56 04/05/19 09:56 04/05/19 09:56 04/05/19 09:56 Exam: General: Patient is alert, oriented, no acute distress, communicates by writing Respiratory: Good respiratory effort. Bilateral breath sounds are clear without wheezing, crackles, or rhonchi. Cardiovascular: Regular rate and rhythm. s1 and s2 No clicks, rubs, gallops, or murmors. Abdomen: soft, non-tender Skin: LE dressing c/d/i Neuro: Alert and oriented x3, communicates by writing, left-sided weakness secondary to previous stroke, no new focal deficit - Patient Status Disposition: Home, Self-Care Condition: Fair Overall status at discharge: patient is progressing back to baseline - Discharge Instructions Instructions: Anemia (GEN) Follow Up With: Karthik Ortega DO [Primary Care Provider] - Deirdre Jeffers MD [Partnered Physician] - Additional Instructions: Repeat CBC within a week and follow with hematology as an outpatient for consideration of restarting AC - Diet and Activity Activity: resume usual activities as tolerated Diet: regular diet
[2019-04-05] MEDS: Gentamicin Oint 15 GM TUBE TP SCH (11:15)
[2019-04-05 15:02] VITALS: BP 118/68
== END 2019-04-05 17:36 | disposition home or self-care (01) | DRG 432 ==
LOC: EMEROOARM 11:57 → 3ANU 11:57 → SUATTDRO 03-30 17:33
PROVIDERS: ADMIT Internal Medicine Nephrology; ATTEND Internal Medicine

== ENCOUNTER 2020-10-07 13:03 | Inpatient (IN) ==
[2020-10-07] MEDS ORDERED: Octreotide 50 MCG/ML INJ IVP ONE (13:05)
[2020-10-07] MEDS ORDERED: cefTRIAXone 1,000 MG in Water for inj. (sterile) 10 ML IVP ONE (13:05)
[2020-10-07] MEDS ORDERED: 0.9 % Sodium Chloride 1,000 ML IVC ONE (13:05)
[2020-10-07] MEDS ORDERED: Pantoprazole 80 MG in 0.9 % Sodium Chloride 50 ML IVPB ONE (13:06)
[2020-10-07] MEDS ORDERED: 0.9 % Sodium Chloride 500 ML ONE (13:07)
[2020-10-07 13:36] LABS: Basophils # 0.1 K/mcL (0.0-0.2); Basophils % 1.2 %; Eosinophils # 0.1 K/mcL (0.0-0.6); Eosinophils % 1.5 %; Hematocrit 25.1 % (37.5-50.1); Immature Granulocytes % 0.1 % (0-4); Lymphocytes % 24.4 %; Mean Corpuscular HGB Conc 29.9 g/dL (31.6-35.5); Mean Corpuscular Hemoglobin 24.3 pg (28.0-33.3); Mean Corpuscular Volume 81.2 fL (83.0-100.0); Monocytes # 0.5 K/mcL (0.0-1.3); Monocytes % 5.5 %; Neutrophils # 5.5 K/mcL (1.6-8.9); Platelet Count 224 K/mcL (140-400); Red Blood Count 3.09 M/mcL (4.19-5.50); Red Cell Distribution Width 17.4 % (11.5-14.5); Segmented Neutrophils % 67.3 %
[2020-10-07] MEDS ORDERED: 0.9 % Sodium Chloride 1,000 ML ONE (13:37)
[2020-10-07] MEDS: Pantoprazole 40 MG in 0.9 % Sodium Chloride Mini Bag 100 ML IVC SCH ×3 (13:38→23:03)
[2020-10-07] MEDS ORDERED: Ondansetron 4 MG/2 ML VIAL ONE ×2 (13:38→15:17)
[2020-10-07 13:39] LABS: INR 1.7; Prothrombin Time 19.3 Seconds (9.4-12.1)
[2020-10-07 13:42] LABS: Activated Partial Thrombo Time 36.6 Seconds (26.0-36.0)
[2020-10-07 13:52] LABS: Hemoglobin 7.5 g/dL (12.9-16.9); White Blood Count 8.1 K/mcL (4.3-11.1)
[2020-10-07 13:58] LABS: Alanine Aminotransferase 18 Units/L (7-52); Albumin 3.5 g/dL (3.5-5.7); Albumin/Globulin Ratio 1.5 (1.1-2.2); Alkaline Phosphatase 75 Units/L (34-104); Aspartate Amino Transferase 23 Units/L (13-39); BUN/Creatinine Ratio 34 (6-26); Bilirubin,Direct 0.2 mg/dL (0.0-0.2); Bilirubin,Indirect 0.6 mg/dL (0.0-1.0); Bilirubin,Total 0.8 mg/dL (0.3-1.0); Blood Urea Nitrogen 31 mg/dL (6-20); Calcium 8.4 mg/dL (8.6-10.3); Carbon Dioxide 23 mEq/L (23-29); Chloride 110 mEq/L (98-107); Globulin 2.3 g/dL (2.4-3.5); Glucose 141 mg/dL (70-105); Lipase 41 Units/L (11-82); Osmolality,Calculated 299 (280-300); Potassium 3.2 mEq/L (3.5-5.1); Sodium 140 mEq/L (136-145); Total Protein 5.8 g/dL (6.4-8.9); Troponin I < 0.03 ng/mL (< 0.04); eGFR For African Americans > 60 (> 60); eGFR For Non-African Americans > 60 (> 60)
[2020-10-07] MEDS: Octreotide 400 MCG in 0.9 % Sodium Chloride 100 ML IVC SCH (14:29)
[2020-10-07] MEDS ORDERED: WATER FOR INJ IVPB ONE (14:45)
[2020-10-07] MEDS ORDERED: ANTI INHIBITOR COAGULANT COMP IVPB ONE (14:45)
[2020-10-07] MEDS ORDERED: Acetaminophen 325 MG TABLET PO PRN (15:01)
[2020-10-07] MEDS ORDERED: Ondansetron 4 MG/2 ML VIAL IVP PRN (15:01)
[2020-10-07] MEDS ORDERED: Naloxone 0.4 MG/ML INJ IVP PRN (15:01)
[2020-10-07] MEDS ORDERED: *HR* Propofol 200 MG/20 ML VIAL IVP ONE (15:16)
[2020-10-07] MEDS ORDERED: Lidocaine -MPF 2% 2 ML VIAL ONE ×2 (15:17→16:08)
[2020-10-07] MEDS ORDERED: *HR* Succinylcholine 200 MG/10 ML VIAL IVP ONE (15:17)
[2020-10-07] MEDS ORDERED: Dexamethasone 4 MG/ML VIAL ONE (15:17)
[2020-10-07] MEDS ORDERED: Heparin 1,000 UNITS/500 mL 500 ML ONE (15:17)
[2020-10-07] MEDS ORDERED: *HR* FentaNYL (PF) 100 MCG/2 ML VIAL ONE (16:09)
[2020-10-07] MEDS ORDERED: cefTRIAXone 1,000 MG in 0.9 % Sodium Chloride Mini Bag 100 ML IVPB ONE (16:19)
[2020-10-07 17:27] LABS: Adenovirus Not Detected (Not Detect); Bordetella Pertussis Not Detected (Not Detect); Chlamydophila pneumoniae Not Detected (Not Detect); Coronavirus 229E Not Detected (Not Detect); Coronavirus HKU1 Not Detected (Not Detect); Coronavirus NL63 Not Detected (Not Detect); Coronavirus OC43 Not Detected (Not Detect); Human Metapneumovirus Not Detected (Not Detect); Human Rhinovirus/Enterovirus Not Detected (Not Detect); Influenza A Subtype 2009 H1 Not Detected (Not Detect); Influenza B Not Detected (Not Detect); Mycoplasma pneumoniae Not Detected (Not Detect); Parainfluenza Virus 1 Not Detected (Not Detect); Parainfluenza Virus 2 Not Detected (Not Detect); Parainfluenza Virus 3 Not Detected (Not Detect); Parainfluenza Virus 4 Not Detected (Not Detect); Respiratory Syncytial Virus Not Detected (Not Detect); SARS-CoV-2 Not Detected (Not Detect)
[2020-10-07] MEDS: Famotidine 20 MG/2 ML VIAL IVP SCH (18:22)
[2020-10-07 19:29] LABS: Basophils % 0.1 %; Immature Granulocytes % 0.3 % (0-4)
[2020-10-07 19:31] LABS: Hematocrit 29.7 % (37.5-50.1); Hemoglobin 9.1 g/dL (12.9-16.9); Immature Platelets 3.7 % (1.1-6.1); Lymphocytes # 0.3 K/mcL (0.6-4.6); Lymphocytes % 4.8 %; Mean Corpuscular HGB Conc 30.6 g/dL (31.6-35.5); Mean Corpuscular Hemoglobin 25.3 pg (28.0-33.3); Mean Corpuscular Volume 82.7 fL (83.0-100.0); Mean Platelet Volume 10.1 fL (9.4-12.4); Monocytes # 0.1 K/mcL (0.0-1.3); Monocytes % 2.1 %; Neutrophils # 6.2 K/mcL (1.6-8.9); Red Blood Count 3.59 M/mcL (4.19-5.50); Red Cell Distribution Width 17.2 % (11.5-14.5); Segmented Neutrophils % 92.7 %; White Blood Count 6.7 K/mcL (4.3-11.1)
[2020-10-07 19:33] LABS: Platelet Count 91 K/mcL (140-400)
[2020-10-07 20:01] LABS: BUN/Creatinine Ratio 39 (6-26); Blood Urea Nitrogen 28 mg/dL (6-20); Calcium 7.9 mg/dL (8.6-10.3); Carbon Dioxide 21 mEq/L (23-29); Chloride 112 mEq/L (98-107); Glucose 133 mg/dL (70-105); Osmolality,Calculated 295 (280-300); Potassium 4.2 mEq/L (3.5-5.1); Sodium 139 mEq/L (136-145); eGFR For African Americans > 60 (> 60); eGFR For Non-African Americans > 60 (> 60)
[2020-10-08] MEDS: Octreotide 400 MCG in 0.9 % Sodium Chloride 100 ML IVC SCH (04:47)
[2020-10-08 04:48] LABS: Immature Granulocytes % 0.4 % (0-4)
[2020-10-08 04:50] LABS: Hematocrit 25.8 % (37.5-50.1); Hemoglobin 8.1 g/dL (12.9-16.9); Immature Platelets 3.1 % (1.1-6.1); Lymphocytes # 0.4 K/mcL (0.6-4.6); Lymphocytes % 8.6 %; Mean Corpuscular HGB Conc 31.4 g/dL (31.6-35.5); Mean Platelet Volume 10.5 fL (9.4-12.4); Monocytes # 0.2 K/mcL (0.0-1.3); Monocytes % 3.3 %; Neutrophils # 4.5 K/mcL (1.6-8.9); Red Blood Count 3.11 M/mcL (4.19-5.50); Segmented Neutrophils % 87.7 %; White Blood Count 5.1 K/mcL (4.3-11.1)
[2020-10-08 04:59] LABS: BUN/Creatinine Ratio 34 (6-26); Blood Urea Nitrogen 26 mg/dL (6-20); Calcium 7.9 mg/dL (8.6-10.3); Carbon Dioxide 20 mEq/L (23-29); Chloride 112 mEq/L (98-107); Glucose 150 mg/dL (70-105); Osmolality,Calculated 296 (280-300); Potassium 4.4 mEq/L (3.5-5.1); Sodium 139 mEq/L (136-145); eGFR For African Americans > 60 (> 60); eGFR For Non-African Americans > 60 (> 60)
[2020-10-08 05:01] LABS: Platelet Count 89 K/mcL (140-400)
[2020-10-08] MEDS: Pantoprazole 40 MG in 0.9 % Sodium Chloride Mini Bag 100 ML IVC SCH ×5 (05:34→23:56)
[2020-10-08] MEDS: Famotidine 20 MG/2 ML VIAL IVP SCH ×2 (05:34→16:59)
[2020-10-08] MEDS ORDERED: Naloxone 0.4 MG/ML INJ IVP PRN (12:07)
[2020-10-08] MEDS ORDERED: Octreotide 400 MCG in 0.9 % Sodium Chloride 100 ML IVC SCH (12:07)
[2020-10-08] MEDS ORDERED: Acetaminophen 325 MG TABLET PO PRN (12:07)
[2020-10-08] MEDS ORDERED: Ondansetron 4 MG/2 ML VIAL IVP PRN (12:07)
[2020-10-09] MEDS: Famotidine 20 MG/2 ML VIAL IVP SCH ×2 (04:59→17:15)
[2020-10-09] MEDS: Pantoprazole 40 MG in 0.9 % Sodium Chloride Mini Bag 100 ML IVC SCH (04:59)
[2020-10-09 12:12] LABS: Alanine Aminotransferase 19 Units/L (7-52); Albumin 3.2 g/dL (3.5-5.7); Albumin/Globulin Ratio 1.5 (1.1-2.2); Alkaline Phosphatase 64 Units/L (34-104); Aspartate Amino Transferase 29 Units/L (13-39); BUN/Creatinine Ratio 25 (6-26); Blood Urea Nitrogen 28 mg/dL (6-20); Calcium 8.3 mg/dL (8.6-10.3); Carbon Dioxide 24 mEq/L (23-29); Chloride 110 mEq/L (98-107); Globulin 2.1 g/dL (2.4-3.5); Glucose 102 mg/dL (70-105); Osmolality,Calculated 292 (280-300); Potassium 4.6 mEq/L (3.5-5.1); Sodium 138 mEq/L (136-145); Total Protein 5.3 g/dL (6.4-8.9); eGFR For African Americans > 60 (> 60); eGFR For Non-African Americans > 60 (> 60)
[2020-10-09 12:35] LABS: Hematocrit 24.3 % (37.5-50.1); Hemoglobin 7.7 g/dL (12.9-16.9); Immature Platelets 5.9 % (1.1-6.1); Mean Corpuscular HGB Conc 31.7 g/dL (31.6-35.5); Mean Corpuscular Hemoglobin 25.8 pg (28.0-33.3); Mean Corpuscular Volume 81.3 fL (83.0-100.0); Red Blood Count 2.99 M/mcL (4.19-5.50); Red Cell Distribution Width 17.6 % (11.5-14.5); White Blood Count 6.1 K/mcL (4.3-11.1)
[2020-10-09] MEDS: Miconazole 2% ointment 141 APPL/141 GM TUBE TP SCH ×2 (15:00→20:01)
[2020-10-09 16:31] LABS: Hematocrit 24.3 % (37.5-50.1); Hemoglobin 7.8 g/dL (12.9-16.9)
[2020-10-09] MEDS: Pantoprazole 40 MG VIAL IVP SCH (17:15)
[2020-10-10] MEDS: Famotidine 20 MG/2 ML VIAL IVP SCH (05:56)
[2020-10-10] MEDS: Pantoprazole 40 MG VIAL IVP SCH (05:56)
[2020-10-10 06:08] LABS: Hematocrit 24.9 % (37.5-50.1); Hemoglobin 7.7 g/dL (12.9-16.9); Immature Platelets 4.3 % (1.1-6.1); Mean Corpuscular HGB Conc 30.9 g/dL (31.6-35.5); Mean Corpuscular Hemoglobin 25.4 pg (28.0-33.3); Mean Corpuscular Volume 82.2 fL (83.0-100.0); Mean Platelet Volume 10.3 fL (9.4-12.4); Red Blood Count 3.03 M/mcL (4.19-5.50); Red Cell Distribution Width 17.5 % (11.5-14.5); White Blood Count 4.9 K/mcL (4.3-11.1)
[2020-10-10 06:38] LABS: BUN/Creatinine Ratio 25 (6-26); Blood Urea Nitrogen 20 mg/dL (6-20); Carbon Dioxide 23 mEq/L (23-29); Chloride 107 mEq/L (98-107); Glucose 100 mg/dL (70-105); Osmolality,Calculated 283 (280-300); Potassium 3.4 mEq/L (3.5-5.1); Sodium 135 mEq/L (136-145); eGFR For African Americans > 60 (> 60); eGFR For Non-African Americans > 60 (> 60)
[2020-10-10 07:03] VITALS: BP 103/62
[2020-10-10] MEDS: Miconazole 2% ointment 141 APPL/141 GM TUBE TP SCH (11:21)
== END 2020-10-10 11:43 | disposition home or self-care (01) | DRG 432 ==
LOC: EMEROOARM 13:03 → ICNU 14:41 → 3ANU 10-08 12:06
PROVIDERS: ADMIT Family Medicine; ATTEND Family Medicine

== ENCOUNTER 2020-10-21 09:49 | Observation (INO) ==
[2020-10-21 11:39] LABS: BUN/Creatinine Ratio 18 (6-26); Blood Urea Nitrogen 14 mg/dL (6-20); Calcium 8.6 mg/dL (8.6-10.3); Carbon Dioxide 24 mEq/L (23-29); Chloride 108 mEq/L (98-107); Glucose 111 mg/dL (70-105); Osmolality,Calculated 289 (280-300); Potassium 3.4 mEq/L (3.5-5.1); Sodium 139 mEq/L (136-145); eGFR For African Americans > 60 (> 60); eGFR For Non-African Americans > 60 (> 60)
[2020-10-21 11:40] LABS: Troponin I < 0.03 ng/mL (< 0.04)
[2020-10-21 11:45] LABS: Basophils % 0.3 %; Hemoglobin 6.4 g/dL (12.9-16.9); Immature Granulocytes % 0.3 % (0-4)
[2020-10-21 11:47] LABS: Eosinophils # 0.1 K/mcL (0.0-0.6); Eosinophils % 1.9 %; Hematocrit 21.5 % (37.5-50.1); Immature Platelets 4.5 % (1.1-6.1); Lymphocytes # 0.5 K/mcL (0.6-4.6); Lymphocytes % 16.1 %; Mean Corpuscular HGB Conc 29.8 g/dL (31.6-35.5); Mean Corpuscular Hemoglobin 25.5 pg (28.0-33.3); Mean Corpuscular Volume 85.7 fL (83.0-100.0); Mean Platelet Volume 10.6 fL (9.4-12.4); Monocytes # 0.3 K/mcL (0.0-1.3); Monocytes % 10.3 %; Neutrophils # 2.2 K/mcL (1.6-8.9); Nucleated Red Blood Cells 0.6 /100 WBC (0); Red Blood Count 2.51 M/mcL (4.19-5.50); Red Cell Distribution Width 19.9 % (11.5-14.5); Segmented Neutrophils % 71.1 %; White Blood Count 3.1 K/mcL (4.3-11.1)
[2020-10-21 11:49] LABS: Platelet Count 95 K/mcL (140-400)
[2020-10-21] MEDS ORDERED: Naloxone 0.4 MG/ML INJ IVP PRN (12:09)
[2020-10-21] MEDS ORDERED: 0.9 % Sodium Chloride 250 ML ONE ×2 (12:49→15:37)
[2020-10-21] MEDS ORDERED: Iron Sucrose Complex 400 MG in 0.9 % Sodium Chloride 250 ML IVPB ONE (20:00)
[2020-10-21] MEDS: *HR* Dabigatran 75 MG CAPSULE PO SCH (21:09)
[2020-10-22 06:25] LABS: BUN/Creatinine Ratio 16 (6-26); Blood Urea Nitrogen 12 mg/dL (6-20); Calcium 7.9 mg/dL (8.6-10.3); Carbon Dioxide 22 mEq/L (23-29); Chloride 112 mEq/L (98-107); Glucose 94 mg/dL (70-105); Magnesium 1.9 mg/dL (1.6-2.6); Osmolality,Calculated 280 (280-300); Phosphorous 2.9 mg/dL (2.7-4.5); Potassium 3.1 mEq/L (3.5-5.1); Sodium 135 mEq/L (136-145); eGFR For African Americans > 60 (> 60); eGFR For Non-African Americans > 60 (> 60)
[2020-10-22 07:33] LABS: Hematocrit 23.1 % (37.5-50.1); Hemoglobin 7.1 g/dL (12.9-16.9); Immature Platelets 4.1 % (1.1-6.1); Mean Corpuscular HGB Conc 30.7 g/dL (31.6-35.5); Mean Corpuscular Hemoglobin 26.4 pg (28.0-33.3); Mean Corpuscular Volume 85.9 fL (83.0-100.0); Mean Platelet Volume 10.1 fL (9.4-12.4); Red Blood Count 2.69 M/mcL (4.19-5.50); Red Cell Distribution Width 18.4 % (11.5-14.5); White Blood Count 1.9 K/mcL (4.3-11.1)
[2020-10-22] MEDS: *HR* Dabigatran 75 MG CAPSULE PO SCH (07:55)
[2020-10-22] MEDS ORDERED: *HR* Dabigatran 75 MG CAPSULE PO ONE (09:13)
[2020-10-22 11:03] LABS: Platelet Count 71 K/mcL (140-400)
[2020-10-22 12:00] LABS: Lymphocytes # 0.6 K/mcL (0.6-4.6); Neutrophils # 1.3 K/mcL (1.6-8.9)
[2020-10-22 12:02] LABS: Platelet Estimate Decreased (Normal)
[2020-10-22 12:04] LABS: Anisocytosis 1+ (Not Present)
[2020-10-22 12:07] LABS: Polychromasia 1+ (Not Present)
[2020-10-22 12:08] LABS: Poikilocytosis 1+ (Not Present)
[2020-10-22 12:12] LABS: Hematocrit 23.7 % (37.5-50.1); Hemoglobin 7.3 g/dL (12.9-16.9)
[2020-10-22] MEDS ORDERED: 0.9 % Sodium Chloride 250 ML ONE (13:52)
[2020-10-22 17:07] VITALS: BP 126/72
[2020-10-22] MEDS ORDERED: *HR* Dabigatran 150 MG CAPSULE PO SCH (21:00)
== END 2020-10-22 17:18 | disposition home or self-care (01) ==
LOC: EMEROOARM 09:49 → 3BNU 09:49 → SUATTDRO 14:03 → 3BNU 14:45
PROVIDERS: ADMIT Internal Medicine; ATTEND Internal Medicine

== ENCOUNTER 2022-07-26 12:21 | Inpatient (IN) ==
[2022-07-26] MEDS ORDERED: Iopamidol - 370 500 ML MLS IVP ONE (13:34)
[2022-07-26] MEDS ORDERED: Vancomycin 1,750 MG/517.5 ML IV.SOLN IVPB ONE (13:45)
[2022-07-26 13:55] LABS: Hemoglobin 7.4 g/dL (12.9-16.9); Red Cell Distribution Width 17.2 % (11.5-14.5)
[2022-07-26 13:57] LABS: Hematocrit 23.7 % (37.5-50.1); Immature Platelets 5.1 % (1.1-6.1); Lymphocytes # 0.3 K/mcL (0.6-4.6); Mean Corpuscular HGB Conc 31.2 g/dL (31.6-35.5); Mean Corpuscular Hemoglobin 25.4 pg (28.0-33.3); Mean Corpuscular Volume 81.4 fL (83.0-100.0); Mean Platelet Volume 10.4 fL (9.4-12.4); Red Blood Count 2.91 M/mcL (4.19-5.50); White Blood Count 1.8 K/mcL (4.3-11.1)
[2022-07-26 13:59] LABS: Platelet Count 71 K/mcL (140-400)
[2022-07-26] MEDS ORDERED: Piperacillin/Tazobactam 3.375 GM in 0.9 % Sodium Chloride Mini Bag 100 ML IVPB ONE (14:00)
[2022-07-26 14:13] LABS: Alanine Aminotransferase 18 Units/L (7-52); Albumin 3.2 g/dL (3.5-5.7); Alkaline Phosphatase 82 Units/L (34-104); Aspartate Amino Transferase 27 Units/L (13-39); BUN/Creatinine Ratio 22 (6-26); Bilirubin,Direct 0.2 mg/dL (0.0-0.2); Bilirubin,Indirect 0.5 mg/dL (0.0-1.0); Bilirubin,Total 0.7 mg/dL (0.3-1.0); Blood Urea Nitrogen 19 mg/dL (6-20); Calcium 8.3 mg/dL (8.6-10.3); Carbon Dioxide 26 mEq/L (23-29); Chloride 106 mEq/L (98-107); Glucose 117 mg/dL (70-105); Osmolality,Calculated 291 (280-300); Potassium 3.3 mEq/L (3.5-5.1); Sodium 139 mEq/L (136-145); Total Protein 6.2 g/dL (6.4-8.9)
[2022-07-26 14:14] LABS: Albumin/Globulin Ratio 1.1 (1.1-2.2); C-Reactive Protein 110 mg/L (Less than 10); Lipase 49 Units/L (11-82)
[2022-07-26 14:15] LABS: Monocytes # 0.2 K/mcL (0.0-1.3); Neutrophils # 1.3 K/mcL (1.6-8.9)
[2022-07-26 14:16] LABS: Hypochromasia Present (Not Present); Platelet Estimate Slight Decrease (Normal)
[2022-07-26 14:17] LABS: Anisocytosis 1+ (Not Present); Poikilocytosis 1+ (Not Present)
[2022-07-26] MEDS ORDERED: Naloxone 0.4 MG/ML INJ IVP PRN (16:21)
[2022-07-26] MEDS ORDERED: Ondansetron 4 MG/2 ML VIAL IVP PRN (16:21)
[2022-07-26 17:11] LABS: Influenza A PCR Negative (Negative); Influenza B PCR Negative (Negative); Resp. Syncytial Virus PCR Negative (Negative); SARS-CoV-2 by PCR (In House) Negative (Negative)
[2022-07-27] MEDS: Piperacillin/Tazobactam 3.375 GM in 0.9 % Sodium Chloride Mini Bag 100 ML IVPB SCH ×4 (01:14→23:26)
[2022-07-27] MEDS: Vancomycin 1,250 MG/262.5 ML IV.SOLN IVPB SCH ×2 (03:00→16:41)
[2022-07-27 03:33] LABS: Hemoglobin 7.1 g/dL (12.9-16.9); Mean Platelet Volume 10.3 fL (9.4-12.4)
[2022-07-27 03:35] LABS: Hematocrit 23.3 % (37.5-50.1); Immature Platelets 5.3 % (1.1-6.1); Mean Corpuscular HGB Conc 30.5 g/dL (31.6-35.5); Mean Corpuscular Hemoglobin 24.7 pg (28.0-33.3); Mean Corpuscular Volume 81.2 fL (83.0-100.0); Red Blood Count 2.87 M/mcL (4.19-5.50); Red Cell Distribution Width 17.3 % (11.5-14.5); White Blood Count 1.8 K/mcL (4.3-11.1)
[2022-07-27 03:45] LABS: Platelet Count 78 K/mcL (140-400)
[2022-07-27 04:02] LABS: BUN/Creatinine Ratio 20 (6-26); Blood Urea Nitrogen 16 mg/dL (6-20); Carbon Dioxide 24 mEq/L (23-29); Chloride 107 mEq/L (98-107); Glucose 101 mg/dL (70-105); Osmolality,Calculated 289 (280-300); Sodium 139 mEq/L (136-145)
[2022-07-27 04:22] LABS: Anisocytosis 1+ (Not Present); Hypochromasia Present (Not Present); Platelet Estimate Decreased (Normal)
[2022-07-27 04:25] LABS: Lymphocytes # 0.4 K/mcL (0.6-4.6); Monocytes # 0.1 K/mcL (0.0-1.3); Neutrophils # 1.3 K/mcL (1.6-8.9); Reactive Lymphocytes Present (Not Present)
[2022-07-27] MEDS ORDERED: Gadolinium Contrast Agent (WT Based) IV PRN ×2 (08:50→12:58)
[2022-07-27 13:04] LABS: Bilirubin,Urine Negative (Negative); Blood,Urine Negative (Negative); Clarity,Urine Clear (Clear); Color,Urine Yellow (Yellow); Glucose,Urine (UA) Normal (Normal); Ketones,Urine Trace mg/dL (Negative); Leukocyte Esterase,Urine Negative (Negative); Mucus,Urine Few per lpf (None-Few); Nitrite,Urine Negative (Negative); PH,Urine 6.5 pH Units (5.0-8.0); Protein,Urine 50 mg/dL (Neg-Trace); RBC,Urine 0-3 per hpf (0-3); Renal Epithelial Cells,Urine Few per hpf (None-Few); Specific Gravity,Urine > 1.030 (1.010-1.025); Squamous Epithelial Cell,Urine Few per hpf (None-Few); Urobilinogen,Urine Normal (Normal)
[2022-07-27 14:45] LABS: Adenovirus F 40/41 PCR Not detected (Not detect); Astrovirus PCR Not detected (Not detect); C.difficile Toxin A/B Gene PCR Not detected (Not detect); Campylobacter by PCR Not detected (Not detect); Cryptosporidium by PCR Not detected (Not detect); Cyclospora cayetanensis PCR Not detected (Not detect); Entamoeba histolytica PCR Not detected (Not detect); Enteroaggregative E.coli(EAEC) Not detected (Not detect); Enteropathogenic E.coli(EPEC) Not detected (Not detect); Enterotoxigenic E.coli (ETEC) Not detected (Not detect); Giardia lamblia PCR Not detected (Not detect); Norovirus GI/GII PCR Not detected (Not detect); Plesiomonas shigelloides PCR Not detected (Not detect); Rotavirus A PCR Not detected (Not detect); Sapovirus PCR Not detected (Not detect); Shig/EnteroinvasiveE coli EIEC Not detected (Not detect); Shigalike tox-prod E coli STEC Not detected (Not detect); Vibrio PCR Not detected (Not detect); Vibrio cholerae PCR Not detected (Not detect); Yersinia enterocolitica PCR Not detected (Not detect)
[2022-07-27 14:47] LABS: Salmonella PCR DETECTED (Not detect)
[2022-07-27] MEDS ORDERED: *HR* Heparin 5,000 UNIT/ML VIAL IVP ONE (14:51)
[2022-07-27] MEDS ORDERED: *HR* Heparin 5,000 UNIT/ML VIAL IVP PRN ×2 (14:51)
[2022-07-27] MEDS ORDERED: Heparin 25,000UNIT/250ML 1/2NS 25,000 UNIT/250 ML IV.SOLN IVC SCH ×2 (15:00→16:14)
[2022-07-27 17:36] LABS: Red Blood Count 3.22 M/mcL (4.19-5.50); Red Cell Distribution Width 17.5 % (11.5-14.5)
[2022-07-27 17:37] LABS: Hematocrit 26.2 % (37.5-50.1); Hemoglobin 8.1 g/dL (12.9-16.9); Immature Platelets 5.8 % (1.1-6.1); Mean Corpuscular HGB Conc 30.9 g/dL (31.6-35.5); Mean Corpuscular Hemoglobin 25.2 pg (28.0-33.3); Mean Corpuscular Volume 81.4 fL (83.0-100.0); Mean Platelet Volume 10.2 fL (9.4-12.4); White Blood Count 2.5 K/mcL (4.3-11.1)
[2022-07-27 20:27] LABS: INR 1.6; Prothrombin Time 17.5 Seconds (9.4-12.1)
[2022-07-27 20:30] LABS: Activated Partial Thrombo Time 73.8 Seconds (26.0-36.0)
[2022-07-28] MEDS: Vancomycin 1,250 MG/262.5 ML IV.SOLN IVPB SCH ×2 (01:50→13:33)
[2022-07-28] MEDS: Piperacillin/Tazobactam 3.375 GM in 0.9 % Sodium Chloride Mini Bag 100 ML IVPB SCH ×2 (10:00→16:08)
[2022-07-28] MEDS: *HR* Dabigatran 150 MG CAPSULE PO SCH (21:26)
[2022-07-29] MEDS: Piperacillin/Tazobactam 3.375 GM in 0.9 % Sodium Chloride Mini Bag 100 ML IVPB SCH ×2 (00:07→08:46)
[2022-07-29] MEDS: Vancomycin 1,250 MG/262.5 ML IV.SOLN IVPB SCH (00:08)
[2022-07-29 08:37] LABS: Basophils % 0.4 %; Hemoglobin 6.8 g/dL (12.9-16.9); Immature Granulocytes % 0.4 % (0-4); Mean Corpuscular Volume 81.3 fL (83.0-100.0); Segmented Neutrophils % 57.8 %
[2022-07-29 08:38] LABS: Eosinophils # 0.1 K/mcL (0.0-0.6); Eosinophils % 3.1 %; Hematocrit 22.2 % (37.5-50.1); Immature Platelets 4.9 % (1.1-6.1); Lymphocytes # 0.6 K/mcL (0.6-4.6); Lymphocytes % 24.5 %; Mean Corpuscular HGB Conc 30.6 g/dL (31.6-35.5); Mean Corpuscular Hemoglobin 24.9 pg (28.0-33.3); Mean Platelet Volume 10.3 fL (9.4-12.4); Monocytes # 0.4 K/mcL (0.0-1.3); Monocytes % 13.8 %; Neutrophils # 1.5 K/mcL (1.6-8.9); Red Blood Count 2.73 M/mcL (4.19-5.50); Red Cell Distribution Width 17.7 % (11.5-14.5); White Blood Count 2.6 K/mcL (4.3-11.1)
[2022-07-29 08:42] LABS: Platelet Count 66 K/mcL (140-400)
[2022-07-29] MEDS: *HR* Dabigatran 150 MG CAPSULE PO SCH ×2 (08:48→20:10)
[2022-07-29 08:55] LABS: Calcium 8.1 mg/dL (8.6-10.3); Potassium 2.9 mEq/L (3.5-5.1)
[2022-07-29 08:56] LABS: % Iron Saturation 4 % (20-55); Iron 13 mcg/dL (65-175); Transferrin 241 mg/dL (203-362)
[2022-07-29 09:45] LABS: Platelet Estimate Decreased (Normal); Reactive Lymphocytes Present (Not Present)
[2022-07-29] MEDS: Ringers Solution, Lactated 1,000 ML IVC SCH (12:03)
[2022-07-29] MEDS: Gentamicin Oint 15 GM TUBE TP SCH (17:08)
[2022-07-30] MEDS: Ringers Solution, Lactated 1,000 ML IVC SCH ×2 (01:53→15:21)
[2022-07-30] MEDS ORDERED: 0.9 % Sodium Chloride 250 ML IVC SCH (09:30)
[2022-07-30] MEDS: *HR* Dabigatran 150 MG CAPSULE PO SCH ×2 (09:33→21:37)
[2022-07-30] MEDS: Gentamicin Oint 15 GM TUBE TP SCH (09:34)
[2022-07-30 14:06] LABS: Mean Platelet Volume 10.7 fL (9.4-12.4)
[2022-07-30 14:08] LABS: Hemoglobin 6.6 g/dL (12.9-16.9); Immature Platelets 5.3 % (1.1-6.1); Mean Corpuscular Hemoglobin 24.4 pg (28.0-33.3); Mean Corpuscular Volume 81.2 fL (83.0-100.0); Red Blood Count 2.71 M/mcL (4.19-5.50); Red Cell Distribution Width 18.1 % (11.5-14.5); White Blood Count 2.4 K/mcL (4.3-11.1)
[2022-07-30 14:31] LABS: Calcium 8.4 mg/dL (8.6-10.3); Potassium 3.1 mEq/L (3.5-5.1)
[2022-07-30 19:43] LABS: Hematocrit 26.3 % (37.5-50.1); Hemoglobin 8.1 g/dL (12.9-16.9)
[2022-07-31 05:43] LABS: Monocytes % 8.9 %
[2022-07-31 05:45] LABS: Basophils % 0.6 %; Eosinophils # 0.2 K/mcL (0.0-0.6); Eosinophils % 5.2 %; Hemoglobin 7.6 g/dL (12.9-16.9); Immature Granulocytes % 0.6 % (0-4); Immature Platelets 5.2 % (1.1-6.1); Lymphocytes % 27.5 %; Mean Corpuscular HGB Conc 30.4 g/dL (31.6-35.5); Mean Corpuscular Hemoglobin 25.1 pg (28.0-33.3); Mean Corpuscular Volume 82.5 fL (83.0-100.0); Mean Platelet Volume 10.2 fL (9.4-12.4); Monocytes # 0.3 K/mcL (0.0-1.3); Red Blood Count 3.03 M/mcL (4.19-5.50); Red Cell Distribution Width 17.6 % (11.5-14.5); Segmented Neutrophils % 57.2 %; White Blood Count 3.5 K/mcL (4.3-11.1)
[2022-07-31 05:50] LABS: Calcium 8.6 mg/dL (8.6-10.3); Phosphorous 3.2 mg/dL (2.7-4.5); Potassium 3.5 mEq/L (3.5-5.1)
[2022-07-31 05:56] LABS: Platelet Count 88 K/mcL (140-400)
[2022-07-31 06:10] LABS: Anisocytosis 1+ (Not Present); Platelet Estimate Decreased (Normal)
[2022-07-31 06:11] LABS: Polychromasia 1+ (Not Present)
[2022-07-31] MEDS: Ringers Solution, Lactated 1,000 ML IVC SCH ×2 (08:45→17:02)
[2022-07-31] MEDS: *HR* Dabigatran 150 MG CAPSULE PO SCH (08:47)
[2022-07-31 10:11] LABS: Sodium, Urine 64.2 mEq/L
[2022-07-31] MEDS: Gentamicin Oint 15 GM TUBE TP SCH (11:43)
[2022-07-31 14:34] LABS: Calcium 8.6 mg/dL (8.6-10.3); Potassium 3.7 mEq/L (3.5-5.1)
[2022-07-31 14:59] VITALS: BP 139/70; PULSE 67; TEMP 98.1; O2SAT 98
== END 2022-07-31 17:46 | disposition home or self-care (01) | DRG 872 ==
LOC: EMEROOARM 12:21 → 3ANU 12:21 → SUATTDRO 16:49 → 3ANU 19:27 → SUATTDRO 07-27 16:43
PROVIDERS: ADMIT Student in an Organized Health Care Education/Training Program; ATTEND Internal Medicine